=== PATIENT | male | born 1960 | race Caucasian/White ===

== ENCOUNTER 2023-04-26 19:31 | Emergency (ER) | payer BC, SELFPAY ==
[2023-04-26 19:34] VITALS: BP 135/73; PULSE 50; RESP 16; TEMP 36.8; O2SAT 96; BMI 30.8
--- NOTE | 2023-04-26 19:57 | ED.NECK1 ---
HPI - Neck Pain/Injury General Chief Complaint: Neck Pain/Injury Stated Complaint: NECK PAIN Time Seen by Provider: 04/26/23 19:53 Source: patient Mode of arrival: walk-in Limitations: no limitations History of Present Illness HPI Narrative: presents complaining of neck pain since this past Wednesday. States similar problem a couple of months ago. States improved after steroids. Was also prescribed muscle relaxers but did not feel they helped. No injury. States increased pain. No involvement of his extremities or head. Pain turning either way but can tolerate turning to the right but increased pain turning to the left. No fever. No dizziness or injury MD complaint: Reports neck pain Onset (ago): day(s) Related Data Home Medications Medication Instructions Recorded Confirmed rivaroxaban 20 mg tablet (Xarelto) mg 04/26/23 Allergies Allergy/AdvReac Type Severity Reaction Status Date / Time No Known Drug Allergies Allergy Verified 04/26/23 19:38 Review of Systems ROS Status of ROS 10 or more systems reviewed and unremarkable except as noted in history and below Ears, nose, mouth, and throat Reports: neck pain Exam Constitutional Vital Signs, click to edit/add: Last Vital Signs Temp 98.2 F 04/26/23 19:34 Pulse 50 L 04/26/23 19:34 Resp 16 04/26/23 19:34 BP 135/73 H 04/26/23 19:34 Pulse Ox 96 04/26/23 19:34 O2 Del Method Room Air 04/26/23 19:34 Common normals: average body habitus, oriented x3, no limitations, alert and well nourished HENID Common normals: normocephalic and head/scalp atraumatic Eye Common normals: PERRL, EOMs intact bilaterally and conjunctivae normal Neck & C-Spine Common normals: no JVD Other: tenderness left para cervical muscles. No swelling or deformity. Limited ability to turn head to the left due to pain Respiratory Common normals: normal respiratory effort, no retractions, no use of accessory muscles and clear to auscultation bilaterally Cardio Common normals: regular rate, regular rhythm, S1 normal heart sound and S2 normal heart sound GI Common normals: Normal to inspection, nondistended, normoactive bowel sounds present Extremity Common normals: normal to inspection, full ROM and no joint enlargement Neuro Common normals: oriented x3, CN's II-XII intact bilaterally, moves all extremities, no focal motor deficits and no sensory deficits noted Psych Appearance: grossly normal Course Vital Signs Vital signs: Vital Signs Temperature 98.2 F 04/26/23 19:34 Pulse Rate 50 L 04/26/23 19:34 Respiratory Rate 16 04/26/23 19:34 Blood Pressure 135/73 H 04/26/23 19:34 Pulse Oximetry 96 04/26/23 19:34 Oxygen Delivery Method Room Air 04/26/23 19:34 Temperature 98.2 F 04/26/23 19:34 Pulse Rate 50 L 04/26/23 19:34 Respiratory Rate 16 04/26/23 19:34 Blood Pressure 135/73 H 04/26/23 19:34 Pulse Oximetry 96 04/26/23 19:34 Oxygen Delivery Method Room Air 04/26/23 19:34 MDM - Neck Pain/Injury Differential Diagnosis Differential diagnosis: Likely torticollis and strain of neck muscle Medical Records Medical records narrative: patient clinically presents with torticollis. Similar neck pain 1-2 months ago and now has returned. No injury he is able to recall. Treated in the department with ativan, prednisone and magnesium and his pain has improved and he is now resting. Discharged home in soft collar and instructed to follow up with his doctor. Prescribed valium to use once qd prn . He states muscle relaxants last time did not help. Also prescribed prednisone Lab Data Labs: Lab Results 04/26/23 Range/Units 20:15 WBC 8.8 (4.0-11.0) 10^3/uL RBC 4.50 L (4.70-6.10) 10^6/uL Hgb 13.9 L (14.0-18.0) g/dL Hct 42.4 (42.0-54.0) % MCV 94.2 H (80.0-94.0) fL MCH 30.9 (25.9-34.0) pg MCHC 32.8 (29.9-35.2) g/dL RDW 13.5 (11.0-15.0) % Plt Count 169 (150-450) 10^3/uL MPV 10.1 (9.5-13.5) fL Neut % (Auto) 60.5 (43.0-75.0) % Lymph % (Auto) 28.4 (20.5-60.0) % [place] % (Auto) 8.5 (1.7-12.0) % Eos % (Auto) 1.5 (0.9-7.0) % Baso % (Auto) 0.8 (0.2-2.0) % Neut # (Auto) 5.3 (1.4-6.5) 10^3/uL Lymph # (Auto) 2.5 (1.2-3.8) 10^3/uL [place] # (Auto) 0.8 (0.3-0.8) 10^3/uL Eos # (Auto) 0.1 (0.0-0.7) 10^3/uL Baso # (Auto) 0.1 (0.0-0.1) 10^3/uL Abs Immat Gran (auto) 0.03 (0.00-0.03) 10^3/uL Imm/Tot Granulo (auto) 0.3 (0.0-0.5) % ESR 24 H (<=20) mm/hr Sodium 138 (136-145) mmol/L Potassium 4.2 (3.5-5.1) mmol/L Chloride 103 (98-107) mmol/L Carbon Dioxide 24.6 (21.0-32.0) mmol/L Anion Gap 14.6 BUN 17.0 (7.0-18.0) mg/dL Creatinine 1.32 H (0.70-1.30) mg/dL Est GFR ( Amer) >60 (>=60) Est GFR (Non-Af Amer) 55 L (>=60) BUN/Creatinine Ratio 12.9 Glucose 116 H (74-106) mg/dL Calcium 8.8 (8.5-10.1) mg/dL C-Reactive Protein <1.0 (<=1.0) mg/dL Discharge Plan Discharge Chief Complaint: Neck Pain/Injury Clinical Impression: Torticollis Patient Disposition: Home, Self-Care Prescriptions / Home Meds: No Action Xarelto 20 mg tablet Instructions: Spasmodic Torticollis (ED) Additional Instructions: follow up with your doctor this week for a recheck Stand Alone Forms: Portal Instructions Referrals: MORENA MARIE [Primary Care Provider] - 1 week
[2023-04-26 20:31] LABS: Basophils Absolute Auto 0.1 10^3/uL (0.0-0.1); Basophils Percent Auto 0.8 % (0.2-2.0); Eosinophils Absolute Auto 0.1 10^3/uL (0.0-0.7); Eosinophils Percent Auto 1.5 % (0.9-7.0); Hematocrit 42.4 % (42.0-54.0); Hemoglobin 13.9 g/dL (14.0-18.0); Immature Granulocytes Abs Auto 0.03 10^3/uL (0.00-0.03); Immature Granulocytes Pct Auto 0.3 % (0.0-0.5); Lymphocytes Absolute Auto 2.5 10^3/uL (1.2-3.8); Lymphocytes Percent Auto 28.4 % (20.5-60.0); Mean Corpuscular HGB Conc 32.8 g/dL (29.9-35.2); Mean Corpuscular Hemoglobin 30.9 pg (25.9-34.0); Mean Corpuscular Volume 94.2 fL (80.0-94.0); Mean Platelet Volume 10.1 fL (9.5-13.5); Monocytes Absolute Auto 0.8 10^3/uL (0.3-0.8); Monocytes Percent Auto 8.5 % (1.7-12.0); Neutrophils Absolute Auto 5.3 10^3/uL (1.4-6.5); Neutrophils Percent Auto 60.5 % (43.0-75.0); Platelet Count 169 10^3/uL (150-450); Red Cell Distribution Width 13.5 % (11.0-15.0); White Blood Count 8.8 10^3/uL (4.0-11.0)
[2023-04-26] MEDS: LORAZEPAM 2 MG/ML 1 ML VIAL 1 MG IV (20:34)
[2023-04-26] MEDS: METHYLPREDNISOLONE SOD SUCC PF 125 MG/2 ML VIAL IVP (20:34)
[2023-04-26] MEDS: MAGNESIUM SULFATE IN WATER 50 ML IV (20:35)
[2023-04-26 20:40] LABS: Erythrocyte Sedimentation Rate 24 mm/hr (<=20)
[2023-04-26 20:41] LABS: Anion Gap 14.6; BUN Creatinine Ratio 12.9; C Reactive Protein <1.0 mg/dL (<=1.0); Calcium 8.8 mg/dL (8.5-10.1); Carbon Dioxide 24.6 mmol/L (21.0-32.0); Chloride 103 mmol/L (98-107); Estimated GFR (African America >60 (>=60); Estimated GFR (Non-African Ame 55 (>=60); Glucose 116 mg/dL (74-106); Potassium 4.2 mmol/L (3.5-5.1); Sodium 138 mmol/L (136-145)
== END 2023-04-26 21:50 | disposition home or self-care (01) ==
PROVIDERS: Emergency Provider Internal Medicine; PCP Family Medicine
DX: M43.6 Torticollis (principal)
CPT/HCPCS: 36415; 80048; 85025; 85652; 86140; 96365; 96375; 99284; J2930

== ENCOUNTER 2023-05-27 19:18 | Emergency (ER) | payer BC, SELFPAY ==
[2023-05-27 19:20] VITALS: BP 110/81; PULSE 68; RESP 18; TEMP 36.9; O2SAT 98
--- NOTE | 2023-05-27 19:41 | ED_ITS ---
HPI - Neck Pain/Injury General Chief Complaint: Neck Pain/Injury Stated Complaint: NECK PAIN Time Seen by Provider: 05/27/23 19:20 Source: patient Mode of arrival: walk-in Limitations: no limitations History of Present Illness HPI Narrative: Patient is a 63-year-old male who returns to the emergency Department for pain in the right side of the neck. Patient was seen in this emergency department three months ago, he had unremarkable x-rays of the cervical spine and was discharged home. He returned one month ago for torticollis. He reports the same today, increasing neck pain over the last week. He denies any falls or injuries. He has not followed up with primary care provider after any of his previous emergency room visits. He has had no pain radiation to the upper extremities, no numbness or tingling. He reports pain to the right side of the neck radiating into the right trapezius. He is on Xarelto, no medications taken prior to arrival. Related Data Home Medications Medication Instructions Recorded Confirmed rivaroxaban 20 mg tablet (Xarelto) mg 04/26/23 Previous Rx's Medication Instructions Recorded methocarbamol 750 mg tablet 750 mg PO TID PRN pain #20 tabs 05/27/23 methylprednisolone 4 mg tablets in See Rx Instructions .Route 05/27/23 a dose pack (Medrol (Abimael)) .COMPLEX #21 ea tramadol 50 mg tablet 50 mg PO Q4H PRN pain #15 tabs 05/27/23 Allergies Allergy/AdvReac Type Severity Reaction Status Date / Time No Known Drug Allergies Allergy Verified 04/26/23 19:38 Review of Systems ROS Constitutional Denies: fever or chills Ears, nose, mouth, and throat Reports: neck pain; Denies: throat pain Cardiovascular Denies: chest pain Respiratory Denies: shortness of breath or cough Gastrointestinal Denies: nausea or vomiting Musculoskeletal Denies: back pain Integumentary/Breast Denies: rash Neurological Denies: headache Exam Narrative Exam Narrative: Gen.: Awake, alert, in no distress Head: Normocephalic, atraumatic ENT: Moist mucous membranes Neck: No bony point tenderness of the cervical spine, diffuse mild tenderness of the right paraspinal muscles of the cervical spine and right trapezius muscle. Respiratory: No respiratory distress Extremities: Moves extremities equally, no injuries noted; normal seafood manager strength in the bilateral hands, normal flexion and extension of the upper extremities. 2+ radial pulses bilaterally Psych: Normal mood and affect Neuro: No focal neuro deficit Skin: Warm, dry, intact Constitutional Vital Signs, click to edit/add: Last Vital Signs Temp 98.4 F 05/27/23 19:20 Pulse 68 05/27/23 19:20 Resp 18 05/27/23 19:20 BP 110/81 05/27/23 19:20 Pulse Ox 98 05/27/23 19:20 O2 Del Method Room Air 05/27/23 19:20 Course Vital Signs Vital signs: Vital Signs Temperature 98.4 F 05/27/23 19:20 Pulse Rate 68 05/27/23 19:20 Respiratory Rate 18 05/27/23 19:20 Blood Pressure 110/81 05/27/23 19:20 Pulse Oximetry 98 05/27/23 19:20 Oxygen Delivery Method Room Air 05/27/23 19:20 Temperature 98.4 F 05/27/23 19:20 Pulse Rate 68 05/27/23 19:20 Respiratory Rate 18 05/27/23 19:20 Blood Pressure 110/81 05/27/23 19:20 Pulse Oximetry 98 05/27/23 19:20 Oxygen Delivery Method Room Air 05/27/23 19:20 MDM - Neck Pain/Injury MDM Narrative Medical decision making narrative: Patient treated with a low dose of intramuscular Toradol in the emergency department. He is driving himself home. We will avoid any additional NSAIDs as he is on anticoagulation. He was placed on a Medrol Dosepak, Robaxin, Ultram. He was referred to a new primary care provider. He was strongly encouraged to follow-up as any further evaluation is limited from the emergency department. He has no radicular symptoms, no new falls or injuries. Return to the Emergency Room if symptoms change or worsen. Medical Records Attestation: I reviewed the patient's medical records. Discharge Plan Discharge Chief Complaint: Neck Pain/Injury Clinical Impression: Torticollis Patient Disposition: Home, Self-Care Time of Disposition Decision: 19:33 Condition: Good Prescriptions / Home Meds: New methocarbamol 750 mg tablet 750 mg PO TID PRN (Reason: pain) Qty: 20 0RF methylprednisolone [Medrol (Abimael)] 4 mg tablets,dose pack See Rx Instructions .ROUTE .COMPLEX Qty: 21 0RF Rx Instructions: Taper as directed tramadol 50 mg tablet 50 mg PO Q4H PRN (Reason: pain) Qty: 15 0RF Rx Instructions: DX: M43.6 No Action Xarelto 20 mg tablet Instructions: Neck Pain (ED) Stand Alone Forms: Portal Instructions Referrals: MORENA MARIE [Primary Care Provider] - 1 week
--- NOTE | 2023-05-27 19:41 | PC.NURSE ---
patient reports increasing neck pain for past few days. states it gets worse with movement. denies any injury. states same thing happened a few months ago and he received medication in the ER that helped at that time.
[2023-05-27] MEDS: KETOROLAC TROMETHAMINE 30 MG/ML VIAL IM (19:49)
== END 2023-05-27 19:54 | disposition home or self-care (01) ==
PROVIDERS: Emergency Provider Emergency Medicine; PCP Family Medicine
DX: M43.6 Torticollis (principal); Z79.01 Long term (current) use of anticoagulants
CPT/HCPCS: 96372; 99284

== ENCOUNTER 2024-09-16 12:45 | Emergency (ER) | payer BC, SELFPAY ==
[2024-09-16 12:48] VITALS: BP 117/85; PULSE 65; TEMP 37.3; O2SAT 99; BMI 30.6
--- NOTE | 2024-09-16 13:00 | ED.URI1 ---
HPI - URI/Sore Throat General Chief Complaint: Upper Respiratory Infection Stated Complaint: urti complaints Time Seen by Provider: 09/16/24 12:51 Source: patient Limitations: no limitations History of Present Illness HPI Narrative: 64-year-old male presents for head congestion and slight cough. He feels pressure in his face and in his ears and he is worried about a sinus infection. He feels that he needs an antibiotic. He has had the symptoms for 10 days; no fever or vomiting. Related Data Home Medications ?Medication ?Instructions ?Recorded ?Confirmed rivaroxaban 20 mg tablet (Xarelto) mg 04/26/23 Previous Rx's ?Medication ?Instructions ?Recorded methocarbamol 750 mg tablet 750 mg PO TID PRN pain #20 tabs 05/27/23 methylprednisolone 4 mg tablets in See Rx Instructions .Route 05/27/23 a dose pack (Medrol (Abimael)) .COMPLEX #21 ea tramadol 50 mg tablet 50 mg PO Q4H PRN pain #15 tabs 05/27/23 cetirizine 5 mg-pseudoephedrine ER 1 tab PO BID #14 tabs 09/16/24 120 mg tablet,extended release,12hr (Zyrtec-D) sulfamethoxazole 800 1 tab PO BID 10 days #20 tabs 09/16/24 mg-trimethoprim 160 mg tablet (Bactrim DS) Allergies Allergy/AdvReac Type Severity Reaction Status Date / Time No Known Drug Allergies Allergy Verified 09/16/24 12:53 Review of Systems ROS Narrative A ten point review of systems is negative except as noted above. PFSH PFSH Social History Little interest or pleasure in doing things: not at all Feeling down, depressed, or hopeless: not at all Exam Narrative Exam Narrative: Nurses note and vital signs reviewed and patient is not hypoxic. General: The patient appears well and in no apparent distress. Patient is resting comfortably on cart. Skin: Warm, dry, no pallor noted. There is no rash noted. Head: Normocephalic, atraumatic Eye: Normal conjunctiva, no drainage Ears, Nose, Mouth, and Throat: oral mucosa is moist. Nares patent. TMs and external canals are normal. No pharyngeal erythema or exudate or swelling. Uvula midline. Cardiovascular: Regular Rate and Rhythm Respiratory: Patient is in no distress, no accessory muscle use, lungs are clear to auscultation, no wheezing, rales or rhonchi Back: non-tender GI: Soft and nontender Musculoskeletal: The patient has no evidence of calf tenderness, no pitting edema, symmetrical pulses noted bilaterally Neurological: A&O, normal speech Psychiatric: Cooperative Constitutional Vital Signs, click to edit/add: Last Vital Signs Temp 99.1 F 09/16/24 12:48 Pulse 65 09/16/24 12:48 Resp 20 09/16/24 12:48 BP 117/85 09/16/24 12:48 Pulse Ox 99 09/16/24 12:48 O2 Del Method Room Air 09/16/24 12:48 Course Vital Signs Vital signs: Vital Signs Temperature 99.1 F 09/16/24 12:48 Pulse Rate 65 09/16/24 12:48 Respiratory Rate 20 09/16/24 12:48 Blood Pressure 117/85 09/16/24 12:48 Pulse Oximetry 99 09/16/24 12:48 Oxygen Delivery Method Room Air 09/16/24 12:48 Temperature 99.1 F 09/16/24 12:48 Pulse Rate 65 09/16/24 12:48 Respiratory Rate 20 09/16/24 12:48 Blood Pressure 117/85 09/16/24 12:48 Pulse Oximetry 99 09/16/24 12:48 Oxygen Delivery Method Room Air 09/16/24 12:48 MDM - URI/Sore Throat MDM Narrative Medical decision making narrative: The patient likely has sinusitis. He is prescribed Bactrim and Zyrtec-D. Treatment diagnosis and follow-up were discussed with the patient. Differential Diagnosis Differential diagnosis: Likely upper respiratory infection, otitis media, sinusitis, viral infection and bronchitis Discharge Plan Discharge Chief Complaint: Upper Respiratory Infection Clinical Impression: Upper respiratory infection Patient Disposition: Home, Self-Care Time of Disposition Decision: 12:58 Condition: Good Mode of Transportation: Private Vehicle Prescriptions / Home Meds: New sulfamethoxazole-trimethoprim [Bactrim DS] 800-160 mg tablet 1 tab PO BID 10 Days Qty: 20 0RF cetirizine-pseudoephedrine [Zyrtec-D] 5-120 mg tablet extended release 12 hr 1 tab PO BID Qty: 14 0RF No Action Xarelto 20 mg tablet methocarbamol 750 mg tablet 750 mg PO TID PRN (Reason: pain) Qty: 20 0RF methylprednisolone [Medrol (Abimael)] 4 mg tablets,dose pack See Rx Instructions .ROUTE .COMPLEX Qty: 21 0RF Rx Instructions: Taper as directed tramadol 50 mg tablet 50 mg PO Q4H PRN (Reason: pain) Qty: 15 0RF Rx Instructions: DX: M43.6 Print Language: Upper Sorbian Instructions: Upper Respiratory Infection (ED) Referrals: MORENA MARIE [Primary Care Provider] - 1 week
[2024-09-16 13:09] VITALS: O2SAT 98
== END 2024-09-16 13:14 | disposition home or self-care (01) ==
PROVIDERS: Emergency Provider Emergency Medicine; PCP Family Medicine
DX: J06.9 Acute upper respiratory infection, unspecified (principal)
CPT/HCPCS: 99283

== ENCOUNTER 2025-08-03 07:01 | Outpatient (OUT) | payer BC, SELFPAY ==
--- OUTSIDE RECORDS SUMMARY | 2025-07-27 07:06 | XMS_ITS | Clinical Summary ---
Author Organization [facility] Address [address] [place] [address] Care Team Providers Care Page Makeup System Operator Name Role Phone Yunier Simpson MD Primary Care Provider [phone] Allergies No known active allergies Medications Rivaroxaban (Xarelto) 1 MG/ML reconstituted suspension Xarelto Active Social History Tobacco Use Types Packs/Day Years Used Date Smoking Tobacco: Never Assessed Sex and Gender Information Value Date Recorded Sex Assigned at Not on file Legal Sex Male 7:01 PM EDT Gender Identity Not on file Sexual Orientation Not on file Last Filed Vital Signs Vital Sign Reading Time Taken Comments Blood Pressure 116/62 11/16/2024 10:00 AM EST Pulse 75 11/16/2024 10:00 AM EST Temperature 36.2 C (97.2 F) 11/16/2024 10:00 AM EST Respiratory Rate - - Oxygen Saturation 98% 11/16/2024 10:00 AM EST Inhaled Oxygen Concentration - - Weight 108 kg (239 lb) 12/26/2021 12:00 PM EDT Height 185.4 cm (6' 1 ) 12/26/2021 12:00 PM EDT Body Mass Index 31.53 12/26/2021 12:00 PM EDT Plan of Treatment Not on file Insurance * Guarantor: Forrest Serrano Account Type Relation to Patient Date of Phone Billing Address Personal/Family Self [address] [place] [id number] BS Care Teams Page Makeup System Operator Relationship Specialty Start Date End Date Yunier Simpson MD [address] [place] [address] PCP - General Family Medicine 11/16/24
--- OUTSIDE RECORDS SUMMARY | 2025-07-27 07:06 | XMS_ITS | Encounter Summary ---
Author Organization [facility] Address [address] [place] [id number] Care Team Providers Care Aids Social Worker Name Role Phone Yunier Simpson Primary Care Provider [phone] Source Comments In the event this information is protected by the Federal Confidentiality of Alcohol and Drug AbusePatient Records regulations: The Federal rules restrict any use of the information to criminally investigate or prosecute any alcohol or drug abuse patient.[facility] Encounter Details Date Type Department Care Team (Late st Contact Info) Description 02/27/2022 Patient Msg Orthopaedics [address] [id number] Provider, [facility] Back to work Social History Tobacco Use Types Packs/Day Years Used Date Smoking Tobacco: Never Smokeless Tobacco: Never Alcohol Use Standard Drinks/Week Comments Not Currently 0 (1 standard drink = 0.6 oz pur e alcohol) rare Area Deprivation Index Answer Date Michael rded National Score (1-100), lower number is lower ri sk 60 02/27/2022 State Score (1-10), lower number is lower risk N ot on file 02/27/2022 Data from: https://www.neighborhoodatlas.medicine.[facility].edu/. Last address used for calculation [address] [place] [address] 02/27/2022 Sex and Gender Information Value Date Recorded Sex Assigned at Not on file Legal Sex Male 10:09 AM EDT Gender Identity Not on file Sexual Orientation Not on file COVID-19 Exposure Response Date Recorded In the last 10 days, have yo u been in contact with someone who was confirmed or suspected to have Coronavirus/COVID-19? No / Unsure 02/27/2022 8:31 AM EDT documented as of this encounter Plan of Treatment Not on file documented as of this encounter Visit Diagnoses Not on filedocumented in this encounter Care Teams Aids Social Worker Relationship Specialty Start Date End Date Yunier Simpson DO [address] [place] [address] PCP - General Family Medicine 12/30/21 documented as of this encounter
--- OUTSIDE RECORDS SUMMARY | 2025-07-27 07:06 | XMS_ITS | Encounter Summary ---
Author Organization [facility] Address [address] [place] [address] Care Team Providers Care Real Estate Leasing Agent Name Role Phone KarisydniYunier DO Primary Care Provider [phone] Source Comments In the event this information is protected by the Federal Confidentiality of Alcohol and Drug AbusePatient Records regulations: The Federal rules restrict any use of the information to criminally investigate or prosecute any alcohol or drug abuse patient.[facility] Reason for Visit * Reason Comments Radiology XR Encounter Details Date Type Department Care Team (Late st Contact Info) Description 01/23/2022 Radiology Radiology [address] [place], [place] [id number] Rosa Conklin RT(R) Radiology XR Social History Tobacco Use Types Packs/Day Years Used Date Smoking Tobacco: Never Smokeless Tobacco: Never Sex and Gender Information Value Date Recorded Sex Assigned at Not on file Legal Sex Male 10:09 AM EDT Gender Identity Not on file Sexual Orientation Not on file documented as of this encounter Progress Notes * Rosa Conklin RT(R) - 01/23/2022 10:07 AM EDT Radiology Service Progress Note PATIENT NAME: Forrest Serrano DATE OF SERVICE: January 23, 2022 TIME: 10:07 AM PATIENT IDENTITY VERIFICATION COMPLETED USING TWO (2) IDENTIFIERS: Name and Date of confirmedby patient verbally. FALL SCREENING: Has the patient had 2 falls in the last year or 1 fall with injury or currently using an Ambulatory Assistive Device (Walker, Cane, Wheelchair, Crutches, etc.)? No PATIENT GENDER DATA: Male PATIENT RELEVANT IMPLANT DATA REVIEWED: Not Applicable RADIOLOGY DEPARTMENT: General X-ray: Exam(s) Completed: Upper Extremity X- Ray(s): Shoulder, AP / TRUE AP / AXILLARY / SUPRA OUTLET right PERIPHERAL IV DATA: Not applicable SIGNED BY: RT Danis(R) January 23, 2022 10:07 AM documented in this encounter Plan of Treatment Not on file documented as of this encounter Visit Diagnoses Not on filedocumented in this encounter Care Teams Real Estate Leasing Agent Relationship Specialty Start Date End Date Yunier Simpson DO [address] [place] [address] PCP - General Family Medicine 12/30/21 documented as of this encounter
--- OUTSIDE RECORDS SUMMARY | 2025-07-27 07:06 | XMS_ITS | Clinical Summary ---
Author Organization [facility] Address [address] [place] [address] Care Team Providers Care Glass Robot Operator Name Role Phone Yunier Simpson DO Primary Care Provider [phone] Allergies No known active allergies Medications metFORMIN (GLUCOPHAGE) 500 mg tablet Take 500 mg by mouth. 09/22/2021 Active metoprolol tartrate, short acting, (LOPRESSOR) 50 mg tablet Take 50 mg by mouth once daily. 12/20/2021 Active XARELTO 10 mg tablet 20 mg. 12/20/2021 Active Active Problems Problem Noted Date Diagnosed Date S/P right rotator cuff repair 06/04/2022 Rapid atrial fibrillation 02/11/2022 Assessment & Plan (02/11/2022 12:15 PM EDT): Assessment: -Stable EKG NSR today Continue- Xarelto and Metoprolol [place] [facility] [place] DM2 (diabetes mellitus, type 2) 02/11/2022 Assessment & Plan (02/11/2022 12:17 PM EDT): Assessment: Stable On metformin Traumatic complete tear of right rotator cuff Nondisplaced fracture of acr omial process, right shoulder, initial encounter for closed fracture 01/31/2022 Glenoid fracture of shoulder , right, closed, initial encounter 01/31/2022 Social History Tobacco Use Types Packs/Day Years Used Date Smoking Tobacco: Never Smokeless Tobacco: Never Alcohol Use Standard Drinks/Week Comments Not Currently 0 (1 standard drink = 0.6 oz pur e alcohol) [facility] Area Deprivation Index Answer Date Michael rded National Score (1-100), lower number is lower ri sk 60 10/23/2022 State Score (1-10), lower number is lower risk N ot on file 10/23/2022 Data from: https://www.neighborhoodatlas.medicine.[facility]/. Last address used for calculation [address] 10/23/2022 Sex and Gender Information Value Date Recorded Sex Assigned at Not on file Legal Sex Male 10:09 AM EDT Gender Identity Not on file Sexual Orientation Not on file Last Filed Vital Signs Vital Sign Reading Time Taken Comments Blood Pressure 111/61 02/13/2022 8:42 PM EDT Pulse 88 02/13/2022 8:42 PM EDT Temperature 36.4 C (97.5 F) 02/13/2022 8:16 PM EDT Respiratory Rate 16 02/13/2022 8:42 PM EDT Oxygen Saturation 93% 02/13/2022 8:42 PM EDT Inhaled Oxygen Concentration - - Weight 108 kg (238 lb) 02/13/2022 11:14 AM EDT Height 190.5 cm (6' 3 ) 02/13/2022 11:14 AM EDT Body Mass Index 29.75 02/13/2022 11:14 AM EDT Plan of Treatment Health Maintenance Due Date Last Done Comments HbA1C 1967 Diabetic Foot Exam 01/10/1972 Dilated Retinal Exam 01/10/1972 Urine Albumin:Creatinine Ratio 01/10/1972 Annual PCP Team Chronic Disease Visit 01/10/1980 Anxiety Screening 01/10/1980 Depression Screening 01/10/1980 HIV Screening 01/10/1980 Hepatitis C Screening 01/10/1980 LDL Cholesterol 01/10/1980 DTaP,Tdap,Td Vaccine (1 - Tdap) 1981 Pneumococcal Vaccine: 50+ (1 of 2 - PCV) 1981 CT Colonography 2007 Cologuard (FIT-DNA) 2007 Colonoscopy 2007 Colorectal Cancer Screening 2007 Fecal Occult Blood 2007 Prostate Cancer Screening Discussion 2007 Sigmoidoscopy 2007 Shingrix Vaccine (1 of 2) 01/10/2012 Covid-19 Vaccine ( - season) 2025 Influenza Vaccine (#1) 2025 RSV Vaccine (1 - 1-dose 75+ series) 2037 Medical Devices Implanted Type Area Break Out Worker Device Identifier Shelf Expiration Date Model / Serial / Lot System Speedbridge Fibertape Swivelock 5.5mm Biocomposite 24mm Endoscopic - [id number] Implanted:Qty: 1 on 02/13/2022 at [facility] Implant Right: Bone - Shoulder [employer] 08/10/2025 [id number] S-5 / / [id number] System Speedbridge Fibertape Swivelock 5.5mm Biocomposite 24mm Endoscopic - [id number] Implanted:Qty: 1 on 02/13/2022 at [facility] Implant Right: Bone - Shoulder [employer] 08/10/2025 [id number] S-5 / / [id number] Insurance [address] PPO Care Teams Glass Robot Operator Relationship Specialty Start Date End Date Yunier Simpson DO [address] [facility] [place] [address] PCP - General Family Medicine 12/30/21
--- OUTSIDE RECORDS SUMMARY | 2025-07-27 07:06 | XMS_ITS | Encounter Summary ---
Author Organization [facility] Address [address] [place] [id number] Care Team Providers Care Pool Attendant Name Role Phone Yunier Simpson Primary Care Provider [phone] Source Comments In the event this information is protected by the Federal Confidentiality of Alcohol and Drug AbusePatient Records regulations: The Federal rules restrict any use of the information to criminally investigate or prosecute any alcohol or drug abuse patient.[facility] Encounter Details Date Type Department Care Team (Late st Contact Info) Description 02/01/2022 Get Medical Advice Orthopaedics [address] [place] [address] [place] [address] [place] [id number] Anesthesia appointment Social History Tobacco Use Types Packs/Day Years [...] suspected to have Coronavirus/COVID-19? No / Unsure 02/04/2022 4:27 PM EDT documented as of this encounter Plan of Treatment Not on file documented as of this encounter Visit Diagnoses Not on filedocumented in this encounter Care Teams Pool Attendant Relationship Specialty Start Date End Date Yunier Simpson DO [address] [place] [address] PCP - General Family Medicine 12/30/21 documented as of this encounter
--- OUTSIDE RECORDS SUMMARY | 2025-07-27 07:06 | XMS_ITS | Clinical Summary ---
Author Organization [facility] Address [address] [place] [phone] Care Team Providers Care Store Operations Associate Name Role Phone Unavailable Primary Care Provider Unavailabl e Allergies No known active allergies Medications Xarelto 20 MG tablet Take 1 tablet by mouth every evening. 10/08/2023 Active Latanoprost 0.005 % Solution ophthalmic solution Place 1 drop in both eyes at bedtime. 11/26/2023 Active Methocarbamol 750 MG tablet Take 1 tablet by mouth 4 times daily as needed for Muscle spasms or Severe Pain. 30 tablet 3 12/09/2023 Active Active Problems Problem Noted Date Diagnosed Date Bilateral occipital neuralgia 12/20/2023 Cervicogenic headache 12/20/2023 DM2 (diabetes mellitus, type 2) 02/11/2022 Overview (12/09/2023): Last Assessment & Plan: Assessment: Stable On metformin Family History Medical History Relation Name Comments Heart Disease - Other Father Sanket Pryor Colorectal Cancer Mother Sridevi Pryor Dementia Mother Sridevi Pryor Heart Disease - Other Mother Sridevi Pryor A-Fib Relation Name Status Comments Father Sanket Pryor Mother Sridevi Pryor Social History Tobacco Use Types Packs/Day Years Used Date Smoking Tobacco: Never Tobacco Cessation:Counseling Given: Not Answered Alcohol Use Standard Drinks/Week Comments Yes 0 (1 standard drink = 0.6 oz pur e alcohol) Occasional beer Sex and Gender Information Value Date Recorded Sex Assigned at Not on file Legal Sex Male 9:56 AM EST Gender Identity Male 10/21/2023 5:20 PM EST Sexual Orientation Not on file Last Filed Vital Signs Vital Sign Reading Time Taken Comments Blood Pressure 129/76 12/09/2023 11:07 AM EST Pulse 87 12/09/2023 11:07 AM EST Temperature - - Respiratory Rate - - Oxygen Saturation - - Inhaled Oxygen Concentration - - Weight 116.7 kg (257 lb 3.2 oz) 024 11:07 AM EST Height 190.5 cm (6' 3 ) 12/09/2023 11:0 7 AM EST Body Mass Index 32.15 12/09/2023 11:07 AM EST Plan of Treatment Health Maintenance Due Date Last Done Comments HEPATITIS C VIRUS SCREENING 1962 TETANUS 1962 HIV SCREENING DISCUSSION 1977 TDAP (ADULT) 1981 LIPID SCREENING 2002 COLORECTAL CANCER SCREENING DISCUSSION 2007 PNEUMOCOCCAL VACCINE SERIES (1 of 1 - PCV) 01/10/2012 ZOSTER (SHINGLES) VACCINE (1 of 2) 01/10/2012 PROSTATE CANCER SCREENING DISCUSSION 2017 COVID-19 VACCINE ( - 2024-2 6 season) 2025 INFLUENZA VACCINE (#1) 2025 RSV VACCINE (1 - 1-dose 75+ series) 2037 HEP B VACCINE Aged Out No longer elig ible based on patient's age to complete this topic Insurance O PPO POS
--- OUTSIDE RECORDS SUMMARY | 2025-07-27 07:07 | XMS_ITS | CCD ---
Author Organization [facility] Care Team Providers Care Retail Shift Manager Name Role Phone CAMRYN MERAZ Unavailable Unavailable CAMRYN MERAZ Unavailable Unavailable ROLANDO LOWE Unavailable Unavailable HELLEN VERA Unavailable Unavailable HAY, JENNIFER Unavailable Unavailable HAY, JENNIFER Unavailable Unavailable REQUEST, NONE LISTED Unavailable Unavailable KVNG HENDERSON V Unavailable Unavailable MERY, JENNIFER Unavailable Unavailable Yunier Simpson DO Primary Care Provider [phone] Yunier SIMPSON Primary Care Physician Yunier Simpsno DO Primary Care Provider Yunier Simpson DO Primary Care Provider [phone] RONAL NAGY Referring Unavailable FRANK, YUNIER A Primary Care Unavailable AMBRIZ, FELIZ Attending Unavailable KAPMADALYN, YUNIER A Primary Care Unavailable RICCHETTI, KATIE T Attending Unavailable AMBRIZ, FELIZ Referring Unavailable FRANK, YUNIER A Primary Care Unavailable KAPMADALYN, YUNIER A Primary Care Unavailable KAPMADALYN, YUNIER A Primary Care Unavailable RICCHETTI, KATIE T Referring Unavailable KAPMADALYN, YUNIER A Primary Care Unavailable RICCHETTI, KATIE T Referring Unavailable RICCHETTI, KATIE T Attending Unavailable FRANK, YUNIER A Primary Care Unavailable RICCHETTI, KATIE T Attending Unavailable KAPLE, YUNIER A Primary Care Unavailable RICCHETTI, KATIE T Referring Unavailable KAPLE, YUNIER A Primary Care Unavailable KAPLE, YUNIER A Primary Care Unavailable RICCHETTI, KATIE T Attending Unavailable RICCHETTI, KATIE T Admitting Unavailable KAPLE, YUNIER A Primary Care Unavailable RICCHETTI, KATIE T Referring Unavailable RenaJessie degroot Referring Unavailable Jessie Chase Attending Unavailable Unlisted, Physician Primary Care Unavailable Mary Ellen Weiner Unavailable RAMÍREZ HACKETT Attending Unavailable YUNIER SIMPSON Referring Unavailable Unavailable Primary Care Provider Unavailabl e Yunier Simpson DO Primary Care Provider [phone] Yunier SIMPSON Admitting Unavailable KAPYunier BERGMAN Attending Unavailable KAPYunier BERGMAN Attending Unavailable KAPMADALYN, Yunier Macdonald Attending Unavailable KAPMADALYN, Yunier Macdonald Attending Unavailable NONE, XXXX Referring Unavailable Arya Lisa Attending Unavaila Yunier Meza Admitting Unavailable Yunier SIMPSON Attending Unavailable SYDNI KABA Attending Unavailable SYDNI KABA Referring Unavailable Yunier Simpson MD Primary Care Provider Yunier Simpson DO Primary Care Provider [phone] Tri Berger APRN Attending Provider Yunier SIMPSON Attending Unavailable OPAL, YUNIER H Admitting Unavailable OPALYUNIER H Attending Unavailable Yunier SIMPSON Admitting Unavailable Yunier SIMPSON Attending Unavailable KAPMADALYN, Yunier Macdonald Attending Unavailable KAPMADALYN, Yunier Macdonald Attending Unavailable OPAL, YUNIER H Attending Unavailable OPALYUNIER H Admitting Unavailable Allergies Allergy Classification Reported Allergen(s) Allergy Type Date of Onset Reaction(s) Facility (1 source) No Known Medication Allergies; Translations: [No Known Medication Allergies] Propensity to adverse reactions to drug (disorder) [facility] Medications Current Medications Medication Drug Class(es) Dates Sig (Normalized) Sig (Original) albuterol 5 mg/ml inhalation solution (2 sources) beta2-Adrenergic Agonist Start: 10-06-2024 take 2.5 mg by inhalation every four hours for wheezing albuterol 0.5% Inh Salena 2.5 mg, 0.5 mL, Inhalation, q4hr for wheezing, 20 mL, Refill(s) 0, [facility]/pharmacy #[id number], 190, cm, 09/29/24 8:35:00 EST, Height/Length Dosing, 116.2, kg, 09/29/24 8:35:00 EST, Weight Dosing Start Date: 10/06/24 Status: Ordered Quantity: 20.0 Unit: mL Repeat number: 1 amoxicillin 500 mg oral capsule (2 sources) Penicillin-class Antibacterial Start: 10-31-2022 take 1 capsule by mouth every eight hours Amoxicillin 500 MG 1 capsule Orally three times a day for 10 day(s) Oct, Active amoxicillin 875 mg / clavulanate 125 mg oral tablet (1 source) Penicillin-class Antibacterial Start: 09-29-2024 End: 10-09-2024 take 1 tablet by mouth every twelve hours Augmentin 875 mg oral tablet = 1 tab(s), Oral, q12hr, X 10 day(s), # 20 tab(s), Refills(s) 0, Pharmacy: [facility]/pharmacy #[id number], 190, cm, 09/29/24 8:35:00 EST, Height/Length Dosing, 116.2, kg, 09/29/24 8:35:00 EST, Weight Dosing Start Date: 09/29/24 Stop Date: 10/09/24 Status: Ordered azithromycin 250 mg oral tablet (2 sources) Macrolide Antimicrobial Start: 11-09-2022 Azithromycin 250 MG 2 tablet on the first day, then 1 tablet daily for 4 days Orally Once a day for 5 day(s) Oct, Active carBAMazepine 200 mg oral tablet (1 source) Mood Stabilizer Start: 08-20-2023 take 1 tablet by mouth once at bedtime TEGretol 200 mg Tab See Instructions, 1 tab(s) Oral q hs, # 30 EA, Refills(s) 11, Pharmacy: [facility]/pharmacy #[id number], 190, cm, 08/20/23 9:32:00 EST, Height/Length Dosing, 115.3, kg, 08/20/23 9:32:00 EST, Weight Dosing Start Date: 08/20/23 Status: Ordered citalopram 20 mg oral tablet (2 sources) Serotonin Reuptake Inhibitor Start: 08-21-2023 take 1 tablet by mouth once daily citalopram 20 mg Tab 20 mg = 1 tab(s), Oral, Daily, # 90 tab(s), Refills(s) 1, Pharmacy: [facility]/pharmacy #[id number], 190, cm, 08/20/23 9:32:00 EST, Height/Length Dosing, 115.3, kg, 08/20/23 9:32:00 EST, Weight Dosing Start Date: 08/21/23 Status: Ordered docusate sodium 100 mg oral capsule (2 sources) Start: 02-12-2022 End: 03-14-2022 take 1 capsule by mouth twice daily docusate sodium (COLACE) 100 mg capsule Take 1 capsule by mouth twice daily. 60 capsule 0 02/12/2022 03/14/2022 Active Comment on above: Take 1 capsule by [facility] twice daily. fluticasone propionate 0.05 mg/actuat metered dose nasal spray (5 sources) Corticosteroid Start: 09-29-2024 Flonase 0.05 mg/inh Hinton 2 spray(s), Nasal, Daily, 16 gram, Refill(s) 0, each nostril, [facility]/pharmacy #[id number], 190, cm, 09/29/24 8:35:00 EST, Height/Length Dosing, 116.2, kg, 09/29/24 8:35:00 EST, Weight Dosing Start Date: 09/29/24 Status: Ordered Quantity: 16.0 Unit: g Repeat number: 1 Start: 09-29-2024 Flonase 0.05 m g/inh Hinton 2 spray(s), Nasal, Daily, 16 gram, Refill(s) 0, each nostril, [facility]/pharmacy #[id number], 190, cm, 09/29/24 8:35:00 EST, Height/Length Dosing, 116.2, kg, 09/29/24 8:35:00 EST, Weight Dosing Start Date: 09/29/24 Status: Ordered Start: 11-09-2022 take 2 spray(s) nasa l route once daily Fluticasone Propionate 50 MCG/ACT 2 sprays Nasally Once a day for 14 day(s) Oct, Active hydrocortisone 10 mg/ml / neomycin 3.5 mg/ml / polymyxin b [id number] unt/ml otic suspension (2 sources) Aminoglycoside Antibacterial, Polymyxin-class Antibacterial, Corticosteroid Start: 10-31-2022 Zkerknih-Uascfbvmw-AH [id number] 3 drops left ear Three times a day for 7 days Oct, Active Ipratropium (2 sources) Anticholinergic Start: 10-24-2024 Atrovent 0.03% Hinton 2 spray(s), Nasal, TID, 30 mL, Refill(s) 0, [facility], 190, cm, 10/24/24 13:58:00 EST, Height/Length Dosing, 115.8, kg, 10/24/24 13:58:00 EST, Weight Dosing Start Date: 10/24/24 Status: Ordered Quantity: 30.0 Unit: mL Repeat number: 1 Indication: Unspecified Eustachian tube disorder, unspecified ear Start: 10-24-2024 Atrovent 0.03% Hinton 2 spray(s), Nasal, TID, 30 mL, Refill(s) 0, [facility], 190, cm, 10/24/24 13:58:00 EST, Height/Length Dosing, 115.8, kg, 10/24/24 13:58:00 EST, Weight Dosing Start Date: 10/24/24 Status: Ordered latanoprost 0.05 mg/ml ophthalmic solution (9 sources) Prostaglandin Analog Start: 09-12-[address] 0.005 % drops Active DROPS OPHTHALMIC September 12, 2024 1:00am Complies with drug therapy Start: 12-17-2023 latanoprost Op th 0.005% Salena 1 drop(s), OPTH, Once a day (at bedtime) Start Date: 12/17/23 Status: Ordered Repeat number: 1 Start: 11-26-2023 take 1 drop(s) into the eye(s) at bedtime Latanoprost 0.005 % Solution ophthalmic solution Place 1 drop in both eyes at bedtime. 11/26/2023 Active metFORMIN hydrochloride 500 mg oral tablet (11 sources) Biguanide Start: 09-22-2021 End: 03-21-2022 metFORMIN (GLUCOPHAGE) 500 mg tablet Take 500 mg by mouth. 09/22/2021 Active Comment on above: Take 500 mg by mouth . methocarbamol 750 mg oral tablet (1 source) Muscle Relaxant Start: 12-09-2023 take 1 tablet by mouth four times daily as needed for pain Methocarbamol 750 MG tablet Take 1 tablet by mouth 4 times daily as needed for Muscle spasms or Severe Pain. 30 tablet 3 12/09/2023 Active methylPREDNISolone 4 mg oral tablet (9 sources) Corticosteroid Start: 10-24-2024 Medrol Dosepack 4 mg Tab = 1 packet(s), Oral, As Directed, as directed on package labeling, # 21 tab(s), Refills(s) 2, Pharmacy: [facility], 190, cm, 10/24/24 13:58:00 EST, Height/Length Dosing, 115.8, kg, 10/24/24 13:58:00 EST, Weight Dosing Start Date: 10/24/24 Status: Ordered Quantity: 21.0 Unit: tab(s) Repeat number: 3 Indication: Unspecified Eustachian tube disorder, unspecified ear Start: 08-20-2023 Medrol Dosepac k 4 mg Tab = 1 tab(s), Oral, As Directed, Take as directed on pack, # 1 EA, Refills(s) 2, Pharmacy: [facility]/pharmacy #[id number], 190, cm, 08/20/23 9:32:00 EST, Height/Length Dosing, 115.3, kg, 08/20/23 9:32:00 EST, Weight Dosing Start Date: 08/20/23 Status: Ordered Start: 08-29-2015 Depo-Medrol 40 mg Aug, 40 mg Medrol 4 MG as d irected Orally as directed for 6 days Active metoprolol tartrate 50 mg oral tablet (16 sources) beta-Adrenergic Dinesh Start: 01-26-2022 take 1 tablet by mouth twice daily Metoprolol tartrate 50 mg Tab 50 mg = 1 tab(s), Oral, BID, # 180 tab(s), Refills(s) 3, Pharmacy: [facility]/pharmacy #[id number], 190, cm, 01/01/22 15:19:00 EDT, Height/Length Dosing, 105, kg, 01/01/22 15:19:00 EDT, Weight Dosing Start Date: 01/26/22 Status: Ordered Start: 12-20-2021 take 1 tablet by hraika th once daily metoprolol tartrate, short acting, (LOPRESSOR) 50 mg tablet Take 50 mg by mouth once daily. 12/20/2021 Active Start: 12-20-2021 take 1 tablet by harika th twice daily metoprolol tartrate, short acting, (LOPRESSOR) 50 mg tablet Take 50 mg by mouth twice daily. 0 12/20/2021 Active Comment on above: Take 50 mg by mouth twice daily. Take 50 mg by mouth once daily. OneTouch Ultra - (2 sources) OneTouch Ultra - In Vitro for 90 Active oxyCODONE hydrochloride 5 mg oral tablet (1 source) Opioid Agonist Start: 2 End: 2 take 1 tablet by mouth every six hours as needed for pain oxyCODONE IR (ROXICODONE) 5 mg immediate release tablet Indications: Traumatic complete tear of right rotator cuff, subsequent encounter Take 1 tablet by mouth every 6 hours as needed for pain for up to 10 days. 35 tablet 0 02/12/2022 02/22/2022 Active Comment on above: Take 1 tablet by harika th every 6 hours as needed for pain for up to 10 days. rivaroxaban 20 mg oral tablet (20 sources) Factor Xa Inhibitor Start: 3 End: 5 take 1 tablet by mouth once daily Rivaroxaban (Xarelto) 20 mg tablet Active 20 MG PO Daily September 12, 2024 1:00am Complies with drug therapy Start: 01-14-2022 End: 2023 take 1 tablet by mouth once daily in the evening Xarelto 20 mg oral tablet 20 mg, Oral, qPM, AFIB and CrCl over 50 mL/minute - Take with evening meal, X 90 day(s), # 90 tab(s), Refills(s) 3, Pharmacy: [facility]/pharmacy #[id number], 190, cm, 01/01/22 15:19:00 EDT, Height/Length Dosing, 105, kg, 01/01/22 15:19:00 EDT, Weight Dosing Start Date: 01/14/22 Stop Date: 01/09/23 Status: Ordered Start: 12-20-2021 XARELTO 10 mg tablet 20 mg. 12/20/2021 Active Start: 12-20-2021 XARELTO 10 mg tablet Xarelto Active Comment on above: 20 mg. Rivaroxaban (Xarelto) 1 MG/M L reconstituted suspension (3 sources) Rivaroxaban (Xar elto) 1 MG/ML reconstituted suspension Xarelto Active Completed/Discontinued Medications Medication Drug Class(es) Dates Sig (Normalized) Sig (Original) cefTRIAXone (2 sources) Cephalosporin Antibacterial Start: 01-13-2018 Rocephin 500 mg Jan, 500 mg doxycycline monohydrate 100 mg oral tablet (4 sources) Tetracycline-class Drug Start: 11-16-2024 End: 11-26-2024 take 1 tablet by mouth once doxycycline (Adoxa) 100 MG tablet Indications: Acute cough Take 1 tablet (100 mg) by mouth every 12 (twelve) hours for 10 days Take with a full glass of water and do not lie down for at least 30 minutes after, avoid sun exposure 20 tablet 11/16/2024 11/26/2024 Start: 02-13-2022 End: 02-23-2022 take 1 capsule by mouth twice daily doxycycline hyclate (VIBRAMYCIN) 100 mg capsule Take 1 capsule by mouth twice daily for 10 days. 20 capsule 0 02/13/2022 02/23/2022 Active Comment on above: Take 1 capsule by [facility] twice daily for 10 days. Glucometer (18 sources) Start: 07-10-2021 Glucometer Glucometer, See Instructions, 1 EA, 0, Glucometer, [facility]/pharmacy #[id number], Supply, 190, cm, 06/27/21 15:40:00 EDT, Height/Length Dosing, 112, kg, 06/27/21 15:40:00 EDT, Weight Dosing Start Date: 07/10/21 Status: Ordered Quantity: 1.0 Unit: EA Repeat number: 1 Indication: Type 2 diabetes mellitus without complications Start: 07-10-2021 Glucometer Glu cometer, See Instructions, 1 EA, 0, Glucometer, [facility]/pharmacy #[id number], Supply, 190, cm, 06/27/21 15:40:00 EDT, Height/Length Dosing, 112, kg, 06/27/21 15:40:00 EDT, Weight Dosing Start Date: 07/10/21 Status: Ordered nebulizer (2 sources) Start: 10-13-2024 nebulizer nebu lizer, See Instructions, 1 EA, 0, nebulizer machine for med=neb treatments, [facility] #72, Supply, 190, cm, 09/29/24 8:35:00 EST, Height/Length Dosing, 116.2, kg, 09/29/24 8:35:00 EST, Weight Dosing Start Date: 10/13/24 Status: Ordered Quantity: 1.0 Unit: EA Repeat number: 1 Start: 10-13-2024 nebulizer nebu lizer, See Instructions, 1 EA, 0, nebulizer machine for med=neb treatments, [facility] #[facility], Supply, 190, cm, 09/29/24 8:35:00 EST, Height/Length Dosing, 116.2, kg, 09/29/24 8:35:00 EST, Weight Dosing Start Date: 10/13/24 Status: Ordered Problems Active Problems Problem Classification Problem Date Documented Da te Episodic/Chronic Aortic; peripheral; and visceral artery aneurysms (20 sources) Ascending aorta dilatation; Translations: [Dilatation of aorta] Onset: 3 01-01-2022 Chronic Cardiac dysrhythmias (20 sources) Rapid atrial fibrillation; Translations: [Unspecified atrial fibrillation] Onset: 2 Chronic Cardiac dysrhythmias (20 sources) Palpitations; Translations: [Tachycardia] 01-01-2022 Episodic Diabetes mellitus with complications (4 sources) Complication due to diabetes mellitus; Translations: [Type 2 diabetes mellitus with other specified complication] Onset: 4 Chronic Diabetes mellitus without complication (20 sources) Type 2 diabetes mellitus without complication; Translations: [Type 2 diabetes mellitus without complications] Onset: 2 Chronic Diabetes mellitus without complication (8 sources) Blood glucose abnormal; Translations: [Other abnormal glucose] Onset: 3 Episodic Disorders of lipid metabolism (20 sources) Dyslipidemia; Translations: [Familial hypercholesterolemia] Onset: 3 04-05-2019 Chronic External cause codes: Fall (2 sources) Other fall from one level to another, initial encounter; Translations: [Unspecified fall, initial encounter] Onset: 8 Glaucoma (6 sources) Primary open angle glaucoma; Translations: [Primary open-angle glaucoma, unspecified eye, stage unspecified] Onset: 4 Chronic Headache; including migraine (20 sources) Headache; Translations: [Cervicogenic headache] Onset: 4 01-01-2022 Episodic Influenza (2 sources) Influenza due to Influenza A virus; Translations: [Influenza due to other identified influenza virus with other respiratory manifestations] 11-16-2024 Episodic Nonspecific chest pain (14 sources) Atypical chest pain 06-12-2021 Episodic Osteoarthritis (18 sources) Osteoarthritis 01-06-2019 Chronic Other circulatory disease (14 sources) History of paroxysmal supraventricular tachycardia 06-12-2021 Episodic Other circulatory disease (2 sources) History of cerebrovascular disease; Translations: [Personal history of other diseases of the circulatory system] Onset: 2 Episodic Other connective tissue disease (4 sources) Pain in right hand; Translations: [PAIN IN RIGHT HAND] Onset: 8 Episodic Other connective tissue disease (18 sources) Cramp in lower limb 06-12-2021 Episodic Other connective tissue disease (18 sources) Impingement syndrome of shoulder region 08-28-2014 Episodic Comment on above: RIGHT Other ear and sense organ disorders (1 source) Unspecified acute noninfective otitis externa, left ear Episodic Other gastrointestinal disorders (1 source) Constipation, unspecified; Translations: [CONSTIPATION UNSPECIFIED] Onset: 8 Episodic Other hematologic conditions (14 sources) Increased serum protein level 01-12-2022 Episodic Other hematologic conditions (11 sources) ESR raised; Translations: [Elevated erythrocyte sedimentation rate] Onset: 3 Episodic Other injuries and conditions due to external causes (3 sources) Unspecified injury of thorax, initial encounter; Translations: [UNSPECIFIED INJURY THORAX INITIAL] Onset: 8 Episodic Other liver diseases (14 sources) Elevated liver enzymes level 01-01-2022 Episodic Other lower respiratory disease (2 sources) Cough; Translations: [Acute cough] 11-16-2024 Episodic Other nervous system disorders (1 source) Postoperative pain ; Translations: [Other acute postprocedural pain] 02-15-2022 Episodic Other non-traumatic joint disorders (2 sources) Pain in right shoulder; Translations: [Pain in joint, shoulder region] Onset: 2 02-15-2022 Episodic Other nutritional; endocrine; and metabolic disorders (20 sources) Obesity; Translations: [Obesity, unspecified] Onset: 3 08-28-2014 Chronic Other nutritional; endocrine; and metabolic disorders (18 sources) Simple obesity 04-10-2019 Chronic Other nutritional; endocrine; and metabolic disorders (6 sources) Obese class I; Translations: [Body mass index (BMI) 31.0-31.9, adult] Onset: 3 Chronic Other screening for suspected conditions (not mental disorders or infectious disease) (20 sources) Electrocardiogram abnormal; Translations: [Screening for malignant neoplasm of colon done] Onset: 3 01-01-2022 Episodic Other upper respiratory disease (3 sources) Allergic rhinitis; Translations: [Allergic rhinitis, unspecified] 09-12-2024 Chronic Other upper respiratory infections (4 sources) Chronic maxillary sinusitis; Translations: [Chronic maxillary sinusitis] Onset: 4 Chronic Other upper respiratory infections (2 sources) Viral upper respiratory tract infection; Translations: [Acute upper respiratory infection, unspecified] 09-12-2024 Episodic Otitis media and related conditions (5 sources) Otitis media, unspecified, bilateral; Translations: [Unspecified nonsuppurative otitis media, left ear] Onset: 5 Episodic Spondylosis; intervertebral disc disorders; other back problems (20 sources) Degeneration of cervical intervertebral disc; Translations: [Other cervical disc degeneration, unspecified cervical region] Onset: 3 Chronic Spondylosis; intervertebral disc disorders; other back problems (20 sources) Torticollis; Translations: [Torticollis] Onset: 3 Episodic Superficial injury; contusion (2 sources) Contusion of right hand, initial encounter; Translations: [Contusion of right front wall of thorax, initial encounter] Onset: 8 Episodic Syncope (2 sources) Syncope; Translations: [Syncope and collapse] 11-16-2024 Episodic Unclassified (18 sources) Rupture of rotator cuff of shoulder 12-19-2021 Unclassified (20 sources) Patient encounter status 06-02-2023 Past or Other Problems Problem Classification Problem Date Documented Da te Episodic/Chronic Fracture of upper limb (20 sources) Closed fracture of acromial process of scapula; Translations: [Displaced fracture of acromial process, right shoulder, initial encounter for closed fracture] Onset: 01-31-2022 Episodic Sprains and strains (15 sources) Traumatic rupture of rotator cuff; Translations: [Strain of muscle(s) and tendon(s) of the rotator cuff of right shoulder, initial encounter] Onset: 01-31-2022 Episodic Unclassified (1 source) Obese class I; Translations: [Obesity, class 1] Onset: 07-21-2024 Results Test Name Value Interpretation Reference Range Facility CBC w/Indiceson 07-06-2025 Erythrocyte distribution width (RBC) [Ratio] 13.4 % Normal 10.9-14.2 [facility] Comment on above: Performed By: #### 2 [id number] #### [facility] [address] [place] [address] Hematocrit (Bld) [Volume fraction] 39.1 % Normal 37.7-49.0 [facility] Comment on above: Performed By: #### 2 [id number] #### [facility] [address] [place] [address] Hemoglobin (Bld) [Mass/Vol] 13.9 g/dL Normal 13.5-17.5 [facility] Comment on above: Performed By: #### 2 [id number] #### [facility] [address] [place] [address] MCH (RBC) [Entitic mass] 33.2 pg Normal 27.0-34.0 [facility] Comment on above: Performed By: #### 2 [id number] #### [facility] [address] [place] [address] MCHC (RBC) [Mass/Vol] 35.5 g/dL Normal 31.4-36.0 [facility] Comment on above: Performed By: #### 2 [id number] #### [facility] [address] [place] [address] MCV (RBC) [Entitic vol] 93.4 fL Normal 80.0-100.0 [facility] Comment on above: Performed By: #### 2 [id number] #### [facility] [address] [place] [address] Platelet 158.0 E9/L Normal 150.0-500.0 [facility] Comment on above: Performed By: #### 2 [id number] #### [facility] [address] [place] [address] Platelet mean volume (Bld) [Entitic vol] 7.8 fL Normal 6.4-10.8 [facility] Comment on above: Performed By: #### 2 [id number] #### [facility] [address] [place] [address] RBC 4.2 E12/L Low 4.3-5.9 [facility] Comment on above: Performed By: #### 2 [id number] #### [facility] [address] [place] [address] RBC morphology finding Nom (Bld) NORMAL Invalid Interpretation Code [facility] Comment on above: Performed By: #### 2 [id number] #### [facility] [address] [place] [address] WBC 4.5 E9/L Normal 4.0-11.0 [facility] Comment on above: Performed By: #### 2 [id number] #### [facility] [address] [place] [address] CMPon 07-06-2025 Albumin [Mass/Vol] 3.8 g/dL Normal 3.3-5.0 [facility] Comment on above: Performed By: #### 2 [id number] #### [facility] [address] [place] [address] Albumin/Globulin [Mass ratio] 1.2 {ratio} Normal 1.1-2.2 [facility] Comment on above: Performed By: #### 2 [id number] #### [facility] [address] [place] [address] Alk Phos 54 Int._Unit/L Normal 21-98 [facility] Comment on above: Performed By: #### 2 [id number] #### [facility] [address] [place] [address] ALT 52 Int._Unit/L High 6-46 [facility] Comment on above: Performed By: #### 2 [id number] #### [facility] [address] [place] [address] Anion gap [Moles/Vol] 10 mmol/L Normal 6-16 [facility] Comment on above: Performed By: #### 2 [id number] #### [facility] [address] [place] [address] AST 36 Int._Unit/L Normal 5-43 [facility] Comment on above: Performed By: #### 2 [id number] #### [facility] [address] [place] [address] Bili Total 0.5 mg/dL Normal 0.0-1.1 [facility] Comment on above: Performed By: #### 2 [id number] #### [facility] [address] [place] [address] BUN/Creat Ratio 14 No Units Normal 10-20 [facility] Comment on above: Performed By: #### 2 [id number] #### [facility] [address] [place] [address] Calcium [Mass/Vol] 8.6 mg/dL Low 8.9-11.1 [facility] Comment on above: Performed By: #### 2 [id number] #### [facility] [address] [place] [address] Chloride [Moles/Vol] 104 mmol/L Normal 101-111 [facility] Comment on above: Performed By: #### 2 [id number] #### [facility] [address] [place] [address] CO2 [Moles/Vol] 24 mmol/L Normal 21-31 [facility] Comment on above: Performed By: #### 2 [id number] #### [facility] [address] [place] [address] Creatinine [Mass/Vol] 1.1 mg/dL Normal 0.5-1.3 [facility] Comment on above: Performed By: #### 2 [id number] #### [facility] [address] [place] [address] Globulin (S) [Mass/Vol] 3.1 g/dL Normal 1.4-4.0 [facility] Comment on above: Performed By: #### 2 [id number] #### [facility] [address] [place] [address] Glucose [Mass/Vol] 149 mg/dL Normal 55-199 [facility] Comment on above: Performed By: #### 2 [id number] #### [facility] [address] [place] [address] Potassium [Moles/Vol] 4.1 mmol/L Normal 3.5-5.3 [facility] Comment on above: Performed By: #### 2 [id number] #### [facility] [address] [place] [address] Protein [Mass/Vol] 6.9 g/dL Normal 6.0-7.8 [facility] Comment on above: Performed By: #### 2 [id number] #### [facility] [address] [place] [address] Sodium [Moles/Vol] 134 mmol/L Low 135-145 [facility] Comment on above: Performed By: #### 2 [id number] #### [facility] [address] [place] [address] Urea nitrogen [Mass/Vol] 16 mg/dL Normal 5-21 [facility] Comment on above: Performed By: #### 2 [id number] #### [facility] [address] [place] [address] Lipid Panelon 07-06-2025 LDL Direct NR Invalid Interpretation Code <=129 [facility] Comment on above: Performed By: #### 2 [id number] #### [facility] [address] [place] [address] VLDL NC Invalid Interpretation Code 7-40 [facility] Comment on above: Result Comment: 'VLD L RESULT NON-REPORTABLE WHEN TRIG > 1293 mg/dl' Performed By: #### 2 [id number] #### [facility] [address] [place] [address] Cholesterol [Mass/Vol] 218 mg/dL High 120-200 [facility] Comment on above: Performed By: #### 2 [id number] #### [facility] [address] [place] [address] Cholesterol in HDL [Mass/Vol] 19 mg/dL Invalid Interpretation Code [facility] Comment on above: Result Comment: '>= 60 LOW RISK' '<= 40 HIGH RISK' Performed By: #### 2 [id number] #### [facility] [address] [place] [address] Triglyceride [Mass/Vol] 1419 mg/dL High <=149 [facility] Comment on above: Result Comment: Resu lt Verified by Dilution Performed By: #### 2 [id number] #### [facility] [address] [place] [address] Magnesiumon 07-06-2025 Magnesium [Mass/Vol] 2.0 mg/dL Normal 1.3-2.4 [facility] Comment on above: Performed By: #### 2 [id number] #### [facility] [address] [place] [address] TSHon 07-06-2025 TSH Qn 3.65 m[IU]/L Normal 0.34-5.60 [facility] Comment on above: Performed By: #### 2 [id number] #### [facility] [address] [place] [address] eGFRon 07-06-2025 eGFR 75 mL/min/1.73 m2 Normal >=59 [facility] Comment on above: Performed By: #### 1 [id number] #### [facility] [address] [place] [id number] No Panel Informationon 11-21 Atrial fibrillation Mildly uncontrolled ventricular response [facility] Panel InformationOrdered By: Tim Davis on 11-21-2024 [facility] Work Phone: Laboratory - Microbiology an d Antimicrobial susceptibilityon 11-19-2024 S. agalactiae Org specific cx Ql (Vag fld) 0 [facility] S. agalactiae Org specific cx Ql (Vag fld) Not detected [facility] SARS-CoV-2 (COVID-19) RNA HAILEY+probe Ql (Unsp spec) 0 [facility] SARS-CoV-2 (COVID-19) RNA HAILEY+probe Ql (Unsp spec) Not detected [facility] No Panel Informationon 11-19 ACINETOBACTER BAUMANNII (RESPIRATORY) 0 [facility] ACINETOBACTER BAUMANNII (RESPIRATORY) Not detected [facility] ADENOVIRUS HADV-B (RESPIRATORY) 0 [facility] ADENOVIRUS HADV-B (RESPIRATORY) Not detected [facility] BORDETELLA PERTUSSIS, PARAPERTUSSIS, BRONCHISEPTICA (RESPIRATORY) 0 [facility] BORDETELLA PERTUSSIS, PARAPERTUSSIS, BRONCHISEPTICA (RESPIRATORY) Not detected [facility] CHLAMYDIA PNEUMONIAE (RESPIRATORY) 0 [facility] CHLAMYDIA PNEUMONIAE (RESPIRATORY) Not detected [facility] ENTEROBACTER CLOACAE COMPLEX, KLEBSIELLA (ENTEROBACTER) AEROGENES (RESPIRAT 0 [facility] ENTEROBACTER CLOACAE COMPLEX, KLEBSIELLA (ENTEROBACTER) AEROGENES (RESPIRAT Not detected [facility] ENTEROVIRUS D68 (RESPIRATORY) 0 [facility] ENTEROVIRUS D68 (RESPIRATORY) Not detected [facility] ESCHERICHIA COLI (RESPIRATORY) 0 [facility] ESCHERICHIA COLI (RESPIRATORY) Not detected [facility] HAEMOPHILUS INFLUENZAE (RESPIRATORY) 0 [facility] HAEMOPHILUS INFLUENZAE (RESPIRATORY) Not detected [facility] HUMAN METAPNEUMOVIRUS (RESPIRATORY) 0 [facility] HUMAN METAPNEUMOVIRUS (RESPIRATORY) Not detected [facility] INFLUENZA VIRUS, A, B (RESPIRATORY) 0 [facility] INFLUENZA VIRUS, A, B (RESPIRATORY) Not detected [facility] KLEBSIELLA PNEUMONIAE, OXYTOCA (RESPIRATORY) 0 [facility] KLEBSIELLA PNEUMONIAE, OXYTOCA (RESPIRATORY) Not detected [facility] LEGIONELLA PNEUMOPHILA (RESPIRATORY) 0 [facility] LEGIONELLA PNEUMOPHILA (RESPIRATORY) Not detected [facility] MORAXELLA CATARRHALIS (RESPIRATORY) 0 [facility] MORAXELLA CATARRHALIS (RESPIRATORY) Not detected [facility] MYCOPLASMA PNEUMONIAE (RESPIRATORY) 0 [facility] MYCOPLASMA PNEUMONIAE (RESPIRATORY) Not detected [facility] OTHER CORONAVIRUSES (229E, NL63, HKU1, OC43) (RESPIRATORY) 0 [facility] OTHER CORONAVIRUSES (229E, NL63, HKU1, OC43) (RESPIRATORY) Not detected [facility] PARAINFLUENZA VIRUS (TYPES 1, 2, 3 ,4) (RESPIRATORY) 0 [facility] PARAINFLUENZA VIRUS (TYPES 1, 2, 3 ,4) (RESPIRATORY) Not detected [facility] PROTEUS MIRABILIS, VULGARIS (RESPIRATORY) 0 [facility] PROTEUS MIRABILIS, VULGARIS (RESPIRATORY) Not detected [facility] PSEUDOMONAS AERUGINOSA (RESPIRATORY) 0 [facility] PSEUDOMONAS AERUGINOSA (RESPIRATORY) Not detected [facility] RESPIRATORY SYNCYTIAL VIRUS (RESPIRATORY) 0 [facility] RESPIRATORY SYNCYTIAL VIRUS (RESPIRATORY) Not detected [facility] RHINOVIRUS/ENTEROVIR US (RESPIRATORY) 0 [facility] RHINOVIRUS/ENTEROVIR US (RESPIRATORY) Not detected [facility] SERRATIA MARCESCENS (RESPIRATORY) 0 [facility] SERRATIA MARCESCENS (RESPIRATORY) Not detected [facility] STAPHYLOCOCCUS AUREUS (RESPIRATORY) 0 [facility] STAPHYLOCOCCUS AUREUS (RESPIRATORY) Not detected [facility] STREPTOCOCCUS PNEUMONIAE (RESPIRATORY) 0 [facility] STREPTOCOCCUS PNEUMONIAE (RESPIRATORY) Not detected [facility] STREPTOCOCCUS PYOGENES (GROUP A STREP) (RESPIRATORY) 0 [facility] STREPTOCOCCUS PYOGENES (GROUP A STREP) (RESPIRATORY) Not detected [facility] No Panel InformationOrdered By: Mallika Ulloa on 11-16-2024 INFLUENZA A Positive Negative [facility] INFLUENZA B Negative Negative [facility] Interpretation and review of laboratory results Abnormal [facility] XR CHEST 2 VIEWSon XR CHEST 2 VIEWS EXAMINATION: XR CHES T 2 VIEWS HISTORY: cough TECHNIQUE: Frontal and lateral views of the chest. COMPARISON: None available FINDINGS: Cardiomediastinal silhouette is within normal limits. No pneumothorax, pleural effusion, or consolidation. Hyperinflation of the lungs and increased bronchovascular markings suggesting COPD. Degenerative changes of the spine. No acute osseous abnormality. IMPRESSION: No radiographic evidence of acute intrathoracic process. ELECTRONICALLY SIGNED BY: Tim Lazo DO Normal Not Available XR Chest 2 Viewson No radiographic evidence of acute intrathoracic process. ELECTRONICALLY SIGNED BY: Tim Lazo DO IMAGING EXAMINATION: XR CHES T 2 VIEWS HISTORY: cough TECHNIQUE: Frontal and lateral views of the chest. COMPARISON: None available FINDINGS: Cardiomediastinal silhouette is within normal limits. No pneumothorax, pleural effusion, or consolidation. Hyperinflation of the lungs and increased bronchovascular markings suggesting COPD. Degenerative changes of the spine. No acute osseous abnormality. IMAGING Tim Lazo DO - 11/16/2024 EXAMINATION: XR CHEST 2 VIEWS HISTORY: cough TECHNIQUE: Frontal and lateral views of the chest. COMPARISON: None available FINDINGS: Cardiomediastinal silhouette is within normal limits. No pneumothorax, pleural effusion, or consolidation. Hyperinflation of the lungs and increased bronchovascular markings suggesting COPD. Degenerative changes of the spine. No acute osseous abnormality. IMPRESSION: No radiographic evidence of acute intrathoracic process. ELECTRONICALLY SIGNED BY: Tim Lazo DO [facility] Radiology Study observation (narrative) [facility] XR Chest 2 ViewsOrdered By: Tmi Lazo on 11-16-2024 [facility] Work Phone: Ambulatory Visit Summaryon 0 10-24-2024 Ambulatory Visit Summary Ambulatory Visit Summary AUGUSTO PRYOR :1960 Visit Date:10/24/2024 Ambulatory Visit Instructions Your Diagnosis Chronic atrial fibrillation Mild ascending aorta dilation Glaucoma primary, open angle Familial hypercholesteremia Type 2 diabetes mellitus with hyperlipidemia Screening PSA (prostate specific antigen) Hypertriglyceridemia BMI 32.0-32.9,adult Eustachian tube disorder Hyperlipidemia, unspecified Your Care Team Attending Physician - Yunier SIMPSON DO, FAAFP Primary Care Physician - Yunier SIMPSON DO, FAAFP This Is Your Medications List Misc Prescription (Glucometer) Misc Prescription (Lancets) Misc Prescription (Test strips) Misc Prescription (nebulizer) albuterol (albuterol 0.5% Inh Salena) fluticasone nasal (Flonase 0.05 mg/inh Hinton) ipratropium nasal (Atrovent 0.03% H[place]) latanoprost ophthalmic (latanoprost Opth 0.005% Salena) methylPREDNISolone (Medrol Dosepack 4 mg Tab) rivaroxaban (Xarelto 20 mg oral tablet) Procedures Performed Arthroscopy of shoulder (01/17/2019), right shoulder arthroscopy, extensive debridement, subacromial decompression, partial distal claviculectomy (09/18/2014). Discharge Vitals Temperature (Oral) 36 ???C Heart Rate (Peripheral) 101 Blood Pressure 150/90 Height 190 cm Height 75 in Weight 115.8 kg Weight 255.295 lb BMI 32.08 What to do next Scheduled Follow-Up Appointments Wednesday 8:40 AM EDT With: Yunier SIMPSON DO, FAAFP Where: [facility] [address], [place] [address]- Someone Will Contact You Regarding These Appointments [facility] [place], ENT, 10/24/24 14:19:00 EST, Eustachian tube disorder Medications What How Much When Why Instructions New ipratropium nasal (Atrovent 0.03% Hinton) 2 Sprays Nasal Inhalation 3 times a day Eustachian tube disorder Pickup at [facility] New methylPREDNISolone (Medrol Dosepack 4 mg Tab) 1 Packets By Mouth As Directed Eustachian tube disorder Refills: 2 as directed on package labeling Pickup at [facility] Unchanged albuterol (albuterol 0.5% Inh Salena) 0.5 Milliliter Inhalation Every 4 hours as needed for for wheezing Unchanged fluticasone nasal (Flonase 0.05 mg/ inh Hinton) 2 Sprays Nasal Inhalation Every day each nostril Unchanged latanoprost ophthalmic (latanoprost Opth 0.005% Salena) 1 Drops Ophthalmic Once a day (at bedtime) Unchanged Misc Prescription (Glucometer) See instructions New onset type 2 diabetes mellitus Glucometer Unchanged Misc Prescription (Lancets) See instructions New onset type 2 diabetes mellitus Lancets Unchanged Misc Prescription (nebulizer) See instructions nebulizer machine for med=neb treatments Unchanged Mis Prescription (Test strips) See instructions New onset type 2 diabetes mellitus test strips check blood sugar once daily Dx. E11.9 Unchanged rivaroxaban (Xarelto 20 mg oral tablet) 1 Tablets By Mouth Once a day (in the evening) Duration: 90 Days Pharmacy Information [facility]: [address] [place], [place] [phone] Allergies No Known Allergies Problems Ongoing - Any problem that you are currently receiving treatment for. Cervical spondylosis Cervicogenic headache Chronic atrial fibrillation Colon cancer screening Degeneration of intervertebral disc of cervical spine without disc herniation Elevated sed rate Eustachian tube disorder Familial hypercholesteremia Glaucoma primary, open angle Hypertriglyceridemia Impingement syndrome of shoulder Leg cramps Maxillary sinusitis Mild ascending aorta dilation Occipital neuralgia Other obesity due to excess calories Right rotator cuff tear Screening PSA (prostate specific antigen) Spinal stenosis, cervical region Torticollis Type 2 diabetes mellitus with hyperlipidemia Historical - Any problem that you are no longer receiving treatment for. Abnormal EKG Cephalgia Obesity.. Palpitations PSVT (paroxysmal supraventricular tachycardia) Tachycardia Patient Survey You may receive a survey via text or e-mail asking about your office visit. Please share your experience with us by completing your survey. We appreciate your feedback and thank you for choosing us for your care. Normal [facility] Family Medicine Office/Clini c Noteon 10-24-2024 Family Medicine Office/Clinic Note Family Medicine Office/Clinic Note Chief Complaint 1m F/U- Bilat ears clogged, cant hear. Wet cough with clear secretions. Denies n/v/d/fever/sob. HPI Staff 1m F/U- Bilat ears clogged, cant hear. Wet cough with clear secretions. Denies n/v/d/fever/sob. History of Present Illness Here for follow up Have you had any ER visits or any hospitalizations since last visit? no Are you compliant with your medications and no difficulty affording your medications? yes Do you have side effects from the medication? no Are you compliant with your diet? yes Do you exercise? yes Do you have any of the following symptoms? Chest pain? no Palpitations? no SINGH/SOB? no Orthopnea? no PND? no Edema? no Have you had any recent cardiopulmonary testing? no Cough much better, especially Review of Systems PHQ Score Initial Depression Screen Score: 0 SCORE ROS - Provider Constitutional: no fever, no chills, no sweats, no weakness. Skin: no Jaundice, no rash, no lesions, no petechiae. ENMT: no ear pain, no sore throat, no congestion, no hoarseness. Respiratory: no shortness of breath, no cough, no orthopnea, no wheezing. Cardiovascular: no chest pain, no palpitations, no edema. Gastrointestinal: no nausea, no vomiting, no diarrhea, no GI bleeding.no constipationnoheartburn Genitourinary: no dysuria, no hematuria, no discharge, no pain.nofreq/urgency Musculoskeletal: no back pain, no trauma.nojoint pain Neurologic: no headache, no dizziness, no numbness, no weakness. Psychiatric: no sleeping problems, no irritability, no mood swings/depression. Heme/Lymph: no bleeding tendency, no bruising tendency, no petechiae, no swollen lymph nodes no Allergy/Imunology no seasonal allergies, no food allergies, no recurrent infections, no impaired immunity. Additional ROS info: Except as noted in the above Review of Systems and in the History of Present Illness all other systems have been reviewed and are negative or noncontributory. Physical Exam Vitals & Measurements T: 36 ???C(Oral) HR: 101(Peripheral) BP: 150/90 SpO2: 99% HT: 75 in HT: 190 cm WT: 115.8 kg WT: 255.295 lb BMI: 32.08 General: alert, no acute distress, playful, normal hydration, nonill appearing. ENMT: TM's clear, oral mucosa moist, no pharyngeal erythema or exudate: Immobile TM's. s Cardiovascular: regular rate and rhythm, normal peripheral perfusion Respiratory: Lungs CTA, respirations non labored Extremities: no deformity, no trauma Neurological: oriented x 4, LOC appropriate for ageappropriate for age Assessment/Plan 1. Chronic atrial fibrillation (I48.20: Chronic atrial fibrillation, unspecified) Xarelto 20 mg p.o. daily: Follow-up with cardiology per their recommendation; please see Dr. Shipley's consultative report, he wanted his heart rate below 100 patient historically has stopped his rate control medication. Patient defers rate control medication 2. Mild ascending aorta dilation (I77.810: Thoracic aortic ectasia) My recommendation would be ultrasound in 5 years from discovery, defer to cardiology for definitive treatment and therapy 3. Glaucoma primary, open angle (H40.1190: Primary open-angle glaucoma, unspecified eye, stage unspecified) Latanoprost per ophthalmology 4. Familial hypercholesteremia (E78.01: Familial hypercholesterolemia) Initiation of statin recommended 5. Type 2 diabetes mellitus with hyperlipidemia (E11.69: Type 2 diabetes mellitus with other specified complication) A1c is below 7: Diet and exercise were discussed metformin 6. Screening PSA (prostate specific antigen) (Z12.5: Encounter for screening for malignant neoplasm of prostate) PSA 7. Hypertriglyceridemia (E78.1: Pure hyperglyceridemia) Diet and exercise and tight sugar control 8. BMI 32.0-32.9,adult (Z68.32: Body mass index [BMI] 32.0-32.9, adult) The standard range for ages 18 and older is >=18.5 and < 25 kg/m2. Your BMI today was above this range, this falls in the overweight to obese category and there are medical benefits to weight loss. We can offer counselling, referral, and/or medical support in addressing this problem. Your BMI and weight management will be followed at subsequent visits. s 9. Eustachian tube disorder (H69.90: Unspecified Eustachian tube disorder, unspecified ear) May continue Flonase as directed and add Atrovent nasal spray as directed. If ineffective patient will attempt Medrol dose pack as directed and I will refer to ear nose and throat for definitive treatment and possible tube placement Ordered: ipratropium nasal, 2 spray(s), Nasal, TID, 30 mL, Refill(s) 0, [facility], 190, cm, 10/24/24 13:58:00 EST, Height/Length Dosing, 115.8, kg, 10/24/24 13:58:00 EST, Weight Dosing methylPREDNISolone, = 1 packet(s), Oral, As Directed, as directed on package labeling, # 21 tab(s), Refills(s) 2, Pharmacy: [facility], 190, cm, 10/24/24 13:58:00 EST, Height/Length Dosing, 115.8, kg, 10/24/24 (more content not included)... [facility] Comment on above: Result Comment: Elec tronically Signed By: Yunier SIMPSON DO, FAAFP\.br\Date and Time Signed: 10/24/24 14:28 EST Provider Letteron 10-18-2024 Provider Letter Provider Letter October 18, 2024 AUG[address]O PRYOR [address] [id number] : 1960 Dear Augusto, We have been trying to reach you with no success. It is important that you return our call regarding your follow up appointment upon receiving this letter. Also, at the time of your call, please provide us with your current information. Thank you for your prompt attention to this matter. Sincerely, [facility] [address] [place] [address] [place] [address] [facility] Ambulatory Visit Summaryon 1 11-30-2023 Ambulatory Visit Summary Ambulatory Visit Summary AUGUSTO PRYOR :1960 Visit Date:09/29/2024 Ambulatory Visit Instructions Your Diagnosis Chronic atrial fibrillation Type 2 diabetes mellitus with hyperlipidemia BMI 32.0-32.9,adult Other obesity due to excess calories Maxillary sinusitis Hyperlipidemia, unspecified Your Care Team Attending Physician - Yunier SIMPSON DO, FAAFP Primary Care Physician - Yunier SIMPSON DO, FAAFP This Is Your Medications List amoxicillin-clavulanate (Augmentin 875 mg oral tablet) fluticasone nasal (Flonase 0.05 mg/inh Hinton) Contact prescribing physician if questions or concerns Misc Prescription (Glucometer) Misc Prescription (Lancets) Misc Prescription (Test strips) latanoprost ophthalmic (latanoprost Opth 0.005% Salena) rivaroxaban (Xarelto 20 mg oral tablet) Procedures Performed Arthroscopy of shoulder (01/17/2019), right shoulder arthroscopy, extensive debridement, subacromial decompression, partial distal claviculectomy (09/18/2014). Discharge Vitals Temperature (Oral) 36.5 ???C Heart Rate (Peripheral) 71 Respiratory Rate 16 Blood Pressure 118/70 Height 190 cm Height 75 in Weight 116.2 kg Weight 256.177 lb BMI 32.19 What to do next Scheduled Follow-Up Appointments Wednesday 8:40 AM EDT With: Yunier SIMPSON DO, FAAFP Where: [facility] [address], [facility] [place] [address]- You Need to Schedule the Following Appointments Follow Up with Yunier SIMPSON DO, FAAFP, FAM, PED When: In 4 months Where: [address], [place] [address]- Follow Up with Yunier SIMPSON DO, FAAFP, ANTONIO, PED When: In 6 months Where: [address] [place] [address]- You Need to Complete the Following HgbA1c, Blood, Routine collect, 09/29/24, Order for future visit, Lab Collect, Type 2 diabetes mellitus with hyperlipidemia, Print Label By Order Location Medications What How Much When Why Instructions New amoxicillin-clavulanate (Augmentin 875 mg oral tablet) 1 Tablets By Mouth Every 12 hours Duration: 10 Days Pickup at [facility]/pharmacy #[id number] New fluticasone nasal (Flonase 0.05 mg/ inh Hinton) 2 Sprays Nasal Inhalation Every day each nostril Pickup at [facility]/pharmacy #[id number] Unchanged latanoprost ophthalmic (latanoprost Opth 0.005% Salena) 1 Drops Ophthalmic Once a day (at bedtime) Contact prescribing physician if questions or concerns Unchanged Misc Prescription (Glucometer) See instructions New onset type 2 diabetes mellitus Glucometer Contact prescribing physician if questions or concerns Unchanged Misc Prescription (Lancets) See instructions New onset type 2 diabetes mellitus Lancets Contact prescribing physician if questions or concerns Unchanged Misc Prescription (Test strips) See instructions New onset type 2 diabetes mellitus test strips check blood sugar once daily Dx. E11.9 Contact prescribing physician if questions or concerns Unchanged rivaroxaban (Xarelto 20 mg oral tablet) 1 Tablets By Mouth Once a day (in the evening) Duration: 90 Days Contact prescribing physician if questions or concerns Pharmacy Information [id number]: [address], [place] [phone] Allergies No Known Allergies Problems Ongoing - Any problem that you are currently receiving treatment for. Cervical spondylosis Cervicogenic headache Chronic atrial fibrillation Colon cancer screening Degeneration of intervertebral disc of cervical spine without disc herniation Elevated sed rate Familial hypercholesteremia Glaucoma primary, open angle Hypertriglyceridemia Impingement syndrome of shoulder Leg cramps Maxillary sinusitis Mild ascending aorta dilation Occipital neuralgia Other obesity due to excess calories Right rotator cuff tear Screening PSA (prostate specific antigen) Spinal stenosis, cervical region Torticollis Type 2 diabetes mellitus with hyperlipidemia Historical - Any problem that you are no longer receiving treatment for. Abnormal EKG Cephalgia Obesity.. Palpitations PSVT (paroxysmal supraventricular tachycardia) Tachycardia Patient Survey You may receive a survey via text or e-mail asking about your office visit. Please share your experience with us by completing your survey. We appreciate your feedback and thank you for choosing us for your care. Normal [facility] Family Medicine Office/Clini c Noteon 09-29-2024 Family Medicine Office/Clinic Note Family Medicine Office/Clinic Note Chief Complaint States he's had a cough x3 weeks. Went to [place] ER on 09/16 and was given Bactrim and Allergy relief. History of Present Illness States he's had a cough x3 weeks. Went to [place] ER on 09/16 and was given Bactrim and Allergy relief. Here for follow up Have you had any ER visits or any hospitalizations since last visit? no Are you compliant with your medications and no difficulty affording your medications? yes Do you have side effects from the medication? no Are you compliant with your diet? yes Do you exercise? yes Do you have any of the following symptoms? Chest pain? no Palpitations? no SINGH/SOB? no Orthopnea? no PND? no Edema? no Have you had any recent cardiopulmonary testing? no Review of Systems PHQ Score Initial Depression Screen Score: 0 SCORE ROS - Provider Constitutional: no fever, no chills, no sweats, no weakness. Skin: no Jaundice, no rash, no lesions, no petechiae. ENMT: no ear pain, no sore throat, no congestion, no hoarseness. Respiratory: no shortness of breath, yes cough, no orthopnea, no wheezing. Cardiovascular: no chest pain, no palpitations, no edema. Gastrointestinal: no nausea, no vomiting, no diarrhea, no GI bleeding.no constipationnoheartburn Genitourinary: no dysuria, no hematuria, no discharge, no pain.nofreq/urgency Musculoskeletal: no back pain, no trauma.nojoint pain Neurologic: no headache, no dizziness, no numbness, no weakness. Psychiatric: no sleeping problems, no irritability, no mood swings/depression. Heme/Lymph: no bleeding tendency, no bruising tendency, no petechiae, no swollen lymph nodes no Allergy/Imunology no seasonal allergies, no food allergies, no recurrent infections, no impaired immunity. Additional ROS info: Except as noted in the above Review of Systems and in the History of Present Illness all other systems have been reviewed and are negative or noncontributory. Physical Exam Vitals & Measurements T: 36.5 ???C(Oral) HR: 71(Peripheral) RR: 16 BP: 118/70 SpO2: 96% HT: 75 in HT: 190 cm WT: 116.2 kg WT: 256.177 lb BMI: 32.19 General: Well developed, well nourished, in no acute distress Mouth: Mucous membranes moist. Normal oropharynx, and posterior pharynx without lesions or exudates. Tongue normal Neck: Neck supple. No masses or palpable cervical nodes. Trachea midline. Thyroid without nodules, masses, tenderness, or enlargement Lungs: Normal respiratory effort and clear to auscultation Cardio: Regular rate and rhythm, normal S1 and S2, no murmur, no rub Abdomen: Soft, non-distended, non-tender. no G/R/S/Masses Musculoskeletal: No deformity or scoliosis noted. Normal range of motion. Joints normal. No erythema, edema, effusion, or ecchymosis Extremity: No clubbing, cyanosis, edema, or deformity, with normal ROM in both upper and lower bilateral extremities Neurologic: Grossly normal Skin: No rashes, ulcerations, or suspicious lesions Mental Status: Alert and oriented x3. Normal mood and affect Assessment/Plan 1. Chronic atrial fibrillation (I48.20: Chronic atrial fibrillation, unspecified) Xarelto/rivaroxaban 20 mg p.o. daily 2. Type 2 diabetes mellitus with hyperlipidemia (E11.69: Type 2 diabetes mellitus with other specified complication) A1c 6.72 months ago with diet and exercise Ordered: HgbA1c 3. BMI 32.0-32.9,adult (Z68.32: Body mass index [BMI] 32.0-32.9, adult) The standard range for ages 18 and older is >=18.5 and < 25 kg/m2. Your BMI today was above this range, this falls in the overweight to obese category and there are medical benefits to weight loss. We can offer counselling, referral, and/or medical support in addressing this problem. Your BMI and weight management will be followed at subsequent visits. 4. Other obesity due to excess calories (E66.09: Other obesity due to excess calories) Diet and exercise with BMI goal of 25 5. Maxillary sinusitis (J32.0: Chronic maxillary sinusitis) Augmentin 875 mg p.o. twice daily and Flonase 2 elations per nostril daily or twice daily Hyperlipidemia, unspecified (E78.5: Hyperlipidemia, unspecified) Orders: amoxicillin-clavulanate, = 1 tab(s), Oral, q12hr, X 10 day(s), # 20 tab(s), Refills(s) 0, Pharmacy: [facility]/pharmacy #[id number], 190, cm, 09/29/24 8:35:00 EST, Height/Length Dosing, 116.2, kg, 09/29/24 8:35:00 EST, Weight Dosing fluticasone nasal, 2 spray(s), Nasal, Daily, 16 gram, Refill(s) 0, each nostril, [id number], 190, cm, 09/29/24 8:35:00 EST, Height/Length Dosing, 116.2, kg, 09/29/24 8:35:00 EST, Weight Dosing Follow-up With When Contact Information KAPLE DO FAAFP, Yunier A, ANTONIO, PED In [address], [place] [address]- Additional Instructions: Yunier SIMPSON DO, FAAFP, ANTONIO, PED In [address], [place] [address]- Additional Instructions: Patient Education Diabetes Mellitus and Exercise Problem List/Past Medica (more content not included)... Normal [facility] Comment on above: Result Comment: Elec tronically Signed By: Yunier SIMPSON DO, FAAFP\.br\Date and Time Signed: 09/29/24 09:10 EST Ambulatory Visit Summaryon 1 Ambulatory Visit Summary Ambulatory Visit Summary AUGUSTO PRYOR :1960 Visit Date:07/21/2024 Ambulatory Visit Instructions Your Diagnosis Type 2 diabetes mellitus with hyperlipidemia Mild ascending aorta dilation Familial hypercholesteremia Chronic atrial fibrillation Obesity, class 1 BMI 31.0-31.9,adult Hypertriglyceridemia Cervicogenic headache Spinal stenosis, cervical region Glaucoma primary, open angle Your Care Team Attending Physician - Yunier SIMPSON DO, FAAFP Primary Care Physician - Yunier SIMPSON DO, FAAFP This Is Your Medications List Contact prescribing physician if questions or concerns Misc Prescription (Glucometer) Misc Prescription (Lancets) Misc Prescription (Test strips) latanoprost ophthalmic (latanoprost Opth 0.005% Salena) rivaroxaban (Xarelto 20 mg oral tablet) Procedures Performed Arthroscopy of shoulder (01/17/2019), right shoulder arthroscopy, extensive debridement, subacromial decompression, partial distal claviculectomy (09/18/2014). Discharge Vitals Temperature (Oral) 36.6 ?C Heart Rate (Peripheral) 65 Respiratory Rate 16 Blood Pressure 124/68 Height 190 cm Height 75 in Weight 113.0 kg Weight 248.6 lb BMI 31.3 Medications What How Much When Why Instructions Unchanged latanoprost ophthalmic (latanoprost Opth 0.005% Salena) 1 Drops Ophthalmic Once a day (at bedtime) Contact prescribing physician if questions or concerns Unchanged Misc Prescription (Glucometer) See instructions New onset type 2 diabetes mellitus Glucometer Contact prescribing physician if questions or concerns Unchanged Misc Prescription (Lancets) See instructions New onset type 2 diabetes mellitus Lancets Contact prescribing physician if questions or concerns Unchanged Misc Prescription (Test strips) See instructions New onset type 2 diabetes mellitus test strips check blood sugar once daily Dx. E11.9 Contact prescribing physician if questions or concerns Unchanged rivaroxaban (Xarelto 20 mg oral tablet) 1 Tablets By Mouth Once a day (in the evening) Duration: 90 Days Contact prescribing physician if questions or concerns Allergies No Known Allergies Problems Ongoing - Any problem that you are currently receiving treatment for. Cervical spondylosis Cervicogenic headache Chronic atrial fibrillation Colon cancer screening Degeneration of intervertebral disc of cervical spine without disc herniation Elevated sed rate Familial hypercholesteremia Glaucoma primary, open angle Hypertriglyceridemia Impingement syndrome of shoulder Leg cramps Mild ascending aorta dilation Obesity.. Occipital neuralgia Other obesity due to excess calories Right rotator cuff tear Screening PSA (prostate specific antigen) Spinal stenosis, cervical region Torticollis Type 2 diabetes mellitus with hyperlipidemia Historical - Any problem that you are no longer receiving treatment for. Abnormal EKG Cephalgia Palpitations PSVT (paroxysmal supraventricular tachycardia) Tachycardia Patient Survey You may receive a survey via text or e-mail asking about your office visit. Please share your experience with us by completing your survey. We appreciate your feedback and thank you for choosing us for your care. Katherine Macedo [facility] Family Medicine Office/Clini c Noteon 07-21-2024 Family Medicine Office/Clinic Note Family Medicine Office/Clinic Note Chief Complaint Patient here for 7 month f/u on chronic afib, dm, chol, cervical spondylosis. Had blood work done. History of Present Illness Patient is here for follow-up on Diabetes. How often are you checking your blood sugars? _q day What are your average readings? _100-200 Do you have low blood sugar readings/symptoms? _No Do you have high blood sugar readings/symptoms? No_ Are you compliant with your diet? For the most part _ Do you exercise? Yes Are you compliant with your medications or having difficulty affording your medications? yes and no issues Do you have any of the following symptoms? Vision problems? No Sexual dysfunction? No GI-Nausea/committing/bloa ting? No Lightheadedness? No Paresthesias, Ulcerations or sores? No Here for follow up Have you had any ER visits or any hospitalizations since last visit? no Are you compliant with your medications and no difficulty affording your medications? yes Do you have side effects from the medication? no Are you compliant with your diet? yes Do you exercise? yes Do you have any of the following symptoms? Chest pain? no Palpitations? no SINGH/SOB? no Orthopnea? no PND? no Edema? no Have you had any recent cardiopulmonary testing? no No neck pain. Eyes good x little glaucoma and taking drops Review of Systems PHQ Score Initial Depression Screen Score: 0 SCORE ROS - Provider Constitutional: no fever, no chills, no sweats, no weakness. Skin: no Jaundice, no rash, no lesions, no petechiae. ENMT: no ear pain, no sore throat, no congestion, no hoarseness. Respiratory: no shortness of breath, no cough, no orthopnea, no wheezing. Cardiovascular: no chest pain, no palpitations, no edema. Gastrointestinal: no nausea, no vomiting, no diarrhea, no GI bleeding.no constipationnoheartburn Genitourinary: no dysuria, no hematuria, no discharge, no pain.nofreq/urgency Musculoskeletal: no back pain, no trauma.nojoint pain Neurologic: no headache, no dizziness, no numbness, no weakness. Psychiatric: no sleeping problems, no irritability, no mood swings/depression. Heme/Lymph: no bleeding tendency, no bruising tendency, no petechiae, no swollen lymph nodes no Allergy/Imunology no seasonal allergies, no food allergies, no recurrent infections, no impaired immunity. Additional ROS info: Except as noted in the above Review of Systems and in the History of Present Illness all other systems have been reviewed and are negative or noncontributory. Physical Exam Vitals & Measurements T: 36.6 ?C(Oral) HR: 65(Peripheral) RR: 16 BP: 124/68 SpO2: 95% HT: 75 in HT: 190 cm WT: 113.0 kg WT: 248.6 lb BMI: 31.3 General: Well developed, well nourished, in no acute distress Mouth: Mucous membranes moist. Normal oropharynx, and posterior pharynx without lesions or exudates. Tongue normal Neck: Neck supple. No masses or palpable cervical nodes. Trachea midline. Thyroid without nodules, masses, tenderness, or enlargement Lungs: Normal respiratory effort and clear to auscultation Cardio: Regular rate and rhythm, normal S1 and S2, no murmur, no rub Abdomen: Soft, non-distended, non-tender. no G/R/S/Masses Musculoskeletal: No deformity or scoliosis noted. Normal range of motion. Joints normal. No erythema, edema, effusion, or ecchymosis Extremity: No clubbing, cyanosis, edema, or deformity, with normal ROM in both upper and lower bilateral extremities Neurologic: Grossly normal Skin: No rashes, ulcerations, or suspicious lesions Mental Status: Alert and oriented x3. Normal mood and affect Assessment/Plan 1. Type 2 diabetes mellitus with hyperlipidemia (E11.69: Type 2 diabetes mellitus with other specified complication) Hemoglobin A1c 6.7 1 week ago with diet and exercise 2. Mild ascending aorta dilation (I77.810: Thoracic aortic ectasia) Cardiology to follow 3. Familial hypercholesteremia (E78.01: Familial hypercholesterolemia) Discussed statin patient defers: I recommended a statin, he refuses 4. Chronic atrial fibrillation (I48.20: Chronic atrial fibrillation, unspecified) Xarelto 20 mg a day 5. Obesity, class 1 (E66.811: Obesity, class 1) Diet and exercise a BMI goal of 25 6. BMI 31.0-31.9,adult (Z68.31: Body mass index [BMI] 31.0-31.9, adult) The standard range for ages 18 and older is >=18.5 and < 25 kg/m2. Your BMI today was above this range, this falls in the overweight to obese category and there are medical benefits to weight loss. We can offer counselling, referral, and/or medical support in addressing this problem. Your BMI and weight management will be followed at subsequent visits. 7. Hypertriglyceridemia (E78.1: Pure hyperglyceridemia) Consider fish oil and/or statin along with diet and exercise 8. Cervicogenic headache (G44.86: Cervicogenic headache) Robaxin per Dr. Hackett [facility] neurology department 9. Spinal stenosis, cervical region (M48.02: Spinal stenosis, (more content not included)... Normal [facility] Comment on above: Result Comment: Elec tronically Signed By: FRANK MACK FAAFP, Yunier Macdonald\.denise\Date and Time Signed: 07/21/24 13:06 EDT BMPon 07-14-2024 Anion gap [Moles/Vol] 9 mmol/L Normal 6-16 [facility] Comment on above: Performed By: #### 2 [id number] #### [facility] [address] [place] [address] Calcium [Mass/Vol] 8.8 mg/dL Low 8.9-11.1 [facility] Comment on above: Performed By: #### 2 [id number] #### [facility] [address] [place] [address] Chloride [Moles/Vol] 105 mmol/L Normal 101-111 [facility] Comment on above: Performed By: #### 2 [id number] #### [facility] [address] [place] [address] CO2 [Moles/Vol] 26 mmol/L Normal 21-31 [facility] Comment on above: Performed By: #### 2 [id number] #### [facility] [address] [place] [address] Creatinine [Mass/Vol] 1.3 mg/dL Normal 0.5-1.3 [facility] Comment on above: Performed By: #### 2 [id number] #### [facility] [address] [place] [address] Glucose [Mass/Vol] 126 mg/dL Normal 55-199 [facility] Comment on above: Performed By: #### 2 [id number] #### [facility] [address] [place] [address] Potassium [Moles/Vol] 4.0 mmol/L Normal 3.5-5.3 [facility] Comment on above: Performed By: #### 2 [id number] #### [facility] [address] [place] [address] Sodium [Moles/Vol] 136 mmol/L Normal 135-145 [facility] Comment on above: Performed By: #### 2 [id number] #### [facility] [address] [place] [address] Urea nitrogen [Mass/Vol] 19 mg/dL Normal 5-21 [facility] Comment on above: Performed By: #### 2 [id number] #### [facility] [address] [place] [address] Urea nitrogen/Creatinine [Mass ratio] 15 No Units Normal 10-20 [facility] Comment on above: Performed By: #### 2 [id number] #### [facility] [address] [place] [address] CHEMISTRYOrdered By: SYSTEM SYSTEM on 07-14-2024 Anion gap [Moles/Vol] 9 mmol/L Normal 6 - 16 mEq/L [facility] Calcium [Mass/Vol] 8.8 mg/dL Low 8.9 - 11. 1 mg/dL [facility] Chloride [Moles/Vol] 105 mmol/L Normal 101 - 1 11 mmol/L [facility] CO2 [Moles/Vol] 26 mmol/L Normal 21 - 31 mmol/L [facility] Creatinine [Mass/Vol] 1.3 mg/dL Normal 0.5 - 1.3 mg/dL [facility] eGFR 62 mL/min/1.73 m2 Normal >=59mL/min /1. 73 m2 [facility] Glucose [Mass/Vol] 126 mg/dL Normal 55 - 199 mg/dL [facility] Potassium [Moles/Vol] 4.0 mmol/L Normal 3.5 - 5.3 mmol/L [facility] Sodium [Moles/Vol] 136 mmol/L Normal 135 - 145 mmol/L [facility] Urea nitrogen [Mass/Vol] 19 mg/dL Normal 5 - 21 mg/dL [facility] Urea nitrogen/Creatinine [Mass ratio] 15 mg/mg Normal - [facility] CHEMISTRYOrdered By: Albert Solorzano on 07-14-2024 Cholesterol [Mass/Vol] 224 mg/dL High 120 - 200 mg/dL [facility] Cholesterol in HDL [Mass/Vol] 24 mg/dL Invalid Interpretation Code [facility] Comment on above: Result Comment: '>= 60 LOW RISK' '<= 40 HIGH RISK' Cholesterol in LDL [Mass/Vol] NR Invalid Interpretation Code <=129 [facility] Cholesterol in VLDL [Mass/Vol] NC Invalid Interpretation Code 7 - 40 [facility] Comment on above: Result Comment: 'VLD L RESULT NON-REPORTABLE WHEN TRIG > 1293 mg/dl' Triglyceride [Mass/Vol] 1301 mg/dL High <=149mg/dL [facility] Comment on above: Result Comment: Resu lt Verified by Dilution CHEMISTRYOrdered By: Cassandra Pandey on 07-14-2024 HbA1c (Bld) [Mass fraction] 6.7 % High <=5.9% [facility] [place] [facility] [id number] 07-14-2024 HbA1c (Bld) [Mass fraction] 6.7 % High <=5.9 [facility] Comment on above: Performed By: #### [id number] #### [facility] [address] [place] [address] Lipid Panelon 07-14-2024 Cholesterol [Mass/Vol] 224 mg/dL High 120-200 [facility] Comment on above: Performed By: #### 2 [id number] #### [facility] [address] [place] [address] Cholesterol in HDL [Mass/Vol] 24 mg/dL Invalid Interpretation Code [facility] Comment on above: Result Comment: '>= 60 LOW RISK' '<= 40 HIGH RISK' Performed By: #### 2 [id number] #### [facility] [address] [place] [address] Cholesterol in LDL [Mass/Vol] NR Invalid Interpretation Code <=129 [facility] Comment on above: Performed By: #### 2 [id number] #### [facility] [address] [place] [address] Cholesterol in VLDL [Mass/Vol] NC Invalid Interpretation Code 7-40 [facility] Comment on above: Result Comment: 'VLD L RESULT NON-REPORTABLE WHEN TRIG > 1293 mg/dl' Performed By: #### 2 [id number] #### [facility] [address] [place] [address] Triglyceride [Mass/Vol] 1301 mg/dL High <=149 [facility] Comment on above: Result Comment: Resu lt Verified by Dilution Performed By: #### 2 [id number] #### [facility] [address] [place] [address] eGFRon 07-14-2024 eGFR 62 mL/min/1.73 m2 Normal >=59 Macedo [facility] Comment on above: Performed By: #### 1 [id number] #### [place] [facility] [address] [place] [address] Heart and Vascular Office/Cl inic Noteon 01-19-2024 Heart and Vascular Office/Clinic Note Chief Complaint 6 month afib History of Present Illness Augusto Pryor presents for evaluation of elevated heart rate. He is accompanied by an adult female. His heart rate has been slightly elevated. His heart rate today has been within normal limits. He denies any chest discomfort, irregular heartbeat, or shortness of breath. His pulse is currently at 87 beats per minute. He does not monitor his blood pressure at home. He has never had high blood pressure in the past. Today, his blood pressure is elevated. He is currently on Xarelto or Eliquis as per his insurance coverage. He had a heart rate of 112 beats per minute. Review of Systems Constitutional: no fever, no sweats, no weakness Skin: no rash, no lesions, no bruising/petechiae ENMT: no sore throat, no congestion, no hoarseness Respiratory: no shortness of breath, no cough, no orthopnea, no wheezing Cardiovascular: no chest pain, no palpitations, no edema. Elevated heart rate. Gastrointestinal: no nausea, no vomiting, no diarrhea, no GI bleeding Genitourinary: no anuria/oliguria no hematuria Musculoskeletal: no back pain, no trauma Neurologic: no headache, no dizziness, no numbness, no weakness Psychiatric: no sleeping problems, no irritability, no anxiety/depression. Heme/Lymph: no bleeding tendency, no bruising tendency Allergy/Immunologic: no recurrent infections, no impaired immunity Additional ROS info: Except as noted in the above Review of Systems and in the History of Present Illness all other systems have been reviewed and are negative or noncontributory Physical Exam Vitals & Measurements HR: 87(Peripheral) BP: 140/86 SpO2: 96% HT: 75 in HT: 190 cm WT: 115.3 kg WT: 253.66 lb BMI: 31.94 General: alert, no acute distress Skin: warm, dry intact Head: atraumatic, normocephalic Neck: trachea midline, no JVD, no bruit Eye: normal conjunctiva, sclera clear ENMT: oral mucosa moist Cardiovascular: regular rate and rhythm, no murmur, normal peripheral perfusion. Elevated blood pressure. Respiratory: lungs CTA, respirations non labored Chest wall: no deformity. Gastrointestinal: soft, non-distended, no tenderness, no guarding. Back: no tenderness, normal ROM, normal alignment. Extremities: no edema, no deformity, no trauma Neurological: oriented x 4, LOC appropriate for age, sensation equal & normal bilaterally, speech normal Psychiatric: cooperative, affect appropriate for age, normal judgement, normal psychiatric thoughts. Assessment/Plan Afib (I48.91: Unspecified atrial fibrillation) His blood pressure is slightly elevated today. I do not want to see a heart rate of 112 beats per minute. We might have previously tried medications like metoprolol or Cardizem, but the patient mentioned discontinuing them. I educated the patient that the decision to continue or change medications is ultimately his. Regarding his current medication, Eliquis is essential for preventing stroke, and it is crucial that he continue taking it as prescribed. Stroke is a severe and debilitating condition. If the patient has any concerns or questions, he can call the office. Follow up in 1 year. Portions of this record may have been created with voice recognition artificial intelligence software, specifically [employer] and or [employer]. Substitutions may have occurred due to the inherent limitations of voice recognition and artificial intelligence software. ATTESTATION: Documentation services were performed after patient or guardian consented to allow [facility] to record this visit. DULCE sterilization specialist and provider reviewed before signing. DULCE: Janet Whatley Follow-up No qualifying data available Problem List/Past Medical History Ongoing Atypical chest pain Cervical spondylosis Chronic atrial fibrillation Colon cancer screening Degeneration of intervertebral disc of cervical spine without disc herniation Dyslipidemia Elevated liver enzymes Elevated sed rate Elevated serum protein level Familial hypercholesteremia History of PSVT (paroxysmal supraventricular tachycardia) Impingement syndrome of shoulder Leg cramps Mild ascending aorta dilation Obesity.. Occipital neuralgia Other obesity due to excess calories Right rotator cuff tear Screening PSA (prostate specific antigen) Torticollis Type 2 diabetes mellitus with hyperlipidemia Historical Abnormal EKG Cephalgia Palpitations PSVT (paroxysmal supraventricular tachycardia) Tachycardia Procedure/Surgical History Arthroscopy of shoulder (01/17/2019), right shoulder arthroscopy, extensive debridement, subacromial decompression, partial distal claviculectomy (09/18/2014). Medications Glucometer, See Instructions Lancets, See Instructions, 12 refills latanoprost Opth 0.005% Salena, 1 drop(s), OPTH, Once a day (at bedtime) Test strips, See Instructions, 3 refills Xarelto 20 mg oral tablet, 20 mg= 1 tab(s), Oral, q (more content not included)... Normal [facility] Comment on above: Result Comment: Elec tronically Signed By: Arya Lisa MD\.br\Date and Time Signed: 01/19/24 09:17 EDT\.br\Electronically Co-Signed By: Janet Whatley\.br\Date and Time Co-Signed: 12/24/23 18:55 EDT Physician Orderon 12-27-2023 Physician Order [id number] [facility] Ambulatory Visit Summaryon 0 12-24-2023 Ambulatory Visit Summary AUGUSTO PRYOR :1960 Visit Date:12/24/2023 Ambulatory Visit Instructions Your Diagnosis Afib Your Care Team Attending Physician - Arya Lisa MD Primary Care Physician - Yunier SIMPSON DO, FAAFP Referring Physician - NONE, XXXX This Is Your Medications List Misc Prescription (Glucometer) Misc Prescription (Lancets) Misc Prescription (Test strips) latanoprost ophthalmic (latanoprost Opth 0.005% Salena) rivaroxaban (Xarelto 20 mg oral tablet) Procedures Performed Arthroscopy of shoulder (01/17/2019), right shoulder arthroscopy, extensive debridement, subacromial decompression, partial distal claviculectomy (09/18/2014). Discharge Vitals Heart Rate (Peripheral) 87 Blood Pressure 140/86 Height 190 cm Height 75 in Weight 115.3 kg Weight 253.66 lb BMI 31.94 What to do next Scheduled Follow-Up Appointments Wednesday 7:40 AM EDT With: Yunier SIMPSON DO, FAAFP Where: [facility] Primary Care Normal [facility] Electrocardiogram - 12 leado n 12-24-2023 Electrocardiogram - 12 lead [id number] Normal [facility] Consultation Noteon 12-21-19 Consultation Note [id number] Normal [facility] Ambulatory Visit Summaryon 0 12-17-2023 Ambulatory Visit Summary AUGUSTO PRYOR :1960 Visit Date:12/17/2023 Ambulatory Visit Instructions Your Diagnosis Chronic atrial fibrillation BMI 31.0-31.9,adult Other obesity Cervical spondylosis Familial hypercholesteremia Type 2 diabetes mellitus with hyperlipidemia Hyperlipidemia, unspecified Your Care Team Attending Physician - Yunier SIMPSON DO, FAAFP Primary Care Physician - Yunier SIMPSON DO, FAAFP This Is Your Medications List Contact prescribing physician if questions or concerns Misc Prescription (Glucometer) Misc Prescription (Lancets) Misc Prescription (Test strips) latanoprost ophthalmic (latanoprost Opth 0.005% Salena) rivaroxaban (Xarelto 20 mg oral tablet) Procedures Performed Arthroscopy of shoulder (01/17/2019), right shoulder arthroscopy, extensive debridement, subacromial decompression, partial distal claviculectomy (09/18/2014). Discharge Vitals Temperature (Oral) 36.6 ?C Heart Rate (Peripheral) 70 Respiratory Rate 16 Blood Pressure 118/72 Height 190 cm Height 75 in Weight 115.3 kg Weight 253.66 lb BMI 31.94 What to do next You Need to Schedule the Following Appointments Follow Up with Yunier SIMPSON DO, FAAFP, FAM, PED When: In 6 months Where: [address] [facility], [facility] [place] [address]- You Need to Complete the Following Basic Metabolic Panel, Blood, Routine collect, 12/17/23, Order for future visit, Lab Collect, Type 2 diabetes mellitus with hyperlipidemia Invalid Interpretation Code Hyperlipidemi a, unspecified, Print Label By Order Location\.br\ Lipid Panel, Blood, Routine collect, 12/17/23, Order for future visit, Lab Collect, Chronic atrial fibrillation [facility] Medicine Office/Clini c Noteon 12-17-2023 Family Medicine Office/Clinic Note Chief Complaint Patient here to go over blood work results History of Present Illness Here for follow up Have you had any ER visits or any hospitalizations since last visit? no Are you compliant with your medications and no difficulty affording your medications? yes Do you have side effects from the medication? no Are you compliant with your diet? yes Do you exercise? yes Do you have any of the following symptoms? Chest pain? no Palpitations? no SINGH/SOB? no I told Dr Shipley I would not take Eating more ice cream and cookies Review of Systems PHQ Score Initial Depression Screen Score: 0 SCORE ROS - Provider Constitutional: no fever, no chills, no sweats, no weakness. Skin: no Jaundice, no rash, no lesions, no petechiae. ENMT: no ear pain, no sore throat, no congestion, no hoarseness. Respiratory: no shortness of breath, no cough, no orthopnea, no wheezing. Cardiovascular: no chest pain, no palpitations, no edema. Gastrointestinal: no nausea, no vomiting, no diarrhea, no GI bleeding.no constipationnoheartburn Genitourinary: no dysuria, no hematuria, no discharge, no pain.nofreq/urgency Musculoskeletal: no back pain, no trauma.nojoint pain Neurologic: no headache, no dizziness, no numbness, no weakness. Psychiatric: no sleeping problems, no irritability, no mood swings/depression. Heme/Lymph: no bleeding tendency, no bruising tendency, no petechiae, no swollen lymph nodes no Allergy/Imunology no seasonal allergies, no food allergies, no recurrent infections, no impaired immunity. Additional ROS info: Except as noted in the above Review of Systems and in the History of Present Illness all other systems have been reviewed and are negative or noncontributory. Physical Exam Vitals & Measurements T: 36.6 ?C(Oral) HR: 70(Peripheral) RR: 16 BP: 118/72 SpO2: 96% HT: 75 in HT: 190 cm WT: 115.3 kg WT: 253.66 lb BMI: 31.94 General: Well developed, well nourished, in no acute distress Mouth: Mucous membranes moist. Normal oropharynx, and posterior pharynx without lesions or exudates. Tongue normal Neck: Neck supple. No masses or palpable cervical nodes. Trachea midline. Thyroid without nodules, masses, tenderness, or enlargement Lungs: Normal respiratory effort and clear to auscultation Cardio: Irregular irregular Regular rate and rhythm, normal S1 and S2, no murmur, no rub heart rate at approximately 100 Abdomen: Soft, non-distended, non-tender. no G/R/S/Masses Musculoskeletal: No deformity or scoliosis noted. Normal range of motion. Joints normal. No erythema, edema, effusion, or ecchymosis Extremity: No clubbing, cyanosis, edema, or deformity, with normal ROM in both upper and lower bilateral extremities Neurologic: Grossly normal Skin: No rashes, ulcerations, or suspicious lesions Mental Status: Alert and oriented x3. Normal mood and affect Assessment/Plan 1. Chronic atrial fibrillation (I48.20: Chronic atrial fibrillation, unspecified) Excellent control with Xarelto 20 mg p.o. daily, no more than 2 beers a day or 1 glass of wine a day for 1 minute strength: Follow-up with Dr. Lisa. Patient states that Dr. Lisa wanted to initiate another medication, however he refused. I told him that I would recommend metoprolol low-dose XR 25 mg a day, he refuses and states he is doing well. Patient to call Dr. Lisa's office for an appointment next month if his consultative report stated he wished to see him in 6 months, that was back in July, patient verbalizes understanding as does his and states they will call him. Ordered: Lipid Panel 2. BMI 31.0-31.9,adult (Z68.31: Body mass index [BMI] 31.0-31.9, adult) The standard range for ages 18 and older is >=18.5 and < 25 kg/m2. Your BMI today was above this range, this falls in the overweight to obese category and there are medical benefits to weight loss. We can offer counselling, referral, and/or medical support in addressing this problem. Your BMI and weight management will be followed at subsequent visits. 3. Other obesity (E66.8: Other obesity) Diet and exercise BMI goal of 25 4. Cervical spondylosis (M47.812: Spondylosis without myelopathy or radiculopathy, cervical region) Tylenol and or diclofenac cream as needed: See MRI Ordered: methylPREDNISolone, = 1 tab(s), Oral, As Directed, Take as directed on pack, # 1 EA, Refills(s) 2, Pharmacy: [facility]/pharmacy #[id number], 190, cm, 08/20/23 9:32:00 EST, Height/Length Dosing, 115.3, kg, 08/20/23 9:32:00 EST, Weight Dosing 5. Familial hypercholesteremia (E78.01: Familial hypercholesterolemia) Diet and exercise 6. Type 2 diabetes mellitus with hyperlipidemia (E11.69: Type 2 diabetes mellitus with other specified complication) Patient refuses medication and thus no reinitiation of metformin, will increase exercise and improve he has diet, he will eat less ice cream and cookies. His also stopped making so many cookies. Patient will repeat lipid profile along with (more content not included)... Normal [facility] Comment on above: Result Comment: Elec tronically Signed By: Yunier SIMPSON DO, FAAFP\.denise\Date and Time Signed: 12/17/23 14:07 EST Patient Educationon 12-17-19 Patient Education Cardiovascular Atrial Fibrillation Atrial fibrillation is a type of heartbeat that is irregular or fast. If you have this condition, your heart beats without any order. This makes it hard for your heart to pump blood in a normal way. Atrial fibrillation may come and go, or it may become a long-lasting problem. If this condition is not treated, it can put you at higher risk for stroke, heart failure, and other heart problems. What are the causes? This condition may be caused by diseases that damage the heart. They include: ? High blood pressure. ? Heart failure. ? Heart valve disease. ? Heart surgery. Other causes include: ? Diabetes. ? Thyroid disease. ? Being overweight. ? Kidney disease. Sometimes the cause is not known. What increases the risk? You are more likely to develop this condition if: ? You are older. ? You smoke. ? You exercise often and very hard. ? You have a family history of this condition. ? You are a man. ? You use drugs. ? You drink a lot of alcohol. ? You have lung conditions, such as emphysema, pneumonia, or COPD. ? You have sleep apnea. What are the signs or symptoms? Common symptoms of this condition include: ? A feeling that your heart is beating very fast. ? Chest pain or discomfort. ? Feeling short of breath. ? Suddenly feeling light-headed or weak. ? Getting tired easily during activity. ? Fainting. ? Sweating. In some cases, there are no symptoms. How is this treated? Treatment for this condition depends on underlying conditions and how you feel when you have atrial fibrillation. They include: ? Medicines to: ? Prevent blood clots. ? Treat heart rate or heart rhythm problems. ? Using devices, such as a pacemaker, to correct heart rhythm problems. ? Doing surgery to remove the part of the heart that sends bad signals. ? Closing an area where clots can form in the heart (left atrial appendage). In some cases, your doctor will treat other underlying conditions. Follow these instructions at home: Medicines ? Take ciio-mtp-mscatva and prescription medicines only as told by your doctor. ? Do not take any new medicines without first talking to your doctor. ? If you are taking blood thinners: ? Talk with your doctor before you take any medicines that have aspirin or NSAIDs, such as ibuprofen, in them. ? Take your medicine exactly as told by your doctor. Take it at the same time each day. ? Avoid activities that could hurt or bruise you. Follow instructions about how to prevent falls. ? Wear a bracelet that says you are taking blood thinners. Or, carry a card that lists what medicines you take. Lifestyle ? Do not use any products that have nicotine or tobacco in them. These include cigarettes, e-cigarettes, and chewing tobacco. If you need help quitting, ask your doctor. ? Eat heart-healthy foods. Talk with your doctor about the right eating plan for you. ? Exercise regularly as told by your doctor. ? Do not drink alcohol. ? Lose weight if you are overweight. ? Do not use drugs, including cannabis. General instructions ? If you have a condition that causes breathing to stop for a short period of time (apnea), treat it as told by your doctor. ? Keep a healthy weight. Do not use diet pills unless your doctor says they are safe for you. Diet pills may make heart problems worse. ? Keep all follow-up visits as told by your doctor. This is important. Contact a doctor if: ? You notice a change in the speed, rhythm, or strength of your heartbeat. ? You are taking a blood-thinning medicine and you get more bruising. ? You get tired more easily when you move or exercise. ? You have a sudden change in weight. Get help right away if: ? You have pain in your chest or your belly (abdomen). ? You have trouble breathing. ? You have side effects of blood thinners, such as blood in your vomit, poop (stool), or pee (urine), or bleeding that cannot stop. ? You have any signs of a stroke. BE FAST is an easy way to remember the main warning signs: ? B - Balance. Signs are dizziness, sudden trouble walking, or loss of balance. ? E - Eyes. Signs are trouble seeing or a change in how you see. ? F - Face. Signs are sudden weakness or loss of feeling in the face, or the face or eyelid drooping on one side. ? A - Arms. Signs are weakness or loss of feeling in an arm. This happens suddenly and usually on one side of the body. ? S - Speech. Signs are sudden trouble speaking, slurred speech, or trouble understanding what people say. ? T - Time. Time to call emergency services. Write down what time symptoms started. ? You have other signs of a stroke, such as: ? A sudden, very bad headache with no known cause. ? Feeling like you may vomit (nausea). ? Vomiting. ? A seizure. These symptoms may be an (more content not included)... Normal [facility] BMPon 12-11-2023 Anion gap [Moles/Vol] 11 mmol/L Normal -16 [facility] Comment on above: Performed By: #### 2 304343, [id number], 1031660, 41187347, 0908451, 0811381 ####[facility] [address] [place] [address] Calcium [Mass/Vol] 9.0 mg/dL Normal 8.9-11.1 [facility] Comment on above: Performed By: #### 2 309457, 38586685, 0389719, 33400932, 1214033, 0588632 ####[facility] [address] [place] [address] Chloride [Moles/Vol] 106 mmol/L Normal 101-111 [facility] Comment on above: Performed By: #### 2 282899, 06153993, 5519276, 33310818, 2863353, 5574233 ####[facility] [address] [place] [address] CO2 [Moles/Vol] 23 mmol/L Normal 21-31 [facility] Comment on above: Performed By: #### 2 096552, 17707696, 5795717, 20815638, 2570957, 8394565 ####[facility] [address] [place] [address] Creatinine [Mass/Vol] 1.3 mg/dL Normal 0.5-1.3 [facility] Comment on above: Performed By: #### 2 776018, 12623757, 3813477, 58817815, 1453029, 9318806 ####[facility] [address] [place] [address] Glucose [Mass/Vol] 126 mg/dL Normal 55-199 [facility] Comment on above: Performed By: #### 2 869063, 35252936, 3764744, 78730779, 9599006, 4482975 ####[facility] [address] [place] [address] Potassium [Moles/Vol] 4.2 mmol/L Normal 3.5-5.3 [facility] Comment on above: Performed By: #### 2 818182, 97427791, 6703781, 61807852, 9275409, 3576534 ####[facility] [address] [place] [address] Sodium [Moles/Vol] 136 mmol/L Normal 135-145 [facility] Comment on above: Performed By: #### 2 918202, 07226777, 9050400, 73308380, 8231936, 7493085 ####[facility] [address] [place] [address] Urea nitrogen [Mass/Vol] 16 mg/dL Normal 5-21 [facility] Comment on above: Performed By: #### 2 583415, 69138711, 3642586, 65760535, 9187648, 4908299 ####[facility] [address] [place] [address] Urea nitrogen/Creatinine [Mass ratio] 12 No Units Normal 10-20 [facility] Comment on above: Performed By: #### 2 515232, 02907975, 1208354, 03582375, 4176204, 3634608 ####[facility] [address] [place] [address] CHEMISTRYOrdered By: SYSTEM SYSTEM on 12-11-2023 Albumin [Mass/Vol] 4.0 g/dL Normal 3.3 - 5.0 gm/dL [facility] Albumin/Globulin [Mass ratio] 1.3 {ratio} Normal 1.1 - 2.2 [facility] ALP [Catalytic activity/Vol] 41 [iU]/d Normal 21 - 98 Int._Unit/L [facility] ALT No additional P-5'-P [Catalytic activity/Vol] 43 [iU]/d Normal 6 - 46 Int._Unit/L [facility] Anion gap [Moles/Vol] 11 mmol/L Normal 6 - 16 mEq/L [facility] AST [Catalytic activity/Vol] 27 [iU]/d Normal 5 - 43 Int._Unit/L [facility] Bilirubin [Mass/Vol] 0.7 mg/dL Normal 0.0 - 1 .1 mg/dL [facility] Bilirubin.direct [Mass/Vol] 0.1 mg/dL Normal 0.0 - 0.4 mg/dL [facility] Bilirubin.indirect [Mass or moles/Vol] 0.6 mg/dL Normal 0.1 - 0.9 mg/dL [facility] Calcium [Mass/Vol] 9.0 mg/dL Normal 8.9 - 11. 1 mg/dL [facility] Chloride [Moles/Vol] 106 mmol/L Normal 101 - 1 11 mmol/L [facility] Cholesterol [Mass/Vol] 214 mg/dL High 120 - 200 mg/dL [facility] Cholesterol in HDL [Mass/Vol] 21 mg/dL Invalid Interpretation Code [facility] Comment on above: Result Comment: '>= 60 LOW RISK' '<= 40 HIGH RISK' Cholesterol in LDL [Mass/Vol] 52 mg/dL Normal <=129mg/dL [facility] CO2 [Moles/Vol] 23 mmol/L Normal 21 - 31 mmol/L [facility] Creatinine [Mass/Vol] 1.3 mg/dL Normal 0.5 - 1.3 mg/dL [facility] eGFR 62 mL/min/1.73 m2 Normal >=59mL/min /1. 73 m2 [facility] Globulin (S) [Mass/Vol] 3.0 g/dL Normal 1.4 - 4.0 gm/dL [facility] Glucose [Mass/Vol] 126 mg/dL Normal 55 - 199 mg/dL [facility] Magnesium [Mass/Vol] 1.9 mg/dL Normal 1.3 - 2 .4 mg/dL [facility] Potassium [Moles/Vol] 4.2 mmol/L Normal 3.5 - 5.3 mmol/L [facility] Prostate specific Ag [Mass/Vol] 0.4 ng/mL Normal 0.1 - 3.5 ng/mL [facility] Comment on above: Interpretive Data: T he concentration of PSA determined by different manufacturers can vary due to differences in assay methods and reagent specificity. Values obtained from different assay methods cannot be used interchangeably. The methodology used for this result was chemiluminescence using [employer]'s Access [employer] PSA reagent. Protein [Mass/Vol] 7.0 g/dL Normal 6.0 - 7.8 gm/dL [facility] Sodium [Moles/Vol] 136 mmol/L Normal 135 - 145 mmol/L [facility] Triglyceride [Mass/Vol] 1396 mg/dL High <=149mg/dL [facility] Urea nitrogen [Mass/Vol] 16 mg/dL Normal 5 - 21 mg/dL [facility] Urea nitrogen/Creatinine [Mass ratio] 12 mg/mg Normal 10 - 20 [facility] CHEMISTRYOrdered By: Albert Schmidt on 12-11-2023 Cholesterol in VLDL [Mass/Vol] NC Invalid Interpretation Code 7 - 40 [facility] Comment on above: Result Comment: 'VLD L RESULT NON-REPORTABLE WHEN TRIG > 1293 mg/dl' CHEMISTRYOrdered By: Albert Solorzano on 12-11-2023 HbA1c (Bld) [Mass fraction] 6.9 % High <=5.9% [facility] ChemAutoSS Consent for Treatmenton Consent for Treatment [id number] Normal [facility] Hep Func Panelon 12-11-2023 Albumin [Mass/Vol] 4.0 g/dL Normal 3.3-5.0 [facility] Comment on above: Performed By: #### 2 386544, 81702807, 9760553, 58766661, 1246612, 7909058 ####[facility] [address] [place] [address] Albumin/Globulin (S) [Mass conc ratio] 1.3 Normal 1.1-2.2 [facility] Comment on above: Performed By: #### 2 061260, 34707087, 3349804, 46732629, 5996781, 0576622 ####[facility] [address] [place] [address] ALP [Catalytic activity/Vol] 41 Int._Unit/L Normal 21-98 [facility] Comment on above: Performed By: #### 2 015031, 89499669, 4020352, 11426656, 5412242, 5504861 ####[facility] [address] [place] [address] ALT No additional P-5'-P [Catalytic activity/Vol] 43 Int._Unit/L Normal 6-46 [facility] Comment on above: Performed By: #### 2 639560, 32053926, 8427575, 21236126, 6588406, 7300039 ####[facility] [address] [place] [address] AST [Catalytic activity/Vol] 27 Int._Unit/L Normal 5-43 [facility] Comment on above: Performed By: #### 2 178673, 61092055, 7618025, 97967606, 2314331, 6457849 ####[facility] [address] [place] [address] Bilirubin [Mass/Vol] 0.7 mg/dL Normal 0.0-1.1 [facility] Comment on above: Performed By: #### 2 667441, 80825005, 3194621, 08270029, 0373775, 4202311 ####[address] [place] [address] Bilirubin.direct [Mass/Vol] 0.1 mg/dL Normal 0.0-0.4 [facility] Comment on above: Performed By: #### 2 448695, 99818861, 3199298, 20168756, 3888831, 6066395 ####[address] [address] Bilirubin.indirect [Mass or moles/Vol] 0.6 mg/dL Normal 0.1-0.9 [facility] Comment on above: Performed By: #### 2 555300, 16859110, 5317261, 75160707, 8893635, 1147519 ####[address] [place] [address] Globulin (S) [Mass/Vol] 3.0 g/dL Normal 1.4-4.0 [facility] Comment on above: Performed By: #### 2 290677, 34861512, 8940730, 50861455, 6632951, 4928704 ####[facility] [address] [place] [address] Protein [Mass/Vol] 7.0 g/dL Normal 6.0-7.8 [facility] Comment on above: Performed By: #### 2 512595, 97772213, 3507937, 32120638, 5387107, 1420591 ####[address] [place] [address] [id number] 12-11-2023 HbA1c (Bld) [Mass fraction] 6.9 % High <=5.9 [facility] Comment on above: Performed By: #### 7 [id number] ####[facility] [address] [place] [facility] [place] [place] [address] Lipid Panelon 12-11-2023 Cholesterol [Mass/Vol] 214 mg/dL High 120-200 [facility] Comment on above: Performed By: #### 2 852658, 72675276, 8798923, 41338549, 4261750, 0532591 ####[facility] [address] [place] [address] Cholesterol in HDL [Mass/Vol] 21 mg/dL Invalid Interpretation Code [facility] Comment on above: Result Comment: '>= 60 LOW RISK' '<= 40 HIGH RISK' Performed By: #### 2 889678, 46429545, 5956619, 87701027, 3653165, 5163907 ####[facility] [address] [place] [address] Cholesterol in LDL [Mass/Vol] 52 mg/dL Normal <=129 [facility] Comment on above: Performed By: #### 2 783774, 27552861, 5210429, 78109441, 7818595, 5813287 ####[facility] [address] [place] [address] Cholesterol in VLDL [Mass/Vol] NC Invalid Interpretation Code 7-40 [facility] Comment on above: Result Comment: 'VLD L RESULT NON-REPORTABLE WHEN TRIG > 1293 mg/dl' Performed By: #### 2 609730, 32315420, 3718744, 69044580, 1413777, 1182864 ####[facility] [address] [place] [place] [address] Triglyceride [Mass/Vol] 1396 mg/dL High <=149 [facility] Comment on above: Performed By: #### 2 992629, 42738102, 6874281, 38072577, 5056813, 9452298 ####[facility] [address] [place] [facility] [place] [place] [address] Magnesiumon 12-11-2023 Magnesium [Mass/Vol] 1.9 mg/dL Normal 1.3-2.4 [facility] Comment on above: Performed By: #### 2 619352, 06562212, 8977853, 41834057, 2260517, 9346171 ####[facility] [address] [place] [address] PSA Screen, Totalon 12-11-19 24 Prostate specific Ag [Mass/Vol] 0.4 ng/mL Normal 0.1-3.5 [facility] Comment on above: Result Comment: The concentration of PSA determined by different manufacturers can vary due to differences in assay methods and reagent specificity. Values obtained from different assay methods cannot be used interchangeably. The methodology used for this result was chemiluminescence using [employer]'s Access Hybritech PSA reagent. Performed By: #### 2 699908, 18611736, 9247506, 36519942, 9506361, 0271623 ####[facility] [address] [place] [address] eGFRon 12-11-2023 eGFR 62 mL/min/1.73 m2 Normal >=59 [facility] Comment on above: Order Comment: Order added by Discern Expert. Performed By: #### 2 735119, 91716598, 3638689, 26866225, 7902543, 8185006 ####[facility] [address] [place] [address] CHEMISTRYOrdered By: Samantha Olsen on 06-12-2023 Albumin DL <= 20 mg/L (U) [Mass/Vol] 18.6 microgram/mL Normal 0.0 - 19.0 mcg/mL [facility] Albumin Elph (U) [Mass fraction] mg/dL Invalid Interpretation Code [facility] Creatinine (U) [Mass/Vol] 262.3 mg/dL Invalid Interpretation Code [facility] U Prot/Creat Ratio [facility] Invalid Interpretation Code 0.00 - 200.00 [facility] CHEMISTRYOrdered By: SYSTEM SYSTEM on 06-12-2023 Albumin [Mass/Vol] 3.8 g/dL Normal 3.3 - 5.0 gm/dL [facility] Remisol Albumin/Globulin [Mass ratio] 1.1 {ratio} Normal 1.1 - 2.2 [facility] Remisol ALP [Catalytic activity/Vol] 34 [iU]/d Normal 21 - 98 Int._Unit/L [facility] Remisol ALT No additional P-5'-P [Catalytic activity/Vol] 56 [iU]/d High 6 - 46 Int._Unit/L [facility] Remisol Anion gap [Moles/Vol] 9 mmol/L Normal 6 - 16 mEq/L [facility] Remisol AST [Catalytic activity/Vol] 35 [iU]/d Normal 5 - 43 Int._Unit/L [facility] Remisol Bilirubin [Mass/Vol] 0.6 mg/dL Normal 0.0 - 1 .1 mg/dL [facility] Remisol Bilirubin.direct [Mass/Vol] mg/dL Normal 0.1 - 0.4 mg/dL [facility] Remisol Bilirubin.indirect [Mass or moles/Vol] Unable to Calculate mg/dL Invalid Interpretation Code 0.1 - 0.9 mg/dL [facility] Remisol Calcium [Mass/Vol] 9.0 mg/dL Normal 8.9 - 11. 1 mg/dL [facility]isol Chloride [Moles/Vol] 108 mmol/L Normal 101 - 1 11 mmol/L [facility] Cholesterol [Mass/Vol] 233 mg/dL High 120 - 200 mg/dL [facility] Cholesterol in HDL [Mass/Vol] 33 mg/dL Invalid Interpretation Code [facility] Cholesterol in LDL [Mass/Vol] 116 mg/dL Normal <=129mg/dL [facility] Cholesterol in VLDL [Mass/Vol] Unable to Calculate mg/dL Invalid Interpretation Code 7 - 40 mg/dL [facility] Comment on above: Result Comment: 'Maya ble to report. Trig >400 mg/dl' CO2 [Moles/Vol] 27 mmol/L Normal 21 - 31 mmol/L [facility] Remisol Creatinine [Mass/Vol] 1.5 mg/dL High 0.5 - 1.3 mg/dL [facility] Rem[facility] GFR/1.73 sq M.predicted among non-blacks MDRD (S/P/Bld) [Vol rate/Area] 53 mL/min/1.73 m2 Low >=59mL/min/1. 73 m2 [facility] Chem S Globulin (S) [Mass/Vol] 3.4 g/dL Normal 1.4 - 4.0 gm/dL [facility] Glucose [Mass/Vol] 106 mg/dL Normal 55 - 199 mg/dL [facility] Potassium [Moles/Vol] 3.9 mmol/L Normal 3.5 - 5.3 mmol/L [facility] Protein [Mass/Vol] 7.2 g/dL Normal 6.0 - 7.8 gm/dL [facility] Sodium [Moles/Vol] 140 mmol/L Normal 135 - 145 mmol/L [facility] Triglyceride [Mass/Vol] 463 mg/dL High <=149mg/dL [facility] Urea nitrogen [Mass/Vol] 23 mg/dL High 5 - 21 mg/dL [facility] Remisol Urea nitrogen/Creatinine [Mass ratio] 15 mg/mg Normal 10 - 20 [facility] CHEMISTRYOrdered By: Hillary Chaudhry on 06-12-2023 HbA1c (Bld) [Mass fraction] 6.8 % High <=5.9% [facility] ChemAutoSS HEMATOLOGYOrdered By: SYSTEM SYSTEM on 06-12-2023 Basophils/100 WBC (Bld) 0.9 % Normal 0.0 - 2.0 % [facility] HemeAutoSS Basophils/Leukocytes Auto (Bld) [Pure # fraction] 0.1 E9/L Normal 0.0 - 0.2 E9/L [facility] HemeAutoSS Eosinophils/100 WBC (Bld) 2.5 % Normal 0.0 - 8.0 % [facility] HemeAutoSS Eosinophils/Leukocyt es Auto (Bld) [Pure # fraction] 0.2 E9/L Normal 0.0 - 0.5 E9/L [facility] HemeAutoSS Lymphocytes/100 WBC (Bld) 36.6 % Normal 14.0 - 50.0 % [facility] HemeAutoSS Lymphocytes/Leukocyt es Auto (Bld) [Pure # fraction] 2.7 E9/L Normal 1.0 - 4.0 E9/L [facility] HemeAutoSS Monocytes/100 WBC (Bld) 8.0 % Normal 4.0 - 14.0 % [facility] HemeAutoSS Monocytes/Leukocytes Auto (Bld) [Pure # fraction] 0.6 E9/L Normal 0.2 - 1.0 E9/L [facility] HemeAutoSS Neutrophils/100 WBC (Bld) 52.0 % Normal 36.0 - 75.0 % [facility] HemeAutoSS Neutrophils/Leukocyt es Auto (Bld) [Pure # fraction] 3.8 E9/L Normal 2.0 - 7.5 E9/L [facility] HemeAutoSS HEMATOLOGYOrdered By: Cecelia Castillo on 06-12-2023 Erythrocyte distribution width (RBC) [Ratio] 14.1 % Normal 10.9 - 14.2 % [facility] HemeAutoSS Hematocrit (Bld) [Volume fraction] 42.9 % Normal 37.7 - 49.0 % [facility] HemeAutoSS Hemoglobin (Bld) [Mass/Vol] 14.5 g/dL Normal 13.5 - 17.5 gm/dL [facility] HemeAutoSS MCH (RBC) [Entitic mass] 31.5 pg Normal 27.0 - 34.0 pg [facility] HemeAutoSS MCHC (RBC) [Mass/Vol] 33.8 g/dL Normal 31.4 - 36.0 gm/dL [facility] HemeAutoSS MCV (RBC) [Entitic vol] 93.1 fL Normal 80.0 - 100.0 fL [facility] HemeAutoSS Platelet mean volume (Bld) [Entitic vol] 8.1 fL Normal 6.4 - 10.8 fL [facility] HemeAutoSS Platelets (Bld) [#/Vol] 179.0 E9/L Normal 150.0 - 500.0 E9/L [facility] HemeAutoSS RBC (Bld) [#/Vol] 4.6 E12/L Normal 4.3 - 5.9 E12/L [facility] HemeAutoSS WBC corrected for nucl RBC Auto (Bld) [#/Vol] 7.3 E9/L Normal 4.0 - 11.0 E9/L [facility] HemeAutoSS CNOVon 10-01-2022 CNOV Office Visit ([facility] ) ----- AUGUSTO PRYOR ([id number]) 1960 Date Time Provider Department 10/01/22 12:30 PM KATIE LOZANO ORMN During your visit today, we recorded the following information about you: Katie Lozano MD 10/01/2022 1:02 PM Signed [facility] NOTE Department of Orthopaedics Katie Lozano M.D. NAME: Augusto Pryor [facility] NO.: [id number] DATE: October 01, 2022 DATE OF SURGERY: February 13, 2022, Right shoulder diagnostic arthroscopy with open rotator cuff repair, subacromial decompression, biceps tenodesis. Aguusto returns for routine followup, now 6 months out from surgery. He is doing well with His range of motion and function. PHYSICAL EXAMINATION: Physical examination today of the right shoulder shows a well-healed deltopectoral incision. Range of motion testing shows passive external rotation at the side to 50 degrees. Passive and active forward elevation is to 150 degrees. Active internal rotation is to the lower thoracic levels. There is 5/5 strength with resisted external rotation at the side and 5/5 strength with resisted Franklin maneuver. There is no pain with these resisted maneuvers. The right upper extremity is otherwise grossly neurovascularly intact to testing. ASSESSMENT: Status post right shoulder diagnostic arthroscopy with open rotator cuff repair, subacromial decompression, biceps tenodesis. PLAN: Augusto is now 6 months out from surgery and doing well. At this point in time, He can use the arm for activities as tolerated, with continued home exercises as needed. he will otherwise follow-up on an as needed basis. He is agreeable with this plan. If any other questions or concerns arise in the interim, He should not hesitate to call. KATIE LOZANO M.D. Allergies As of Date: 10/01/2022 (No Known Allergies) Date Reviewed: 10/01/2022 Reviewed by: Areli House Ma - Fully Assessed Reason for Visit: Follow Up [171] Primary Visit Diagnosis:S/P right rotator cuff repair [Z98.890] Prescriptions as of 10/01/2022 - metFORMIN (GLUCOPHAGE) 500 mg tablet Take 500 mg by mouth. - metoprolol tartrate, short acting, (LOPRESSOR) 50 mg tablet Take 50 mg by mouth once daily. - XARELTO 10 mg tablet 20 mg. Problem List As Of Date 10/01/2022 Noted Resolved Traumatic complete tear of right rotator cuff [*01/31/2022 Nondisplaced fracture of acromial process, righ*01/31/2022 Glenoid fracture of shoulder, right, closed, in*01/31/2022 Rapid atrial fibrillation (HCC) [I48.91] 02/11/2022 DM2 (diabetes mellitus, type 2) (HCC) [E11.9] 02/11/2022 S/P right rotator cuff repair [Z98.890] 06/04/2022 Disposition: Return if symptoms worsen or fail to improve. Follow-up and Disposition History for Encounter Date Provider Department Center 10/01/2022 [id number] LOZANO Bldg Encounter Status:Closed by KATIE LOZANO on 10/01/22 Normal [facility] CNOVon 06-04-2022 [facility]OV [facility] ----- AUGUSTO PRYOR ([id number]) 1960 M Date Time Provider Department 06/04/22 3:15 PM KATIE LOZANO During your visit today, we recorded the following information about you: Katie Lozano MD 06/04/2022 5:16 PM Signed [facility] NOTE Department of Orthopaedics Katie Lozano M.D. NAME: Augusto Pryor [facility] NO.: [id number] DATE: June 04, 2022 DATE OF SURGERY: February 13, 2022, Right shoulder diagnostic arthroscopy with open rotator cuff repair, subacromial decompression, biceps tenodesis. Augusto returns for routine followup, now 3 months out from surgery. He is making good progress with shoulder range of motion and function. PHYSICAL EXAMINATION: Physical examination today of the right shoulder shows well-healed arthroscopic portal incisions. Range of motion testing shows supine passive external rotation at the side to 40 degrees. Supine passive forward elevation is to 140 degrees. Active forward elevation is to 140 degrees supine and 100 degrees upright, with active internal rotation to the lower thoracic levels. There is 5/5 strength with resisted external rotation at the side and 5/5 strength with resisted Franklin maneuver. The right upper extremity is otherwise grossly neurovascularly intact to testing. ASSESSMENT: Status post right shoulder diagnostic arthroscopy with open rotator cuff repair, subacromial decompression, biceps tenodesis. PLAN: Augusto is now 3 months out from surgery and progressing well. We will advance into both range of motion and strengthening exercises. He is comfortable continuing this as a home routine and I will send him to therapy. His lifting restriction at this point in time should be 10 pounds or less on this side. he will otherwise follow-up in 3-months' time for a 6-month postoperative visit. He is agreeable with this plan. If any other questions or concerns arise in the interim, He should not hesitate to call. KATIE LOZANO M.D. Allergies As of Date: 06/04/2022 (No Known Allergies) Date Reviewed: 06/04/2022 Reviewed by: Mikki Nice RN - Fully Assessed Primary Visit Diagnosis:S/P right rotator cuff repair [Z98.890] Order(s):CONSULT TO PHYSICAL THERAPY [9032] Order #: [id number]: 1 FUTURE Prescriptions as of 06/04/2022 - metFORMIN (GLUCOPHAGE) 500 mg tablet Take 500 mg by mouth. - metoprolol tartrate, short acting, (LOPRESSOR) 50 mg tablet Take 50 mg by mouth once daily. - XARELTO 10 mg tablet 20 mg. Problem List As Of Date 06/04/2022 Noted Resolved Traumatic complete tear of right rotator cuff [*01/31/2022 Nondisplaced fracture of acromial process, righ*01/31/2022 Glenoid fracture of shoulder, right, closed, in*01/31/2022 Rapid atrial fibrillation (HCC) [I48.91] 02/11/2022 DM2 (diabetes mellitus, type 2) (HCC) [E11.9] 02/11/2022 S/P right rotator cuff repair [Z98.890] 06/04/2022 Disposition: Return in about 3 months (around 09/04/2022). Follow-up and Disposition History for Encounter Date Provider Department Center 06/04/2022 [id number], ERIC T [facility] Bld[facility] Encounter Status:Closed by KATIE LOZANO on 06/04/22 Normal [facility] CNCOon 03-30-2022 CNCO Letter Text Normal [facility] CNNURSEon 03-30-2022 CNNURSE Nurse Visit ([facility]) ----- AUGUSTO PRYOR ([id number]) 1960 Date Time Provider Department 03/30/22 10:00 AM ISHMAEL CIFUENTES During your visit today, we recorded the following information about you: Ishmael Cifuentes RN 03/30/2022 10:25 AM Signed ORTH CARE COORDINATION POST OPERATIVE NURSE VISIT ORTHO CARE POST OPERATIVE NURSE VISIT Patient has been identified by name and date of : Yes Patient was seen today By the RN under the direction of Dr. Lozano. DOS: 02/13/22 SURGERY: Right shoulder diagnostic arthroscopy with open??rotator cuff repair, subacromial decompression, biceps tenodesis. Patient was having 2/10 pain at this time he is not using pain medicatiom for pain relief. Arthroscope insertion sites/incisions are clean and dry with no drainage or redness. Patient was instructed to: Begin active use of the RIGHT arm with a lifting weight restriction of 1-2 pounds. No repetitive arm use. Patient was instructed on Phase One and Phase Two Stretching exercises. Return demonstration done. Patient was advised to DICONTINUE use of sling. Hand out provided. Patient agrees to call the office with an questions or concerns. Dr. Lozano was present at the appointment to evaluate progress, answer questions and direct the plan of care with the patient. Patient will follow up with Dr. Lozano at 12 weeks postoperatively. Ishmael Cifuentes RN Referring Provider: KATIE LOZANO [[id number]] Allergies As of Date: 03/30/2022 (No Known Allergies) Date Reviewed: 03/30/2022 Reviewed by: Ishmael Cifuentes RN - Fully Assessed Reason for Visit: Post Op [174] Primary Visit Diagnosis:S/P right rotator cuff repair [Z98.890] Other Visit Diagnosis:Traumatic complete tear of right rotator cuff, initial encounter [S46.011A] Order(s):XR SHOULDER GENERAL 3V OR MORE AP/TRUE AP/OTHER RIGHT [3884434] Order #: [id number] FUTURE Prescriptions as of 03/30/2022 - metFORMIN (GLUCOPHAGE) 500 mg tablet Take 500 mg by mouth. - metoprolol tartrate, short acting, (LOPRESSOR) 50 mg tablet Take 50 mg by mouth once daily. - XARELTO 10 mg tablet 20 mg. Problem List As Of Date 03/30/2022 Noted Resolved Traumatic complete tear of right rotator cuff [*01/31/2022 Nondisplaced fracture of acromial process, righ*01/31/2022 Glenoid fracture of shoulder, right, closed, in*01/31/2022 Rapid atrial fibrillation (HCC) [I48.91] 02/11/2022 DM2 (diabetes mellitus, type 2) (HCC) [E11.9] 02/11/2022 Disposition: Return in about 6 weeks (around 05/11/2022), or Follow up in [address] Lozano.. Follow-up and Disposition History for Encounter Date Provider Department Center 03/30/2022 [id number] CIFUENTES [facility] Encounter Status:Closed by ISHMAEL CIFUENTES on 03/30/22 [facility] ----- AUGUSTO PRYOR ([id number]) 1960 M Date Time Provider Department 02/27/22 9:00 AM ISHMAEL CIFUENTES During your visit today, we recorded the following information about you: Ishmael Cifuentes RN 02/27/2022 9:43 AM Signed ORTH CARE COORDINATION POST OPERATIVE NURSE VISIT Patient has been identified by name and date of : Yes Patient was seen today By the RN under the direction of Dr. Lozano. DOS: 02/13/22 SURGERY: Right shoulder diagnostic arthroscopy with open??rotator cuff repair, subacromial decompression, biceps tenodesis Patient was having 2/10 pain at this time and is using non-narcotic pain medication when needed for pain relief. See pain assessment attached. Arthroscope insertion sites/incisions are clean and dry with no drainage or redness. Sutures and steri-strips were removed. Incisions left open to air. Patient instructed to avoid rubbing, scrubbing or applying lotion or ointment to incisions. Patient was instructed to: Continue non weight bearing status of RIGHT ARM. Avoid active use and motion of RIGHT SHOULDER. Patient was instructed to have arm out of sling when at home at rest. Hand/arm will be to the patient's side or in lap when sling is off. Patient was instructed to wear sling when out of the house and during in house activity. Instructed to continue hand and elbow range of motion. Patient educated on the signs and symptoms of infection and will call the office with concerns. Patient agrees to call the office with an questions or concerns. Patient will follow up with Rn at [address] Lozano will also see the patient at 6 week visit. Social distancing protocols and prevention of the spread of Covid 19 maintained within the limits of examination/evaluation/pa tient instruction. Ishmael Cifuentes RN Referring Provider: KATIE LOZANO [[id number]] Allergies As of Date: 02/27/2022 (No Known Allergies) Date Reviewed: 02/27/2022 Reviewed by: Ishmael Cifuentes RN - Fully Assessed Reason for Visit: Post Op [174] Primary Visit Diagnosis:S/P right rotator cuff repair [Z98.890] Prescriptions as of 02/27/2022 - docusate sodium (COLACE) 100 mg capsule Take 1 capsule by mouth twice daily. - metFORMIN (GLUCOPHAGE) 500 mg tablet Take 500 mg by mouth. - metoprolol tartrate, short acting, (LOPRESSOR) 50 mg tablet Take 50 mg by mouth once daily. - XARELTO 10 mg tablet 20 mg. Problem List As Of Date 02/27/2022 Noted Resolved Traumatic complete tear of right rotator cuff [*01/31/2022 Nondisplaced fracture of acromial process, righ*01/31/2022 Glenoid fracture of shoulder, right, closed, in*01/31/2022 Rapid atrial fibrillation (HCC) [I48.91] 02/11/2022 DM2 (diabetes mellitus, type 2) (HCC) [E11.9] 02/11/2022 Encounter Status:Closed by ISHMAEL CIFUENTES on 02/27/22 [facility] AUGUSTO PRYOR ([id number]) 1960 M Date Time Provider Department 02/14/22 CANDICE JULES During your visit today, we recorded the following information about you: Candice Jules PA-C 02/14/2022 4:41 PM Addendum DOS: 02/13/2022 Type of Surgery: Right shoulder arthroscopy rotator cuff Surgeon : Marta Catheter site: Right Interscalene Solution: Ropivacaine 0.2% Rates: 03/16/60 Phone number: [phone] ([place]), Discharge date: 02/14/2022 Switched to Ambit pump, educated on its use, discussed LA/SE and s/s that should be reported, patient/famiyl verbalized understanding. Will follow up with phone call. Perla Rivers RN 02/16/2022 11:28 AM Signed DOS: 02/13/2022 Type of Surgery: Right shoulder arthroscopy rotator cuff Surgeon : Marta Catheter site: Right Interscalene Solution: Ropivacaine 0.2% Rates: 03/16/60 Phone number: [phone] ([place]), Discharge date: 02/14/202202/16 Called and talked to pt, states pain level is: 2 The pump reads: 539.6 Pt states catheter dressing is intact, denies: redness, fever, draining, edema, pain Does pt c/o SOB, hoarse voice, difficulty swallowing: Pt denies Denies c/o metallic taste in mouth, ringing in ears, dizziness etc. Pt is able to move: fingers Will call pt again tomorrow. Comments: Pt states pain remains tolerable with demand dose. Agreeable to stopping pnc pump tomorrow morning in anticipation of removing PNC after 6 hrs as long as pain remains tolerable. Denies any questions or concerns at this time. How many pain pills has the patient used in the last 24 hours? 0 Richar Julian RN 02/17/2022 10:24 AM Signed DOS:?02/13/2022 Type of Surgery:?Right shoulder arthroscopy rotator cuff? Surgeon :?Jaychettangely Catheter site:?Right Interscalene Solution:?Ropivacaine 0.2%?? Rates:?03/16/60 Phone number:?[phone] ([place]), Discharge date:?02/14/202202/17 Spoke with patient's family, catheter was removed yesterday without difficulty. Site is unremarkable. Allergies As of Date: 02/14/2022 (No Known Allergies) Date Reviewed: 02/13/2022 Reviewed by: Jami Hampton RN - Fully Assessed Reason for Visit: Recheck [92] Prescriptions as of 02/17/2022 - doxycycline hyclate (VIBRAMYCIN) 100 mg capsule Take 1 capsule by mouth twice daily for 10 days. - docusate sodium (COLACE) 100 mg capsule Take 1 capsule by mouth twice daily. - oxyCODONE IR (ROXICODONE) 5 mg immediate release tablet Take 1 tablet by mouth every 6 hours as needed for pain for up to 10 days. - metFORMIN (GLUCOPHAGE) 500 mg tablet Take 500 mg by mouth. - metoprolol tartrate, short acting, (LOPRESSOR) 50 mg tablet Take 50 mg by mouth once daily. - XARELTO 10 mg tablet 20 mg. Problem List As Of Date 02/14/2022 Noted Resolved Traumatic complete tear of right rotator cuff [*01/31/2022 Nondisplaced fracture of acromial process, righ*01/31/2022 Glenoid fracture of shoulder, right, closed, in*01/31/2022 Rapid atrial fibrillation (HCC) [I48.91] 02/11/2022 DM2 (diabetes mellitus, type 2) (HCC) [E11.9] 02/11/2022 Encounter Status:Closed by RICHAR JULIAN on 02/17/22 [facility] ANES POSTPROC EVALon 022 ANES POSTPROC EVAL HNO ID: [id number] Author: Martin Ahmadi MD Service: ? Author Type: Anesthesiologist Type: Anesthesia Postprocedure Evaluation Filed: 02/13/2022 7:49 PM Note Text: POST ANESTHESIA EVALUATION NOTE : 1960 Procedure Summary Date: 02/13/22 Room / Location: [address] [facility] Anesthesia Start: 1431 Anesthesia Stop: 1814 Procedures: ARTHROSCOPY SHOULDER ROTATOR CUFF (Right Shoulder) ARTHROSCOPY SHOULDER (Right Shoulder) Diagnosis: Traumatic complete tear of right rotator cuff, initial encounter Pre-op exam Surgeons: Katie Lozano MD Responsible Provider: Martin Ahmadi MD Anesthesia Type: general ASA Status: 3 Anesthesia Type: general Airway Type: ETT Last Vitals Vitals Value Taken Time BP 101/62 02/13/221944 Temp 36.2 ?C (97.2 ?F) 02/13/22 180 Pulse 84 02/13/221946 Resp 9 02/13/221946 SpO2 93 % 02/13/221946 Vitals shown include unvalidated device data. Post Anesthesia Patient Status Patient Evaluation: PACU. PACU/ICU Patient Condition: stable. Anticipated Disposition: phase 2 then home. Neurological Status: aware and responsive. Pulmonary Status: breathing comfortably on supplemental oxygen Airway Control: returned to baseline unsupported. Cardiovascular Status: stable. Pain Management: clinically adequate Postoperative Hydration: acceptable. Intraoperative Events: no significant anesthesia events Post Operative Nausea/Vomiting Status: no significant post operative nausea or vomiting Anesthetic Observations: Recommendation: continue current plan of care. Anesthesia Observations No Documentation SIGNATURE: Martin Ahmadi MD PATIENT NAME: Augusto Pryor DATE: February 13, 2022 TIME: 7:48 PM CSN: [id number] Normal [facility] ANES PRE-OPon 02-13-2022 ANES PRE-OP HNO ID: [id number] Author: Martin Ahmadi MD Service: ? Author Type: Anesthesiologist Type: Anesthesia Preprocedure Evaluation Filed: 02/13/2022 2:32 PM Note Text: ANESTHESIOLOGY DAY OF SURGERY NOTE : 1960 Procedure Information Date/Time: 02/13/22 1450 Procedures: ARTHROSCOPY SHOULDER ROTATOR CUFF (Right Shoulder) ARTHROSCOPY SHOULDER (Right Shoulder) Location: [place] [address] / [place] [place] Surgeons: Katie Lozano MD Estimated body mass index is 29.75 kg/m? as calculated from the following: Height as of this encounter: 190.5 cm (6' 3 ). Weight as of this encounter: 108 kg (238 lb). Most recent hematocrit and potassium results: Hematocrit 42.1 02/11/2022 Potassium 4.9 02/11/2022 Relevant Problems CARDIO (+) Rapid atrial fibrillation (HCC) ENDO (+) DM2 (diabetes mellitus, type 2) ([facility]) I - PHYSICAL EVALUATION AIRWAY Patient intubated: No. Tracheostomy tube not present Mallampati: II. TM distance: >3 FB. Neck ROM: full ROM without neurological symptoms. Mouth opening: adequate. Short neck: no. Thick neck: no DENTAL Dental findings: teeth intact. Additional exam findings: no II - ANESTHESIA PLAN ASA Score: 3 Anesthetic Plan: general Airway type: ETT The patient is not a current smoker. NPO Status: adequate Monitoring plan: standard ASA. Postoperative analgesic plan: multimodal analgesia. Informed Consent Anesthetic risks, benefits, alternatives, personnel and consent discussed: yes. Patient / Responsible [employer] agrees to proceed: yes Patient / Surrogate agrees to blood products: Yes Significant changes in the patient condition since the History and Physical, not otherwise documented in primary service progress note: no. Potential Anesthesia issues that may suggest increased risk of complications or contraindication to planned procedure: none. Vitals Value Taken Time BP 109/74 02/13/22 1400 Pulse 80 02/13/22 1403 Resp 16 02/13/22 1114 Temp 36.7 ?C (98.1 ?F) 02/13/22 1114 SpO2 97 % 02/13/22 1403 Facility-Administered Medications as of 02/13/2022 Medication Dose Route Frequency - [MAR Hold due to Transfer] lidocaine (PF) 10 mg/mL (1 %) 1-2 mg injection (XYLOCAINE) 0.1-0.2 mL INTRADERMAL PRN Or - [MAR Hold due to Transfer] lidocaine 1% 0.25 mL subcutaneous j-tip syringe (XYLOCAINE) 0.25 mL SUBCUTANEOUS PRN - [MAR Hold due to Transfer] lactated ringers iv infusion 5-30 mL/hr INTRAVENOUS CONTINUOUS - [MAR Hold due to Transfer] ceFAZolin iv piggyback 2 g in D5W (iso-osmotic) 100 mL (ANCEF) 2 g INTRAVENOUS Pre-Op Once Outpatient Medications as of 02/13/2022 Medication Sig - metFORMIN (GLUCOPHAGE) 500 mg tablet Take 500 mg by mouth. - docusate sodium (COLACE) 100 mg capsule Take 1 capsule by mouth twice daily. - oxyCODONE IR (ROXICODONE) 5 mg immediate release tablet Take 1 tablet by mouth every 6 hours as needed for pain for up to 10 days. - metoprolol tartrate, short acting, (LOPRESSOR) 50 mg tablet Take 50 mg by mouth once daily. - XARELTO 10 mg tablet 20 mg. I have interviewed and examined the patient. I have reviewed the medical record and/or the pre-anesthesia evaluation, pertinent labs, and test results. This contains updated information obtained within 48 hours of Surgery/Procedure. SIGNATURE: Martin Ahmadi MD PATIENT NAME: Augusto Pryor DATE: February 13, 2022 TIME: 2:31 PM CSN: [id number] Normal [facility] BRIEF OP NOTon 02-13-2022 BRIEF OP NOT HNO ID: [id number] Author: Balbir Freire MD Service: Orthopaedic Surgery Author Type: Resident Type: Brief Op Note Filed: 02/13/2022 5:58 PM Note Text: BRIEF OP NOTE LOG ID: [id number] Surgery/Procedure Date: 02/13/2022 Incision/Procedure Start Time: 3:15 PM Incision Close/Procedure End Time: 5:42 PM Surgeon(s)/Proceduralist( s) and Turbine Measurements Engineer(s): Surgeon(s) and Role: * Katie Lozano MD - Primary * Balbir Freire MD - Resident - Assisting * Eder Tran MD - Fellow Procedure(s): Procedure(s) (LRB): ARTHROSCOPY SHOULDER ROTATOR CUFF (Right) ARTHROSCOPY SHOULDER (Right) Anesthesia: General Estimated Blood Loss: 100 mls Specimens: * No specimens in log * Complications: None Pre-Op/Pre-Procedure Diagnosis: R rotator cuff tear Post-Op/Post-Procedure Diagnosis: Same Post-op Plan: Per op report DC home when pain controlled Pre-operatively, a complete plan of care visit was completed: Plan of care discussed with: Provider, RN, Patient. SIGNATURE: Balbir Freire MD PATIENT NAME: Augusto Pryor DATE: February 13, 2022 TIME: 5:57 PM PAGER/CONTACT #: [phone] [facility] CONSULTon 02-13-2022 CONSULT HNO ID: [id number] Author: Gaurav Thorne MD Service: Anesthesiology Author Type: Fellow Type: Consults Filed: 02/13/2022 1:36 PM Note Text: Anesthesia Pain Service Consult Note PATIENT NAME: Augusto Pryor : 1960 Consults Service Requesting Consult: Orthopedics Opinion/Advice Regarding: Consultation regarding post operative pain following shoulder/ upper extremity surgery. The surgeon requesting our opinion regarding the feasibility for nerve blocks. Subjective Chief Complaint: Post-operative (Expected moderate to sever postoperative pain) INTERVAL HPI Augusto Pryor is a 62 year old male who is POD #0,S/P ARTHROSCOPY SHOULDER ROTATOR CUFF, ARTHROSCOPY SHOULDER who reports pain that began Anticipating Postoperative pain following shoulder/ Upper extremity surgery and is described as: Location of Pain: RUE Block Candidate for Pre-Op Block?: Yes Anticipated Block Type: Catheter placement and interscalene brachial plexus Block Laterality: Right PDMP Verification: PDMP website checked and validated Plan Patient Analgesic Options Via: PNC Plan Discussed With: Patient A consult placed by the surgical team regarding post operative pain following Shoulder/ Upper Extremity Surgery. Expected pain is variable following this incision but usually it is a moderate to sever pain , sharp and stabbing. May restrict PT post surgery. Brachial Plexus block above the clavicle, is considered a relatively safe procedure with minimal complication however, it reduce the amount of pain as well as the need for narcotics significantly and change the pattern of pain to a tolerable , pressure type of pain. Discussed the Risks , benefits and alternatives of nerve block in addition to multimodal analgesia. The patient agree to proceed. The complications listed are very rare and include; Bleeding, infection, temporary hoarseness of voice, temporary phrenic palsy, occasional paresthesia of th upper extremity lasing longer than the duration of the block. Objective APS Progress Note ROS BP 110/77 Pulse 86 Temp 36.7 ?C (98.1 ?F) (Temporal) Resp 16 Ht 190.5 cm (6' 3 ) Wt 108 kg (238 lb) SpO2 98% BMI 29.75 kg/m? Physical Exam Sensory/Motor Exam No intake or output data in the 24 hours ending 02/13/22 1335 Lab Results: Hemoglobin 13.7 02/11/2022 Hematocrit 42.1 02/11/2022 Platelet Count 208 02/11/2022 Radiology: N/A Lines/Drains/Airways: Lines, Drains, and Airways Line Peripheral 02/13/22 1110 Assessment Left Wrist 18 Gauge <1 day Problem List * No active hospital problems. * Past Medical History PAST MEDICAL HISTORY Diagnosis Date - A-fib (HCC) - Diabetes mellitus (HCC) Past Surgical History PAST SURGICAL HISTORY Procedure Laterality Date - PAST SURGICAL HISTORY OF Right shoulder arthroscopy, debridement, [place] - PAST SURGICAL HISTORY OF Left shoulder arthroscopy Family History No family history on file. Social History Social History Tobacco Use - Smoking status: Never Smoker - Smokeless tobacco: Never Used Substance Use Topics - Alcohol use: Not Currently Comment: rare - Drug use: Never Prior to Admission Medications metFORMIN (GLUCOPHAGE) 500 mg tablet, Take 500 mg by mouth., Disp: , Rfl: , 02/12/2022 at Unknown time metoprolol tartrate, short acting, (LOPRESSOR) 50 mg tablet, Take 50 mg by mouth once daily. , Disp: , Rfl: , 02/09/2022 XARELTO 10 mg tablet, 20 mg. , Disp: , Rfl: , 02/09/2022 Allergies: ALLERGIES No Known Allergies Current Hospital Medications Current Facility-Administered Medications Medication Dose Route Frequency - [MAR Hold due to Transfer] lidocaine (PF) 10 mg/mL (1 %) 1-2 mg injection (XYLOCAINE) 0.1-0.2 mL INTRADERMAL PRN Or - [MAR Hold due to Transfer] lidocaine 1% 0.25 mL subcutaneous j-tip syringe (XYLOCAINE) 0.25 mL SUBCUTANEOUS PRN - [MAR Hold due to Transfer] lactated ringers iv infusion 5-30 mL/hr INTRAVENOUS CONTINUOUS - [MAR Hold due to Transfer] ceFAZolin iv piggyback 2 g in D5W (iso-osmotic) 100 mL (ANCEF) 2 g INTRAVENOUS Pre-Op Once PDMP Verification: PDMP website checked and validated Plan Patient Analgesic Options Via: PNC Plan Discussed With: Patient A consult placed by the surgical team regarding post operative pain following Shoulder/ Upper Extremity Surgery. Expected pain is variable following this incision but usually it is a moderate to sever pain , sharp and stabbing. May restrict PT post surgery. Brachial Plexus block above the clavicle, is considered a relatively safe procedure with minimal complication however, it reduce the amount of pain as well as the need for narcotics significantly and change the pattern of pain to a tolerable , pressure type of pain. Discussed the Risks , benefits and alternatives of nerve block in addition to multimodal analgesia. The patient agree to proceed. The complications listed are very rare (more content not included)... Normal [facility] OPERATIVE NOon 02-13-2022 OPERATIVE NO HNO ID: [id number] Author: Katie Lozano MD Service: Orthopaedic Surgery Author Type: Physician Type: Operative Report Filed: 02/15/2022 1:43 PM Note Text: [place] [address] [place] OPERATIVE REPORT NAME: Augusto Pryor [facility] #: [id number] DATE: 02/13/2022 (3:15pm-5:42pm) AGE: 62 SURGEON 1: Katie Lozano M.D. RN MIDWIFE: 1. Eder Tran M.D. 2. Balbir Freire M.D. OPERATION: Right shoulder diagnostic arthroscopy with open? rotator cuff repair, subacromial decompression, biceps tenodesis. ? ANESTHESIA: General anesthesia with regional interscalene nerve block for postoperative pain control. ? PREOPERATIVE DIAGNOSIS:?Right shoulder acute,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 Patient encounter procedure Arya Lisa [facility] Start: 07-27-2023 End: 07-27-2023 Patient encounter procedure Arya Lisa [facility] Start: 06-17-2023 End: 06-17-2023 Patient encounter procedure Yunier SIMPSON [facility] Start: 06-12-2023 End: 06-12-2023 Patient encounter procedure Yunier SIMPSON [facility] Start: 12-11-2022 ambulatory Jessie Chase Fac ility:[facility] Start: 11-09-2022 End: 11-09-2022 ambulatory Mary Ellen Weiner Other [employer] Other Start: 11-09-2022 Office outpatient vi sit 15 minutes Mary Ellen Weiner [facility] Start: 11-06-2022 End: 11-06-2022 Patient encounter procedure Arya Lisa [facility] Start: 10-31-2022 End: 10-31-2022 ambulatory Mary Ellen Weiner Other [employer] Other Start: 10-31-2022 Office outpatient vi sit 15 minutes Mary Ellen Weiner [facility] Start: 10-01-2022 End: 10-01-2022 ambulatory KATIE LOZANO Facility:[facility] Start: 10-01-2022 End: 10-01-2022 Patient encounter procedure Katie Lozano MD Work Phone: Orthopaedics Comment on above: S/P right rotator cu ff repair (Primary Dx) Start: 07-03-2022 End: 07-03-2022 Patient encounter procedure Bia VERDUZCO [facility] Start: 06-04-2022 End: 06-04-2022 ambulatory KATIE LOZANO Facility:[facility] Start: 06-04-2022 End: 06-04-2022 Patient encounter procedure Katie Lozano MD Work Phone: Orthopaedics Comment on above: S/P right rotator cu ff repair (Primary Dx) Start: 04-02-2022 End: 04-02-2022 Patient encounter procedure Arya Lisa [facility] Start: 03-30-2022 End: 03-30-2022 Patient encounter procedure Arya Lisa [facility] Start: 03-30-2022 End: 03-30-2022 ambulatory YUNIER SIMPSON Facility:[facility] Start: 03-30-2022 End: 03-30-2022 Nursing evaluation of patient and report [facility] Comment on above: S/P right rotator cu ff repair (Primary Dx); Traumatic complete tear of right rotator cuff, initial encounter Start: 02-27-2022 End: 02-27-2022 ambulatory YUNIER SIMPSON Facility:[facility] Start: 02-27-2022 End: 02-27-2022 Nursing evaluation of patient and report Ishmael [facility]es [facility] Comment on above: S/P right rotator cu ff repair (Primary Dx) Start: 02-14-2022 Telephone encounter Canidce peoples PA-C Work Phone: Pain Management Comment on above: Recheck Start: 02-13-2022 End: 02-14-2022 [facility] Start: 02-11-2022 Encounter for other preprocedural examination RONAL SUAREZPP [facility] Start: 02-11-2022 End: 02-12-2022 ambulatory [facility] Facility:[facility] Start: 02-11-2022 End: 02-11-2022 Admission to establishment Pacc [place] 1 Work Phone: [facility] Start: 02-11-2022 End: 02-11-2022 ambulatory Pacc [place] 1 Work Phone: Pre Anesthesia Comment on above: Pre-op evaluation (P rimary Dx); Traumatic complete tear of right rotator cuff, subsequent encounter; Rapid atrial fibrillation (HCC); Type 2 diabetes mellitus without complication, without long-term current use of insulin (HCC) Start: 02-11-2022 End: 02-11-2022 Preprocedural examination done Pacc [place] 1 Work Phone: Pre Anesthesia Start: 02-04-2022 [facility] Start: 01-30-2022 ambulatory Katie julien MD Work Phone: Orthopaedics Start: 01-30-2022 Preprocedural examination done Katie Lozano MD Work Phone: Orthopaedics Start: 01-29-2022 End: 01-29-2022 ambulatory KATIE LOZANO Facility:[facility] Start: 01-29-2022 End: 01-29-2022 Patient encounter procedure Katie Lozano MD Work Phone: Orthopaedics Comment on above: Traumatic complete t ear of right rotator cuff, initial encounter (Primary Dx); Nondisplaced fracture of acromial process, right shoulder, initial encounter for closed fracture; Glenoid fracture of shoulder, right, closed, initial encounter Start: 01-23-2022 End: 01-23-2022 ambulatory FELIZ AMBRIZ Facility:[facility] Start: 01-23-2022 End: 01-23-2022 Patient encounter procedure Feliz Ambriz MD Work Phone: Orthopaedics Comment on above: Traumatic complete t ear of right rotator cuff, initial encounter (Primary Dx); Closed displaced fracture of acromial process of right scapula, initial encounter; Closed fracture of glenoid cavity and neck of right scapula, initial encounter Start: 01-23-2022 End: 01-23-2022 Subsequent hospital visit by physician Maren Ozuna 1 Work Phone: Radiology Comment on above: Right shoulder pain, unspecified chronicity [M25.511] Start: 09-11-2018 End: 09-11-2018 Patient encounter procedure JENNIFER ORDONEZ Facility:[facility] Start: 09-02-2018 End: 09-02-2018 Patient encounter procedure CAMRYN MERAZ Facility:[facility] Procedures Date Procedure Procedure Detail Performing Clinician Start: 11-16-2024 PNEUMONIA (HTRX) Laure Kaba [employer] Work Phone: Start: 11-16-2024 Infectious agent dna /rna influenza 1st 2 types Sydni Kaba [employer] Work Phone: Start: 11-16-2024 Radiologic exam ches t 2 views Sydni Kaba [employer] Work Phone: Start: 11-16-2024 Ecg routine ecg w/le ast 12 lds w/i&r Sydni Kaba [employer] Work Phone: Start: 06-04-2022 History of repair of musculotendinous cuff of shoulder S/P right rotator cuff repair Katie Lozano MD Work Phone: Start: 01-23-2022 Radex shoulder compl ete minimum 2 views Ronal Nagy PA-C Work Phone: Start: 01-17-2019 Arthroscopy of shoulder Arya Lisa Comment on above: Left shoulder arthro scopy, subacromial decompression, extensive debridement, partial distal clavulectomy, mini-open rotator cuff repair Start: 09-18-2014 right shoulder arthroscopy, extensive debridement, subacromial decompression, partial distal claviculectomy Arya Lisa History of repair of musculotendinous cuff of shoulder S/P right rotator cuff repair Ishmael Cifuentes RN History of repair of musculotendinous cuff of shoulder S/P right rotator cuff repair Ishmael Cifuentes RN History of repair of musculotendinous cuff of shoulder S/P right rotator cuff repair Katie Lozano MD Work Phone: Plan of Treatment Date Care Activity Detail Author Start: 2037 RSV Vaccine (1 - 1-d ose 75+ series) RSV Vaccine (1 - 1-dose 75+ series) [facility] Start: 06-11-2024 Covid-19 Vaccine ( season) Covid-19 Vaccine ( season) [facility] Start: 06-11-2024 Influenza vaccination Influenza Vacc ine (#1) [facility] Start: 06-11-2023 COVID-19 VACCINE ( season) COVID-19 VACCINE ( season) [facility] Start: 06-11-2023 Influenza vaccination INFLUENZA VACC INE (#1) [facility] Start: 06-11-2022 Influenza vaccination [facility] Start: 02-13-2022 End: 04-15-2022 Basic metabolic 2000 panel - Serum or Plasma BASIC METABOLIC PNL Lab Routine Traumatic complete tear of right rotator cuff, initial encounter Pre-op exam Expected: 02/13/2022, Expires: 04/15/2022 [facility] Work Phone: Comment on above: Expected: 02/13/2022 , Expires: 04/15/2022 Start: 02-13-2022 End: 04-15-2022 CBC panel - Blood by Automated count CBC Lab Routine Traumatic complete tear of right rotator cuff, initial encounter Pre-op exam Expected: 02/13/2022, Expires: 04/15/2022 [facility] Work Phone: Comment on above: Expected: 02/13/2022 , Expires: 04/15/2022 Start: 02-11-2022 End: 02-11-2023 ECG COMPLETE ECG COMPLETE ECG Routine Pre-op evaluation Expected: 02/11/2022, Expires: 02/11/2023 [facility] Work Phone: Comment on above: Expected: 02/11/2022 , Expires: 02/11/2023 Start: 10-11-2021 DEPRESSION ASSESSMENT DEPRESSION ASS ESSMENT [facility] Start: 2017 PROSTATE CANCER SCREENING DISCUSSION PROSTATE CANCER SCREENING DISCUSSION [facility] Start: 2017 Prostate specific antigen measurement Prostate Cancer Screening Discussion [facility] Start: 01-10-2012 Prostate specific antigen measurement PROSTATE CANCER SCREENING DISCUSSION [facility] Start: 01-10-2012 SHINGRIX VACCINE (1 of 2) SHINGRIX VACCINE (1 of 2) [facility] Start: 01-10-2012 Zoster vaccine hzv l ernst for subcutaneous use ZOSTER (SHINGLES) VACCINE (1 of 2) [facility] Start: 2007 COLOGUARD (FIT-DNA) COLOGUARD (FIT-D NA) [facility] Start: 2007 Colonoscopy COLONOSCOPY [facility] Start: 2007 COLORECTAL CANCER SCREENING COLORECTAL CANCER SCREENING [facility] Start: [address] COLONOGRAPHY [facility] Start: 2007 DIABETES SCREEN DIABETES SCREEN [facility] Start: 2007 FECAL OCCULT BLOOD FECAL OCCULT BLOO D [facility] Start: 2007 Screening for malign ant neoplasm of colon [facility] Start: [address] 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 MAGAN DISEASE VISIT ANNUAL PCP TEAM CHRONIC DISEASE VISIT [facility] Start: 01-10-1980 Anxiety Screening Anxiety Screening [facility] Start: 01-10-1980 Depression Screening Depression Scre ening [facility] Start: 01-10-1980 Hepatitis B surface antibody level LDL CHOLESTEROL [facility] Start: 01-10-1980 HEPATITIS C SCREENING [facility]ITIS [facility] Start: 01-10-1980 Hepatitis C screening Hepatitis C Sc [facility] Start: 01-10-1980 HIV SCRE[address] HIV [address] [facility] Start: 01-10-1980 HIV screening HIV Screening [facility] Start: 1978 ONE PNEUMOVAX PRIOR TO AGE 65 ONE PNEUMOVAX PRIOR TO AGE 65 [facility] Start: 1977 HIV screening HIV SCREENING DISCUSSION [facility] Start: 1974 Adult depression screening assessment DEPRESSION SCREENING [facility] Start: 01-10-1972 3 comp foot exam completed DIABETIC FOOT EXAM [facility] Start: 01-10-1972 Diabetic foot examination Diabetic Foot Exam [facility] Start: 01-10-1972 Glaucoma screening Dilated Retinal E xam [facility] Start: 01-10-1972 Hepatitis B screening URINE ALBUMIN:CREATININE RATIO [facility] Start: 01-10-1972 Hepatitis C antibody , confirmatory test DILATED RETINAL EXAM [facility] Start: 01-10-1968 PNEUMOCOCCAL (1 - PCV) PNEUMOCOCCAL (1 - PCV) [facility] Start: 01-10-1968 Pneumococcal vaccination Pneum ococcal Vaccine (1 of 2 - PCV) [facility] Start: 1967 COVID-19 VACCINE (#1) COVID-19 VACCI NE (#1) [facility] Start: 1967 COVID-19 VACCINE (1) COVID-19 VACCIN E (1) [facility] Start: 1967 Hemoglobin A1c measurement HbA1C [facility] Start: 1967 Hemoglobin A1c/Hemoglobin.total in Blood HBA1C [facility] Start: 1962 COVID-19 VACCINE (#1) COVID-19 VACCI NE (#1) [facility] Start: 1962 Hepatitis C screening HEPATITI S C VIRUS SCREENING [facility] Start: 1962 Tetanus vaccination TETANUS [facility] A1A CLEARANCE A1A CLEARANCE La b Routine Traumatic complete tear of right rotator cuff, initial encounter Pre-op exam Ordered: 01/31/2022 [facility] Work Phone: Comment on above: Ordered: 01/31/2022 End: 01-30-2023 ECG COMPLETE ECG COMPLETE ECG Routine Traumatic complete tear of right rotator cuff, initial encounter Pre-op exam 1 Occurrences starting 01/31/2022 until 01/30/2023 [facility] Work Phone: Comment on above: 1 Occurrences starti ng 01/31/2022 until 01/30/2023 REFER FOR ADMIT INTERVIEW REFER FOR ADMIT INTERVIEW Procedures Routine Traumatic complete tear of right rotator cuff, initial encounter Pre-op exam Ordered: 01/31/2022 [facility] Work Phone: Comment on above: Ordered: 01/31/2022 End: 04-29-2023 XR SHOULDER GENERAL 3V OR MORE AP/TRUE AP/OTHER RIGHT XR SHOULDER GENERAL 3V OR MORE AP/TRUE AP/OTHER RIGHT Radiology Routine S/P right rotator cuff repair Traumatic complete tear of right rotator cuff, initial encounter 1 Occurrences starting 03/30/2022 until 04/29/2023 [facility] Work Phone: Comment on above: 1 Occurrences starti ng 03/30/2022 until 04/29/2023 [facility] Immunizations Immunization Date Immunization Notes Care Provider Fa jennifer NEGATED: Highlighted row has not occurred!08-20-2023 influenza virus vaccine, unspecified formulation Yunier SIMPSON [facility] NEGATED: Highlighted row has not occurred!01-01-2022 influenza virus vaccine, unspecified formulation Arya Lisa [facility] NEGATED: Highlighted row has not occurred!01-01-2022 SARS-CoV-2 (COVID-19) Ad26 vaccine, recombinant Arya Lisa [facility] NEGATED: Highlighted row has not occurred!12-19-2021 influenza virus vaccine, unspecified formulation Arya Lisa [facility] NEGATED: Highlighted row has not occurred!10-20-2019 influenza virus vaccine, live, attenuated, for intranasal use Arya Sloan [facility] Payers Date Payer Category Payer Blue [employer] Blue [employer] BCBS [id number] 2022 Blue [employer] Blue Shield [id number] 2022 Unknown [id number] 2021 Unknown MMO MMO [employer] [id number] 2021-Present [phone] [address] [place] [address] PPO [id number] 2021 Unknown [id number] 2018 Unknown [id number] 1962 Unknown [id number] 2.16.840.1.740685.3.579.2 .196 1962 Unknown [id number] 2.16.840.1.206276.3.579.2 .594 1962 Unknown [id number] 2.16.840.1.397204.3.579.2 .593 1962 Unknown [id number] 2.16.840.1.896538.3.579.2 .593 1962 Unknown [id number] 2.16.840.1.147271.3.579.2 .727 1962 Unknown [id number] 2.16.840.1.800075.3.579.2 .727 1962 Unknown [id number] 2.16.840.1.202214.3.579.2 .727 1962 Unknown [id number] 2.16.840.1.857872.3.579.2 .727 1962 Unknown [id number] 2.16.840.1.461366.3.579.2 .727 1962 Unknown [id number] 2.16.840.1.509528.3.579.2 .727 1962 Unknown [id number] 2.16.840.1.023258.3.579.2 .1259 1962 Unknown [id number] 2.16.840.1.067542.3.579.2 .1259 1962 Unknown [id number] 2.16.840.1.083048.3.579.2 .1259 1962 Unknown [id number] 2.16.840.1.645159.3.579.2 .727 1962 Unknown [id number] 2.16.840.1.891015.3.579.2 .727 1962 Unknown [id number] 2.16.840.1.871644.3.579.2 .727 1962 Unknown [id number] 2.16.840.1.140718.3.579.2 .727 1962 Unknown [id number] 2.16.840.1.696887.3.579.2 .727 1959 Unknown [id number] Social History Date Type Detail Facility Start: 01-23-2022 End: 11-09-2022 Tobacco smoking status NHIS Never smoked tobacco [facility] Work Phone: Start: 01-23-2022 Tobacco use and exposure Smokeless tobacco non-user [facility] Work Phone: Start: 1960 Sex Assigned At Not on file [facility] Start: 01-19-2022 End: 06-04-2022 Exposure to SARS-CoV-2 (event) Not sure [facility] Start: 02-11-2022 Alcohol intake Ex-drinker (finding) [facility] Start: 02-11-2022 History SDOH Alcohol Comment rare [facility] Start: 02-01-2022 End: 02-11-2022 Exposure to SARS-CoV-2 (event) Unable to assess [facility] Tobacco smoking status Never [facility] Start: 01-23-2022 End: 12-09-2023 Sex Assigned At Male [facility] Start: 12-09-2023 Alcoholic beverage intake Current drinker of alcohol (finding) [facility] Start: 01-23-2022 End: 12-09-2023 History of Social function [facility] Start: 12-09-2023 Alcohol Comment Occasional beer [facility] Start: 10-21-2023 Gender identity Identifies as male gender (finding) [facility] Tobacco smoking stat us NHIS Tobacco smoking consumption unknown [facility] Sexual Orientation [facility] Start: 01-22-2010 Sex Male (finding) [facility] Start: 1960 Sex Assigned At Male [facility] Medical Equipment Procedure Code Equipment Code Equipment Origin al Text Equipment Identifier Dates System Speedbrid ge Fibertape Swivelock 5.5mm Biocomposite 24mm Endoscopic - [id number] Start: 02-13-2022 System Speedbrid ge Fibertape Swivelock 5.5mm Biocomposite 24mm Endoscopic - [id number] Start: 02-13-2022 Lancets, See Instructions, 1 EA, 12, Lancets, [id number], Supply, 190, cm, 06/27/21 15:40:00 EDT, Height/Length Dosing, 112, kg, 06/27/21 15:40:00 EDT, Weight Dosing Start: 07-10-2021 Test strips, See Instructions, 1 EA, 12, test strips check blood sugar once daily, [id number], Supply, 190, cm, 06/27/21 15:40:00 EDT, Height/Length Dosing, 112, kg, 06/27/21 15:40:00 EDT, Weight Dosing Start: 07-10-2021 Lancets, See Instructions, 1 EA, 12, Lancets, [id number], Supply, 190, cm, 06/27/21 15:40:00 EDT, Height/Length Dosing, 112, kg, 06/27/21 15:40:00 EDT, Weight Dosing Start: 07-10-2021 Test strips, See Instructions, 1 EA, 12, test strips check blood sugar once daily, [facility], Supply, 190, cm, 06/27/21 15:40:00 EDT, Height/Length Dosing, 112, kg, 06/27/21 15:40:00 EDT, Weight Dosing Start: 07-10-2021 Lancets, See Instructions, 1 EA, 12, Lancets, [facility], Supply, 190, cm, 06/27/21 15:40:00 EDT, Height/Length Dosing, 112, kg, 06/27/21 15:40:00 EDT, Weight Dosing Start: 07-10-2021 Test strips, See Instructions, 100 EA, 3, test strips check blood sugar once daily Dx. E11.9, [facility], Supply, 190, cm, 03/30/22 16:04:00 EDT, Height/Length Dosing, 108, kg, 03/30/22 16:04:00 EDT, Weight Dosing Start: 04-06-2022 Lancets, See Instructions, 1 EA, 12, Lancets, [facility], Supply, 190, cm, 06/27/21 15:40:00 EDT, Height/Length Dosing, 112, kg, 06/27/21 15:40:00 EDT, Weight Dosing Start: 07-10-2021 Test strips, See Instructions, 100 EA, 3, test strips check blood sugar once daily Dx. E11.9, [facility], Supply, 190, cm, 03/30/22 16:04:00 EDT, Height/Length Dosing, 108, kg, 03/30/22 16:04:00 EDT, Weight Dosing Start: 04-06-2022 OneTouch Delica Plus [id number] - Lancets, See Instructions, 1 EA, 12, Lancets, [facility], Supply, 190, cm, 06/27/21 15:40:00 EDT, Height/Length Dosing, 112, kg, 06/27/21 15:40:00 EDT, Weight Dosing Start: 07-10-2021 Test strips, See Instructions, 100 EA, 3, test strips check blood sugar once daily Dx. E11.9, [facility], Supply, 190, cm, 03/30/22 16:04:00 EDT, Height/Length Dosing, 108, kg, 03/30/22 16:04:00 EDT, Weight Dosing Start: 04-06-2022 Lancets, See Instructions, 1 EA, 12, Lancets, [facility], Supply, 190, cm, 06/27/21 15:40:00 EDT, Height/Length Dosing, 112, kg, 06/27/21 15:40:00 EDT, Weight Dosing Start: 07-10-2021 Test strips, See Instructions, 100 EA, 3, test strips check blood sugar once daily Dx. E11.9, [facility], Supply, 190, cm, 03/30/22 16:04:00 EDT, Height/Length Dosing, 108, kg, 03/30/22 16:04:00 EDT, Weight Dosing Start: 04-06-2022 Lancets, See Instructions, 1 EA, 12, Lancets, [facility], Supply, 190, cm, 06/27/21 15:40:00 EDT, Height/Length Dosing, 112, kg, 06/27/21 15:40:00 EDT, Weight Dosing Start: 07-10-2021 Test strips, See Instructions, 100 EA, 3, test strips check blood sugar once daily Dx. E11.9, [facility], Supply, 190, cm, 03/30/22 16:04:00 EDT, Height/Length Dosing, 108, kg, 03/30/22 16:04:00 EDT, Weight Dosing Start: 04-06-2022 Lancets, See Instructions, 1 EA, 12, Lancets, [facility], Supply, 190, cm, 06/27/21 15:40:00 EDT, Height/Length Dosing, 112, kg, 06/27/21 15:40:00 EDT, Weight Dosing Start: 07-10-2021 Test strips, See Instructions, 100 EA, 3, test strips check blood sugar once daily Dx. E11.9, [facility], Supply, 190, cm, 03/30/22 16:04:00 EDT, Height/Length Dosing, 108, kg, 03/30/22 16:04:00 EDT, Weight Dosing Start: 04-06-2022 Lancets, See Instructions, 1 EA, 12, Lancets, [facility], Supply, 190, cm, 06/27/21 15:40:00 EDT, Height/Length Dosing, 112, kg, 06/27/21 15:40:00 EDT, Weight Dosing Start: 07-10-2021 Test strips, See Instructions, 100 EA, 3, test strips check blood sugar once daily Dx. E11.9, [facility], Supply, 190, cm, 03/30/22 16:04:00 EDT, Height/Length Dosing, 108, kg, 03/30/22 16:04:00 EDT, Weight Dosing Start: 04-06-2022 Lancets, See Instructions, 1 EA, 12, Lancets, [facility], Supply, 190, cm, 06/27/21 15:40:00 EDT, Height/Length Dosing, 112, kg, 06/27/21 15:40:00 EDT, Weight Dosing Start: 07-10-2021 Test strips, See Instructions, 100 EA, 3, test strips check blood sugar once daily Dx. E11.9, [facility], Supply, 190, cm, 03/30/22 16:04:00 EDT, Height/Length Dosing, 108, kg, 03/30/22 16:04:00 EDT, Weight Dosing Start: 04-06-2022 Lancets, See Instructions, 1 EA, 12, Lancets, [facility], Supply, 190, cm, 06/27/21 15:40:00 EDT, Height/Length Dosing, 112, kg, 06/27/21 15:40:00 EDT, Weight Dosing Start: 07-10-2021 Test strips, See Instructions, 100 EA, 3, test strips check blood sugar once daily Dx. E11.9, [facility], Supply, 190, cm, 03/30/22 16:04:00 EDT, Height/Length Dosing, 108, kg, 03/30/22 16:04:00 EDT, Weight Dosing Start: 04-06-2022 Lancets, See Instructions, 1 EA, 12, Lancets, [facility], Supply, 190, cm, 06/27/21 15:40:00 EDT, Height/Length Dosing, 112, kg, 06/27/21 15:40:00 EDT, Weight Dosing Start: 07-10-2021 Test strips, See Instructions, 100 EA, 3, test strips check blood sugar once daily Dx. E11.9, [facility], Supply, 190, cm, 03/30/22 16:04:00 EDT, Height/Length Dosing, 108, kg, 03/30/22 16:04:00 EDT, Weight Dosing Start: 04-06-2022 Lancets, See Instructions, 1 EA, 12, Lancets, [facility], Supply, 190, cm, 06/27/21 15:40:00 EDT, Height/Length Dosing, 112, kg, 06/27/21 15:40:00 EDT, Weight Dosing Start: 07-10-2021 Test strips, See Instructions, 100 EA, 3, test strips check blood sugar once daily Dx. E11.9, [facility], Supply, 190, cm, 03/30/22 16:04:00 EDT, Height/Length Dosing, 108, kg, 03/30/22 16:04:00 EDT, Weight Dosing Start: 04-06-2022 Lancets, See Instructions, 1 EA, 12, Lancets, [facility], Supply, 190, cm, 06/27/21 15:40:00 EDT, Height/Length Dosing, 112, kg, 06/27/21 15:40:00 EDT, Weight Dosing Start: 07-10-2021 Test strips, See Instructions, 100 EA, 3, test strips check blood sugar once daily Dx. E11.9, [facility], Supply, 190, cm, 03/30/22 16:04:00 EDT, Height/Length Dosing, 108, kg, 03/30/22 16:04:00 EDT, Weight Dosing Start: 04-06-2022 Lancets, See Instructions, 1 EA, 12, Lancets, [facility], Supply, 190, cm, 06/27/21 15:40:00 EDT, Height/Length Dosing, 112, kg, 06/27/21 15:40:00 EDT, Weight Dosing Start: 07-10-2021 Test strips, See Instructions, 100 EA, 3, test strips check blood sugar once daily Dx. E11.9, [facility], Supply, 190, cm, 03/30/22 16:04:00 EDT, Height/Length Dosing, 108, kg, 03/30/22 16:04:00 EDT, Weight Dosing Start: 04-06-2022 Lancets, See Instructions, 1 EA, 12, Lancets, [facility], Supply, 190, cm, 06/27/21 15:40:00 EDT, Height/Length Dosing, 112, kg, 06/27/21 15:40:00 EDT, Weight Dosing Start: 07-10-2021 Test strips, See Instructions, 100 EA, 3, test strips check blood sugar once daily Dx. E11.9, [facility], Supply, 190, cm, 03/30/22 16:04:00 EDT, Height/Length Dosing, 108, kg, 03/30/22 16:04:00 EDT, Weight Dosing Start: 04-06-2022 Lancets, See Instructions, 1 EA, 12, Lancets, [facility], Supply, 190, cm, 06/27/21 15:40:00 EDT, Height/Length Dosing, 112, kg, 06/27/21 15:40:00 EDT, Weight Dosing Start: 07-10-2021 Test strips, See Instructions, 100 EA, 3, test strips check blood sugar once daily Dx. E11.9, [facility], Supply, 190, cm, 03/30/22 16:04:00 EDT, Height/Length Dosing, 108, kg, 03/30/22 16:04:00 EDT, Weight Dosing Start: 04-06-2022 Lancets, See Instructions, 1 EA, 12, Lancets, [facility], Supply, 190, cm, 06/27/21 15:40:00 EDT, Height/Length Dosing, 112, kg, 06/27/21 15:40:00 EDT, Weight Dosing Start: 07-10-2021 Test strips, See Instructions, 100 EA, 3, test strips check blood sugar once daily Dx. E11.9, [facility], Supply, 190, cm, 03/30/22 16:04:00 EDT, Height/Length Dosing, 108, kg, 03/30/22 16:04:00 EDT, Weight Dosing Start: 04-06-2022 Functional Status Date Assessment Result Facility 10-24-2024 Functional Status N/A [facility] 09-29-2024 Functional Status N/A [facility] 07-21-2024 Functional Status N/A [facility] 12-24-2023 Functional Status N/A [facility] 12-17-2023 Functional Status N/A [facility] 08-20-2023 Functional Status N/A [facility] 07-30-2023 Functional Status No [facility] 06-17-2023 Functional Status N/A [facility] 11-06-2022 Functional Status No [facility] 07-03-2022 Functional Status N/A [facility] 03-30-2022 Functional Status N/A [facility] Clinical Notes 12-12-2021 to 11-20-2024 Telephone Encounter - Margaret Hernandez MA - 11/20/2024 5:55 PM ESTTelephone Encounter - Margaret Hernandez MA - 11/20/2024 5:55 PM ESTTelephone Encounter - Sydni Kaba NP - 11/20/2024 11:04 AM EST Note Date & Type Note Facility 11-20-2024 Telephone encounter Note Spoke to pt over the phone, pt verbally understood results and had no questions during time of call. Pt stated that he still has the cough, but is feeling like he is improving sx lomeli. Pt also mentioned that he will follow up with his PCP. [facility] 11-20-2024 Miscellaneous Notes Spoke to pt over the phone, pt verbally understood results and had no questions during time of call. Pt stated that he still has the cough, but is feeling like he is improving sx lomeli. Pt also mentioned that he will follow up with his PCP. Please let pt know his resp panel was neg for any bacterial growth. His chest xray was neg for acute findings as discussed at time of office visit. They did mention some chronic changes, on the xray (COPD). Please check on pt. If he started doxy, if sx are improving, finish atb. He Must follow up with PCP. documented in this encounter [facility] 11-20-2024 Telephone encounter Note Please let pt know his resp panel was neg for any bacterial growth. His chest xray was neg for acute findings as discussed at time of office visit. They did mention some chronic changes, on the xray (COPD). Please check on pt. If he started doxy, if sx are improving, finish atb. He Must follow up with PCP. [facility] 11-16-2024 History of Presen t illness Narrative Images from the original note were not included. [address] , [address] [facility], [address] P: [phone] F: [phone] HPI Historian of HPI: patient Augusto Pryor is a 64 y.o. male who presents today to the Urgent Care with the following complaints and denials which have been present for 2 month(s) C/O Denies Symptom Comments [x] [] Runny Nose [] [x] Difficulty Swallowing [] [x] Sore Throat [x] [] Cough [x] [] Ear Pain [x] [] Fever [x] [] Chills [x] [] Nasal Congestion [x] [] Myalgia [x] [] Sinus Pain [x] [] Sinus Pressure Additional Comments: pt has taken cough drops, dayquil OTC medication without relief Pt has been seen since August for the above symptoms. Has been on a z-sreekanth bactrim, augmentin, prednisone and atrovent. Pt stats he hasn't used the atrovent because he got vials with no neb machine. Pt has not had an x-ray and is interested in one. Will wait to see provider before any testing is done. Pt states Sat/Sun he started with new cold sx of chills, fever, body aches, diarrhea, nasal congestion and cough. Denies SOB. States over the weekend he stood up from the chair to use the bathroom and he passed out. States he had an episode of black stools but that has resolved. Denies any further passing out. States he thinks he passed out from being sick. ROS A complete system ROS was performed and negative aside from the pertinent positives noted in the HPI and PE. Examination General Examination: General Examination: in no acute distress, well developed, well nourished Head: normocephalic, atraumatic Eyes: no discharge Ears: BOTH EARS canals normal. TM with mild effusion bilat. Nose: nares patent, sinuses nontender bilaterally. Crusty bloody nasal discharge bilat. Oral Cavity: mucosa moist Throat: pharynx with erythema and PND. No trismus, muffled voice, drooling or protrusion of soft palate. Uvula midline Neck/Thyroid: neck supple, trachea midline Lymph Nodes: no cervical adenopathy Skin: warm and dry Heart: S1, S2 normal, regular rate and rhythm, no S3, S4, no murmurs, rubs, gallops Lungs: clear anteriorly and posteriorly, clear to auscultation bilaterally, good air movement, no wheezes, rales, rhonchi Chest: normal shape and expansion, normal anteroposterior (AP) diameter Psych: alert, oriented. Ext: no edema or calf tenderness bilat. TREATMENT PLAN 1. Influenza A (Primary) Rapid flu pos today, discussed viral and supportive care as pt is past timeframe to start antiviral at this time. Discussed with pt concern with report of black stools with anticoagulant use and syncopal episode and that he needs STAT labs and possible IV fluids. Recommend ER visit today. Pt refuses at this time. STAT chest xray obtained due to report of ongoing cough, final read neg for acute findings. STAT EKG obtained due to syncopal episode and hx of A fib. Prelim interp shows QT prolongation. Pt denies any medication use other than xarelto and last zpak use was in September. Discussed concern for electrolyte imbalance and again recommend ER visit today for further workup. Resp panel swab obtained. Doxy sent to pharmacy due to ongoing cough since Aug. Pt to hold on starting over next 24 hours to see if panel results returned over next 24 hours. If panel not returned over next 24 hours, then pt to start doxy until results can be received. Again discussed ER visit today and MUST contact PCP today to inform of OV today and obtain follow up. Pt verb understanding to all above. 2. Acute cough See 1 - XR chest 2 views - ECG 12 lead - INFLUENZA DNA PROBE - doxycycline (Adoxa) 100 MG tablet; Take 1 tablet (100 mg) by mouth every 12 (twelve) hours for 10 days Take with a full glass of water and do not lie down for at least 30 minutes after, avoid sun exposure Dispense: 20 tablet; Refill: 0 3. Atrial fibrillation, unspecified type (CMS/HCC) See 1 - ECG 12 lead 4. Syncope, unspecified syncope type See 1. documented in this encounter [facility] 10-24-2024 Hospital Discharg e instructions Patient Education 10/24/2024 14:27:46 Eustachian Tube Dysfunction Eustachian Tube Dysfunction Eustachian tube dysfunction refers to a condition in which a blockage develops in the narrow passage that connects the middle ear to the back of the nose (eustachian tube). The eustachian tube regulates air pressure in the middle ear by letting air move between the ear and nose. It also helps to drain fluid from the middle ear space. Eustachian tube dysfunction can affect one or both ears. When the eustachian tube does not function properly, air pressure, fluid, or both can build up in the middle ear. What are the causes? This condition occurs when the eustachian tube becomes blocked or cannot open normally. Common causes of this condition include: Ear infections. Colds and other infections that affect the nose, mouth, and throat (upper respiratory tract). Allergies. Irritation from cigarette smoke. Irritation from stomach acid coming up into the esophagus (gastroesophageal reflux). The esophagus is the part of the body that moves food from the mouth to the stomach. Sudden changes in air pressure, such as from descending in an airplane or scuba diving. Abnormal growths in the nose or throat, such as: ?Growths that line the nose (nasal polyps). ?Abnormal growth of cells (tumors). ?Enlarged tissue at the back of the throat (adenoids). What increases the risk? You are more likely to develop this condition if: You smoke. You are overweight. You are a child who has: ?Certain defects of the mouth, such as cleft palate. ?Large tonsils or adenoids. What are the signs or symptoms? Common symptoms of this condition include: A feeling of fullness in the ear. Ear pain. Clicking or popping noises in the ear. Ringing in the ear (tinnitus). Hearing loss. Loss of balance. Dizziness. Symptoms may get worse when the air pressure around you changes, such as when you travel to an area of high elevation, fly on an airplane, or go scuba diving. How is this diagnosed? This condition may be diagnosed based on: Your symptoms. A physical exam of your ears, nose, and throat. Tests, such as those that measure: ?The movement of your eardrum. ?Your hearing (audiometry). How is this treated? Treatment depends on the cause and severity of your condition. In mild cases, you may relieve your symptoms by moving air into your ears. This is called popping the ears. In more severe cases, or if you have symptoms of fluid in your ears, treatment may include: ?Medicines to relieve congestion (decongestants). ?Medicines that treat allergies (antihistamines). ?Nasal sprays or ear drops that contain medicines that reduce swelling (steroids). ?A procedure to drain the fluid in your eardrum. In this procedure, a small tube may be placed in the eardrum to: ?Drain the fluid. ?Restore the air in the middle ear space. ?A procedure to insert a balloon device through the nose to inflate the opening of the eustachian tube (balloon dilation). Follow these instructions at home: Lifestyle Do not do any of the following until your health care provider approves: ?Travel to high altitudes. ?Fly in airplanes. ?Work in a pressurized cabin or room. ?Scuba dive. Do not use any products that contain nicotine or tobacco. These products include cigarettes, chewing tobacco, and vaping devices, such as e-cigarettes. If you need help quitting, ask your health care provider. Keep your ears dry. Wear fitted earplugs during showering and bathing. Dry your ears completely after. General instructions Take [id number] and prescription medicines only as told by your health care provider. Use techniques to help pop your ears as recommended by your health care provider. These may include: ?Chewing gum. ?Yawning. ?Frequent, forceful swallowing. ?Closing your mouth, holding your nose closed, and gently blowing as if you are trying to blow air out of your nose. Keep all follow-up visits. This is important. Contact a health care provider if: Your symptoms do not go away after treatment. Your symptoms come back after treatment. You are unable to pop your ears. You have: ?A fever. ?Pain in your ear. ?Pain in your head or neck. ?Fluid draining from your ear. Your hearing suddenly changes. You become very dizzy. You lose your balance. Get help right away if: You have a sudden, severe increase in any of your symptoms. Summary Eustachian tube dysfunction refers to a condition in which a blockage develops in the eustachian tube. It can be caused by ear infections, allergies, inhaled irritants, or abnormal growths in the nose or throat. Symptoms may include ear pain or fullness, hearing loss, or ringing in the ears. Mild cases are treated with techniques to unblock the ears, such as yawning or chewing gum. More severe cases are treated with medicines or procedures. This information is not intended to replace advice given to you by your health care provider. Make sure you discuss any questions you have with your health care provider. Document Revised: 12/08/2021 Document Reviewed: 12/08/2021 [employer] Patient Education 2023 [employer]. Follow Up Care 10/19/2024 13:16:38 With:FRANK MACK FAAFP, ANTONIO Yang, PED Address: [address], [facility] [place] [address]- When:Within 3 Month(s) [facility] 10-24-2024 Note Patient Education ENT Eustachian Tube Dysfunction Eustachian tube dysfunction refers to a condition in which a blockage develops in the narrow passage that connects the middle ear to the back of the nose (eustachian tube). The eustachian tube regulates air pressure in the middle ear by letting air move between the ear and nose. It also helps to drain fluid from the middle ear space. Eustachian tube dysfunction can affect one or both ears. When the eustachian tube does not function properly, air pressure, fluid, or both can build up in the middle ear. What are the causes? This condition occurs when the eustachian tube becomes blocked or cannot open normally. Common causes of this condition include: ??? Ear infections. ??? Colds and other infections that affect the nose, mouth, and throat (upper respiratory tract). ??? Allergies. ??? Irritation from cigarette smoke. ??? Irritation from stomach acid coming up into the esophagus (gastroesophageal reflux). The esophagus is the part of the body that moves food from the mouth to the stomach. ??? Sudden changes in air pressure, such as from descending in an airplane or scuba diving. ??? Abnormal growths in the nose or throat, such as: ? Growths that line the nose (nasal polyps). ? Abnormal growth of cells (tumors). ? Enlarged tissue at the back of the throat (adenoids). What increases the risk? You are more likely to develop this condition if: ??? You smoke. ??? You are overweight. ??? You are a child who has: ? Certain defects of the mouth, such as cleft palate. ? Large tonsils or adenoids. What are the signs or symptoms? Common symptoms of this condition include: ??? A feeling of fullness in the ear. ??? Ear pain. ??? Clicking or popping noises in the ear. ??? Ringing in the ear (tinnitus). ??? Hearing loss. ??? Loss of balance. ??? Dizziness. Symptoms may get worse when the air pressure around you changes, such as when you travel to an area of high elevation, fly on an airplane, or go scuba diving. How is this diagnosed? This condition may be diagnosed based on: ??? Your symptoms. ??? A physical exam of your ears, nose, and throat. ??? Tests, such as those that measure: ? The movement of your eardrum. ? Your hearing (audiometry). How is this treated? Treatment depends on the cause and severity of your condition. ??? In mild cases, you may relieve your symptoms by moving air into your ears. This is called popping the ears. ??? In more severe cases, or if you have symptoms of fluid in your ears, treatment may include: ? Medicines to relieve congestion (decongestants). ? Medicines that treat allergies (antihistamines). ? Nasal sprays or ear drops that contain medicines that reduce swelling (steroids). ? A procedure to drain the fluid in your eardrum. In this procedure, a small tube may be placed in the eardrum to: ? Drain the fluid. ? Restore the air in the middle ear space. ? A procedure to insert a balloon device through the nose to inflate the opening of the eustachian tube (balloon dilation). Follow these instructions at home: Lifestyle ??? Do not do any of the following until your health care provider approves: ? Travel to high altitudes. ? Fly in airplanes. ? Work in a pressurized cabin or room. ? Scuba dive. ??? Do not use any products that contain nicotine or tobacco. These products include cigarettes, chewing tobacco, and vaping devices, such as e-cigarettes. If you need help quitting, ask your health care provider. ??? Keep your ears dry. Wear fitted earplugs during showering and bathing. Dry your ears completely after. General instructions ??? Take [id number] and prescription medicines only as told by your health care provider. ??? Use techniques to help pop your ears as recommended by your health care provider. These may include: ? Chewing gum. ? Yawning. ? Frequent, forceful swallowing. ? Closing your mouth, holding your nose closed, and gently blowing as if you are trying to blow air out of your nose. ??? Keep all follow-up visits. This is important. Contact a health care provider if: ??? Your symptoms do not go away after treatment. ??? Your symptoms come back after treatment. ??? You are unable to pop your ears. ??? You have: ? A fever. ? Pain in your ear. ? Pain in your head or neck. ? Fluid draining from your ear. ??? Your hearing suddenly changes. ??? You become very dizzy. ??? You lose your balance. Get help right away if: ??? You have a sudden, severe increase in any of your symptoms. Summary ??? Eustachian tube dysfunction refers to a condition in which a blockage develops in the eustachian tube. ??? It can be caused by ear infections, allergies, inhaled irritants, or abnormal growths in the nose or throat. ??? Symptoms may include ear pain or fullness, hearing loss, or ringing in the ears. ??? Mild cases are treated with (more content not included)... [facility] 09-29-2024 Evaluation + Plan note Future Scheduled [id number] 09/29/24 [facility] 09-29-2024 Hospital Discharg e instructions Patient Education 09/29/2024 09:09:39 Diabetes Mellitus and Exercise Diabetes Mellitus and Exercise Regular exercise is important for your health, especially if you have diabetes mellitus. Exercise is not just about losing weight. It can also help you increase muscle strength and bone density and reduce body fat and stress. This can help your level of endurance and make you more fit and flexible. Why should I exercise if I have diabetes? Exercise has many benefits for people with diabetes. It can: Help lower and control your blood sugar (glucose). Help your body respond better and become more sensitive to the hormone insulin. Reduce how much insulin your body needs. Lower your risk for heart disease by: ?Lowering how much bad cholesterol and triglycerides you have in your body. ?Increasing how much good cholesterol you have in your body. ?Lowering your blood pressure. ?Lowering your blood glucose levels. What is my activity plan? Your health care provider or an expert trained in diabetes care (certified nursing attendant) can help you make an activity plan. This plan can help you find the type of exercise that works for you. It may also tell you how often to exercise and for how long. Be sure to: Get at least 150 minutes of medium-intensity or high-intensity exercise each week. This may involve brisk walking, biking, or water aerobics. Do stretching and strengthening exercises at least 2 times a week. This may involve yoga or weight lifting. Spread out your activity over at least 3 days of the week. Get some form of physical activity each day. ?Do not go more than 2 days in a row without some kind of activity. ?Avoid being inactive for more than 30 minutes at a time. Take frequent breaks to walk or stretch. Choose activities that you enjoy. Set goals that you know you can accomplish. Start slowly and increase the intensity of your exercise over time. How do I manage my diabetes during exercise? Monitor your blood glucose Check your blood glucose before and after you exercise. ?If your blood glucose is 240 mg/dL (13.3 mmol/L) or higher before you exercise, check your urine for ketones. These are chemicals created by the liver. If you have ketones in your urine, do not exercise until your blood glucose returns to normal. ?If your blood glucose is 100 mg/dL (5.6 mmol/L) or lower, eat a snack that has 15 20 grams of carbohydrate in it. Check your blood glucose 15 minutes after the snack to make sure that your level is above 100 mg/dL (5.6 mmol/L) before you start to exercise. Your risk for low blood glucose (hypoglycemia) goes up during and after exercise. Know the symptoms of this condition and how to treat it. Follow these instructions at home: Keep a carbohydrate snack on hand for use before, during, and after exercise. This can help prevent or treat hypoglycemia. Avoid injecting insulin into parts of your body that are going to be used during exercise. This may include: ?Your arms, when you are going to play tennis. ?Your legs, when you are about to go jogging. Keep track of your exercise habits. This can help you and your health care provider watch and adjust your activity plan. Write down: ?What you eat before and after you exercise. ?Blood glucose levels before and after you exercise. ?The type and amount of exercise you do. Talk to your health care provider before you start a new activity. They may need to: ?Make sure that the activity is safe for you. ?Adjust your insulin, other medicines, and food that you eat. Drink water while you exercise. This can stop you from losing too much water (dehydration). It can also prevent problems caused by having a lot of heat in your body (heat stroke). Where to find more information [place] [employer]: diabetes.org Association of Diabetes Care & Education Specialists: diabeteseducator.org This information is not intended to replace advice given to you by your health care provider. Make sure you discuss any questions you have with your health care provider. Document Revised: 03/17/2023 Document Reviewed: 03/17/2023 [employer] Patient Education 2023 [employer]. Follow Up Care 09/28/2024 09:15:32 With:Yunier SIMPSON DO, FAAFP, FAM, PED Address: [address] [place] [address]- When:Within 4 Month(s) With:Yunier SIMPSON DO, FAAFP, FAM, PED Address: [address] [facility] [place] [address]- When:Within 6 Month(s) [facility] 09-29-2024 Note Patient Education Endocrinology Diabetes Mellitus and Exercise Regular exercise is important for your health, especially if you have diabetes mellitus. Exercise is not just about losing weight. It can also help you increase muscle strength and bone density and reduce body fat and stress. This can help your level of endurance and make you more fit and flexible. Why should I exercise if I have diabetes? Exercise has many benefits for people with diabetes. It can: ??? Help lower and control your blood sugar (glucose). ??? Help your body respond better and become more sensitive to the hormone insulin. ??? Reduce how much insulin your body needs. ??? Lower your risk for heart disease by: ? Lowering how much bad cholesterol and triglycerides you have in your body. ? Increasing how much good cholesterol you have in your body. ? Lowering your blood pressure. ? Lowering your blood glucose levels. What is my activity plan? Your health care provider or an expert trained in diabetes care (certified nursing attendant) can help you make an activity plan. This plan can help you find the type of exercise that works for you. It may also tell you how often to exercise and for how long. Be sure to: ??? Get at least 150 minutes of medium-intensity or high-intensity exercise each week. This may involve brisk walking, biking, or water aerobics. ??? Do stretching and strengthening exercises at least 2 times a week. This may involve yoga or weight lifting. ??? Spread out your activity over at least 3 days of the week. ??? Get some form of physical activity each day. ? Do not go more than 2 days in a row without some kind of activity. ? Avoid being inactive for more than 30 minutes at a time. Take frequent breaks to walk or stretch. ??? Choose activities that you enjoy. Set goals that you know you can accomplish. ??? Start slowly and increase the intensity of your exercise over time. How do I manage my diabetes during exercise? Monitor your blood glucose ??? Check your blood glucose before and after you exercise. ? If your blood glucose is 240 mg/dL (13.3 mmol/L) or higher before you exercise, check your urine for ketones. These are chemicals created by the liver. If you have ketones in your urine, do not exercise until your blood glucose returns to normal. ? If your blood glucose is 100 mg/dL (5.6 mmol/L) or lower, eat a snack that has 15?20 grams of carbohydrate in it. Check your blood glucose 15 minutes after the snack to make sure that your level is above 100 mg/dL (5.6 mmol/L) before you start to exercise. ??? Your risk for low blood glucose (hypoglycemia) goes up during and after exercise. Know the symptoms of this condition and how to treat it. Follow these instructions at home: ??? Keep a carbohydrate snack on hand for use before, during, and after exercise. This can help prevent or treat hypoglycemia. ??? Avoid injecting insulin into parts of your body that are going to be used during exercise. This may include: ? Your arms, when you are going to play tennis. ? Your legs, when you are about to go jogging. ??? Keep track of your exercise habits. This can help you and your health care provider watch and adjust your activity plan. Write down: ? What you eat before and after you exercise. ? Blood glucose levels before and after you exercise. ? The type and amount of exercise you do. ??? Talk to your health care provider before you start a new activity. They may need to: ? Make sure that the activity is safe for you. ? Adjust your insulin, other medicines, and food that you eat. ??? Drink water while you exercise. This can stop you from losing too much water (dehydration). It can also prevent problems caused by having a lot of heat in your body (heat stroke). Where to find more information ??? [place] [employer]: diabetes.org ??? Association of Diabetes Care & Education Specialists: diabeteseducator.org This information is not intended to replace advice given to you by your health care provider. Make sure you discuss any questions you have with your health care provider. Document Revised: 03/17/2023 Document Reviewed: 03/17/2023 [employer] Patient Education ? 2023 [employer]. [facility] 07-21-2024 Hospital Discharg e instructions Patient Education 07/21/2024 13:06:28 Diabetes Mellitus and Exercise Diabetes Mellitus and Exercise Regular exercise is important for your health, especially if you have diabetes mellitus. Exercise is not just about losing weight. It can also help you increase muscle strength and bone density and reduce body fat and stress. This can help your level of endurance and make you more fit and flexible. Why should I exercise if I have diabetes? Exercise has many benefits for people with diabetes. It can: Help lower and control your blood sugar (glucose). Help your body respond better and become more sensitive to the hormone insulin. Reduce how much insulin your body needs. Lower your risk for heart disease by: ?Lowering how much bad cholesterol and triglycerides you have in your body. ?Increasing how much good cholesterol you have in your body. ?Lowering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 mouth every evening. No current facility-administered medications for this visit. ALLERGIES: No Known Allergies FMH: Family History Problem Relation Age of Onset Dementia Mother Colorectal Cancer Mother Heart Disease - Other Mother A-Fib Heart Disease - Other Father SOCIAL: Social History Socioeconomic History Marital status: Spouse name: Not on file Number of children: Not on file Years of education: Not on file Highest education level: Not on file Occupational History Not on file Tobacco Use Smoking status: Never Smokeless tobacco: Not on file Substance and Sexual Activity Alcohol use: Yes Comment: Occasional beer Drug use: Never Sexual activity: Yes Partners: Female Other Topics Concern Not on file Social History Narrative Not on file Social Determinants of Health Financial Resource Strain: Not on file Food Insecurity: Not on file Transportation Needs: Not on file Physical Activity: Not on file Stress: Not on file Social Connections: Not on file Intimate Partner Violence: Not on file Housing Stability: Not on file REVIEW OF SYSTEMS HEADACHE REVIEW OF SYSTEMS (positives in bold): Sleep: Snores. No waking up gasping for air, no difficulty getting to sleep, no difficulty staying asleep. Sleep length per night 6-7 hours, can nap anywhere Mood: not feeling depressed Energy: does not have low energy Stress: no increased stress Psychiatric Disorders: Not seeing psychologist or psychiatrist Unless directly addressed in ROS or in assessment and plan, patient was instructed to followup positive ROS findings with PCP. STANDARDIZED SCALES Migraine Disability Assessment Test (MIDAS) score: N/A PHYSICAL EXAM PHYSICAL EXAM: BP 129/76 (BP Location: Left arm, BP Position: Sitting) Pulse 87 Ht 1.905 m (6' 3 ) Wt 116.7 kg (257 lb 3.2 oz) BMI 32.15 kg/m Smoking Status Never Body mass index is 32.15 kg/m . GEN: Alert. NAD. Normal affect. Cooperative. HEENT: No rhinorrhea, lacrimation or conjunctival injection. No sinus tenderness. Normal mucosa. Fundoscopic exam unremarkable. No papilledema. NECK/BACK: No lymphadenopathy. Decreased ROM to right>left rotation. Suboccipital tenderness not present. No paracervical and upper shoulder musculature/traps tenderness. Hypertonicity present throughout. RESP: Breathing comfortably. NEUROLOGICAL: MENTAL STATUS: Alert and oriented to time, place, and person. Recent and remote memory normal. Attention span and concentration is normal. Thought process and content unremarkable. Follows commands appropriately. Speech including fluency and comprehension is normal. No dysarthria noted. Fund of knowledge normal. CN: II: Visual haley intact. PERRL. No Papilledema III, IV, : EOMI. No ptosis present. V: Symmetric facial sensation to light touch. VII: Face symmetric. VIII: Hearing symmetric. No nystagmus. IX, X: Symmetric palatal rise. XI: Symmetric shoulder shrug. XII: Tongue midline. MOTOR: Normal tone. Normal bulk. Motor symmetric 5/5 strength in shoulder abduction, elbow flexion, elbow extension, wrist flexion, wrist extension, and finger abduction. Symmetric 5/5 strength in hip flexion, knee flexion, knee extension, dorsiflexion, and plantar flexion. No pronator drift. REFLEXES: RIGHT: LEFT: Pectoralis + Pectoralis + Biceps 2/4 Biceps 2/4 Brachioradialis 2/4 Brachioradialis 2/4 Triceps 2/4 Triceps 2/4 Patellar 2/4 Patellar 2/4 Achilles 2/4 Achilles 2/4 Babinski neg Babinski neg Lira neg Lira neg SENSATION: Light touch and temperature symmetric in all four extremities. Decreased sensation to vibration at toes (6 seconds bilaterally) CEREBELLAR: Normal [id number] testing without ataxia. Has a high frequency, low amplitude action tremor. No nystagmus. GAIT: Stable primary gait. documented in this encounter [facility] 12-09-2023 Instructions Yas Mckeon DO - 12/09/2023 11:00 AM EST Good to see you! 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 Let's do the following today: - Let's give you methocarbamol (robaxin) to use as needed for when your neck flares up. Take it four times daily as needed for severe muscle spasm or neck pain. - You could certainly use a topical cream as needed for pain, too. - Should you flare up again, let us know. We can consider physical therapy referral or nerve injections. HEADACHE HYGIENE: Make sure that you are: -Drinking enough water/milk/juice/fluids daily -Keeping caffeine intake steady if you drink caffeine. -Exercising regularly (at least one hour of cardioaerobic exercise three times per week) -Eating breakfast, lunch, and dinner with some protein at each meal. -Sleeping 7-8 hours per night. No electronic devices in bed. Find a cool, dark space to sleep in. If you can't sleep after being in bed for 15-30 minutes, get up and read (No TV!) until you get tired again and then go back to bed. MOST IMPORTANTLY, do not use as needed medications (over the counter medications like ibuprofen/tylenol/aleve, fioricet, triptans, or narcotics for any reason more than 2 days/week, or about 10 days per month on average. This is to avoid rebound headaches. documented in this encounter [facility] 08-20-2023 Hospital Discharg e instructions Patient Education 08/20/2023 10:25:22 Cervicogenic Headache Cervicogenic Headache In a cervicogenic headache, the pain moves from your neck to your head. Most cervicogenic headaches start in the upper part of the neck with the first three cervical bones (cervical vertebrae). What are the causes? The most common cause of this condition is a traumatic injury to the bones and tissues in your neck (cervical spine). Whiplash is an example of a cervical spine injury. Other causes include: Arthritis. Broken bone (fracture). Infection. Tumor. What are the signs or symptoms? The most common symptoms are neck and head pain. The pain is often located on one side. In some cases, there may be head pain without neck pain. Pain may be felt in the neck, back or side of the head, face, or behind the eyes. Other symptoms include: Limited movement in the neck. Arm or shoulder pain. How is this diagnosed? This condition may be diagnosed based on: Your symptoms. A physical exam. An injection that blocks nerve signals (diagnostic nerve block). Imaging tests, such as: ?X-rays. ?CT scan. ?MRI. A cervicogenic headache is diagnosed when a cause can be found in the cervical spine and other causes of headaches can be ruled out. How is this treated? Treatment for this condition may depend on the underlying condition. Treatment may include: Medicines, such as: ?NSAIDs, such as ibuprofen. ?Muscle relaxants. Physical therapy. Massage therapy. Complementary therapies, such as: ?Biofeedback. ?Meditation. ?Acupuncture. Nerve block injections to reduce the pain. Botulinum toxin injections. Your treatment plan may involve working with a pain management team that includes your primary health care provider, a painter maintenance, a neurologist, and a physical therapist. Follow these instructions at home: Take mexg-iog-jbkxdzj and prescription medicines only as told by your health care provider. Do exercises at home as told by your physical therapist. Return to your normal activities as told by your health care provider. Ask your health care provider what activities are safe for you. Avoid activities that trigger your headaches. Maintain good neck support and posture at home and at work. Keep all follow-up visits. This is important. Contact a health care provider if: You have headaches that are getting worse and happening more often. You have headaches with any of the following: ?Fever. ?Numbness. ?Weakness. ?Dizziness. ?Nausea or vomiting. Get help right away if: You have a sudden and severe headache. This symptom may be an emergency. Get help right away. Call 911. Do not wait to see if this symptom will go away. Do not drive yourself to the hospital. Summary A cervicogenic headache is a headache caused by a condition that affects the bones and tissues in your cervical spine. Your health care provider may diagnose this condition with a physical exam, a diagnostic nerve block, and imaging tests. Treatment may include medicine to reduce pain and inflammation, physical therapy, and nerve block injections. Complementary therapies, such as acupuncture and meditation, may be added to other treatments. Your treatment plan may involve working with a pain management team that includes your primary health care provider, a painter maintenance, a neurologist, and a physical therapist. This information is not intended to replace advice given to you by your health care provider. Make sure you discuss any questions you have with your health care provider. Document Revised: 04/02/2022 Document Reviewed: 04/02/2022 [employer] Patient Education 2022 [employer]. 08/20/2023 10:25:17 Spondylolysis Rehab-SportsMed Spondylolysis Rehab Ask your health care provider which exercises are safe for you. Do exercises exactly as told by your health care provider and adjust them as directed. It is normal to feel mild stretching, pulling, tightness, or discomfort as you do these exercises. Stop right away if you feel sudden pain or your pain gets worse. Do not begin these exercises until told by your health care provider. Stretching and lxfoc-sq-wkumhj exercises These exercises warm up your muscles and joints and improve the movement and flexibility of your hips and your back. These exercises may also help to relieve pain, numbness, and tingling. Single knee to chest 1.Lie on your back on a firm surface with both legs straight. 2.Bend one of your knees. Use your hands to move your knee up toward your chest until you feel a gentle stretch in your lower back and buttock. Hold your leg in this position by holding on to the front of your knee. Keep your other leg as straight as possible. 3.Hold for seconds. 4.Slowly return to the starting position. 5.Repeat this exercise with your other leg. Repeat times. Complete this exercise times a day. Hamstring stretch, supine 1.Lie on your back (supine position). 2.Loop a belt or towel over the ball of your left / right foot. The ball of your foot is on the walking surface, right under your toes. 3.Straighten your left / right knee and slowly pull on the belt or towel to raise your leg. Raise your leg until you feel a gentle stretch behind your knee or thigh (hamstring). Do not let your left / right knee bend while you do this. Keep your other leg flat on the floor. 4.Hold this position for seconds. 5.Slowly return your leg to the starting position. 6.Repeat this exercise with your other leg. Repeat times. Complete this exercise times a day. Strengthening exercises These exercises build strength and endurance in your back. Endurance is the ability to use your muscles for a long time, even after they get tired. Pelvic tilt This exercise strengthens the muscles that lie deep in the abdomen. 1.Lie on your back on a firm bed or the floor. Bend your knees and keep your feet flat. 2.Tense your abdominal muscles. Tip your pelvis up toward the ceiling and flatten your lower back into the floor. To help with this exercise, you may place a small towel under your lower back and try to push your back into the towel. 3.Hold for seconds. 4.Let your muscles relax completely before you repeat this exercise. Repeat times. Complete this exercise times a day. Abdominal crunch 1.Lie on your back on a firm surface. Bend your knees and keep your feet flat. Cross your arms over your chest. 2.Tuck your chin down toward your chest, without bending your neck. 3.Use your abdominal muscles to lift your upper body off the ground, straight up into the air. Try to lift yourself until your shoulder blades are off the ground. You may need to work up to this. Keep your lower back on the ground while you crunch upward. Do not hold your breath. 4.Slowly lower yourself down. Keep your abdominal muscles tense until you are back to the starting position. Repeat times. Complete this exercise times a day. Alternating arm and leg raises 1.Get on your hands and knees on a firm surface. If you are on a hard floor, you may want to use padding, such as an exercise mat, to cushion your knees. 2.Line up your arms and legs. Your hands should be directly below your shoulders, and your knees should be directly below your hips. 3.Lift your left leg behind you. At the same time, raise your right arm and straighten it in front of you. Do not lift your leg higher than your hip. Do not lift your arm higher than your shoulder. Keep your abdominal and back muscles tight. Keep your hips facing the ground. Do not arch your back. Keep your balance carefully, and do not hold your breath. 4.Hold for seconds. 5.Slowly return to the starting position. 6.Repeat with your right leg and your left arm. Repeat times. Complete this exercise times a day. Posture and body mechanics Good posture and healthy body mechanics can help to relieve stress in your body's tissues and joints. Body mechanics refers to the movements and positions of your body while you do your daily activities. Posture is part of body mechanics. Good posture means: Your spine is in its natural S-curve position (neutral). Your shoulders are pulled back slightly. Your head is not tipped forward. Follow these guidelines to improve your posture and body mechanics in your everyday activities. Standing When standing, keep your spine neutral and your feet about hip width apart. Keep a slight bend in your knees. Your ears, shoulders, and hips should line up. When you do a task in which you associate professor of criminal justice one place for a long time, place one foot up on a stable object that is 2 4 inches (5 10 cm) high, such as a footstool. This helps keep your spine neutral. Sitting When sitting, keep your spine neutral and keep your feet flat on the floor. Use a footrest, if necessary, and keep your thighs parallel to the floor. Avoid rounding your shoulders, and avoid tilting your head forward. When working at a desk or a computer, keep your desk at a height where your hands are slightly lower than your elbows. Slide your chair under your desk so you are close enough to maintain good posture. When working at a computer, place your monitor at a height where you are looking straight ahead and you do not have to tilt your head forward or downward to look at the screen. Resting When lying down and resting, avoid positions that are most painful for you. If you have pain with activities such as sitting, bending, stooping, or squatting (flexion-based activities), lie in a position in which your body does not bend very much. For example, avoid curling up on your side with your arms and knees near your chest ( position). If you have pain with activities such as standing for a long time or reaching with your arms (extension-based activities), lie with your spine in a neutral position and bend your knees slightly. Try the following positions: ?Lying on your side with a pillow between your knees. ?Lying on your back with a pillow under your knees. Lifting When lifting objects, keep your feet at least shoulder width apart and tighten your abdominal muscles. Bend your knees and hips and keep your spine neutral. It is important to lift using the strength of your legs, not your back. Do not lock your knees straight out. Always ask for help to lift heavy or awkward objects. This information is not intended to replace advice given to you by your health care provider. Make sure you discuss any questions you have with your health care provider. Document Revised: 08/25/2022 Document Reviewed: 01/22/2020 [employer] Patient Education 2022 [employer]. 08/20/2023 10:25:08 Epidural Steroid Injection Epidural Steroid Injection An epidural steroid injection is a shot of steroid medicine and numbing medicine that is given into the space between the spinal cord and the bones of the back (epidural space). The shot helps relieve pain caused by an irritated or swollen nerve root. The amount of pain relief you get from the injection depends on what is causing the nerve to be swollen and irritated, and how long your pain lasts. You are more likely to benefit from this injection if your pain is strong and comes on suddenly rather than if you have had long-term (chronic) pain. Tell a health care provider about: Any allergies you have. All medicines you are taking, including vitamins, herbs, eye drops, creams, and jdiy-erv-xbsyurx medicines. Any problems you or family members have had with anesthetic medicines. Any blood disorders you have. Any surgeries you have had. Any medical conditions you have. Whether you are or may be . What are the risks? Generally, this is a safe procedure. However, problems may occur, including: Headache. Bleeding. Infection. Allergic reaction to medicines. Nerve damage. What happens before the procedure? Staying hydrated Follow instructions from your health care provider about hydration, which may include: Up to 2 hours before the procedure you may continue to drink clear liquids, such as water, clear fruit juice, black coffee, and plain tea. Eating and drinking restrictions Follow instructions from your health care provider about eating and drinking, which may include: 8 hours before the procedure stop eating heavy meals or foods, such as meat, fried foods, or fatty foods. 6 hours before the procedure stop eating light meals or foods, such as toast or cereal. 6 hours before the procedure stop drinking milk or drinks that contain milk. 2 hours before the procedure stop drinking clear liquids. Medicines You may be given medicines to lower anxiety. Ask your health care provider about: ?Changing or stopping your regular medicines. This is especially important if you are taking diabetes medicines or blood thinners. ?Taking medicines such as aspirin and ibuprofen. These medicines can thin your blood. Do not take these medicines unless your health care provider tells you to take them. ?Taking wrbf-rxc-shgqofz medicines, vitamins, herbs, and supplements. General instructions Ask your health care provider what steps will be taken to prevent infection. Plan to have a responsible adult take you home from the hospital or clinic. If you will be going home right after the procedure, plan to have a responsible adult care for you for the time you are told. This is important. What happens during the procedure? An IV will be inserted into one of your veins. You will be given one or more of the following: ?A medicine to help you relax (sedative). ?A medicine to numb the area (local anesthetic). You will be asked to lie on your abdomen or sit. The injection site will be cleaned. A needle will be inserted through your skin into the epidural space. This may cause you some discomfort. An X-ray machine will be used to guide the needle as close as possible to the affected nerve. A steroid medicine and a local anesthetic will be injected into the epidural space. The needle and IV will be removed. A bandage (dressing) will be put over the injection site. The procedure may vary among health care providers and hospitals. What can I expect after the procedure? Your blood pressure, heart rate, breathing rate, and blood oxygen level will be monitored until you leave the hospital or clinic. Your arm or leg may feel weak or numb for a few hours. The injection site may feel sore. Follow these instructions at home: Injection site care You may remove the bandage (dressing) after 24 hours. Check your injection site every day for signs of infection. Check for: ?Redness, swelling, or pain. ?Fluid or blood. ?Warmth. ?Pus or a bad smell. Managing pain, stiffness, and swelling For 24 hours after the procedure: ?Avoid using heat on the injection site. ?Do not take baths, swim, or use a hot tub until your health care provider approves. Ask your health care provider if you may take showers. You may only be allowed to take sponge baths. If directed, put ice on the injection site. To do this: ?Put ice in a plastic bag. ?Place a towel between your skin and the bag. ?Leave the ice on for 20 minutes, 2 3 times a day. Activity If you were given a sedative during the procedure, it can affect you for several hours. Do not drive or operate machinery until your health care provider says that it is safe. Return to your normal activities as told by your health care provider. Ask your health care provider what activities are safe for you. General instructions Take nole-lzy-zucwzjh and prescription medicines only as told by your health care provider. Drink enough fluid to keep your urine pale yellow. Keep all follow-up visits as told by your health care provider. This is important. Contact a health care provider if: You have any of these signs of infection: ?Redness, swelling, or pain around your injection site. ?Fluid or blood coming from your injection site. ?Warmth coming from your injection site. ?Pus or a bad smell coming from your injection site. ?A fever. You continue to have pain and soreness around the injection site, even after taking jyzp-dqt-cfkjadx pain medicine. You have severe, sudden, or lasting nausea or vomiting. Get help right away if: You have severe pain at the injection site that is not relieved by medicines. You develop a severe headache or a stiff neck. You become sensitive to light. You have any new numbness or weakness in your legs or arms. You lose control of your bladder or bowel movements. You have trouble breathing. Summary An epidural steroid injection is a shot of steroid medicine and numbing medicine that is given into the epidural space. The shot helps relieve pain caused by an irritated or swollen nerve root. You are more likely to benefit from this injection if your pain is strong and comes on suddenly rather than if you have had chronic pain. This information is not intended to replace advice given to you by your health care provider. Make sure you discuss any questions you have with your health care provider. Document Revised: 08/27/2022 Document Reviewed: 04/08/2020 [employer] Patient Education 2022 [employer]. 08/20/2023 10:25:06 Degenerative Disk Disease Degenerative Disk Disease Degenerative disk disease is a condition caused by changes that occur in the spinal disks as a person ages. Spinal disks are soft and compressible disks located between the bones of your spine (vertebrae). These disks act like shock absorbers. Degenerative disk disease can affect the whole spine. However, the neck and lower back are most often affected. Many changes can occur in the spinal disks with aging, such as: The spinal disks may dry and shrink. Small tears may occur in the tough, outer covering of the disk (annulus). The disk space may become smaller due to loss of water. Abnormal growths in the bone (spurs) may occur. This can put pressure on the nerve roots exiting the spinal canal, causing pain. The spinal canal may become narrowed. What are the causes? This condition may be caused by: Normal degeneration with age. Injuries. Certain activities and sports that cause damage. What increases the risk? The following factors may make you more likely to develop this condition: Being overweight. Having a family history of degenerative disk disease. Smoking and use of products that contain nicotine and tobacco. Sudden injury. Doing work that requires heavy lifting. What are the signs or symptoms? Symptoms of this condition include: Pain that varies in intensity. Some people have no pain, while others have severe pain. The location of the pain depends on the part of your backbone that is affected. You may have: ?Pain in your neck or arm if a disk in your neck area is affected. ?Pain in your back, buttocks, or legs if a disk in your lower back is affected. Pain that becomes worse while bending or reaching up, or with twisting movements. Pain that may start gradually and worsen as time passes. It may also start after a major or minor injury. Numbness or tingling in the arms or legs. How is this diagnosed? This condition may be diagnosed based on: Your symptoms and medical history. A physical exam. Imaging tests, including: ?X-ray of the spine. ?CT scan. ?MRI. How is this treated? This condition may be treated with: Medicines. Injection of steroids into the back. Rehabilitation exercises. These activities aim to strengthen muscles in your back and abdomen to better support your spine. If treatments do not help to relieve your symptoms or you have severe pain, you may need surgery. Follow these instructions at home: Medicines Take kknc-dlf-kweoloa and prescription medicines only as told by your health care provider. Ask your health care provider if the medicine prescribed to you: ?Requires you to avoid driving or using machinery. ?Can cause constipation. You may need to take these actions to prevent or treat constipation: ?Drink enough fluid to keep your urine pale yellow. ?Take iqsu-vos-yhoqkwz or prescription medicines. ?Eat foods that are high in fiber, such as beans, whole grains, and fresh fruits and vegetables. ?Limit foods that are high in fat and processed sugars, such as fried or sweet foods. Activity Rest as told by your health care provider. Avoid sitting for a long time without moving. Get up to take short walks every 1 2 hours. This is important to improve blood flow and breathing. Ask for help if you feel weak or unsteady. Return to your normal activities as told by your health care provider. Ask your health care provider what activities are safe for you. Perform relaxation exercises as told by your health care provider. Maintain good posture. Do not lift anything that is heavier than 10 lb (4.5 kg), or the limit that you are told, until your health care provider says that it is safe. Follow proper lifting and walking techniques as told by your health care provider. Managing pain, stiffness, and swelling If directed, put ice on the painful area. Icing can help to relieve pain. To do this: ?Put ice in a plastic bag. ?Place a towel between your skin and the bag. ?Leave the ice on for 20 minutes, 2 3 times a day. ?Remove the ice if your skin turns bright red. This is very important. If you cannot feel pain, heat, or cold, you have a greater risk of damage to the area. If directed, apply heat to the painful area as often as told by your health care provider. Heat can reduce the stiffness of your muscles. Use the heat source that your health care provider recommends, such as a moist heat pack or a heating pad. ?Place a towel between your skin and the heat source. ?Leave the heat on for 20 30 minutes. ?Remove the heat if your skin turns bright red. This is especially important if you are unable to feel pain, heat, or cold. You may have a greater risk of getting burned. General instructions Change your sitting, standing, and sleeping habits as told by your health care provider. Avoid sitting in the same position for long periods of time. Change positions frequently. Lose weight or maintain a healthy weight as told by your health care provider. Do not use any products that contain nicotine or tobacco, such as cigarettes, e-cigarettes, and chewing tobacco. If you need help quitting, ask your health care provider. Wear supportive footwear. Keep all follow-up visits. This is important. This may include visits for physical therapy. Contact a health care provider if you: Have pain that does not go away within 1 4 weeks. Lose your appetite. Lose weight without trying. Get help right away if you: Have severe pain. Notice weakness in your arms, hands, or legs. Begin to lose control of your bladder or bowel movements. Have fevers or night sweats. Summary Degenerative disk disease is a condition caused by changes that occur in the spinal disks as a person ages. This condition can affect the whole spine. However, the neck and lower back are most often affected. Take tfmt-qli-aowayfg and prescription medicines only as told by your health care provider. This information is not intended to replace advice given to you by your health care provider. Make sure you discuss any questions you have with your health care provider. Document Revised: 2021 Document Reviewed: 2021 [employer] Patient Education 2022 [employer]. 08/20/2023 10:25:04 Cervical Disk Replacement Cervical Disk Replacement Cervical disk replacement is a surgery to replace one or more damaged cervical disks with an artificial disk or disks. Cervical disks are located between each of the neck bones (cervical vertebrae). They absorb shocks from movement, connect the bones of the spine (vertebrae), and help the spine move. You may need this procedure to help relieve symptoms that are caused by a damaged cervical disk, such as pressure, pain, numbness, or weakness. The artificial disk that replaces the damaged cervical disk may be made with metal or with a combination of metal and plastic. Tell a health care provider about: Any allergies you have. All medicines you are taking, including vitamins, herbs, eye drops, creams, and vdxi-zhj-ldtriuz medicines. Any blood disorders you have. Any problems you or family members have had with anesthetic medicines. Any surgeries you have had. Any medical conditions you have. Whether you are or may be . What are the risks? Generally, this is a safe procedure. However, problems may occur, including: Risks of surgery in general Infection. Bleeding or a blood clot. Allergic reactions to medicines. Scarring. Inability to move part of the body (paralysis). Stroke. Inability to control when you urinate or have bowel movements (incontinence). A need for more surgery. Risks of cervical disk replacement surgery Damage to nearby structures or organs, such as surrounding nerves or the part of the body that moves food from the mouth to the stomach (esophagus). The artificial disk breaking or becoming loose. Difficulty swallowing or breathing. Voice changes. Symptoms that continue after surgery. What happens before the procedure? Staying hydrated Follow instructions from your health care provider about hydration, which may include: Up to 2 hours before the procedure you may continue to drink clear liquids, such as water, clear fruit juice, black coffee, and plain tea. Eating and drinking restrictions Follow instructions from your health care provider about eating and drinking, which may include: 8 hours before the procedure stop eating heavy meals or foods, such as meat, fried foods, or fatty foods. 6 hours before the procedure stop eating light meals or foods, such as toast or cereal. 6 hours before the procedure stop drinking milk or drinks that contain milk. 2 hours before the procedure stop drinking clear liquids. Medicines Ask your health care provider about: Changing or stopping your regular medicines. This is especially important if you are taking diabetes medicines or blood thinners. Taking medicines such as aspirin and ibuprofen. These medicines can thin your blood. Do not take these medicines unless your health care provider tells you to take them. Taking juiz-niv-cqzlwtd medicines, vitamins, herbs, and supplements. Tests You may have tests, such as: Blood tests. Urine tests. X-rays. CT scan. MRI. General instructions You may be asked to shower with a germ-killing soap. Do not use any products that contain nicotine or tobacco for at least 4 weeks before the procedure. These products include cigarettes, e-cigarettes, and chewing tobacco. If you need help quitting, ask your health care provider. Plan to have someone take you home from the hospital or clinic. Arrange for someone to help you with activities during recovery. Ask your health care provider what steps will be taken to help prevent infection. These may include: ?Washing skin with a germ-killing soap. ?Receiving antibiotic medicine. What happens during the procedure? An IV will be inserted into one of your veins. You may be given medicine to help you relax (sedative). You will be given a medicine to make you fall asleep (general anesthetic). You will be connected to computer screens (monitors) that show your blood pressure, heart rate, and oxygen level. You will be connected to a machine that helps you breathe (ventilator). An incision will be made in the front or side of your neck. Your damaged disk or disks will be removed, and the artificial disk or disks will be inserted. Artificial disks will be held in place with screws or metal plates in the vertebrae. Tissue under your skin will be closed with stitches (sutures) that will dissolve on their own over time. The incision in your skin will be closed with sutures. A bandage (dressing) will be placed over your incision. A neck collar (cervical collar) will be placed around your neck. This supports your neck and keeps it from moving while it heals. The procedure may vary among health care providers and hospitals. What to expect after the procedure Your blood pressure, heart rate, breathing rate, and blood oxygen level will be monitored until you leave the hospital or clinic. You will be given medicine to manage pain and swelling. You will continue to receive fluids and medicines through an IV until you can eat and drink on your own. You will continue to wear a cervical collar. You may work with a physical therapist to help you walk. Do not drive for 24 hours if you were given a sedative during your procedure, or until your health care provider approves. Summary Cervical disk replacement is a surgery to replace one or more damaged cervical disks with an artificial disk or disks. This is done to help relieve symptoms that are caused by a damaged cervical disk, such as pressure, pain, numbness, or weakness. Before the procedure, follow instructions about taking medicines and about eating and drinking restrictions. You will be given a medicine to make you fall asleep (general anesthetic) for the procedure. A neck collar will be placed around your neck to support it and keep it from moving while it heals. This information is not intended to replace advice given to you by your health care provider. Make sure you discuss any questions you have with your health care provider. Document Revised: 02/22/2020 Document Reviewed: 02/22/2020 [employer] Patient Education 2022 [employer]. Follow Up Care 08/17/2023 16:46:49 With:FRANK MACK FAAFP, ANTONIO Yang, PED [facility] [place] [address]- When:Within 3 Month(s) [facility] 06-17-2023 Hospital Discharg e instructions Patient Education 06/17/2023 10:08:23 Neck Exercises Neck Exercises Ask your health care provider which exercises are safe for you. Do exercises exactly as told by your health care provider and adjust them as directed. It is normal to feel mild stretching, pulling, tightness, or discomfort as you do these exercises. Stop right away if you feel sudden pain or your pain gets worse. Do not begin these exercises until told by your health care provider. Neck exercises can be important for many reasons. They can improve strength and maintain flexibility in your neck, which will help your upper back and prevent neck pain. Stretching exercises Rotation neck stretching 1.Sit in a chair or stand up. 2.Place your feet flat on the floor, shoulder-width apart. 3.Slowly turn your head (rotate) to the right until a slight stretch is felt. Turn it all the way to the right so you can look over your right shoulder. Do not tilt or tip your head. 4.Hold this position for 10 30 seconds. 5.Slowly turn your head (rotate) to the left until a slight stretch is felt. Turn it all the way to the left so you can look over your left shoulder. Do not tilt or tip your head. 6.Hold this position for 10 30 seconds. Repeat times. Complete this exercise times a day. Neck retraction 1.Sit in a sturdy chair or stand up. 2.Look straight ahead. Do not bend your neck. 3.Use your fingers to push your chin backward (retraction). Do not bend your neck for this movement. Continue to face straight ahead. If you are doing the exercise properly, you will feel a slight sensation in your throat and a stretch at the back of your neck. 4.Hold the stretch for 1 2 seconds. Repeat times. Complete this exercise times a day. Strengthening exercises Neck press 1.Lie on your back on a firm bed or on the floor with a pillow under your head. 2.Use your neck muscles to push your head down on the pillow and straighten your spine. 3.Hold the position as well as you can. Keep your head facing up (in a neutral position) and your chin tucked. 4.Slowly count to 5 while holding this position. Repeat times. Complete this exercise times a day. Isometrics These are exercises in which you strengthen the muscles in your neck while keeping your neck still (isometrics). 1.Sit in a supportive chair and place your hand on your forehead. 2.Keep your head and face facing straight ahead. Do not flex or extend your neck while doing isometrics. 3.Push forward with your head and neck while pushing back with your hand. Hold for 10 seconds. 4.Do the sequence again, this time putting your hand against the back of your head. Use your head and neck to push backward against the hand pressure. 5.Finally, do the same exercise on either side of your head, pushing sideways against the pressure of your hand. Repeat times. Complete this exercise times a day. Prone head lifts 1.Lie face-down (prone position), resting on your elbows so that your chest and upper back are raised. 2.Start with your head facing downward, near your chest. Position your chin either on or near your chest. 3.Slowly lift your head upward. Lift until you are looking straight ahead. Then continue lifting your head as far back as you can comfortably stretch. 4.Hold your head up for 5 seconds. Then slowly lower it to your starting position. Repeat times. Complete this exercise times a day. Supine head lifts 1.Lie on your back (supine position), bending your knees to point to the ceiling and keeping your feet flat on the floor. 2.Lift your head slowly off the floor, raising your chin toward your chest. 3.Hold for 5 seconds. Repeat times. Complete this exercise times a day. Scapular retraction 1.Stand with your arms at your sides. Look straight ahead. 2.Slowly pull both shoulders (scapulae) backward and downward (retraction) until you feel a stretch between your shoulder blades in your upper back. 3.Hold for 10 30 seconds. 4.Relax and repeat. Repeat times. Complete this exercise times a day. Contact a health care provider if: Your neck pain or discomfort gets worse when you do an exercise. Your neck pain or discomfort does not improve within 2 hours after you exercise. If you have any of these problems, stop exercising right away. Do not do the exercises again unless your health care provider says that you can. Get help right away if: You develop sudden, severe neck pain. If this happens, stop exercising right away. Do not do the exercises again unless your health care provider says that you can. This information is not intended to replace advice given to you by your health care provider. Make sure you discuss any questions you have with your health care provider. Document Revised: 03/24/2022 Document Reviewed: 03/24/2022 [employer] Patient Education 2022 [employer]. 06/17/2023 10:08:21 Acute Torticollis, Adult Acute Torticollis, Adult Torticollis is a condition in which the muscles of the neck tighten (contract) abnormally, causing the neck to twist and the head to move into an unnatural position. Torticollis that develops suddenly is called acute torticollis. People with acute torticollis may have trouble turning their head. The condition can be painful and may range from mild to severe. What are the causes? This condition may be caused by: Sleeping in an awkward position. This is common. Extending or twisting the neck muscles beyond their normal position. An injury to the neck muscles. An infection. A tumor. Certain medicines. Long-lasting spasms of the neck muscles. In some cases, the cause may not be known. What increases the risk? You are more likely to develop this condition if: You have a condition associated with loose ligaments, such as Down syndrome. You have a brain condition that affects vision, such as strabismus. What are the signs or symptoms? The main symptom of this condition is tilting of the head to one side. Other symptoms include: Pain in the neck. Trouble turning the head from side to side or up and down. How is this diagnosed? This condition may be diagnosed based on: A physical exam. Your medical history. Imaging tests, such as: ?An X-ray. ?An ultrasound. ?A CT scan. ?An MRI. How is this treated? Treatment for this condition depends on what is causing the condition. Mild cases may go away without treatment. Treatment for more serious cases may include: Medicines or shots to relax the muscles. Other medicines, such as antibiotics, to treat the underlying cause. Wearing a soft neck collar. Physical therapy and stretching exercises to improve movement and strength in your neck. Neck massage. In severe cases, surgery may be needed to repair dislocated or broken bones or to treat nerves in the neck. Follow these instructions at home: Take [id number] and prescription medicines only as told by your health care provider. Do stretching exercises and massage your neck as told by your health care provider. If directed, apply heat to the affected area as often as told by your health care provider. Use the heat source that your health care provider recommends, such as a moist heat pack or a heating pad. ?Place a towel between your skin and the heat source. ?Leave the heat on for 20 30 minutes. ?Remove the heat if your skin turns bright red. This is especially important if you are unable to feel pain, heat, or cold. You have a greater risk of getting burned. If you wake up with torticollis after sleeping, check your bed or sleeping area. Look for lumpy pillows or unusual objects. Make sure your bed and sleeping area are comfortable. Keep all follow-up visits. This is important. Contact a health care provider if: You have a fever. Your symptoms do not improve or they get worse. Get help right away if: You have trouble breathing. You make loud, high-pitched sounds when you breathe, most often when you breathe in (stridor). You start to drool. You have trouble swallowing or pain when swallowing. You develop numbness or weakness in your hands or feet. You have changes in your speech, understanding, or vision. You are in severe pain. You cannot move your head or neck. These symptoms may represent a serious problem that is an emergency. Do not wait to see if the symptoms will go away. Get medical help right away. Call your local emergency services (911 in the [place] Do not drive yourself to the hospital. Summary Torticollis is a condition in which the muscles of the neck tighten (contract) abnormally, causing the neck to twist and the head to move into an unnatural position. Torticollis that develops suddenly is called acute torticollis. Treatment for this condition depends on what is causing the condition. Mild cases may go away without treatment. Do stretching exercises and massage your neck as told by your health care provider. You may also be instructed to apply heat to the area. Contact your health care provider if your symptoms do not improve or they get worse. This information is not intended to replace advice given to you by your health care provider. Make sure you discuss any questions you have with your health care provider. Document Revised: 01/24/2021 Document Reviewed: 01/24/2021 [employer] Patient Education 2022 [employer]. Follow Up Care 05/28/2023 09:34:18 With:FRANK MACK FAAFP, Yunier Macdonald, ANTONIO, PED Address: [place] [address]- When:Within 6 Month(s) [facility] 11-09-2022 Evaluation note Encounter Date Diagnosis Assessment Notes Oct, Left otitis media with effusion (ICD-10 - H65.92) Drink plenty fluids, get plenty of rest. Stop the amoxicillin. Take the azithromycin and Medrol Dosepak as prescribed until gone. Use the Flonase inhaler as prescribed, 2 sprays to each side of your nose once a day until your symptoms improve. Take Tylenol or Motrin for aches pains or fevers. Follow-up with your family physician if no improvement in 2 to 3 days. Oct, Other Middle ear infection material was printed [employer] Other 01-21-2023 Evaluation note* Encounter Date Diagnosis Assessment Notes Treatment Notes Treatment Clinical Notes Oct, Bilateral otitis media, unspecified otitis media type (ICD-10 - H66.93) Middle ear infection: adult home care material was printed Drink plenty fluids, get plenty of rest. Take the amoxicillin as prescribed until gone. Use the eardrops as prescribed. Take Tylenol as needed for aches pains or fevers. Follow-up with your family physician if no improvement in 2 to 3 days. Continue home medications as prescribed Oct, Acute otitis externa of left ear, unspecified type (ICD-10 - H60.502) [employer] Other 12-22-2022 NoteHNO ID: [id number] Author: Katie Lozano MD Service: ? Author Type: Physician Type: Progress Notes Filed: 10/01/2022 1:02 PM Note Text: [facility] NOTE Department of Orthopaedics Katie Lozano M.D. NAME: Augusto Pryor [facility] NO.: [id number] DATE: October 01, 2022 DATE OF SURGERY: February 13, 2022, Right shoulder diagnostic arthroscopy with open rotator cuff repair, subacromial decompression, biceps tenodesis. Augusto returns for routine followup, now 6 months out from surgery. He is doing well with His range of motion and function. PHYSICAL EXAMINATION: Physical examination today of the right shoulder shows a well-healed deltopectoral incision. Range of motion testing shows passive external rotation at the side to 50 degrees. Passive and active forward elevation is to 150 degrees. Active internal rotation is to the lower thoracic levels. There is 5/5 strength with resisted external rotation at the side and 5/5 strength with resisted Franklin maneuver. There is no pain with these resisted maneuvers. The right upper extremity is otherwise grossly neurovascularly intact to testing. ASSESSMENT: Status post right shoulder diagnostic arthroscopy with open rotator cuff repair, subacromial decompression, biceps tenodesis. PLAN: Augusto is now 6 months out from surgery and doing well. At this point in time, He can use the arm for activities as tolerated, with continued home exercises as needed. he will otherwise follow-up on an as needed basis. He is agreeable with this plan. If any other questions or concerns arise in the interim, He should not hesitate to call. KATIE LOZANO M.D.[facility]12-22-2022 History of Present illness Narrative* Katie Lozano MD - 10/01/2022 12:58 PM EST [facility] NOTE Department of Orthopaedics Katie Lozano M.D. NAME: Augusto Pryor [facility] NO.: [id number] DATE: October 01, 2022 DATE OF SURGERY: February 13, 2022, Right shoulder diagnostic arthroscopy with open rotator cuff repair, subacromial decompression, biceps tenodesis. Augusto returns for routine followup, now 6 months out from surgery. He is doing well with His range of motion and function. PHYSICAL EXAMINATION: Physical examination today of the right shoulder shows a well-healed deltopectoral incision. Range of motion testing shows passive external rotation at the side to 50 degrees. Passive and active forward elevation is to 150 degrees. Active internal rotation is to the lower thoracic levels. There is 5/5 strength with resisted external rotation at the side and 5/5 strength withresisted Franklin maneuver. There is no pain with these resisted maneuvers. The right upper extremity is otherwise grossly neurovascularly intact to testing. ASSESSMENT: Status post right shoulder diagnostic arthroscopy with open rotator cuff repair, subacromial decompression, biceps tenodesis. PLAN: Augusto is now 6 months out from surgery and doing well. At this point in time, He can use the arm for activities as tolerated, with continued home exercises as needed. he will otherwise follow-up on an as needed basis. He is agreeable with this plan. If any other questions or concerns arise in the interim, He should not hesitate to call. KATIE LOZANO M.D. documented in [facility]Bl[facility] NoteHNO ID: [id number] Author: Katie Lozano MD Service: ? Author Type: Physician Type: Progress Notes Filed: 06/04/2022 5:16 PM Note Text: [facility] NOTE Department of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 Function Panel 12/19/21 * Hepatic Function [facility]12/[facility] Future App[facility]ments Appointment Date:04/02/2022 03:00:00 PM Scheduled Provider: [facility] Appoint[facility] Type:CV Holter/Event (FT) Appointment Date:05/11/2022 07:40:00 AM Scheduled Provider:Yunier SIMPSON DO, FAAFP Location:[facility] Appointment Type:FM Open Appointment Date:07/03/2022 03:30:00 PM Scheduled Provider:Arya Lisa MD [facility] App[facility] Type:Cardiology ED Follow Up (FT) Future Scheduled Tests Laboratory* HgbA1c 06/14/21 * HgbA1c 09/13/21 * HgbA1c 12/12/21 * HgbA1c 03/14/22 * HgbA1c 04/03/22 * HgbA1c 07/04/22 * HgbA1c 10/03/22 * HgbA1c 12/19/21 * HgbA1c 03/21/22 * HgbA1c 06/21/22 * HgbA1c 09/20/22 * Microalbumin Level Urine 06/14/21 * C-Peptide 06/14/21 * Hepatic Function Panel 12/19/21 * Hepatic Function [facility]/12/22 [facility] Future Appointments Appointment Date:05/11/2022 07:40:00 AM Scheduled Provider:Yunier SIMPSON DO, FAAFP Location:[facility] Appointment Type: Open Appointment Date:07/03/2022 03:30:00 PM Scheduled Provider:Arya Lisa MD [facility] App[facility] Type:Cardiology ED Follow Up (FT) Future Scheduled Tests Laboratory* HgbA1c 06/14/21 * HgbA1c 09/13/21 * HgbA1c 12/12/21 * HgbA1c 03/14/22 * HgbA1c 04/03/22 * HgbA1c 07/04/22 * HgbA1c 10/03/22 * HgbA1c 12/19/21 * HgbA1c 03/21/22 * HgbA1c 06/21/22 * HgbA1c 09/20/22 * Microalbumin Level Urine 06/14/21 * C-Peptide 06/14/21 * Hepatic Function Panel 12/19/21 * Hepatic Function Panel 01/12/22 [facility] Future Appointments Appointment Date:11/06/2022 03:45:00 PM Scheduled Provider:Arya Lisa MD [facility] Appoint[facility] Type:Cardiology Follow Up (FT) Future Scheduled Tests Laboratory* HgbA1c 06/14/21 * HgbA1c 09/13/21 * HgbA1c 12/12/21 * HgbA1c 03/14/22 * HgbA1c 04/03/22 * HgbA1c 07/04/22 * HgbA1c 10/03/22 * HgbA1c 12/19/21 * HgbA1c 03/21/22 * HgbA1c 06/21/22 * HgbA1c 09/20/22 * Hepatic Function Panel 12/19/21 * Hepatic Function Panel 01/12/22 [facility] Future Appointments Appointment Date:06/17/2023 08:45:00 AM Scheduled Provider:Bia VERDUZCO CNP [facility] Appointment Type:Cardiology Follow Up (FT) Appointment Date:06/17/2023 10:20:00 AM Scheduled Provider:Yunier SIMPSON DO, FAAFP Location:[facility] Appointment Type:FM Open Diagnostic Tests Pending * PSA Screen, Total 06/12/23 * Ferritin 06/12/23 Future Scheduled Tests Laboratory* HgbA1c 07/04/22 * HgbA1c 10/03/22 * HgbA1c 09/02/23 * HgbA1c 12/03/23 * HgbA1c 03/02/24 * HgbA1c 06/21/22 * HgbA1c 09/20/22 * PSA Screen, Total 06/02/23 [facility] Future App[facility]ments Appointment Date:07/30/2023 04:30:00 PM Scheduled Provider:Arya Lisa MD [facility] App[facility] Type:Cardiology Follow Up (FT) Appointment Date:12/17/2023 01:20:00 PM Scheduled Provider:Yunier SIMPSON DO, FAAFP Location:[facility] Appointment Type:FM Open Future Scheduled Tests Laboratory* HgbA1c 06/17/23 * HgbA1c 07/04/22 * HgbA1c 10/03/22 * HgbA1c 09/02/23 * HgbA1c 12/03/23 * HgbA1c 03/02/24 * HgbA1c 06/21/22 * HgbA1c 09/20/22 * PSA Screen, Total 06/02/23 * Basic Metabolic Panel 06/17/23 * Hepatic Function Panel 06/17/23 * Lipid Panel 06/17/23 * Magnesium Level 06/17/23 [facility] Evaluation + Plan note Future Appointments Appointment Date:07/30/2023 04:30:00 PM Scheduled Provider:Arya Lisa MD [facility] App[facility] Type:Cardiology Follow Up (FT) Appointment Date:12/17/2023 01:20:00 PM Scheduled Provider:Yunier SIMPSON DO, FAAFP Location:[facility] Appointment Type:FM Open Future Scheduled Tests Laboratory* HgbA1c 06/17/23 * HgbA1c 10/03/22 * HgbA1c 09/02/23 * HgbA1c 12/03/23 * HgbA1c 03/02/24 * HgbA1c 09/20/22 * PSA Screen, Total 06/02/23 * Basic Metabolic Panel 06/17/23 * Hepatic Function Panel 06/17/23 * Lipid Panel 06/17/23 * Magnesium Level 06/17/23 [facility] App[facility]ments Appointment Date:12/17/2023 01:20:00 PM Scheduled Provider:Yunier SIMPSON DO, FAAFP Location:[facility] Appointment Type:FM Open Future Scheduled Tests Laboratory* HgbA1c 06/17/23 * HgbA1c 10/03/22 * HgbA1c 09/02/23 * HgbA1c 12/03/23 * HgbA1c 03/02/24 * HgbA1c 09/20/22 * PSA Screen, Total 06/02/23 * Basic Metabolic Panel 06/17/23 * Hepatic Function Panel 06/17/23 * Lipid Panel 06/17/23 * Magnesium Level 06/17/23 [facility] Future App[facility]ments Appointment Date:12/17/2023 01:20:00 PM Scheduled Provider:Yunier SIMPSON DO, FAAFP Location:[facility] Appointment Type:FM Open Future Scheduled Tests Laboratory* HgbA1c 08/20/23 * HgbA1c 06/17/23 * HgbA1c 10/03/22 * HgbA1c 09/02/23 * HgbA1c 12/03/23 * HgbA1c 03/02/24 * HgbA1c 09/20/22 * PSA Screen, Total 06/02/23 * Basic Metabolic Panel 08/20/23 * Basic Metabolic Panel 06/17/23 * Hepatic Function Panel 08/20/23 * Hepatic Function Panel 06/17/23 * Lipid Panel 06/17/23 * Magnesium Level 06/17/23 [facility] Evaluation + Plan note Future Appointments Appointment Date:12/17/2023 01:20:00 PM Scheduled Provider:Yunier SIMPSON DO, FAAFP Location:[facility] Appointment Type:FM Open Future Scheduled Tests Laboratory* HgbA1c 08/20/23 * HgbA1c 06/17/23 * HgbA1c 09/02/23 * HgbA1c 03/02/24 * Basic Metabolic Panel 06/17/23 * Hepatic Function Panel 06/17/23 [facility] App[facility]ments Appointment Date:06/16/2024 07:40:00 AM Scheduled Provider:Yunier SIMPSON DO, FAAFP Location:[facility] Appointment Type:FM Open Future Scheduled Tests Laboratory* HgbA1c 08/20/23 * HgbA1c 06/17/23 * HgbA1c 09/02/23 * HgbA1c 03/02/24 * HgbA1c 12/17/23 * Basic Metabolic Panel 06/17/23 * Basic Metabolic Panel 12/17/23 * Hepatic Function Panel 06/17/23 * Lipid Panel 12/17/23 [facility] Evaluation + Plan note Future Appointments Appointment Date:07/21/2024 11:40:00 AM Scheduled Provider:Yunier SIMPSON DO, FAAFP Location:[facility] Appointment Type:FM Open Future Scheduled Tests Laboratory* HgbA1c 08/20/23 * HgbA1c 09/02/23 * HgbA1c 12/17/23 [facility] + Plan note Future Appointments Appointment Date:01/19/2025 08:40:00 AM Scheduled Provider:Yunier SIMPSON DO, FAAFP Location:[facility] Appointment Type:FM Open Future Scheduled Tests Laboratory* HgbA1c 08/20/23 * HgbA1c 09/02/23 * HgbA1c 12/17/23 [facility] Evaluation + Plan note Future Appointments Appointment Date:01/19/2025 08:40:00 AM Scheduled Provider:Yunier SIMPSON DO, FAAFP Location:[facility] Appointment Type:FM Open Future Scheduled Tests Laboratory* HgbA1c 09/29/24 * HgbA1c 09/02/23 * HgbA1c 12/17/23 [facility] Evaluation note* Diagnosis Traumatic complete tear of right rotator cuff, initial encounter- Primary Closed displaced fracture of acromial process of right scapula, initial encounter Closed fracture of glenoid cavity and neck of right scapula, initial encounter [facility] Traumatic complete tear of right rotator cuff, initial encounter- Primary Pre-op exam Preoperative examination, unspecified documented in this encounter [facility] Diagnosis Traumatic complete tear of right rotator cuff, initial encounter- Primary Nondisplaced fracture of acromial process, right shoulder, initial encounter for closed fracture Glenoid fracture of shoulder, right, closed, initial encounter [facility] Diagnosis Pre-op evaluation- Primary Preoperative examination, unspecified Traumatic complete tear of right rotator cuff, subsequent encounter Rapid atrial fibrillation (HCC) Atrial fibrillation Type 2 diabetes mellitus without complication, without long-term current use of insulin (HCC) Traumatic complete tear of right rotator cuff, initial encounter Pre-op exam Preoperative examination, unspecified documented in this encounter [facility] Diagnosis S/P right rotator cuff repair- Primary documented in this encounter [facility] Diagnosis S/P right rotator cuff repair- Primary Traumatic complete tear of right rotator cuff, initial encounter [facility] Diagnosis S/P right rotator cuff repair- Primary documented in this encounter [facility] Diagnosis S/P right rotator cuff repair- Primary documented in this encounter [facility] Diagnosis Bilateral occipital neuralgia- Primary Other syndromes affecting cervical region Cervicogenic headache Headache [facility] Right shoulder pain, unspecified chronicity Postoperative pain Other acute postoperative pain [facility] Diagnosis Influenza A- Primary Influenza with other respiratory manifestations Acute cough Atrial fibrillation, unspecified type (HCC) Syncope, unspecified syncope type documented [facility] this [facility] assessment information availableMer[facility] Work Phone: History general Narrative - Reported* Type Description Date Medical History Diabetes Medical History a-fib Surgical History shoulder surgery [employer] Other Hospital course Narrative No data available for this section [facility] Discharge instructions No data available for this section [facility] No data available for this section [facility] (narrative[facility] Outpatient Procedure (Routine) - Pending Review Specialty Diagnoses / Procedures Referred By Leo gupta Referred To Contact [facility] [place] Diagnoses Traumatic complete tear of right rotator cuff, initial encounter Pre-op exam Procedures ECG COMPLETE ECG ROUTINE ECG W/LEAST 12 LDS W/I&R Katie Lozano MD [address] [place] [address] [facility] [place] [place] [address] Referral ID Status Reason Start Date Expiration Date Visits Requested Visits Authorized [id number] Pending Review Auto-Generat ed Referral 01/31/2022 01/30/2023 1 1 [facility] for referral (narrative)* Outpatient Procedure (Routine) - Authorized Specialty Diagnoses / Procedures Referred By Leo gupta Referred To Contact [facility] [place] Diagnoses Pre-op evaluation Procedures ECG COMPLETE ECG ROUTINE ECG W/LEAST 12 LDS W/I&R Clara Justice, [employer] [address] [place] [address] [address] Referral ID Status Reason Start Date Expiration Date Visits Requested Visits Authorized [id number] Authorized Auto-Generat ed Referral 02/11/2022 02/11/2023 1 1 [facility] for referral (narrative)* Diagnostic Procedure Only (Routine) - Pending Review Specialty Diagnoses / Procedures Referred By Leo gupta Referred To Contact XR IMAGING Diagnoses S/P right rotator cuff repair Traumatic complete tear of right rotator cuff, initial encounter Procedures XR SHOULDER GENERAL 3V OR MORE AP/TRUE AP/OTHER RIGHT RADEX SHOULDER COMPLETE MINIMUM 2 VIEWS Katie Lozano MD [address] [place] [address] Xr Imaging Referral ID Status Reason Start Date Expiration Date Visits Requested Visits Authorized [id number] Pending Review Auto-Generat ed Referral 03/30/2022 04/29/2023 1 1 [facility] for referral (narrative)* - Pending Review Specialty Diagnoses / Procedures Referred By Leo gupta Referred To Contact Physical Therapy Diagnoses S/P right rotator cuff repair Procedures CONSULT TO PHYSICAL THERAPY Katie Lozano MD [address] [place] [address] Referral ID Status Reason Start Date Expiration Date V isits Requested Visits Authorized [id number] Pending Review 06/04/2022 09/02/2022 1 1 [facility] for referral (narrative)* Diagnostic Procedure Only (Routine) - Closed Specialty Diagnoses / Procedures Referred By Leo gupta Referred To Contact XR IMAGING Diagnoses Right shoulder pain, unspecified chronicity Procedures XR SHOULDER ORTHO 4V AP/TRUE AP/LAT/OUTLET RIGHT RADEX SHOULDER COMPLETE MINIMUM 2 VIEWS Ronal Nagy PA-C [address] [place] [address] [facility] [place] [address] Referral ID Status Reason Start Date Expiration Date V isits Requested Visits Authorized [id number] Closed Auto-Generate d Referral 01/22/2022 02/20/2023 1 1 [facility] for referral (narrative) , JIMENEZ Referred by: FRANK MACK FAAFP, Yunier Macdonald [facility] Reason for referral (narrative)No reason for referral information availableMer[facility] Health [facility] Work Phone: Reason for visit Narrative* Diagnostic Procedure Only (Routine) - Closed Specialty Diagnoses / Procedures Referred By Contac t Referred To Contact XR IMAGING Diagnoses Right shoulder pain, unspecified chronicity Procedures XR SHOULDER ORTHO 4V AP/TRUE AP/LAT/OUTLET RIGHT RADEX SHOULDER COMPLETE MINIMUM 2 VIEWS Ronal Nagy PA-C [address] [facility] [place] [address] [place] [address] Referral ID Status Reason Start Date Expiration Date V isits Requested Visits Authorized [id number] Closed Auto-Generate d Referral 01/22/2022 02/20/2023 1 1 [facility] Summary Purpose Family History No Family History Records Found Relationship Condition Age at Onset Recorded Date/T la brother Unknown father Myocardial infarction Unknown Heart disease Unknown Unknown family member Unknown mother Heart disease Unknown Advance Directives No Advanced Directives Records FoundDocuments on File Type Date Recorded Patient Molding Associate Expl anation Advance Directive(s) 02/04/2022 4:27 PM Documents on File Type Date Recorded Patient Molding Associate Expl anation Advance Directive(s) 02/04/2022 4:27 PM Advance Directive Response Recorded Date/ Time Advance Directives No September 12, 2024 4:11pm Chief Complaint and Reason for Visit Chief Complaint Admit Date cough July 08, 2025 10:08am Additional Source Comments (unrecognized sect ion and content) No Status Records FoundNo Status Records FoundNo Status Records FoundNo Status Records FoundNo Status Records FoundNo Status Records FoundNo Status Records FoundNo Status Records FoundNo Status Records FoundNo Status Records FoundNo Status Records FoundNo Status Records FoundNo Status Records FoundNo Status Records FoundNo Status Records FoundNo Status Records FoundNo Status Records Found INFORMATION SOURCE (unrecogn ized section and content) DATE CREATED AUTHOR 09/19/2018 [facility] DATE CREATED AUTHOR AUTHOR'S ORGANIZ ATION 12/19/2021 [facility] Special[facility] DATE CREATED AUTHOR AUTHOR'S ORGANIZ ATION 10/04/2022 [facility] DATE CREATED AUTHOR AUTHOR'S ORGANIZ ATION 11/16/2022 [facility] DATE CREATED AUTHOR AUTHOR'S ORGANIZ ATION 12/11/2023 [facility] DATE CREATED AUTHOR AUTHOR'S ORGANIZ ATION 07/16/2024 [facility] DATE CREATED AUTHOR AUTHOR'S ORGANIZ ATION 10/23/2024 [facility] DATE CREATED AUTHOR AUTHOR'S ORGANIZ ATION 11/21/2024 [facility] DATE CREATED AUTHOR AUTHOR'S ORGANIZ ATION 07/13/2025 [facility] DATE CREATED AUTHOR AUTHOR'S ORGANIZ ATION 07/14/2025 [facility] Source Comments (unrecognize d section and content) In the event this informatio n is protected by the Federal Confidentiality of Alcohol and Drug Abuse Patient Records regulations: The Federal rules restrict any use of the information to criminally investigate or prosecute any alcohol or drug abuse patient.[facility] HospitalIn the event this information is protected by the Federal Confidentiality of Alcohol and Drug Abuse Patient Records regulations: The Federal rules restrict any use of the information to criminally investigate or prosecute any alcohol or drug abuse patient.[facility] HospitalIn the event this information is protected by the Federal Confidentiality of Alcohol and Drug Abuse Patient Records regulations: The Federal rules restrict any use of the information to criminally investigate or prosecute any alcohol or drug abuse patient.[facility] HospitalIn the event this information is protected by the Federal Confidentiality of Alcohol and Drug Abuse Patient Records regulations: The Federal rules restrict any use of the information to criminally investigate or prosecute any alcohol or drug abuse patient.[facility] HospitalIn the event this information is protected by the Federal Confidentiality of Alcohol and Drug Abuse Patient Records regulations: The Federal rules restrict any use of the information to criminally investigate or prosecute any alcohol or drug abuse patient.[facility] HospitalIn the event this information is protected by the Federal Confidentiality of Alcohol and Drug Abuse Patient Records regulations: The Federal rules restrict any use of the information to criminally investigate or prosecute any alcohol or drug abuse patient.[facility] HospitalIn the event this information is protected by the Federal Confidentiality of Alcohol and Drug Abuse Patient Records regulations: The Federal rules restrict any use of the information to criminally investigate or prosecute any alcohol or drug abuse patient.[facility] HospitalIn the event this information is protected by the Federal Confidentiality of Alcohol and Drug Abuse Patient Records regulations: The Federal rules restrict any use of the information to criminally investigate or prosecute any alcohol or drug abuse patient.[facility] HospitalIn the event this information is protected by the Federal Confidentiality of Alcohol and Drug Abuse Patient Records regulations: The Federal rules restrict any use of the information to criminally investigate or prosecute any alcohol or drug abuse patient.[facility] HospitalIn the event this information is protected by the Federal Confidentiality of Alcohol and Drug Abuse Patient Records regulations: The Federal rules restrict any use of the information to criminally investigate or prosecute any alcohol or drug abuse patient.[facility] HospitalIn the event this information is protected by the Federal Confidentiality of Alcohol and Drug Abuse Patient Records regulations: The Federal rules restrict any use of the information to criminally investigate or prosecute any alcohol or drug abuse patient.[facility] Reason for Visit (unrecogniz ed section and content) Reason Comments New Pain Reason Comments New Fracture Pain Reason Comments Anesthesia Consult Reason Comments Recheck Reason Comments Post Op Reason Comments Post Op Reason Comments Follow Up Reason Comments Headache Specialty Diagnoses / Procedures Referred By Leo t Referred To Contact Neurology Diagnoses Occipital neuralgia, unspecified laterality Yunier Simpson DO [address] [place] [address] [facility] [address] [place] [address] Referral ID Status Reason Start Date Expiration Date V isits Requested Visits Authorized [id number] New Request 09/08/2023 10/02/2024 1 1 Care Teams (unrecognized sec tion and content) Retail Shift Manager Relationship Specialty Start Date End Date Yunier Simpson DO [address] [place] [address] PCP - General Family Practice 12/30/21 Retail Shift Manager Relationship Specialty Start Date End Date Yunier Simpson DO [address] [place] [address] PCP - General Family Practice 12/30/21 Retail Shift Manager Relationship Specialty Start Date End Date Yunier Simpson DO [address] [place] [address] PCP - General Family Practice 12/30/21 Retail Shift Manager Relationship Specialty Start Date End Date Yunier Simpson DO [address] [place] [address] PCP - General Family Practice 12/30/21 Retail Shift Manager Relationship Specialty Start Date End Date Yunier Simpson, DO [address] [place] [address] PCP - General Family Practice 12/30/21 Retail Shift Manager Relationship Specialty Start Date End Date Yunier Simpson, DO [address] [facility] [place] [address] PCP - General Family Practice 12/30/21 Retail Shift Manager Relationship Specialty Start Date End Date Yunier Simpson, DO [address] [place] [address] PCP - General Family Practice 12/30/21 Retail Shift Manager Relationship Specialty Start Date End Date Yunier Simpson, DO [address] [place] [address] PCP - General Family Medicine 12/30/21 Retail Shift Manager Relationship Specialty Start Date End Date Yunier Simpson, DO [address] [place] [address] PCP - General Family Medicine 12/30/21 Retail Shift Manager Relationship Specialty Start Date End Date Yunier Simpson DO [address] [place] [address] PCP - General Family Medicine 12/30/21 Retail Shift Manager Relationship Specialty Start Date End Date Yunier Simpson MD [address] [place] [address] PCP - General Family Medicine 11/16/24 Retail Shift Manager Relationship Specialty Start Date End Date Yunier Simpson MD [address] [place] [address] PCP - General Family Medicine 11/16/24 Team Status: Active Member Role Status Dates Yunier Simpson DO Primary Care Provider Active Team Status: Inactive Member Role Status Dates Yunier Simpson DO Primary Care Provider Active Start: July 08, 2025 End: July 08, 2025 Tri Berger APRN PUBLIC HEALTH REGISTRAR-C Attending Provider Active Start: June End: July 08, 2025 Goals (unrecognized section and content) Goals may be documented in a n alternate section FOR RECORDS PERTAINING TO PATIENTS WHO ARE OR HAVE BEEN ENROLLED IN A CHEMICAL DEPENDENCY/SUBSTANCEABUSE PROGRAM, SOME INFORMATION MAY BE OMITTED. This clinical summary was aggregated from multiple sources. Caution should be exercised in using it in the provision of clinical care. This summary normalizes information from multiple sources, and as a consequence, information in this document may materially change the coding, format and clinical context of patient data. In addition, data may be omitted in some cases. CLINICAL DECISIONS SHOULD BE BASED ON THE PRIMARY CLINICAL RECORDS. [facility]. provides no warranty or guarantee of the accuracy or completeness of information in this document.
--- OUTSIDE RECORDS SUMMARY | 2025-08-03 07:04 | XMS_ITS | CCD ---
Author Organization [facility] CliniSyct Care Team Providers Care Room Service Waiter/Waitress Name Role Phone CAMRYN MERAZ Unavailable Unavailable CAMRYN MERAZ Unavailable Unavailable ROLANDO LOWE Unavailable Unavailable HELLEN VERA Unavailable Unavailable HAY, JENNIFER Unavailable Unavailable HAY, JENNIFER Unavailable Unavailable REQUEST, NONE LISTED Unavailable Unavailable KVNG HENDERSON V Unavailable Unavailable MERY, JENNIFER Unavailable Unavailable Yunier Simpson DO Primary Care Provider Yunier SIMPSON Primary Care Physician Yunier Simpson DO Primary Care Provider Yunier Simpson DO Primary Care Provider RONAL NAGY Referring Unavailable FRANK, YUNIER A [...] e Yunier Simpson DO Primary Care Provider Yunier SIMPSON Admitting Unavailable KAPYunier BERGMAN Attending Unavailable KAPYunier BERGMAN Attending Unavailable KAPMADALYN, Yunier Macdonald Attending Unavailable KAPMADALYN, Yunier Macdonald Attending Unavailable NONE, XXXX Referring Unavailable Arya Lisa Attending Unavaila Yunier Meza Admitting Unavailable Yunier SIMPSON Attending Unavailable SYDNI KABA Attending Unavailable SYDNI KABA Referring Unavailable Yunier Simpson MD Primary Care Provider Yunier Simpson DO Primary Care Provider Tri Berger APRN Attending Provider Yunier SIMPSON Attending Unavailable OPAL, YUNIER H Admitting Unavailable OPALYUNIER H Attending Unavailable Yunier SIMPSON Admitting Unavailable Yunier SIMPSON Attending Unavailable KAPMADALYN, Yunier Macdonald Attending Unavailable KAPMADALYN, Yunier Macdonald Attending Unavailable OPAL, YUNIER H Attending Unavailable OPALYUNIER H Admitting Unavailable Allergies Allergy ClassificationReported Allergen(s)Allergy TypeDate of OnsetReaction(s) Facility (1 source)No Known Medication Allergies; Translations: [No Known Medication Allergies]Propensity to adverse reactions to drug (disorder)[facility] Repository Medications Current Medications MedicationDrug Class(es)DatesSig (Normalized)Sig (Original)albuterol 5 mg/ml inhalation solution (2 sources)beta2-Adrenergic AgonistStart: 94-49-7727equp 2.5 mg by inhalation every four hours for wheezingalbuterol 0.5% Inh Salena 2.5 mg, 0.5 mL, Inhalation, q4hr for wheezing, 20 mL, Refill(s) 0, [facility]/pharmacy #[id number], 190, cm, 09/29/24 8:35:00 EST, Height/Length Dosing, 116.2, kg, 09/29/24 8:35:00 EST, Weight Dosing Start Date: 10/06/24 Status: Ordered Quantity: 20.0 Unit: mL Repeat number: 1amoxicillin 500 mg oral capsule (2 sources)Penicillin-class AntibacterialStart: 32-88-4662stpy 1 capsule by mouth every eight hoursAmoxicillin 500 MG 1 capsule Orally three times a day for 10 day(s) Oct, Activeamoxicillin 875 mg / clavulanate 125 mg oral tablet (1 source)Penicillin-class AntibacterialStart: 09-29-2024 End: 51-20-8276mxjm 1 tablet by mouth every twelve hoursAugmentin 875 mg oral tablet = 1 tab(s), Oral, q12hr, X 10 day(s), # 20 tab(s), Refills(s) 0, Pharma cy: [facility]/pharmacy #[id number], 190, cm, 09/29/24 8:35:00 EST, Height/Length Dosing, 116.2, kg, 09/29/24 8:35:00 EST, Weight Dosing Start Date: 09/29/24 Stop Date: 10/09/24 Status: Orderedazithromycin 250 mg oral tablet (2 sources)Macrolide AntimicrobialStart: 22-21-5750Jlbgsxmgkpzp 250 MG 2 tablet on the first day, then 1 tablet daily for 4 days Orally Once a day for5 day(s) Oct, ActivecarBAMazepine 200 mg oral tablet (1 source)Mood StabilizerStart: 35-52-7815maly 1 tablet by mouth once at bedtime TEGretol 200 mg Tab See Instructions, 1 tab(s) Oral q hs, # 30 EA, Refills(s) 11, [id number], cm, 08/20/23 9:32:00 EST, Height/Length Dosing, 115.3, kg, 08/20/23 9:32:00 EST, Weight Dosing Start Date: 08/20/23 Status: Orderedcitalopram 20 mg oral tablet (2 sources)Serotonin Reuptake InhibitorStart: 43-64-6545ustr 1 tablet by mouth once dailycitalopram 20 mg Tab 20 mg = 1 tab(s), Oral, Daily, # 90 tab(s), Refills(s) 1, Pharmacy: [facility]/pharmacy #[id number], 190, cm, 08/20/23 9:32:00 EST, Height/Length Dosing, 115.3, kg, 08/20/23 9:32:00 EST, Weight Dosing Start Date: 08/21/23 Status: Ordereddocusate sodium 100 mg oral capsule (2 sources)Start: 02-12-2022 End: 43-86-1419golx 1 capsule by mouth twice dailydocusate sodium (COLACE) 100 mg capsule Take 1 capsule by mouth twice daily. 60 capsule 0 02/12/2022 03/14/2022 ActiveComment on above:Take 1 capsule by mouth twice daily. fluticasone propionate 0.05 mg/actuat metered dose nasal spray (5 sources)CorticosteroidStart: 35-84-8202Irkngpz 0.05 mg/inh Sed[place] 2 spray(s), Nasal, Daily, 16 gram, Refill(s) 0, each nostril, [facility]/pharmacy #[id number], 190, cm, 09/29/24 8:35:00 EST, Height/Length Dosing, 116.2, kg, 09/29/24 8:35:00 EST, Weight Dosing Start Date: 09/29/24 Status: Ordered Quantity: 16.0 Unit: g Repeat number: 1Start: 61-33-9151Enlwhlw 0.05 mg/inh Sed[place] 2 spray(s), Nasal, Daily, 16 gram, Refill(s) 0, each nostril, [facility]/pharmacy #[id number], 190, cm, 09/29/24 8:35:00 EST, Height/Length Dosing, 116.2, kg, 09/29/24 8:35:00 EST, Weight Dosing Start Date: 09/29/24 Status: OrderedStart: 20-61-3260kllw 2 spray(s) nasal route once dailyFluticasone Propionate 50 MCG/ACT 2 sprays Nasally Once a day for 14 day(s) Oct, Activehydrocortisone 10 mg/ml / neomycin 3.5 mg/ml / polymyxin b 25831 unt/ml otic suspension (2 sources)Aminoglycoside Antibacterial, Polymyxin-class Antibacterial, CorticosteroidStart: 13-24-2565Jcpogwth-Polymyxin-HC 3.5-02709-9 3 drops left ear Three times a day for 7 days Oct, ActiveIpratropium (2 sources)AnticholinergicStart: 76-63-6466Rhcmfupe 0.03% Sedalia 2 spray(s), Nasal, TID, 30 mL, Refill(s) 0, [facility], 190, cm, 10/24/24 13:58:00 EST, Height/Length Dosing, 115.8, kg, 10/24/24 13:58:00 EST, Weight Dosing Start Date: 10/24/24 Status: Ordered Quantity: 30.0 Unit: mL Repeat number: 1 Indication: Unspecified Eustachian tube disorder, unspecified ear Start: 55-31-9118Tmyesmtl 0.03% Sed[place] 2 spray(s), Nasal, TID, 30 mL, Refill(s) 0, [facility], 190, cm, 10/24/24 13:58:00 EST, Height/Length Dosing, 115.8, kg, 10/24/24 13:58:00 EST, Weight Dosing Start Date: 10/24/24 Status: Orderedlatanoprost 0.05 mg/ml ophthalmic solution (9 sources)Prostaglandin AnalogStart: 98-22-3395Dtgradkrvev 0.005 % drops Active DROPS OPHTHALMIC September 12, 2024 1:00am Complies with drug therapyStart: 29-09-1569veeslrkepqb Opth 0.005% Salena 1 drop(s), OPTH, Once a day (at bedtime) Start Date: 12/17/23 Status: Ordered Repeat number: 1Start: 20-19-6000owgc 1 drop(s) into the eye(s) at bedtimeLatanoprost 0.005 % Solution ophthalmic solution Place 1 drop in both eyes at bedtime. 11/26/2023 ActivemetFORMIN hydrochloride 500 mg oral tablet (11 sources)BiguanideStart: 09-22-2021 End: 29-22-5902zizTYRMJY (GLUCOPHAGE) 500 mg tablet Take 500 mg by mouth. 09/22/2021 ActiveComment on above:Take 500 mg by mouth.methocarbamol 750 mg oral tablet (1 source)Muscle RelaxantStart: 12-38-2254zoas 1 tablet by mouth four times daily as needed for painMethocarbamol 750 MG tablet Take 1 tablet by mouth 4 times daily as needed for Muscle spasms or Severe Pain. 30 tablet 3 12/09/2023 ActivemethylPREDNISolone 4 mg oral tablet (9 sources)CorticosteroidStart: 46-03-2605Rlmmpi Dosepack 4 mg Tab = 1 packet(s), Oral, As Directed, as directed on package labeling, # 21 tab(s), Refills(s) 2, Pharmacy: [facility], 190, cm, 10/24/24 13:58:00 EST, Height/Length Dosing, 115.8, kg, 10/24/24 13:58:00 EST, Weight Dosing Start Date: 10/24/24 Status: Ordered Quantity: 21.0 Unit: tab(s) Repeat number: 3 Indication: Unspecified Eustachian tube disorder, unspecified earStart: 73-41-0140Ympmlf Dosepack 4 mg Tab = 1 tab(s), Oral, As Directed, Take as directed on pack, # 1 EA, Refills(s) 2, [id number], cm, 08/20/23 9:32:00 EST, Height/Length Dosing, 115.3, kg, 08/20/23 9:32:00 EST, Weight Dosing Start Date: 08/20/23 Status: OrderedStart: 37-22-4455Gzjq-Medrol 40 mg Aug, 40 mgMedrol 4 MG as directed Orally as directed for 6 days Activemetoprolol tartrate 50 mg oral tablet (16 sources)beta-Adrenergic BlockerStart: 05-94-3893lsqb 1 tablet by mouth twice dailyMetoprolol tartrate 50 mg Tab 50 mg = 1 tab(s), Oral, BID, # 180 tab(s), Refills(s) 3, [id number], [facility], cm, 01/01/22 15:19:00 EDT, Height/Length Dosing, 105, kg, 01/01/22 15:19:00 EDT, Weight Dosing Start Date: 01/26/22 Status: OrderedStart: 86-05-1229iqsj 1 tablet by mouth once daily metoprolol tartrate, short acting, (LOPRESSOR) 50 mg tablet Take 50 mg by mouth once daily. 12/20/2021 ActiveStart: 47-08-3004piey 1 tablet by mouth twice daily metoprolol tartrate, short acting, (LOPRESSOR) 50 mg tablet Take 50 mg by mouth twice daily. 0 12/20/2021 ActiveComment on above:Take 50 mg by mouth twice daily.Take 50 mg by mouth once daily. PioneticsToGrandCentral Ultra - (2 sources)PioneticsTouch Ultra - In Vitro for 90 ActiveoxyCODONE hydrochloride 5 mg oral tablet (1 source)Opioid AgonistStart: 02-12-2022 End: 77-27-6742rwbu 1 tablet by mouth every six hours as needed for pain oxyCODONE IR (ROXICODONE) 5 mg immediate release tablet Indications: Traumatic complete tear of right rotator cuff, subsequent encounter Take 1 tablet by mouth every 6 hours as needed for pain for upto 10 days. 35 tablet 0 02/12/2022 02/22/2022 ActiveComment on above:Take 1 tablet by mouth every 6 hours as needed for pain for up to 10 days.rivaroxaban 20 mg oral tablet (20 sources)Factor Xa InhibitorStart: 01-20-2023 End: 13-92-7434knss 1 tablet by mouth once dailyRivaroxaban (Xarelto) 20 mg tablet Active 20 MG PO Daily September 12, 2024 1:00am Complies with drug therapyStart: 01-14-2022 End: 68-06-5942fvda 1 tablet by mouth once daily in the eveningXarelto 20 mg oral tablet 20 mg, Oral, qPM, AFIB and CrCl over 50 mL/minute - Take with evening meal, X 90 day(s), # 90 tab(s), Refills(s) 3, Pharmacy: [facility]/pharmacy #[id number], 190, cm, 01/01/22 15:19:00 EDT, Height/Length Dosing, 105, kg, 01/01/22 15:19:00 EDT, Weight Dosing Start Date: 01/14/22 Stop Date: 01/09/23 Status: Ordered Start: 41-28-9238CLRZUPT 10 mg tablet 20 mg. 12/20/2021 ActiveStart: 12-20-2021 XARELTO 10 mg tabletXarelto ActiveComment on above:20 mg. Rivaroxaban (Xarelto) 1 MG/ML reconstituted suspension (3 sources)Rivaroxaban (Xarelto) 1 MG/ML reconstituted suspension Xarelto Active Completed/Discontinued Medications MedicationDrug Class(es)DatesSig (Normalized)Sig (Original)cefTRIAXone (2 sources)Cephalosporin AntibacterialStart: 00-34-5114Ibqhlajh 500 mg Jan, 500 mgdoxycycline monohydrate 100 mg oral tablet (4 sources)Tetracycline-class DrugStart: 11-16-2024 End: 74-50-5967cgqo 1 tablet by mouth oncedoxycycline (Adoxa) 100 MG tablet Indications: Acute cough Take 1 tablet (100 mg) by mouth every 12(twelve) hours for 10 days Take with a full glass of water and do not lie down for at least 30 minutes after, avoid sun exposure 20 tablet 11/16/2024 11/26/2024 ExpiredStart: 02-13-2022 End: 93-44-2857ekku 1 capsule by mouth twice dailydoxycycline hyclate (VIBRAMYCIN) 100 mg capsule Take 1 capsule by mouth twice daily for 10 days. 20 capsule 0 02/13/2022 02/23/2022 ActiveComment on above:Take 1 capsule by mouth twice daily for 10 days.Glucometer (18 sources)Start: 60-16-3268Jdpbssewvz Glucometer, See Instructions, 1 EA, 0, Glucometer, [id number], Supply, 190, cm, 06/27/21 15:40:00 EDT, Height/Length Dosing, 112, kg, 06/27/21 15:40:00 EDT, Weight Dosing Start Date: 07/10/21 Status: Ordered Quantity: 1.0 Unit: EA Repeat number: 1 Indication: Type 2 diabetes mellitus without complicationsStart: 92-95-5424Xknaaxbgpf Glucometer, See Instructions, 1 EA, 0, Glucometer, [id number], Supply, 190, cm, 0 06/27/21 15:40:00 EDT, Height/Length Dosing, 112, kg, 06/27/21 15:40:00 EDT, Weight Dosing Start Date: 07/10/21 Status: Orderednebulizer (2 sources)Start: 75-62-9911omgwcyumt nebulizer, See Instructions, 1 EA, 0, nebulizer machine for med=neb treatments, [facility], Supply, 190, cm, 09/29/24 8:35:00 EST, Height/Length Dosing, 116.2, kg, 09/29/24 8:35:00 EST, Weight Dosing Start Date: 10/13/24 Status: Ordered Quantity: 1.0 Unit: EA Repeat number: 1Start: 32-39-7567llhlvshdm nebulizer, See Instructions, 1 EA, 0, nebulizer machine for med=neb treatments, [employer] [facility] #72, Supply, 190, cm, 09/29/24 8:35:00 EST, Height/Length Dosing, 116.2, kg, 09/29/24 8:35:00 EST, Weight Dosing Start Date: 10/13/24 Status: Ordered Problems Active Problems Problem ClassificationProblemDateDocumented DateEpisodic/ChronicAortic; peripheral; and visceral artery aneurysms (20 sources)Ascending aorta dilatation; Translations: [Dilatation of aorta] Onset: 927719-79-2133VojrzqdVdpvnxw dysrhythmias (20 sources)Rapid atrial fibrillation; Translations: [Unspecified atrial fibrillation]Onset: 33-25-4360YdkkrsvZveabvk dysrhythmias (20 sources)Palpitations; Translations: [Tachycardia]52-83-4975NtctrskmGjfkbkia mellitus with complications (4 sources)Complication due to diabetes mellitus; Translations: [Type 2 diabetes mellitus with other specifiedcomplication]Onset: 31-02-9425BwhcgudPnvldujf mellitus without complication (20 sources)Type 2 diabetes mellitus without complication; Translations: [Type 2 diabetes mellitus without complications]Onset: 74-18-3079PzxsautSwqxcuqy mellitus without complication (8 sources)Blood glucose abnormal; Translations: [Other abnormal glucose]Onset: 96-51-7687SshxxauzDmqrsclfv of lipid metabolism (20 sources)Dyslipidemia; Translations: [Familial hypercholesterolemia]Onset: 790405-17-9976JaljjxhUzfvbibk cause codes: Fall (2 sources)Other fall from one level to another, initial encounter; Translations: [Unspecified fall, initial encounter]Onset: 27-77-2876Bysoswvr (6 sources)Primary open angle glaucoma; Translations: [Primary open-angle glaucoma, unspecified eye, stage unspecified]Onset: 96-99-1236KocdwqeLoioaudd; including migraine (20 sources)Headache; Translations: [Cervicogenic headache]Onset: 12-09-2023 74-24-7116PgyigiedXmdkecvxj (2 sources)Influenza due to Influenza A virus; Translations: [Influenza due to other identified influenza virus with other respiratory manifestations] 30-37-4987MqflemxrSpznxyxtihl chest pain (14 sources)Atypical chest njzv89-78-5164TwcmhopuPoenbverjoyyea (18 sources)Nvfhcgaeteccda87-86-0867GatqrbzSudnh circulatory disease (14 sources)History of paroxysmal supraventricular qlgehrmxlgx07-54-9100Kbzurdgu Other circulatory disease (2 sources)History of cerebrovascular disease; Translations: [Personal history of other diseases of the circulatory system]Onset: 47-08-4414IftlsmxjUcpon connective tissue disease (4 sources)Pain in right hand; Translations: [PAIN IN RIGHT HAND]Onset: 87-03-1429SblddpkaBdsio connective tissue disease (18 sources)Cramp in lower eokd68-26-6644YdzztxrlCdaqr connective tissue disease (18 sources)Impingement syndrome of shoulder andxyn99-78-4796RwflpwqgJchapmh on above:RIGHTOther ear and sense organ disorders (1 source)Unspecified acute noninfective otitis externa, left earEpisodicOther gastrointestinal disorders (1 source)Constipation, unspecified; Translations: [CONSTIPATION UNSPECIFIED] Onset: 44-42-0265InxbluwdLgguh hematologic conditions (14 sources)Increased serum protein idzza67-29-0537ZuefjyilEraoa hematologic conditions (11 sources)ESR raised; Translations: [Elevated erythrocyte sedimentation rate] Onset: 79-48-3891IxxopvuiIhvls injuries and conditions due to external causes (3 sources)Unspecified injury of thorax, initial encounter; Translations: [UNSPECIFIED INJURY THORAX INITIAL]Onset: 94-06-9581UmcfbfufQapbt liver diseases (14 sources)Elevated liver enzymes hryxr44-34-9366PhqecyeiAxvuh lower respiratory disease (2 sources)Cough; Translations: [Acute cough]56-07-3511WbpewkmuNddkg nervous system disorders (1 source)Postoperative pain ; Translations: [Other acute postprocedural pain] 25-59-3745RfkggwdgLxhna non-traumatic joint disorders (2 sources)Pain in right shoulder; Translations: [Pain in joint, shoulder region]Onset: 531345-93-6130PurcdijuRrfxz nutritional; endocrine; and metabolic disorders (20 sources)Obesity; Translations: [Obesity, unspecified]Onset: 06-17-2023 01-82-3338QmxmubnYsysn nutritional; endocrine; and metabolic disorders (18 sources)Simple vuqimom22-48-5626CeoxixpInugf nutritional; endocrine; and metabolic disorders (6 sources)Obese class I; Translations: [Body mass index (BMI) 31.0-31.9, adult] Onset: 73-74-9990UdwjcihVxdib screening for suspected conditions (not mental disorders or infectious disease) (20 sources)Electrocardiogram abnormal; Translations: [Screening for malignant neoplasm of colon done]Onset: 478674-02-2137TvcqhjspUonph upper respiratory disease (3 sources)Allergic rhinitis; Translations: [Allergic rhinitis, unspecified] 84-50-3352NirzcfxZhxaa upper respiratory infections (4 sources)Chronic maxillary sinusitis; Translations: [Chronic maxillary sinusitis]Onset: 08-60-5562AaqyqunTlwqj upper respiratory infections (2 sources)Viral upper respiratory tract infection; Translations: [Acute upper respiratory infection, unspecified]07-54-2898PdwsktnjZadoua media and related conditions (5 sources)Otitis media, unspecified, bilateral; Translations: [Unspecified nonsuppurative otitis media, left ear]Onset: 00-12-7046XimiqmvfYocahhueywz; intervertebral disc disorders; other back problems (20 sources)Degeneration of cervical intervertebral disc; Translations: [Other cervical disc degeneration, unspecified cervical region]Onset: 62-75-4241Viwussu Spondylosis; intervertebral disc disorders; other back problems (20 sources)Torticollis; Translations: [Torticollis]Onset: 43-47-6067Zdqhqsyw Superficial injury; contusion (2 sources)Contusion of right hand, initial encounter; Translations: [Contusion of right front wall of thorax,initial encounter]Onset: 89-03-4136DjwbndfxOxpspde (2 sources)Syncope; Translations: [Syncope and collapse]23-50-9186[place] Unclassified (18 sources)Rupture of rotator cuff of gvlghwno69-97-8975Jmjvahvdixcu (20 sources)Patient encounter tkwuxi54-79-5892 Past or Other Problems Problem ClassificationProblemDateDocumented DateEpisodic/ChronicFracture of upper limb (20 sources)Closed fracture of acromial process of scapula; Translations: [Displaced fracture of acromial process, right shoulder, initial encounter for closed fracture]Onset: 99-96-5816RuykrbskKxflbth and strains (15 sources)Traumatic rupture of rotator cuff; Translations: [Strain of muscle(s) and tendon(s) of the rotator cuff of right shoulder, initial encounter]Onset: 43-24-5697YtmujeeaRvkgcekdifix (1 source)Obese class I; Translations: [Obesity, class 1]Onset: 07-21-2024 Results Test NameValueInterpretationReference RangeFacilityCBC w/Indiceson 07-06-2025 Erythrocyte distribution width (RBC) [Ratio]13.4 %Btnpee71.9-14.2FChildren's Hospital for RehabilitationComment on above:Performed By: #### [id number] #### [facility] [address], [place] [address]Ccnvydkcmp (Bld) [Volume fraction]39.1 %Lszwyl95.7-49.0[facility] HospitalComment on above:Performed By: #### [id number] #### [facility] [address], [place] [address]Gmdvrbjshs (Bld) [Mass/Vol]13.9 g/aHWqushp99.5-17.5FChildren's Hospital for RehabilitationComment on above:Performed By: #### [id number] #### [facility] [address], [place] [address]EGQ (RBC) [Entitic mass]33.2 vsGwpuvr58.0-34.0[facility] HospitalComment on above:Performed By: #### [id number] #### [facility] [address], [place] [address]ARCP (RBC) [Mass/Vol]35.5 g/aJTketae07.4-36.0[facility] HospitalComment on above:Performed By: #### [id number] #### [facility] [address], [place] [address]LFU (RBC) [Entitic vol]93.4 xGLrunac24.0-100.0[facility] HospitalComment on above:Performed By: #### [id number] #### [facility] [address], [place] [address]Sjgccczs171.0 E9/QAgkqjf767.0-500.0[facility] Comment on above:Performed By: #### [id number] #### [facility] [address], [place] [address]Ciozfehw mean volume (Bld) [Entitic vol]7.8 fLNormal6.4-10.8 [facility] HospitalComment on above:Performed By: #### [id number] #### [facility] [address], [place] [address]ECC1.2 E12/LLow4.3-5.9[facility] HospitalComment on above:Performed By: #### [id number] #### [facility] [address], [place] [address]QWA morphology finding Nom (Bld)NORMALInvalid Interpretation CodeMccullough-Hyde Memorial HospitalComment on above:Performed By: #### [id number] #### [facility] [address], [place] [address]YBR6.5 E9/LNormal4.0-11.0[facility] HospitalComment on above:Performed By: #### [id number] #### [facility] [address], [place] [address]VEQsh 27-91-0887Opylyjy [Mass/Vol]3.8 g/dLNormal3.3-5.0[facility] HospitalComment on above:Performed By: #### [id number] #### [facility] [address], [place] [address]Znvtxpi/Globulin [Mass ratio]1.2 {ratio}Normal1.1-2.2FChildren's Hospital for RehabilitationComment on above:Performed By: #### [id number] #### [facility] [address], [place] [address]Wpu Phos54 Int._Unit/KVfrhoq81-90IvsizfMccullough-Hyde Memorial Hospital Comment on above:Performed By: #### [id number] #### [facility] [address], [place] [address]IOI96 Int._Unit/LHigh6-46[facility] HospitalComment on above:Performed By: #### [id number] #### [facility] [address], [place] [address]Rceka gap [Moles/Vol]10 mmol/LNormal6-16[facility] HospitalComment on above:Performed By: #### [id number] #### [facility] [address], [place] [address]TXH81 Int._Unit/LNormal5-43[facility] HospitalComment on above:Performed By: #### [id number] #### [facility] [address], [place] [address]Ryhi Total0.5 mg/dLNormal0.0-1.1FChildren's Hospital for Rehabilitation Comment on above:Performed By: #### [id number] #### [facility] [address], [place] [address]PEE/Creat Ratio14 No GhiybSxfpgm31-17HacevlMccullough-Hyde Memorial HospitalComment on above:Performed By: #### [id number] #### [facility] [address], [place] [address]Imloeim [Mass/Vol]8.6 mg/dLLow8.9-11.1FChildren's Hospital for RehabilitationComment on above:Performed By: #### [id number] #### [facility] [address], [place] [address]Noqlqpis [Moles/Vol]104 mmol/VTrqrwz255-246XvgoegMccullough-Hyde Memorial HospitalComment on above:Performed By: #### [id number] #### [facility] [address], [place] [address]WG3 [Moles/Vol]24 mmol/MZxtmgd74-58HvtpehMccullough-Hyde Memorial Hospital Comment on above:Performed By: #### [id number] #### [facility] [address], [place] [address]Jhnpuchwef [Mass/Vol]1.1 mg/dLNormal0.5-1.3FChildren's Hospital for RehabilitationComment on above:Performed By: #### [id number] #### [facility] [address], [place] [address]Rwvtieuj (S) [Mass/Vol]3.1 g/dLNormal1.4-4.0[facility] Memorial HospitalComment on above:Performed By: #### [id number] #### [facility] [address], [place] [address]Gnanobu [Mass/Vol]149 mg/zSHqcxax36-683UungqnMccullough-Hyde Memorial HospitalComment on above:Performed By: #### [id number] #### [facility] [address], [place] [address]Nncqlxchu [Moles/Vol]4.1 mmol/LNormal3.5-5.3FChildren's Hospital for RehabilitationComment on above:Performed By: #### [id number] #### [facility] [address], [place] [address]Lgzkrhw [Mass/Vol]6.9 g/dLNormal6.0-7.8[facility] Memorial HospitalComment on above:Performed By: #### [id number] #### [facility] [address] [place], [place] [address]Befvjx [Moles/Vol]134 mmol/HUnh489-621NxbdqsMccullough-Hyde Memorial HospitalComment on above:Performed By: #### [id number] #### [facility] [address], [place] [address]Bknp nitrogen [Mass/Vol]16 mg/dLNormal5-21M[facility]-Hyde Memorial HospitalComment on above:Performed By: #### [id number] #### [facility] [address], [place] [address]Bfdwb Panelon 76-54-7929CJB DirectNRInvalid Interpretation Code <=129M[facility]ough-Hyde Memorial HospitalComment on above:Performed By: #### [id number] #### [facility] [address], [place] [address]VGAHYUBhvkvgx Interpretation Code7-40M[facility]ullough-Hyde Memorial HospitalComment on above:Result Comment: 'VLDL RESULT NON-REPORTABLE WHEN TRIG > 1293 mg/dl'Performed By: #### [id number] #### [facility] [address], [place] [address]Zonueqzagpe [Mass/Vol]218 mg/uPTnnf028-318OefhsrMccullough-Hyde Memorial HospitalComment on above:Performed By: #### [id number] #### [facility] [address], [place] [address]Fpebfqecxdq in HDL [Mass/Vol]19 mg/dLInvalid Interpretation CodeMccullough-Hyde Memorial HospitalComment on above:Result Comment: '>= 60 LOW RISK' '<= 40 HIGH RISK'Performed By: #### [id number] #### [facility] [address], [place] [address]Rpgkaeqzoyob [Mass/Vol]1419 mg/dLHigh<=149Mccullough-Hyde Memorial HospitalComment on above:Result Comment: Result Verified by DilutionPerformed By: #### [id number] #### [facility] [address], [place] [address]Vapsahgzzpn 88-52-8017Atsjsgdbm [Mass/Vol]2.0 mg/dLNormal 1.3-2.4FChildren's Hospital for RehabilitationComment on above:Performed By: #### [id number] #### [facility] [address], [place] [address]ENSbr 35-50-4212QYW Qn3.65 m[IU]/LNormal0.34-5.60M[facility]-Hyde Memorial HospitalComment on above:Performed By: #### [id number] #### [facility] [address] [place] [address]uDBMtw 17-68-1516jIJA87 mL/min/1.73 q5Dnpjtj>=59Mccullough-Hyde Memorial HospitalComment on above:Performed By: #### [id number] #### [facility] [address] [place], [place] [address]Yv Panel Informationon 00-14-0621Frpdox fibrillation Mildly uncontrolled ventricular responseFIRELANDSNo Panel InformationOrdered By: Tim Davis on 88-10-1892[facility] Work Phone: Laboratory - Microbiology and Antimicrobial susceptibilityon 11-19-2024S. agalactiae Org specific cx Ql (Vag fld)0NOMS HealthcareS. agalactiae Org specific cx Ql (Vag fld)Not detectedNOMS Healthcare SARS-CoV-2 (COVID-19) RNA HAILEY+probe Ql (Unsp spec)0[facility]S OlzmgmsswfJICT-FyP-5 (COVID-19) RNA HAILEY+probe Ql (Unsp spec)Not detectedNOMS HealthcareNo Panel Informationon 42-09-9143ADRCEPEPBSMDU BAUMANNII (RESPIRATORY)0[facility] ACINETOBACTER BAUMANNII (RESPIRATORY)Not detectedNOMS HealthcareADENOVIRUS HADV- B (RESPIRATORY)0[facility]S HealthcareADENOVIRUS HADV-B (RESPIRATORY)Not detectedNOMS HealthcareBORDETELLA PERTUSSIS, PARAPERTUSSIS, BRONCHISEPTICA (RESPIRATORY)0NOMS HealthcareBORDETELLA PERTUSSIS, PARAPERTUSSIS, BRONCHISEPTICA (RESPIRATORY)Not detectedNOMS HealthcareCHLAMYDIA PNEUMONIAE (RESPIRATORY)0[facility] CHLAMYDIA PNEUMONIAE (RESPIRATORY)Not detectedNOMS HealthcareENTEROBACTER CLOACAE COMPLEX, KLEBSIELLA (ENTEROBACTER) AEROGENES ([id number] Healthcare ENTEROBACTER CLOACAE COMPLEX, KLEBSIELLA (ENTEROBACTER) AEROGENES (RESPIRATNot detectedNOMS HealthcareENTEROVIRUS D68 (RESPIRATORY)0[facility]S HealthcareENTEROVIRUS D68 (RESPIRATORY)Not detectedNOMS HealthcareESCHERICHIA COLI (RESPIRATORY)0NOMS HealthcareESCHERICHIA COLI (RESPIRATORY)Not detectedNOMS HealthcareHAEMOPHILUS INFLUENZAE (RESPIRATORY)0NOMS HealthcareHAEMOPHILUS INFLUENZAE (RESPIRATORY)Not detectedNOMS HealthcareHUMAN METAPNEUMOVIRUS (RESPIRATORY)0[facility]S HealthcareHUMAN METAPNEUMOVIRUS (RESPIRATORY)Not detectedNOMS HealthcareINFLUENZA VIRUS, A, B (RESPIRATORY)0NOMS HealthcareINFLUENZA VIRUS, A, B (RESPIRATORY)Not detectedNOMS HealthcareKLEBSIELLA PNEUMONIAE, OXYTOCA (RESPIRATORY)0[facility] KLEBSIELLA PNEUMONIAE, OXYTOCA (RESPIRATORY)Not detectedNOMS Healthcare LEGIONELLA PNEUMOPHILA (RESPIRATORY)0NOMS HealthcareLEGIONELLA PNEUMOPHILA (RESPIRATORY)Not detectedNOMS HealthcareMORAXELLA CATARRHALIS (RESPIRATORY)0NOMS HealthcareMORAXELLA CATARRHALIS (RESPIRATORY)Not detectedN[facility]S Healthcare MYCOPLASMA PNEUMONIAE (RESPIRATORY)0NOMS HealthcareMYCOPLASMA PNEUMONIAE (RESPIRATORY)Not detectedNOMS HealthcareOTHER CORONAVIRUSES (229E, NL63, HKU1, OC43) (RESPIRATORY)0[facility] HealthcareOTHER CORONAVIRUSES (229E, NL63, HKU1, OC43) (RESPIRATORY)Not detectedNOMS HealthcarePARAINFLUENZA VIRUS (TYPES 1, 2, 3 ,4) (RESPIRATORY)0NOMS HealthcarePARAINFLUENZA VIRUS (TYPES 1, 2, 3 ,4) (RESPIRATORY)Not detectedNOMS HealthcarePROTEUS MIRABILIS, VULGARIS (RESPIRATORY)0[facility]S HealthcarePROTEUS MIRABILIS, VULGARIS (RESPIRATORY)Not detectedNOMS HealthcarePSEUDOMONAS AERUGINOSA (RESPIRATORY)0[facility] PSEUDOMONAS AERUGINOSA (RESPIRATORY)Not detectedNOMS HealthcareRESPIRATORY SYNCYTIAL VIRUS (RESPIRATORY)0NOMS HealthcareRESPIRATORY SYNCYTIAL VIRUS (RESPIRATORY)Not detectedNOMS HealthcareRHINOVIRUS/ENTEROVIRUS (RESPIRATORY)0 NOMS HealthcareRHINOVIRUS/ENTEROVIRUS (RESPIRATORY)Not detectedNOMS Healthcare SERRATIA MARCESCENS (RESPIRATORY)0NOMS HealthcareSERRATIA MARCESCENS (RESPIRATORY)Not detectedNOMS HealthcareSTAPHYLOCOCCUS AUREUS (RESPIRATORY)0NOMS HealthcareSTAPHYLOCOCCUS AUREUS (RESPIRATORY)Not detectedNOMS Healthcare STREPTOCOCCUS PNEUMONIAE (RESPIRATORY)0NOMS HealthcareSTREPTOCOCCUS PNEUMONIAE (RESPIRATORY)Not detectedNOMS HealthcareSTREPTOCOCCUS PYOGENES (GROUP A STREP) (RESPIRATORY)0NOMS HealthcareSTREPTOCOCCUS PYOGENES (GROUP A STREP) (RESPIRATORY)Not detectedNOMS HealthcareNOMS HealthcareNo Panel Information Ordered By: Mallika Ulloa on 07-08-8919ERSTZXOXD APositiveNegativeNOMS HealthcareINFLUENZA BNegativeNegativeNOMS HealthcareInterpretation and review of laboratory resultsAbnormalNOMS HealthcareNOMS HealthcareXR CHEST 2 VIEWSon 56-25-5635IX CHEST 2 VIEWSEXAMINATION: XR CHEST 2 VIEWS HISTORY: cough TECHNIQUE: Frontal and lateral views of the chest. COMPARISON: None available FINDINGS: Cardiomediastinal silhouette is within normal limits. No pneumothorax, pleural effusion, or consolidation. Hyperinflation of the lungs and increased bronchovascular markings suggesting COPD. Degenerative changes of the spine. No acute osseous abnormality. IMPRESSION: No radiographic evidence of acute intrathoracic process. ELECTRONICALLY SIGNED BY: Sofiya TejadamalNot AvailableXR Chest 2 Views on 11-16-2024 No radiographic evidence of acute intrathoracic process. ELECTRONICALLY SIGNED BY: VIKTORIYA TejadaGINGEXAMINATION: XR CHEST 2 VIEWS HISTORY: cough TECHNIQUE: Frontal and lateral views of the chest. COMPARISON: None available FINDINGS: Cardiomediastinal silhouette is within normal limits. No pneumothorax, pleural effusion, or consolidation. Hyperinflation of the lungs and increased bronchovascular markings suggesting COPD. Degenerative changes of the spine. No acute osseous abnormality. IMAGINGStefTim madden DO - 11/16/2024 EXAMINATION: XR CHEST 2 [...] process. ELECTRONICALLY SIGNED BY: Tim Lazo DO [facility] HealthcareRadiology Study observation (narrative)[facility] HealthcareXR Chest 2 ViewsOrdered By: Tim Lazo on 02-08-6147WBAF JUNIQE Work Phone: ambulatory Visit Summaryon 81-71-8621Sknbsubaym Visit SummaryAmbulatory Visit Summary AUGUSTO PRYOR :1960 Visit Date:10/24/2024 [...] DO, FAAFP This Is Your Medications List [facility] Prescription (Glucometer) Misc Prescription (Lancets) Mis Prescription (Test strips) Mis Prescription (nebulizer) albuterol (albuterol 0.5% Inh [place]) fluticasone nasal (Flonase 0.05 mg/inh [place]) ipratropium nasal (Atrovent 0.03% [place]) latanoprost ophthalmic (latanoprost Opth 0.005% [place]) methylPREDNISolone [...] EDT With: Yunier SIMPSON DO, FAAFP Where: [facility] [address], [place] [address]- Someone Will Contact You Regarding These Appointments [facility] [place], ENT, 10/24/24 14:19:00 EST, Eustachian tube disorder Medications What How Much When Why Instructions New ipratropium nasal (Atrovent 0.03% [place]) 2 Sprays Nasal Inhalation 3 times a day Eustachian tube disorder Pickup at [facility] New methylPREDNISolone (Medrol Dosepack 4 mg Tab) 1 Packets By Mouth As Directed Eustachian tube disorder Refills: 2 as directed on package labeling Pickup at [facility] Unchanged albuterol (albuterol 0.5% Inh Salena) 0.5 Milliliter Inhalation Every 4 hours as needed for for wheezing Unchanged fluticasone nasal (Flonase 0.05 mg/ inh [place]) 2 Sprays Nasal Inhalation Every day each nostril Unchanged latanoprost ophthalmic (latanoprost Opth 0.005% [place]) 1 Drops Ophthalmic Once a day (at bedtime) Unchanged [facility] Prescription (Glucometer) See instructions New onset type 2 diabetes mellitus Glucometer Unchanged Misc Prescription (Lancets) See instructions New onset type 2 diabetes mellitus Lancets Unchanged Misc Prescription (nebulizer) See instructions nebulizer machine for med=neb treatments Unchanged Misc Prescription (Test strips) See instructions New onset type 2 diabetes mellitus test strips check blood sugar once daily Dx. E11.9 Unchanged rivaroxaban (Xarelto 20 mg oral tablet) 1 Tablets By Mouth Once a day (in the evening) Duration: 90 Days Pharmacy Information [facility]: [address] [place], [place] [phone] Allergies No Known Allergies Problems Ongoing - [...] you for choosing us for your care. [facility] Medicine Office/Clinic Noteon 99-25-0633Xqlcaz Medicine Office/Clinic NoteWorcester [facility] Hospital Medicine Office/Clinic Note Chief Complaint 1m F/U- [...] years from discovery, defer to cardiology for definitivetreatment and therapy 3. Glaucoma primary, open angle [...] antigen) (Z12.5: Encounter for screening for malignant neoplasmof prostate) PSA 7. Hypertriglyceridemia (E78.1: Pure hyperglyceridemia) [...] medical support in addressing this problem. Your BMIand weight management will be followed at subsequent [...] spray(s), Nasal, TID, 30 mL, Refill(s) 0, [facility], 190, cm,10/24/24 13:58:00 EST, Height/Length Dosing, 115.8, kg, 10/24/24 13:58:00 EST, Weight Dosing methylPREDNISolone, = 1 packet(s), Oral, As Directed, as directed on package labeling, # 21 tab(s),Refills(s) 2, Pharmacy: [facility], 190, cm, 10/24/24 13:58:00 EST, Height/Length Dosing, 115.8, kg, 10/24/24 (more content not included)...[facility]ull Memorial HospitalComment on above:Result Comment: Electronically Signed By: Yunier SIMPSON DO, FAAFP\.br\Date and Time Signed: 10/24/24 14:28 ESTProvider Letteron [id number] LetterProvider Letter October 18, 2024 [address]OR [address] [address] : 1960 Dear Augusto, We have been trying to reach you with no success. It is important that you return our call regarding your follow up appointment upon receiving this letter. Also, at the time of your call, please provide us with your current information. Thank you for your prompt attention to this matter. Sincerely, [facility] [address] [place] [address], [place] [address] HsqgnlFnurgaTrumbull Memorial HospitalAmbulatory Visit Summaryon 67-75-1649Itrrhqfbmd Visit SummaryAmbulatory Visit Summary AUGUSTO PRYOR :1960 Visit Date:09/29/2024 [...] oral tablet) fluticasone nasal (Flonase 0.05 mg/inh [place]) Contact prescribing physician if questions or concerns [...] EDT With: Yunier SIMPSON DO, FAAFP Where: [facility] [address] [place] [address]- You Need to Schedule the Following Appointments Follow Up with Yunier SIMPSON DO, FAAFP, ANTONIO, PED When: In 4 months Where: [address] [place] [address]- Follow Up with Yunier SIMPSON DO, FAAFP, ANTONIO, PED When: In 6 months Where: [address] [place] [address]- You Need to Complete the Following HgbA1c, Blood, Routine collect, 09/29/24, Order for future visit, Lab Collect, Type 2 diabetes mellitus with hyperlipidemia, Print Label By Order Location Medications What How Much When Why Instructions New amoxicillin-clavulanate (Augmentin 875 mg oral tablet) 1 Tablets By Mouth Every 12 hours Duration: 10 Days Pickup at [facility]/pharmacy #[id number] New fluticasone nasal (Flonase 0.05 mg/ inh [place]) 2 Sprays Nasal Inhalation Every day each nostrilPickup at [facility]/pharmacy #[id number] Unchanged latanoprost ophthalmic (latanoprost Opth 0.005% [place]ena) [...] physician if questions or concerns Pharmacy Information [facility]/pharmacy #[id number]: [address] [place], [place] [phone] Allergies No Known Allergies Problems Ongoing - [...] you for choosing us for your care. [facility] Medicine Office/Clinic Noteon 42-69-0769Zxgdct Medicine Office/Clinic NoteWorcester County Hospital Medicine Office/Clinic Note Chief Complaint States he's had a cough x3 weeks. Went to [facility] on 09/16 and was given Bactrim and Allergy relief. History of Present Illness States he's had a cough x3 weeks. Went to [facility] on 09/16 and was given Bactrim [...] medical support in addressing this problem. Your BMIand weight management will be followed at subsequent [...] 10 day(s), # 20 tab(s), Refills(s) 0, Pharmacy:[facility]/pharmacy #[id number], 190, cm, 09/29/24 8:35:00 EST, Height/Length Dosing, 116.2, kg, 09/29/24 8:35:00 EST, Weight Dosing fluticasone nasal, 2 spray(s), Nasal, Daily, 16 gram, Refill(s) 0, each nostril, [id number], 190, cm, 09/29/24 8:35:00 EST, Height/Length Dosing, 116.2, kg, 09/29/24 8:35:00 EST, Weight Dosing Follow-up With When Contact Information Yunier SIMPSON DO, FAAFP, ANTONIO, PED In 4 months [address], [facility] [place] [address]- Additional Instructions: Yunier SIMPSON DO, FAAFP, FAM, PED In 6 months [address], [facility] [place] [address]- Additional Instructions: Patient Education Diabetes Mellitus and Exercise Problem List/Past Medica (more content not included)...[facility]ull Memorial HospitalComment on above:Result Comment: Electronically Signed By: Yunier SIMPSON DO, FAAFP\.br\Date and Time Signed: 09/29/24 09:10 ESTAmbulatory Visit Summaryon 61-34-7881Batjstmxrm Visit SummaryAmbulatory Visit Summary AUGUSTO PRYOR :1960 Visit Date:07/21/2024 [...] you for choosing us for your care. [facility] Medicine Office/Clinic Noteon 92-45-7986Utbjns Medicine Office/Clinic NoteWorcester County Hospital Medicine Office/Clinic Note Chief Complaint Patient here [...] having difficulty affording your medications? yes and noissues Do you have any of the following symptoms? Vision problems? No Sexual dysfunction? No GI-Nausea/committing/bloating? No Lightheadedness? No Paresthesias, Ulcerations or sores? [...] medical support in addressing this problem. Your BMIand weight management will be followed at subsequent visits. 7. Hypertriglyceridemia (E78.1: Pure hyperglyceridemia) Consider fish oil and/or statin along with diet and exercise 8. Cervicogenic headache (G44.86: Cervicogenic headache) Robaxin per Dr. Hackett the [facility] neurology department 9. Spinal stenosis, cervical region (M48.02: Spinal stenosis, (more content not included)...NormalMccullough-Hyde Memorial HospitalComment on above:Result Comment: Electronically Signed By: Yunier SIMPSON DO, FAAFP\.denise\Date and Time Signed: 07/21/24 13:06 EDTBMPon 63-52-5338Gosio gap [Moles/Vol]9 mmol/LNormal6-16M[facility]-Hyde Memorial HospitalComment on above:Performed By: #### [id number] #### [facility] [address], [place] [address]Sirkqqn [Mass/Vol]8.8 mg/dLLow8.9-11.1FChildren's Hospital for RehabilitationComment on above:Performed By: #### [id number] #### [facility] [address], [place] [address]Owzqtwqc [Moles/Vol]105 mmol/MRmgbrc761-347VnabwlMccullough-Hyde Memorial HospitalComment on above:Performed By: #### [id number] #### [facility] [address], [place] [address]GA3 [Moles/Vol]26 mmol/DRcypua35-96EetlniMccullough-Hyde Memorial Hospital Comment on above:Performed By: #### [id number] #### [facility] [address], [place] [address]Xncycraoxv [Mass/Vol]1.3 mg/dLNormal0.5-1.3FChildren's Hospital for RehabilitationComment on above:Performed By: #### [id number] #### [facility] [address], [place] [address]Qxaxkhx [Mass/Vol]126 mg/oBQfpgae34-018UuiuwfMccullough-Hyde Memorial HospitalComment on above:Performed By: #### [id number] #### [facility] [address], [place] [address]Vqlcwtstu [Moles/Vol]4.0 mmol/LNormal3.5-5.3FChildren's Hospital for RehabilitationComment on above:Performed By: #### [id number] #### [facility] [address], [place] [address]Zzaixp [Moles/Vol]136 mmol/ABoblyb797-288WyqgcfMccullough-Hyde Memorial HospitalComment on above:Performed By: #### [id number] #### [facility] [address], [place] [address]Rjib nitrogen [Mass/Vol]19 mg/dLNormal5-21M[facility]-Hyde Memorial HospitalComment on above:Performed By: #### [id number] #### [facility] [address], [place] [address]Asnz nitrogen/Creatinine [Mass ratio]15 No WsvcgBchgze93-06 [facility]-Hyde Memorial HospitalComment on above:Performed By: #### [id number] #### [facility] [address], [place] [address]OMKHTHNSTPsskbvc By: SYSTEM SYSTEM on 71-46-0834Pwvzt gap [Moles/Vol]9 mmol/LNormal6 - 16 mEq/LRemisol ChemCalcium [Mass/Vol]8.8 mg/dLLow 8.9 - 11.1 mg/dLRemisol ChemChloride [Moles/Vol]105 mmol/WBqoeon489 - 111 mmol/L Remisol ChemCO2 [Moles/Vol]26 mmol/ZZqxaak71 - 31 mmol/LRemisol ChemCreatinine [Mass/Vol]1.3 mg/dLNormal0.5 - 1.3 mg/dLRemisol WoycwYGJ13 mL/min/1.73 o4Xknoll >=59mL/min/1.73 b1Pgncgfb ChemGlucose [Mass/Vol]126 mg/tHVblhun73 - 199 mg/dL Remisol ChemPotassium [Moles/Vol]4.0 mmol/LNormal3.5 - 5.3 mmol/LRemisol Chem Sodium [Moles/Vol]136 mmol/UUjnqtp939 - 145 mmol/LRemisol ChemUrea nitrogen [Mass/Vol]19 mg/dLNormal5 - 21 mg/dLRemisol ChemUrea nitrogen/Creatinine [Mass ratio]15 mg/uaNdkrxa94 - 20Remisol ChemCHEMISTRYOrdered By: Vidya Solorzano on 36-94-5372Cgdpxkujkdf [Mass/Vol]224 mg/eNGqoa720 - 200 mg/dLRemisol Chem Cholesterol in HDL [Mass/Vol]24 mg/dLInvalid Interpretation CodeRemisol Chem Comment on above:Result Comment: '>= 60 LOW RISK' '<= 40 HIGH RISK'Cholesterol in LDL [Mass/Vol]NRInvalid Interpretation Code<=129 Remisol ChemCholesterol in VLDL [Mass/Vol]NCInvalid Interpretation Code7 - 40 Remisol ChemComment on above:Result Comment: 'VLDL RESULT NON-REPORTABLE WHEN TRIG > 1293 mg/dl'Triglyceride [Mass/Vol]1301 mg/dLHigh<=149mg/dLRemisol Chem Comment on above:Result Comment: Result Verified by DilutionCHEMISTRYOrdered By: Cassandra Pandey on 08-33-4061NhL4o (Bld) [Mass fraction]6.7 %High<=5.9%[facility] TzvfUstmTBLuaE7oug 63-35-5534WnL0f (Bld) [Mass fraction]6.7 %High<=5.9Mccullough-Hyde Memorial HospitalComment on above:Performed By: #### [id number] #### [facility] [address], [place] [address]Bsuxx Panelon 70-59-5923Obkzgtlvxsp [Mass/Vol]224 mg/dLHigh 120-200Mccullough-Hyde Memorial HospitalComment on above:Performed By: #### [id number] #### [facility] [address], [place] [address]Xxhryywuvgi in HDL [Mass/Vol]24 mg/dLInvalid Interpretation CodeMccullough-Hyde Memorial HospitalComment on above:Result Comment: '>= 60 LOW RISK' '<= 40 HIGH RISK'Performed By: #### [id number] #### [facility] [address], [place] [address]Dteetmnntux in LDL [Mass/Vol]NRInvalid Interpretation Code<=129 M[facility]-Hyde Memorial HospitalComment on above:Performed By: #### [id number] #### [facility] [address], [place] [address]Wzdtyzjxydw in VLDL [Mass/Vol]NCInvalid Interpretation Code7-40 M[facility]-Hyde Memorial HospitalComment on above:Result Comment: 'VLDL RESULT NON- REPORTABLE WHEN TRIG > 1293 mg/dl'Performed By: #### [id number] #### [facility] [address], [place] [address]Avbnwgueqgno [Mass/Vol]1301 mg/dLHigh<=149Mccullough-Hyde Memorial HospitalComment on above:Result Comment: Result Verified by DilutionPerformed By: #### [id number] #### [facility] [address], [place] [address]sMLCtm 07-10-7755xSFU97 mL/min/1.73 z9Oeyjyu>=59Mccullough-Hyde Memorial HospitalComment on above:Performed By: #### [id number] #### [facility] [address] [place], [place] [address]Ybzlb and Vascular Office/Clinic Noteon 08-43-4191Xtdek and Vascular Office/Clinic NoteChief Complaint 6 month afib History of Present [...] medication, Eliquis is essential for preventing stroke, andit is crucial that he continue taking it as prescribed. Stroke is a severe and debilitating condition. If the patient has any concerns or questions, he can call the office. Follow up in 1 year. Portions of this record may have been created with voice recognition artificial intelligence software, specifically [employer] and or [employer]. Substitutions may have occurred due to the inherent limitations of voice recognition and artificial intelligence software. ATTESTATION: Documentation services were performed after patient or guardian consented to allow [employer] to record this visit. DULCE inventory specialist manager and provider reviewed before signing. DULCE: Janet [...] 1 tab(s), Oral, q (more content not included)...[facility]ull Memorial HospitalComment on above:Result Comment: Electronically Signed By: Arya Lisa MD\.br\Date and Time Signed: 01/19/24 09:17 EDT\.br\Electronically Co-Signed By: Janet Whatley\.br\Date and Time Co-Signed: 12/24/23 18:55 EDTPhysician Orderon 77-70-4820Xwowmissf Order [id number]#1.00TIFMetroHealth Main Campus Medical CenterAmbulatory Visit Summaryon 80-80-9712Fleyovisru Visit Summary BLAINE PRYORBRITTANY Kendrick :1960 Visit Date:12/24/2023 Ambulatory Visit Instructions Your [...] EDT With: Yunier SIMPSON DO, FAAFP [facility] - 12 leadon 29-31-7908Ybsgipzzidxcanllr - 12 lead [id number]#1.00TIFMetroHealth Main Campus Medical CenterConsultation Noteon 70-79-3206Msqczuqmcxcn Note [id number]#1.00[facility] CenterAmbulatory Visit Summaryon 04-68-2468Nyydbvbbwa Visit Summary AUGUSTO PRYOR :1960 Visit Date:12/17/2023 [...] PED When: In 6 months Where: [address], [place] [address]- You Need to Complete the Following Basic Metabolic Panel, Blood, Routine collect, 12/17/23, Order for future visit, Lab Collect, Type 2 diabetes mellitus with hyperlipidemiaInvalid Interpretation CodeHyperlipidemia, unspecified, Print Label By Order Location\.br\ Lipid Panel, Blood, Routine collect, 12/17/23, Order for future visit, Lab Collect, Chronic atrial fibrillationSt[facility] Office/Clinic Note on 66-49-6357Exkmbe Medicine Office/Clinic NoteChief Complaint Patient here to go over blood [...] and S2, no murmur, no rub heart rateat approximately 100 Abdomen: Soft, non-distended, non-tender. no [...] medical support in addressing this problem. Your BMIand weight management will be followed at subsequent visits. 3. Other obesity (E66.8: Other obesity) Diet and exercise BMI goal of 25 4. Cervical spondylosis (M47.812: Spondylosis without myelopathy or radiculopathy, cervical region) Tylenol and or diclofenac cream as needed: See MRI Ordered: methylPREDNISolone, = 1 tab(s), Oral, As Directed, Take as directed on pack, # 1 EA, Refills(s) 2, [facility] [facility]/pharmacy #[id number], 190, cm, 08/20/23 9:32:00 EST, Height/Length [...] cookies. His also stopped making so many cookies.Patient will repeat lipid profile along with (more content not included)...[facility] HospitalComment on above:Result Comment: Electronically Signed By: Yunier SIMPSON DO, FAAFP\.br\Date and Time Signed: 12/17/23 14:07 ESTPatient Educationon 57-99-3503Jmcxroi EducationCardiovascular Atrial Fibrillation Atrial fibrillation is a type [...] and how you feel when you have atrialfibrillation. They include: ? Medicines to: ? Prevent [...] these instructions at home: Medicines ? Take lkwa-mfz-qtwlxaq and prescription medicines only as told by [...] symptoms may be an (more content not included)...NormalMccullough-Hyde Memorial HospitalBMPon 33-42-6910Cejzd gap [Moles/Vol]11 mmol/LNormal6-16[facility] HospitalComment on above:Performed By: #### 5841538, 99971213, 8777132, 51066120, 5237303, 5229416 ####[facility] [address] [place], [place] [address]Xsondzr [Mass/Vol]9.0 mg/dLNormal 8.9-11.1[facility] Grace Medical CenterComment on above:Performed By: #### 8579662, 48821132, 1863279, 01966753, 6577595, 7721531 ####[facility] [address] [place], [place] [address]Lypxkbec [Moles/Vol]106 mmol/LNormal 101-111[facility] HospitalComment on above:Performed By: #### 2276743, 90516652, 2602288, 46063102, 2371360, 2136183 ####[facility] [address] [place], [place] [address]WM9 [Moles/Vol]23 mmol/GOibegq17-64 [facility] Memorial HospitalComment on above:Performed By: #### 3509603, 03687307, 8478497, 35731236, 0515352, 4761843 ####[facility] [address] [place] [address]Nwnwimabua [Mass/Vol]1.3 mg/dLNormal 0.5-1.3FChildren's Hospital for RehabilitationComment on above:Performed By: #### 6326319, 29789821, 7977244, 68194186, 4002162, 2080991 ####[facility] [address] [place] [address]Biewtds [Mass/Vol]126 mg/dLNormal 55-199M[facility]-Hyde Memorial HospitalComment on above:Performed By: #### 5510339, 33020086, 9854888, 55529116, 0126071, 9280299 ####[address] [address]Chugfkyix [Moles/Vol]4.2 mmol/LNormal 3.5-5.3FChildren's Hospital for RehabilitationComment on above:Performed By: #### 6043142, 13847503, 4893975, 54069248, 3138697, 2491673 ####[facility] [address] [place], [place] [address]Dqbdsj [Moles/Vol]136 mmol/LNormal 135-145M[facility]-Hyde Memorial HospitalComment on above:Performed By: #### 3869131, 00147552, 4259080, 73296418, 3910705, 1022905 ####[facility] [address] [place], [place] [address]Lvrj nitrogen [Mass/Vol]16 mg/dL Normal5-21M[facility]-Hyde Memorial HospitalComment on above:Performed By: #### 6155138, 33400940, 5001900, 40003031, 2468934, 7189447 ####[facility] [address] [place], [place] [address]Dozv nitrogen/Creatinine [Mass ratio]12 No DrcacCazgdv95-19QmgxehMccullough-Hyde Memorial HospitalComment on above: Performed By: #### 6481136, 90111732, 0163144, 47255576, 5303951, 2269108 ####[facility] [address] [place] [address] CHEMISTRYOrdered By: SYSTEM SYSTEM on 59-58-1075Jdwsrvw [Mass/Vol]4.0 g/dLNormal 3.3 - 5.0 gm/dLRemisol ChemAlbumin/Globulin [Mass ratio]1.3 {ratio}Normal1.1 - 2.2Remisol ChemALP [Catalytic activity/Vol]41 [iU]/tHckkix54 - 98 Int._Unit/L Remisol ChemALT No additional P-5'-P [Catalytic activity/Vol]43 [iU]/dNormal6 - 46 Int._Unit/LRemisol ChemAnion gap [Moles/Vol]11 mmol/LNormal6 - 16 mEq/L Remisol ChemAST [Catalytic activity/Vol]27 [iU]/dNormal5 - 43 Int._Unit/LRemisol ChemBilirubin [Mass/Vol]0.7 mg/dLNormal0.0 - 1.1 mg/dLRemisol Chem Bilirubin.direct [Mass/Vol]0.1 mg/dLNormal0.0 - 0.4 mg/dLRemisol Chem Bilirubin.indirect [Mass or moles/Vol]0.6 mg/dLNormal0.1 - 0.9 mg/dLRemisol Chem Calcium [Mass/Vol]9.0 mg/dLNormal8.9 - 11.1 mg/dLRemisol ChemChloride [Moles/Vol]106 mmol/VPidtwn254 - 111 mmol/LRemisol ChemCholesterol [Mass/Vol]214 mg/hJLvij819 - 200 mg/dLRemisol ChemCholesterol in HDL [Mass/Vol]21 mg/dL Invalid Interpretation CodeRemisol ChemComment on above:Result Comment: '>= 60 LOW RISK' '<= 40 HIGH RISK'Cholesterol in LDL [Mass/Vol]52 mg/dLNormal<=129mg/dLRemisol ChemCO2 [Moles/Vol]23 mmol/XZczozg13 - 31 mmol/LRemisol ChemCreatinine [Mass/Vol]1.3 mg/dLNormal0.5 - 1.3 mg/dLRemisol HrrdmXTH97 mL/min/1.73 j4Puftro >=59mL/min/1.73 t1Wnwskuv ChemGlobulin (S) [Mass/Vol]3.0 g/dLNormal1.4 - 4.0 gm/dLRemisol ChemGlucose [Mass/Vol]126 mg/eTFivzit98 - 199 mg/dLRemisol Chem Magnesium [Mass/Vol]1.9 mg/dLNormal1.3 - 2.4 mg/dLRemisol ChemPotassium [Moles/Vol]4.2 mmol/LNormal3.5 - 5.3 mmol/LRemisol ChemProstate specific Ag [Mass/Vol]0.4 ng/mLNormal0.1 - 3.5 ng/mLRemisol ChemComment on above: Interpretive Data: The concentration of PSA determined by different manufacturers can vary due to differences in assay methods and reagent specificity. Values obtained from different assay methods cannot be used interchangeably. The methodology used for this result was chemiluminescence using [employer]'s Access Hybritech PSA reagent.Protein [Mass/Vol]7.0 g/dL Normal6.0 - 7.8 gm/dLRemisol ChemSodium [Moles/Vol]136 mmol/SQdecuh025 - 145 mmol/LRemisol ChemTriglyceride [Mass/Vol]1396 mg/dLHigh<=149mg/dLRemisol Chem Urea nitrogen [Mass/Vol]16 mg/dLNormal5 - 21 mg/dLRemisol ChemUrea nitrogen/Creatinine [Mass ratio]12 mg/mwQxswts10 - 20Remisol ChemCHEMISTRY Ordered By: Vidya Schmidt on 81-81-7300Wdqtwmvasie in VLDL [Mass/Vol]NC Invalid Interpretation Code7 - 40Remisol ChemComment on above:Result Comment: 'VLDL RESULT NON-REPORTABLE WHEN TRIG > 1293 mg/dl'CHEMISTRYOrdered By: Vidya Solorzano on 50-05-2236IvA0x (Bld) [Mass fraction]6.9 %High<=5.9%[facility] ChemAutoSSConsent for Treatmenton 07-38-6852Ijgzbow for Treatment [id number]#1.00TIFFNormalMccullough-Hyde Memorial HospitalHep Func Panelon 50-10-3198Etiycqs [Mass/Vol]4.0 g/dLNormal3.3-5.0M[facility]Hyde Memorial HospitalComment on above:Performed By: #### 2332966, 83203728, 5663478, 28558917, 7620961, 7883981 ####[facility] [address] [place], [place] [address]Vdcwyay/Globulin (S) [Mass conc ratio]1.0Wdhqlm6.1-2.2[facility] Grace Medical CenterComment on above:Performed By: #### 4661176, 21357048, 7873421, 65703486, 0424064, 9519616 ####[facility] [address] [place], [place] [address]KFS [Catalytic activity/Vol]41 Int._Unit/LLehlvt41-53LonrbrMccullough-Hyde Memorial HospitalComment on above:Performed By: #### 5427473, 11816989, 9435474, 87703399, 5567926, 4214450 ####[facility] [address] [place], [place] [address]RHE No additional P-5'-P [Catalytic activity/Vol]43 Int._Unit/LNormal6-46[facility] Memorial HospitalComment on above:Performed By: #### 4024584, 45268554, 1639811, 83772536, 8848860, 8545077 ####[address] [place], [place] [address]QDB [Catalytic activity/Vol]27 Int._Unit/LNormal5-43[facility] Memorial HospitalComment on above:Performed By: #### 8398210, 42473752, 3849251, 07042177, 1334283, 3101000 ####[address] [address]Nqygzxgns [Mass/Vol] 0.7 mg/dLNormal0.0-1.1FChildren's Hospital for RehabilitationComment on above:Performed By: #### 2827926, 31836889, 0363055, 66752696, 6324202, 6670665 ####[address] [address]Lpucvcske.direct [Mass/Vol]0.1 mg/dLNormal0.0-0.4FChildren's Hospital for RehabilitationComment on above: Performed By: #### 0083901, 75914745, 6791323, 05525608, 9787107, 3547936 ####[address] [address] Bilirubin.indirect [Mass or moles/Vol]0.6 mg/dLNormal0.1-0.9M[facility]Hyde Memorial HospitalComment on above:Performed By: #### 6656989, 83643912, 6339295, 27380138, 6675444, 8842402 ####[address] [address]Svelvfyw (S) [Mass/Vol]3.0 g/dLNormal1.4-4.0M[facility]-Hyde Memorial HospitalComment on above:Performed By: #### 6683059, 17991274, 4683701, 48055557, 4367406, 6055953 ####[address] [address]Hpjyaxf [Mass/Vol]7.0 g/dLNormal6.0-7.8[facility] Memorial HospitalComment on above:Performed By: #### 4074306, 71943881, 2955276, 94728803, 9654361, 9044554 ####[facility] [address] [place], [place] [address]QzxV6dgg 32-88-2678KxU5c (Bld) [Mass fraction]6.9 % High<=5.9M[facility]-Hy[facility] Memorial HospitalComment on above:Performed By: #### 999519248 ####[facility] [address] [place], [place] [address]Qhmid Panelon 78-03-5213Ciorqmxkysq [Mass/Vol]214 mg/vSCyym892-937XlygalMccullough-Hyde Memorial HospitalComment on above:Performed By: #### 7393326, 57072149, 8428932, 21076546, 7897315, 9798672 ####[facility] [address] [place], [place] [address]Uzeqangpgzn in HDL [Mass/Vol]21 mg/dL Invalid Interpretation CodeMccullough-Hyde Memorial HospitalComment on above:Result Comment: '>= 60 LOW RISK' '<= 40 HIGH RISK'Performed By: #### 8020445, 07768065, 6846363, 77234880, 1807867, 7623096 ####[facility] [address] [place], [place] [address]Mvuejkhmgms in LDL [Mass/Vol]52 mg/dLNormal<=129M[facility] Memorial HospitalComment on above:Performed By: #### 1622792, 35042607, 1301359, 08270615, 0138333, 4332933 ####[facility] [address] [place], [place] [address]Vbofbtsmycl in VLDL [Mass/Vol]NCInvalid Interpretation Code7-40[facility] Memorial HospitalComment on above:Result Comment: 'VLDL RESULT NON-REPORTABLE WHEN TRIG > 1293 mg/dl'Performed By: #### 0897985, 24661900, 2753328, 40857018, 7895040, 8691383 ####[facility] [address] [place], [place] [address]Tvgynjvreqye [Mass/Vol]1396 mg/dLHigh<=149M[facility]Hy[facility] Memorial HospitalComment on above:Performed By: #### 3521760, 25753899, 9301994, 47692292, 5748435, 3242561 ####[facility] [address] [place], [place] [address]Lelyjcpkgph 12-11-2023 Magnesium [Mass/Vol]1.9 mg/dLNormal1.3-2.4FChildren's Hospital for RehabilitationComment on above:Performed By: #### 9094825, 60071391, 8216182, 28535707, 9386571, 7441235 ####[facility] [address] [place], [place] [address]PAM Screen, Totalon 87-18-9414Acqihajq specific Ag [Mass/Vol]0.4 ng/mLNormal0.1-3.5 [facility] HospitalComment on above:Result Comment: The concentration of PSA determined by different manufacturers can vary due to differences in assay methods and reagent specificity. Values obtained from different assay methods cannot be used interchangeably. The methodology used for this result was chemiluminescence using [employer]'s Access Hybritech PSA reagent.Performed By: #### 4399498, 40667929, 9625245, 89608130, 2834006, 5766379 ####[facility] [address] [place], [place] [address]fLNGmo 52-61-2978tDYE40 mL/min/1.73 m3Jurkwl>=59M[facility]-Hy[facility] Memorial HospitalComment on above:Order Comment: Order added by Discern Expert.Performed By: #### 0568822, 59143028, 4807395, 72567884, 9127508, 1546820 ####[facility] [address] [place] Jonbristol hospitaljean carlosBELDING, [place] [address]RBXJUONRDDjrzswy By: Samantha Olsen on 91-22-6993Ieknxkc DL <= 20 mg/L (U) [Mass/Vol]18.6 microgram/mLNormal0.0 - 19.0 mcg/mLFTMC RemisolAlbumin Elph (U) [Mass fraction]mg/dLInvalid Interpretation CodeFTMC RemisolCreatinine (U) [Mass/Vol]262.3 mg/dLInvalid Interpretation Code [facility] RemisolU Prot/Creat RatioUTCInvalid Interpretation Code0.00 - 200.00FT[facility] RemisolCHEMISTRYOrdered By: SYSTEM SYSTEM on 89-19-7992Catcfai [Mass/Vol]3.8 g/dLNormal3.3 - 5.0 gm/dLFTMC RemisolAlbumin/Globulin [Mass ratio]1.1 {ratio} Normal1.1 - 2.2[facility] RemisolALP [Catalytic activity/Vol]34 [iU]/nWwaklj60 - 98 Int._Unit/LFTMC RemisolALT No additional P-5'-P [Catalytic activity/Vol]56 [iU]/dHigh6 - 46 Int._Unit/LFTMC RemisolAnion gap [Moles/Vol]9 mmol/LNormal6 - 16 mEq/LFTMC RemisolAST [Catalytic activity/Vol]35 [iU]/dNormal5 - 43 Int._Unit/LFTMC RemisolBilirubin [Mass/Vol]0.6 mg/dLNormal0.0 - 1.1 mg/dLFTMC RemisolBilirubin.direct [Mass/Vol]mg/dLNormal0.1 - 0.4 mg/dLFTMC Remisol Bilirubin.indirect [Mass or moles/Vol]Unable to Calculate mg/dLInvalid Interpretation Code0.1 - 0.9 mg/dLFTMC RemisolCalcium [Mass/Vol]9.0 mg/dLNormal 8.9 - 11.1 mg/dLFTMC RemisolChloride [Moles/Vol]108 mmol/KWhlbqw694 - 111 mmol/L [facility] RemisolCholesterol [Mass/Vol]233 mg/kDFpga712 - 200 mg/dLFTMC Remisol Cholesterol in HDL [Mass/Vol]33 mg/dLInvalid Interpretation CodeFTMC Remisol Cholesterol in LDL [Mass/Vol]116 mg/dLNormal<=129mg/dLFTMC RemisolCholesterol in VLDL [Mass/Vol]Unable to Calculate mg/dLInvalid Interpretation Code7 - 40 mg/dL [facility] RemisolComment on above:Result Comment: 'Unable to report. Trig >400 mg/dl' CO2 [Moles/Vol]27 mmol/DOybsmk07 - 31 mmol/LFTMC RemisolCreatinine [Mass/Vol]1.5 mg/dLHigh0.5 - 1.3 mg/dLFTMC RemisolGFR/1.73 sq M.predicted among non-blacks MDRD (S/P/Bld) [Vol rate/Area]53 mL/min/1.73 m2Low>=59mL/min/1.73 m2FT Chem S Globulin (S) [Mass/Vol]3.4 g/dLNormal1.4 - 4.0 gm/dLFTMC RemisolGlucose [Mass/Vol]106 mg/tHBukoqf21 - 199 mg/dLFTMC RemisolPotassium [Moles/Vol]3.9 mmol/LNormal3.5 - 5.3 mmol/LFTMC RemisolProtein [Mass/Vol]7.2 g/dLNormal6.0 - 7.8 gm/dLFTMC RemisolSodium [Moles/Vol]140 mmol/ZXaqltp624 - 145 mmol/LFTMC RemisolTriglyceride [Mass/Vol]463 mg/dLHigh<=149mg/dLFTMC RemisolUrea nitrogen [Mass/Vol]23 mg/dLHigh5 - 21 mg/dLFTMC RemisolUrea nitrogen/Creatinine [Mass ratio]15 mg/pkOsufue71 - 20FTMC RemisolCHEMISTRYOrdered By: Hillary Chaudhry on 73-51-3521HoN9b (Bld) [Mass fraction]6.8 %High<=5.9%[facility] ChemAutoSSHEMATOLOGY Ordered By: [email or web address] SYSTEM on 26-46-1966Oqbajuuuy/100 WBC (Bld)0.9 %Normal0.0 - 2.0 %[facility] HemeAutoSSBasophils/Leukocytes Auto (Bld) [Pure # fraction]0.1 E9/L Normal0.0 - 0.2 E9/LFTMC HemeAutoSSEosinophils/100 WBC (Bld)2.5 %Normal0.0 - 8.0 %[facility] HemeAutoSSEosinophils/Leukocytes Auto (Bld) [Pure # fraction]0.2 E9/L Normal0.0 - 0.5 E9/LFTMC HemeAutoSSLymphocytes/100 WBC (Bld)36.6 %Eqsscc52.0 - 50.0 %[facility] HemeAutoSSLymphocytes/Leukocytes Auto (Bld) [Pure # fraction]2.7 E9/L Normal1.0 - 4.0 E9/LFTMC HemeAutoSSMonocytes/100 WBC (Bld)8.0 %Normal4.0 - 14.0 %[facility] HemeAutoSSMonocytes/Leukocytes Auto (Bld) [Pure # fraction]0.6 E9/LNormal 0.2 - 1.0 E9/LFTMC HemeAutoSSNeutrophils/100 WBC (Bld)52.0 %Hujhzb40.0 - 75.0 % [facility] HemeAutoSSNeutrophils/Leukocytes Auto (Bld) [Pure # fraction]3.8 E9/LNormal 2.0 - 7.5 E9/LFTMC HemeAutoSSHEMATOLOGYOrdered By: Cecelia Castillo on 06-12-2023 Erythrocyte distribution width (RBC) [Ratio]14.1 %Rhfzkm30.9 - 14.2 %[facility] HemeAutoSSHematocrit (Bld) [Volume fraction]42.9 %Mignbo62.7 - 49.0 %[facility] HemeAutoSSHemoglobin (Bld) [Mass/Vol]14.5 g/hCKfknle40.5 - 17.5 gm/dLFTMC HemeAutoSSMCH (RBC) [Entitic mass]31.5 kgBjdsvm29.0 - 34.0 pgFTMC HemeAutoSSMCHC (RBC) [Mass/Vol]33.8 g/uTVewxos38.4 - 36.0 gm/dLFTMC HemeAutoSSMCV (RBC) [Entitic vol]93.1 bQEqrdmi80.0 - 100.0 fLFTMC HemeAutoSSPlatelet mean volume (Bld) [Entitic vol]8.1 fLNormal6.4 - 10.8 fLFTMC HemeAutoSSPlatelets (Bld) [#/Vol]179.0 E9/XMyvjtj025.0 - 500.0 E9/[facility] HemeAutoSSRBC (Bld) [#/Vol]4.6 E12/LNormal4.3 - 5.9 E12/[facility] HemeAutoSSWBC corrected for nucl RBC Auto (Bld) [#/Vol]7.3 E9/LNormal4.0 - 11.0 E9/[facility] HemeAutoSSCNOVon 22-25-7178XZRPVkfjjs Visit (ORHSMN) ROYAAUGUSTO Martin ([id number]) 1960 Date Time Provider Department 10/01/22 12:30 PM KATIE LOZANO [facility] During your visit today, we recorded the following information about you: Katie Lozano MD 10/01/2022 1:02 PM Signed [facility] NOTE Department of Orthopaedics Katie Lozano M.D. NAME: Augusto Pryor [facility] NO.: [id number] DATE: October 01, 2022 DATE OF SURGERY: [...] for Encounter Date Provider Department Center 10/01/2022 [id number], ERIC T [facility] Mn A [facility] Encounter Status:Closed by KATIE LOZANO on 10/01/22[facility] [id number] Visit ([facility]) AUGUSTO PRYOR ([id number]) 1960 M Date Time Provider Department 06/04/22 3:15 PM KATIE LOZANO During your visit today, we recorded the following information about you: Katie Lozano MD 06/04/2022 5:16 PM Signed [facility] NOTE Department of Orthopaedics Katie Lozano M.D. NAME: Augusto Pryor [facility] NO.: [id number] DATE: June 04, 2022 DATE OF SURGERY: [...] cuff repair [Z98.890] Order(s):CONSULT TO PHYSICAL THERAPY [7849] Order #: [id number]: 1 FUTURE Prescriptions as of 06/04/2022 - [...] for Encounter Date Provider Department Center 06/04/2022 [id number], [facility] Encounter Status:Closed by KATIE LOZANO on 06/04/22[facility] 08-58-1511PGCOVrixpk TextMer[facility] on 37-22-4168IHGUCJFWpsvj Visit (JOYCELYN) AUGUSTO PRYOR ([id number]) 1960 M Date Time Provider Department 03/30/22 10:00 AM [...] Ishmael Cifuentes RN Referring Provider: KATIE LOZANO [[id number]] Allergies As of Date: 03/30/2022 (No Known Allergies) Date Reviewed: 03/30/2022 Reviewed by: Ishmael Cifuentes RN - Fully Assessed Reason for Visit: Post Op [174] Primary Visit Diagnosis:S/P right rotator cuff repair [Z98.890] Other Visit Diagnosis:Traumatic complete tear of right rotator cuff, initial encounter [S46.011A] Order(s):XR SHOULDER GENERAL 3V OR MORE AP/TRUE AP/OTHER RIGHT [7659418] Order #: [id number] FUTURE Prescriptions as of 03/30/2022 - metFORMIN [...] for Encounter Date Provider Department Center 03/30/2022 [id number] CIFUENTES [facility] Encounter Status:Closed by ISHMAEL CIFUENTES on 03/30/22[facility] 09-42-3264WMIOLVAYwdco Visit (ORMN) AUGUSTO PRYOR ([id number]) 1960 M Date Time Provider Department 02/27/22 9:00 AM ISHMAEL CIFUENTES [facility] During your visit today, we recorded the [...] limits of examination/evaluation/patient instruction. Ishmael Cifuentes RN Referring Provider: KATIE LOZANO [[id number]] Allergies As of Date: 02/27/2022 (No Known [...] 02/11/2022 Encounter Status:Closed by ISHMAEL CIFUENTES on 02/27/22[facility]CNPNon [id number] (PAINMN) AUGUSTO PRYOR ([id number]) 1960 M Date Time Provider Department 02/14/22 CANDICE JULES During your visit today, we recorded the following information about you: Candice Jules PA-C 02/14/2022 4:41 PM Addendum DOS: 02/13/2022 Type of Surgery: Right shoulder arthroscopy rotator cuff Surgeon : Marta Catheter site: Right Interscalene Solution: Ropivacaine 0.2% Rates: 03/16/60 Phone number: [phone] ([place]), Discharge date: 02/14/2022 Switched to Ambit pump, educated on its use, discussed LA/SE and s/s that should be reported, patient/famiyl verbalized understanding. Will follow up with phone call. Perla Rivers RN 02/16/2022 11:28 AM Signed DOS: 02/13/2022 Type of Surgery: Right shoulder arthroscopy rotator cuff Surgeon : Marta Catheter site: Right Interscalene Solution: Ropivacaine 0.2% Rates: 03/16/60 Phone number: [phone] ([place]), Discharge date: 02/14/202202/16 Called and [...] of Surgery:?Right shoulder arthroscopy rotator cuff? Surgeon :?Marta Catheter site:?Right Interscalene Solution:?Ropivacaine 0.2%?? Rates:?03/16/60 Phone number:?[phone] ([place]), Discharge date:?02/14/202202/17 Spoke with patient's [...] 02/11/2022 Encounter Status:Closed by RICHAR JULIAN on 02/17/22[facility] POSTPROC EVALon 81-91-1278HTEH POSTPROC EVALHNO ID: [id number] Author: Martin Ahmadi MD Service: ? Author Type: Anesthesiologist Type: Anesthesia Postprocedure Evaluation Filed: 02/13/2022 7:49 PM Note Text: POST ANESTHESIA EVALUATION NOTE : 1960 Procedure Summary Date: 02/13/22 Room / Location: [address] [facility] Anesthesia Start: 1431 Anesthesia [...] February 13, 2022 TIME: 7:48 PM CSN: [id number] [facility] PRE-OPon 03-33-3308RNHX PRE-OPHNO ID: [id number] Author: Martin Ahmadi MD Service: ? Author Type: Anesthesiologist Type: Anesthesia Preprocedure Evaluation Filed: 02/13/2022 2:32 PM Note Text: ANESTHESIOLOGY DAY OF SURGERY NOTE : 1960 Procedure Information Date/Time: 02/13/22 1450 Procedures: ARTHROSCOPY SHOULDER ROTATOR CUFF (Right Shoulder) ARTHROSCOPY SHOULDER (Right Shoulder) Location: [address] [facility] Surgeons: Katie Lozano MD Estimated body mass index is 29.75 kg/m? as calculated from the following: Height as of this encounter: 190.5 cm (6' 3 ). Weight as of this encounter: 108 kg (238 lb). Most recent hematocrit and potassium results: Hematocrit 42.1 02/11/2022 Potassium 4.9 02/11/2022 Relevant Problems CARDIO (+) Rapid atrial fibrillation (HCC) ENDO (+) DM2 (diabetes mellitus, type 2) ([facility]) I - PHYSICAL EVALUATION AIRWAY Patient intubated: [...] and consent discussed: yes. Patient / Responsible Democrat agrees to proceed: yes Patient / Surrogate [...] February 13, 2022 TIME: 2:31 PM CSN: [id number] Regional Medical Center OP NOTon [id number] OP NOTHNO ID: [id number] Author: Balbir Freire MD Service: Orthopaedic Surgery Author Type: Resident Type: Brief Op Note Filed: 02/13/2022 5:58 PM Note Text: BRIEF OP NOTE LOG ID: [id number] Surgery/Procedure Date: 02/13/2022 Incision/Procedure Start Time: 3:15 PM Incision Close/Procedure End Time: 5:42 PM Surgeon(s)/Proceduralist(s) and Cheerleading Coach(s): Surgeon(s) and Role: * Katie Lozano MD [...] 13, 2022 TIME: 5:57 PM PAGER/CONTACT #: [phone]. [facility] on 51-17-2756PKZTCFBSUC ID: [id number] Author: Gaurav Thorne MD Service: Anesthesiology Author [...] listed are very rare (more content not included)...Normal [facility] HospitalOPERATIVE NOon [id number] NOHNO ID: [id number] Author: Katie Lozano MD Service: Orthopaedic Surgery Author Type: Physician Type: Operative Report Filed: 02/15/2022 1:43 PM Note Text: [place] [id number] [place] OPERATIVE REPORT NAME: Augusto Pryor [facility] #: [id number] DATE: 02/13/2022 (3:15pm-5:42pm) AGE: 62 SURGEON 1: Katie Lozano M.D. BARREL RIFLER BROACH: 1. Eder Tran M.D. 2. Balbir Freire [...] with surgery. ? OPERATIVE FINDING: The?supraspinatus and subscapularis?tendons?were?torn and repaired. ? ? OPERATIVE ?PROCEDURE: ?On [...] The interval was freed (more content not included)...NormalThe [facility] HospitalBahardin memorial hospital metabolic 2000 panelon [id number] gap [Moles/Vol]9 mmol/LNormal9-18[facility] Comment on above:Order Comment: Specimen Type: BLOOD SPECIMENOrdering Facility: [facility] Address:[address] [place] [address] Performed By: #### [id number] ####[facility] [id number] [place] [address] [place] Calcium [Mass/Vol]9.7 mg/dLNormal8.5-10.2CMartin Memorial Hospital on above:Order Comment: Specimen Type: BLOOD SPECIMENOrdering Facility: [facility] Address:[address] [place], [place] [address]Performed By: #### [id number] ####[facility] LABIA [id number] [place] [address] [place] AMERICAChloride [Moles/Vol] 107 mmol/OHnmf27-858UxxncubksWhite Hospital on above:Order Comment: Specimen Type: BLOOD SPECIMENOrdering Facility: [facility] Address:[address] [place], [place] [address]Performed By: #### [id number] ####[facility] [id number] [place] [address] [place] AMERICACO2 [Moles/Vol]26 mmol/LNormal 22-30[facility] on above:Order Comment: Specimen Type: BLOOD SPECIMENOrdering Facility: [facility] Address:[address] [place], [place] [address]Performed By: #### [id number] ####[facility] [id number] [place] [address] [place] AMERICACreatinine [Mass/Vol]0.94 mg/dLNormal0.73-1.22[facility] on above:Order Comment: Specimen Type: BLOOD SPECIMENOrdering Facility: [facility] Address:[address] [place], [place] [address]Performed By: #### [id number] ####[facility] LABUNIV[facility] [id number] [place] [address] [place] OF AMERICAESTIMATED GLOMERULAR FILTRATION RATE93 mL/min/1.73m???Normal >=60[facility] on above:Order Comment: Specimen Type: BLOOD SPECIMENOrdering Facility: [facility] Address:[address] [place], [place] [address]Result Comment: Estimated Glomerular Filtration Rate (eGFR) is calculated using the 2020 CKD-EPI creatinine equation. This equation utilizes serum creatinine, sex, and age as parameters. The creatinine assay has traceable calibration to isotope dilution-mass spectrometry. Refer to KDIGO guidelines for clinical interpretation. In patients with unstable renal function, e.g. those with acute kidney injury, the eGFR may not accurately reflect actual GFR.Performed By: #### 73274-9 ####[facility] LABIA [id number] [place] [address] [place] STATES OF AMERICAGlucose [Mass/Vol]89 mg/zRLuakuw48-07DwcadegavWhite Hospital on above:Order Comment: Specimen Type: BLOOD SPECIMENOrdering Facility: [facility] Address:[address] [place] [address] Result Comment: The [place] Diabetes Association (ADA) provides guidance for cutoff [...] Standards of Medical Care in Diabetes 2016, [place] [employer] Association. Diabetes Care. 2016.39(Suppl 1).Performed By: #### 41387-4 ####[facility] LABCLIA [id number] [place] [address] [place] OF AMERICAPotassium [Moles/Vol]4.9 mmol/L Normal3.7-5.1CMartin Memorial Hospital on above:Order Comment: Specimen Type: BLOOD SPECIMENOrdering Facility: [facility] Address:[address] [place], [place] [address]Performed By: #### 77213-4 ####[facility] LABIA [id number] [address] STATES OF [facility] HOSPITALSodium [Moles/Vol]142 mmol/GOymixj571-730AhjzapajrWhite Hospital on above:Order Comment: Specimen Type: BLOOD SPECIMENOrdering Facility: [facility] Address:[address] [place], [place] [address]Performed By: #### 84171-5 ####[facility] LABIA [id number] [address] STATES OF [facility] JO[facility] WARREN HOSPITALUrea nitrogen [Mass/Vol]14 mg/dLNormal9-24[facility] on above:Order Comment: Specimen Type: BLOOD SPECIMENOrdering Facility: [facility] Address:[address] [place], [place] [address]Performed By: #### 66346-7 ####[facility] LABIA [id number] [place] [address] [place] CBC panel Auto (Bld)on 95-20-7806Bgqamxyqesm distribution width (RBC) [Ratio] 12.6 %Nfdqbt94.5-15.0[facility] on above:Order Comment: Specimen Type: BLOOD SPECIMENOrdering Facility: [facility] Address:[address] [place], [place] [address]Performed By: #### 69908-1 ####[facility] LABCLIA [id number] [address] STRONG STREETHematocrit (Bld) [Volume fraction]42.1 %Xmqyfe59.0-51.0[facility] on above:Order Comment: Specimen Type: BLOOD SPECIMENOrdering Facility: [facility] Address:[address] [place], [place] [address]Performed By: #### 80698-9 ####[facility] LABCLIA [id number] [address] STREETHemoglobin (Bld) [Mass/Vol]13.7 g/uSBgokbm52.0-17.0[facility] on above: Order Comment: Specimen Type: BLOOD SPECIMENOrdering Facility: [facility] Address:[address] [place], [place] [address]Performed By: #### 34022-4 ####[facility] LABIA [id number] [address] (RBC) [Entitic mass]30.8 rdLttsnq85.0-34.0[facility] on above:Order Comment: Specimen Type: BLOOD SPECIMENOrdering Facility: [facility] Address:[address] [place], [place] [address]Performed By: #### 14839-3 ####[facility] LABCLIA [id number] [address] (RBC) [Mass/Vol] 32.5 g/oNUjzdsc06.5-36.0[facility] on above:Order Comment: Specimen Type: BLOOD SPECIMENOrdering Facility: [facility] Address:[address] [place] [address]Performed By: #### 05414-3 ####[facility] LABCLIA [id number] [place] [id number] [place] OF AMERICAMCV (RBC) [Entitic vol]94.6 lAIfftvf46.0-100.0[facility] on above:Order Comment: Specimen Type: BLOOD SPECIMENOrdering Facility: [facility] Address:[address] [place] [address]Performed By: #### 81298-6 ####[facility] LABCLIA [id number] [place] [address] [place] AMERICANucleated RBC (Bld) [#/Vol]10*3/uLNormal<0.01[facility] on above:Order Comment: Specimen Type: BLOOD SPECIMENOrdering Facility: [facility] Address:[address] [place] [phone] By: #### 76485-7 ####[facility] LABIA [id number] [place] [address] [place] AMERICAPlatelet mean volume (Bld) [Entitic vol]10.5 fLNormal9.0-12.7CMartin Memorial Hospital on above:Order Comment: Specimen Type: BLOOD SPECIMENOrdering Facility: [facility] Address:[address] [place] [phone] By: #### 68100-2 ####[facility] LABIA [id number] [place] [address] [place] AMERICAPlatelets (Bld) [#/Vol]208 10*3/gKVazcbh298-208ScnurglyiWhite Hospital on above:Order Comment: Specimen Type: BLOOD SPECIMENOrdering Facility: [facility] Address:[address] [place], [place] [address]Performed By: #### 48916-3 ####[facility] LABCLIA [id number] [place] [id number] [facility] VINCENT'S CHILTONRBC (Bld) [#/Vol]4.45 10*6/uLNormal4.20-6.00[facility] on above:Order Comment: Specimen Type: BLOOD SPECIMENOrdering Facility: [facility] Address:[address] [place], [place] [address]Performed By: #### 66804-9 ####[facility] LABCLIA [id number] [address] (Bld) [#/Vol]6.68 10*3/uL Normal3.70-11.00[facility] on above:Order Comment: Specimen Type: BLOOD SPECIMENOrdering Facility: [facility] Address:[address] [place], [place] [address]Performed By: #### 21763-3 ####[facility] LABCLIA [id number] [address]ETHISWOMEN AND [facility] PHYSICALon 02-11-2022 HISTORY PHYSICALHNO ID: [id number] Author: Clara Justice APRN.CNP Service: ? Author Type: Nurse Practitioner Type: HANDP Filed: 02/12/2022 10:27 AM Note Text: HISTORY AND PHYSICAL EXAMINATION SERVICE DATE: 02/11/2022 SERVICE TIME: 9:37 AM PRIMARY CARE PHYSICIAN: Yunier Simpson, DO, DO REASON FOR VISIT: Augusto Pryor [...] Fibrillation (Hcc) Dm2 (Diabetes Mellitus, Type 2) ([facility]) Subjective CHIEF COMPLAINT: Rotator cuff [...] Prior to Admission medications as of 02/11/22 8488 Medication Sig Last Dose Taking metFORMIN (GLUCOPHAGE) [...] fevers. Neuro: No history of TIA's, stroke, OPERATIONS EXPERT tumor, impaired sensorium, hemiplegia, paraplegia or quadraplegia. No neurological symptoms or problems. Respiratory: No history of current cough or dyspnea, or pneumonia in the past 6 weeks. No history of respiratory/pulmonary symptoms or problems. Cardiovascular: Positive for: Afib/Aflutter, Anticoagulation therapy, HLD, Negative for Recent SD, Angina, Arrhythmia, CAD, Chest Pain, CHF, HTN, [...] 396 QTC Calculation (Bazett) 405 Calculated P [place] 29 Calculated R [place] 44 Calculated T [place] 50 Impression NORMAL SINUS RHYTHM NORMAL ECG Assessment/Plan Rapid atrial fibrillation (HCC) Assessment: -Stable EKG NSR today Continue- Xarelto and Metoprolol [place] [facility] [place] DM2 (diabetes mellitus, type 2) (HCC) Assessment: Stable On metformin METS: Do moderate work around the house such as vacuuming, sweeping floors, or carrying in groceries (3.50 METs) Climb a flight of stairs or w (more content not included)...NormalThe Jewish HospitalCNCOon 00-70-5583NLDKKxjqgz TextNormalClevelCrawley Memorial Hospital CNOVon 60-63-3672AAKTWmmjbn Visit (ORHSMN) AUGUSTO PRYOR ([id number]) 1960 M Date Time Provider Department 01/29/22 11:00 AM KATIE LOZANO During your visit today, we recorded the following information about you: Katie Lozano MD 01/31/2022 4:01 PM Signed SHOULDER INITIAL CONSULT SERVICE DATE: 01/29/2022 PCP: Yunier Simpson DO, DO REFERRING PROVIDER: Feliz Ambriz [address] [place] [address] Consult requested for an opinion regarding the [...] As you know he is a 62-year-old vnkxh-qxoc-xaqqclzc male who has had complaints in his [...] of the right chika (more content not included)...[facility] 00-38-9142SKVNUwubqr Visit (LOORRM) AUGUSTO PRYOR ([id number]) 1960 M Date Time Provider Department 01/23/22 [...] 62 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, 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, 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 [...] - A-fib (HCC) - Diabetes mellitus (HCC) SOCIAL HISTORY: Tobacco Use: [...] Reviewed: Never Reviewed Reason for Visit: New [610697] Pain [78] Primary Visit Diagnosis:Traumatic complete tear of right rotator cuff, initial encounter [S46.011A] Other Visit Diagnoses:Closed displaced fracture of acromial process of right scapula, initial encounter [S42.121A] Closed fracture of glenoid cavity and neck (more content not included)...Normal The Jewish HospitalXR SHLDR 4V AP/REINALDO/LAT/OUTLET RTon 13-59-3970CS SHLDR 4V AP/REINALDO/LAT/OUTLET RT* * *Final Report* * * DATE OF [...] likely subacute. Mild degenerative change glenohumeral joint. Supervisor Weaving: ROSALINO Transcribe Date/Time: Jan 23 2022 10:20A Dictated by : SAM GARCIA MD This examination was interpreted and the report reviewed and electronically signed by: SAM GARCIA MD on Jan 23 2022 10:22AM EST [id number] Jewish HospitalXR Shoulder - right 4 Viewson 52-61-6137WBGJUEEVGU: Nondisplaced fracture of the acromium, likely subacute. Mild degenerative change glenohumeral joint. Supervisor Weaving: ROSALINO Transcribe Date/Time: Jan 23 2022 10:20A Dictated by : SAM GARCIA MD This examination was interpreted and the report reviewed and electronically signed by: SAM GARCIA MD on Jan 23 2022 10:22AM EST ZZZ_DO_NOT_USE_DIVISION OF RADIOLOGY* * *Final Report* * * DATE OF [...] of remote injury. Acromiohumeral interval is maintained. ZZZ_DO_NOT_USE_DIVISION OF RADIOLOGYProThe [facility] - 01/23/2022 * * *Final Report* * [...] likely subacute. Mild degenerative change glenohumeral joint. Supervisor Weaving: ROSALINO Transcribe Date/Time: Jan 23 2022 10:20A Dictated by : SAM GARCIA MD This examination was interpreted and the report reviewed and electronically signed by: SAM GARCIA MD on Jan 23 2022 10:22AM EST [facility] HospitalRad[facility] Study observation (narrative)[facility] HospitalXR Shoulder - right 4 ViewsOrdered By: Ccf Provider on 03-34-5503Xjbdfuibv Clinic MRI Shoulder w/o Righton 72-46-0610HKS Shoulder w/o RightHISTORY: Pain and decreased range of motion. Recent [...] and signed by Tim Lazo on 12/17/2021 1234NoCleveland Clinic [facility] HospitalXR Ribs w/ PA Chest Left*on 72-64-0727BU Ribs w/ PA Chest Left*HISTORY: Rib pain after trauma TECHNIQUE: Frontal view [...] and signed by TIM LAZO on 12/02/2021 1556NoCleveland Clinic [facility] HospitalXR Shoulder Complete Right*on 59-25-1199WK Shoulder Complete Right*HISTORY: Pain after trauma COMPARISON: None available TECHNIQUE: [...] and signed by TIM LAZO on 12/02/2021 1547NoCleveland Clinic [facility] HospitalXR Sternumon 88-59-0616LD SternumHISTORY: Pain after trauma COMPARISON: None available TECHNIQUE: [...] and signed by TIM LAZO on 12/02/2021 1554NoCleveland Clinic [facility] HospitalXR Wrist Complete Left*on 50-65-7652AR Wrist Complete Left*HISTORY: Pain after trauma COMPARISON: None available TECHNIQUE: AP, lateral, oblique and scaphoid views of the wrist obtained. FINDINGS: Mildly displaced fracture of the ulnar/dorsal aspect of the distal radius with associated soft tissue edema. Carpal and radiocarpal alignment is satisfactory. Remaining visualized bones appear intact. IMPRESSION: Mildly displaced fracture of the distal radius. Report reported and signed by TIM LAZO on 12/02/2021 1548NormalNorthern Lawrence+Memorial HospitalXR RIBS RT PA Wiliam 74-54-2137BI RIBS RT PA LQ5856 [place] [address] Patient: AUGUSTO PRYORJacinta Exam Date: 09/11/2018DOB: 1960 Gender:M : DR JENNIFER ORDONEZ . Admission #: [id number] : Order #: [id number] HERE TO VIEW EXAM RADIOLOGY REPORT PROCEDURE: RADIOGRAPH RIBS RIGHTPA CHEST COMPARISON: CHEST 2V, 10/03/2012. INDICATIONS: Acute [...] by: Kvng Henderson M.D. on 09/11/2018 at 10:03[facility] HospitalXR HAND RT MIN 3Von 74-63-0047IF HAND RT MIN 3Y0470 [place] [address] Patient: AUGUSTO PRYOR Brigitte Exam Date: 09/02/2018DOB: 1960 Gender:M : SEAN ESTRADA Admission #: [id number] : DR CAMRYN MERAZ D.O. Order #: [id number] HERE TO VIEW EXAM RADIOLOGY REPORT PROCEDURE: [...] by: Rolando Lowe M.D. on 09/02/2018 at 11:31[facility] Vital Signs Date TimeVital SignValuePerforming QxqbaqakyYbrchrho60-03-8395 10:12-0400Body zubzqs870.04 cmScott Kaple DO Work Phone: [phone])[address] [place], [place] 85[address]-28-2025 10:12-0400 Body mass index (BMI) [Ratio]30.3 kg/o7Hfudp Kaple DO Work Phone: 1(992)[address] [place], [place] 8520[address]-28-2025 10:12-0400 Body yjnpghbksmw55.7 [degF]Yunier Kaple DO Work Phone: 1(359)[address] [place], [place] 8520[address]-28-2025 10:12-0400 Body jvahro272.11 kgScott Kaple DO Work Phone: 1(668)[address] [place], [place] 8520[address]-28-2025 10:12-0400 Diastolic blood mm[Hg]Yunier Kaple DO Work Phone: 1(667)[address] [place], [place] 8520[address]-28-2025 10:12-0400 Heart rate71 /minScott Kaple DO Work Phone: 1(216)[address] [place], [place] 8520809-28-2025 10:12-0400 Respiratory rate18 /minScott Kaple DO Work Phone: 1(010)[address] [place], [place] 8520809-28-2025 10:12-0400 SaO2% (BldA) [Mass fraction]96 %Yunier Kaple DO Work Phone: 1(793)[address] [place], [place] 8520809-28-2025 10:12-0400 Systolic blood hsxagjwb322 mm[Hg]Yunier Kaple DO Work Phone: 1(657)[address] [place], [place] 8520[address]-06-2025 10:00-0500 Body jjrysbcwvmr88.2 [degF]Sydni Ramírezburtmaria teresa [employer]SEH[employer]OOK Work Phone: [facility] HospitalLepiudyimc87-36-0864 10:00-0500Diastolic blood sdgubjnw29 mm[Hg]Sydni Kaba [employer]SEH[employer] Work Phone: [facility] HospitalDfrvlolwae09-87-5916 10:00-0500Heart rate75 /min Sydni Hicksmaria teresa [employer]SEHOLD COOK Work Phone: [facility] HospitalEiyleizgjs99-45-4811 10:00-3973EiY8% (BldA) [Mass fraction]98 %Sydni Kaba HOUSEHOLD COOK Work Phone: [facility] HospitalTkntpchhfu08-97-1530 10:00-0500Systolic blood mm[Hg]Sydni Kaba HOUSEHOLD COOK Work Phone: [facility] HospitalNmfldbjwht65-51-7241 13:53-0500Blood Pressure LocationScott KAPLE [address] [place], [place] 5850[address]-14-2025 13:53-0500Body rebthimmvop21.8 [degF]Yunier KAPLE [address] [place], [place] 58[address]-14-2025 13:53-0500Diastolic blood ohzxtdzz38 mm[Hg]Yunier KAPLE 302-9360Qwzaty-Wkfnt[address] [place], [place] 155[address]01-14-2025 13:53-0500Heart lnzx713 /minScott KAPLE 947-8973Ctdgah-Seany[address] [place], [place] 1553601-14-2025 13:53-6597JsB9% (BldA) [Mass fraction]99 %Yunier KAPLE 371-2977Xmfawg-Rtzdc[address] [place], [place] 1553601-14-2025 13:53-0500Systolic blood ptozmlqs995 mm[Hg]Yunier KAPLE 212-8782Pwypsp-Manwx[address] [place], [place] 1553612-20-2024 08:28-0500Blood Pressure LocationScott KAPLE 983-7011Vnjisq-Dpjjg[address] [place], [place] 5207012-20-2024 08:28-0500Body ztmmtihkpnw23.7 [degF]Yunier KAPLE [address] [place], [place] 5850312-20-2024 08:28-0500Diastolic blood mhafvhoj89 mm[Hg]Yunier KAPLE [address] [place], [place] 5850[address]-20-2024 08:28-0500Heart rate71 /minScott KAPLE [address] [place], [place] 5850312-20-2024 08:28-0500Respiratory rate16 /minScott KAPLE [address] [place], [place] 5850312-20-2024 08:28-1883TkB1% (BldA) [Mass fraction]96 %Yunier KAPLE [address] [place], [place] 5850[address]-20-2024 08:28-0500Systolic blood ifmpxvdy316 mm[Hg]Yunier KAPLE [address] [place], [place] 5850310-11-2024 11:51-0400Blood Pressure LocationScott KAPLE [address] [place], [place] 5850310-11-2024 11:51-0400Body bsxlyrpkkou92.88 [degF]Yunier KAPLE [address] [place], [place] 5850310-11-2024 11:51-0400Diastolic blood txbyvabb38 mm[Hg]Yunier KAPLE [address] [place], [place] 5850310-11-2024 11:51-0400Heart rate65 /minScott KAPLE [address] [place], [place] 5850310-11-2024 11:51-0400Respiratory rate16 /minScott KAPLE [address] [place], [place] 5850310-11-2024 11:51-1764LgU8% (BldA) [Mass fraction]95 %Yunier FRANK 977-3409Uwortb-PhvcsLutheran Hospital10-11-2024 11:51-0400Systolic blood imegafhu509 mm[Hg]Yunier FRANK 350-4086Tdqivc-Bkwtz[address] [place], [place] 1553603-15-2024 13:33-0400Diastolic blood exetvnrw36 mm[Hg]Arya Sloan [facility]03-15-2024 13:33-0400Heart rate87 /minRyan Sloan [facility]03-15-2024 13:33-1125TlK4% (BldA) [Mass fraction]96 %Arya Sloan [facility]03-15-2024 13:33-0400 Systolic blood gooaqilu761 mm[Hg]Arya Sloan [facility]03-08-2024 13:20-0500Blood Pressure LocationScott FRANK 754-9308Gbtxbd-Vjqbj[address] [place], [place] 1553603-08-2024 13:20-0500Body afffkwfbtar41.88 [degF]Yunier HUBERTMADALNY 913-6510Vxkfzq-Bqrvx[address] [place], [place] 1553603-08-2024 13:20-0500Diastolic blood peybmoeb22 mm[Hg]Yunier SIMPSON 761-3842Rpfnvs-Hgjax[address] [place], [place] 1553603-08-2024 13:20-0500Heart rate70 /minScott KAPLE 883-1842Mspufz-Ksvlp[address] [place], [place] 1553603-08-2024 13:20-0500Respiratory rate16 /minScott KAPLE 188-6924Sqdghi-NofyjLutheran Hospital03-08-2024 13:20-7965OlD0% (BldA) [Mass fraction]96 %Yunier SIMPSON 189-1448Phwyzz-Goupc[address] [place], [place] 1553603-08-2024 13:20-0500Systolic blood mm[Hg]Yunier SIMPSON 134-2824Rwgzfs-Ohknj[address] [place], [place] 1553602-29-2024 11:07-0500Body .5 cmRamírez Hackett MD Work Phone: 1(278)[address] [place], [place] 6187602-29-2024 11:07-0500Body mass index (BMI) [Ratio]32.15 kg/g7ElvhyRamírez Hackett MD Work Phone: 1(803)[address] [place], [place] 6187602-29-2024 11:07-0500Body ifphkg681.67 kgRamírez Hackett MD Work Phone: 1(485)[address] [place], [place] 6187602-29-2024 11:07-0500 Diastolic blood tjfjhahj28 mm[Hg]Ramírez Hackett MD Work Phone: 1(296)[address] [place], [place] 6187602-29-2024 11:07-0500Heart rate87 /minRamírez Hackett MD Work Phone: 1(605)[address] [place], [place] 6187602-29-2024 11:07-0500Systolic blood otkucqvw154 mm[Hg]Ramírez Hackett MD Work Phone: 1(595)[address] [place], [place] 6187611-10-2023 09:25-0500Blood Pressure LocationScott FRANK 656-9985Nalukg-Sxqyf[address] [place], [place] 1553611-10-2023 09:25-0500Body latrwphsufh28.88 [degF]Yunier SIMPSON 246-4596Kjybjd-Bzjwo[address] [place], [place] 1553611-10-2023 09:25-0500Diastolic blood vtqvoszu82 mm[Hg]Yunier SIMPSON 474-2323Miarjl-Suwsv[address] [place], [place] 1553611-10-2023 09:25-0500Heart rate73 /minScott FRANK 548-1548Zepoac-Fuoty[address] [place], [place] 1553611-10-2023 09:25-0500Respiratory rate18 /minScott FRANK 506-4461Htjuvn-YwoheLutheran Hospital11-10-2023 09:25-8604GnG5% (BldA) [Mass fraction]95 %Yunier FRANK 736-2276Gapnsz-Qykhd[address] [place], [place] 1553611-10-2023 09:25-0500Systolic blood bccojuyq979 mm[Hg]Yunier HUBERTMADALYN 398-5531Opcdwi-Hcjpx[address] [place], [place] 1553610-20-2023 16:15-0400Blood Pressure LocationArya Lisa [facility]10-20-2023 16:15-0400 Diastolic blood gciqnfvm14 mm[Hg]Arya Lisa [address] [place], [place] 3559310-20-2023 16:15-0400Heart rate90 /minRyan Sloan [facility]10-20-2023 16:15-2666EaF3% (BldA) [Mass fraction]98 %Arya Lisa [facility]10-20-2023 16:15-0400 Systolic blood mm[Hg]Arya Lisa [facility]09-07-2023 09:35-0400Blood Pressure LocationScott FRANK 566-2808Mgdxiv-VxjshLutheran Hospital09-07-2023 09:35-0400Body gttuvcxudgw22.88 [degF]Yunier SIMPSON 501-0549Wsudzd-Quasb[address] [place], [place] 1553609-07-2023 09:35-0400Diastolic blood tudslccb39 mm[Hg]Yunier HUBERTMADALYN 195-4574Xnvczj-Fgmdk[address] [place], [place] 1553609-07-2023 09:35-0400Heart rate89 /minScott HUBERTMADALYN 620-7636Ufjzuv-Hpdeu[address] [place], [place] 1553609-07-2023 09:35-0400Respiratory rate18 /minScott KAPLE 825-5737Hruxsa-XukixLutheran Hospital09-07-2023 09:35-1023GpI7% (BldA) [Mass fraction]98 %Yunier KAPLE 108-7704Pzbkuu-SixfeLutheran Hospital09-07-2023 09:35-0400Systolic blood mm[Hg]Yunier KAPLE 929-2638Uchrnt-PvdbrLutheran Hospital01-30-2023 12:25-0500Body .5 cmPamela Regine Other [employer] Other 01-30-2023 12:25-0500Body mass index (BMI) [Ratio] 30.62 kg/o3Scxgxh Regine Other [employer] Other 01-30-2023 12:25-0500Body mempxmjzkmc08 [degF]Mary Ellen Regine Other [employer] Other 01-30-2023 12:25-0500Body qibmxp981.13 kgPajanina Weiner Other [employer] Other 01-30-2023 12:25-0500Diastolic blood kcnnibrt79 mm[Hg] Mary Ellen Regine Other [employer] Other 01-30-2023 12:25-0500Respiratory rate18 /minPamelorion Regine Other [employer] Other 01-30-2023 12:25-2262IsX9% (BldA) [Mass fraction]99 % Mary Ellen Regine Other [employer] Other 01-30-2023 12:25-0500Systolic blood tebpwkpl408 mm[Hg] Mary Ellen Regine Other [employer] Other 01-27-2023 15:50-0500Blood Pressure LocationArya Lisa [facility]01-27-2023 15:50-0500 Diastolic blood qxkbywsy85 mm[Hg]Arya Lisa [facility]01-27-2023 15:50-0500Heart rate75 /minArya Lisa [facility]01-27-2023 15:50-7797LmF9% (BldA) [Mass fraction]98 %Arya Lisa [facility]01-27-2023 15:50-0500 Systolic blood cwphrxky995 mm[Hg]Arya Dunnsaint j[facility] hospitalalpesh [facility]01-21-2023 11:45-0500Body xeiddm113.5 Anneorion RodriguezRegine Other [employer] Other 01-21-2023 11:45-0500Body mass index (BMI) [Ratio] 30.62 kg/j4KggxzwMary Ellen Weiner Other [facility] [employer] Other 01-21-2023 11:45-0500Body fiqtmyfbdzv82.1 [degF]Mary Ellen Regine Other [facility] [employer] Other 01-21-2023 11:45-0500Body dcipui058.13 kgSeanjanina Regine Other [employer] Other 01-21-2023 11:45-0500Diastolic blood bojtpmex50 mm[Hg] Mary Ellen Weiner Other [facility] [employer] Other 01-21-2023 11:45-0500Respiratory rate18 /minPatanjaorion Weiner Other [facility] [employer] Other 01-21-2023 11:45-4574HiM1% (BldA) [Mass fraction]98 % Mary Ellen Weiner Other [facility] [employer] Other 01-21-2023 11:45-0500Systolic blood llxeijrl666 mm[Hg] Mary Ellen Weiner Other [facility] [employer] Other 09-23-2022 15:01-0400Blood Pressure LocationBia VERDUZCO [facility]09-23-2022 15:01-0400 Diastolic blood fwiecvdg72 mm[Hg]Bia VERDUZCO [facility]09-23-2022 15:01-0400Heart rate63 /minAmanda STANG [facility]09-23-2022 15:01-0400 Respiratory rate18 /minAmanda STANG [facility]09-23-2022 15:01-1719WkN2% (BldA) [Mass fraction]98 %Biadeonte VERDUZCO [facility]09-23-2022 15:01-0400 Systolic blood [id number] mm[Hg]Biadeonte HEARTG [facility]06-20-2022 16:02-0400Blood Pressure Saad Lisa [facility]06-20-2022 16:02-0400 Diastolic blood jnhxmgei73 mm[Hg]Arya Lisa [facility]06-20-2022 16:02-0400Heart rate73 /minArya Lisa [facility]06-20-2022 16:02-0400 Respiratory rate18 /minArya Lisa [facility]06-20-2022 16:02-9044OxI8% (BldA) [Mass fraction]97 %Arya Lisa [facility]06-20-2022 16:02-0400 Systolic blood [id number] mm[Hg]Arya Lisa [facility]05-04-2022 09:39-0400Body ivxpkf423.5 cmPacc 1 Work Phone: [facility]05-04-2022 09:39-0400Body temperature 97.3 [degF]Pacc 1 Work Phone: [facility]05-04-2022 09:39-0400Body xafuem565.96 kgPacc 1 Work Phone: [facility]05-04-2022 09:39-0400Diastolic blood akwxbxnt24 mm[Hg]Pacc 1 Work Phone: [facility]05-04-2022 09:39-0400Heart rate64 /min Pacc 1 Work Phone: [facility]05-04-2022 09:39-0400Respiratory rate 16 /minPacc 1 Work Phone: [facility]05-04-2022 09:39-6857WeU4% (BldA) [Mass fraction]99 %Pacc 1 Work Phone: [facility]05-04-2022 09:39-0400Systolic blood mdidfbtl238 mm[Hg]Pacc 1 Work Phone: [facility]04-15-2022 10:28-0400Body .5 cmAlfred Ambriz MD Work Phone: [facility]04-15-2022 10:28-0400Body xfoyox288.96 kgAlfrabraham Ambriz MD Work Phone: [facility] Encounters Encounter DateEncounter TypeCare ProviderFacilityStart: 07-08-2025 End: 00-69-3525mhbnwbewptUnrrc A Kaple DO Work Phone: [facility] Work Phone: Start: 07-08-2025 End: 94-75-2983Xfsikmh encounter procedurePatriclilia Berger MARKETING STRATEGY MANAGER-[facility] Work Phone: Start: 07-06-2025 End: 02-53-2457ycmsgoamooICZYT H MCCBRITTANYISTERFacility:FTMCStart: 02-22-2025 End: 32-09-1740zjfoseunmqAoclp A KAPLEFacility:Stephen PCStart: 02-22-2025 End: 81-65-8615Rrrdjen encounter procedureScott A KAPLE [phone]-WxiueRiverview Health Institute [facility] Start: 11-20-2024 End: 05-98-3936Rjeulaxjn encounterLincurtis Kaba NP Work Phone: [facility] UCStart: 11-16-2024 End: 54-73-9221smcgwyfqxpFIHBRTE R LACONISNot AvailableStart: 11-16-2024 End: 48-41-7218Qbylrm outpatient visit 25 minutesLincurtis Kaba [employer] Work Phone: noms [facility] UCComment on above:Influenza A (Primary Dx); Acute cough; Atrial fibrillation, unspecified type (HCC); Syncope, unspecified syncope typeStart: 10-24-2024 End: 48-94-2753mdyjtgisbsVjssi A KAPLEFacility:Stephen PCStart: 10-24-2024 End: 96-55-3239Thtescf encounter procedureScott A KAPLE [phone]-WhnpoRiverview Health Institute [facility] Start: 09-29-2024 End: 87-76-8373qkjwfilfhzMfvbz A KAPLEFacility:[place] PCStart: 09-29-2024 End: 65-90-1567Tassnwt encounter procedureScott A KAPLE [phone]-WxsxiRiverview Health Institute [facility] Care Start: 07-21-2024 End: 09-19-4308dlffpogyttYgept A KAPLEFacility:[place] PCStart: 07-21-2024 End: 01-32-8606Zrowbhe encounter procedureScott A KAPLE [phone]-QjwqaRiverview Health Institute [facility] Care Start: 07-14-2024 End: 22-06-4024pwytlbulcwGbjze A KAPLEFacility:FTMCStart: 07-14-2024 End: 93-84-5348Xodeqcb encounter procedureScott A KAPLE [facility] Start: 73-18-4503spraldwqdoUsjnq A KAPLE Facility:[facility] PCStart: 12-24-2023 End: 31-65-3393ggbjfrcimjAHZZ NONEFacility:FTMCStart: 12-24-2023 End: 66-77-3354Sclqvvr encounter Mel Lisa [facility] Start: 12-17-2023 End: 82-20-5333rfodehyoydOgvvp A KAPLEFacility:Stephen PCStart: 12-17-2023 End: 28-75-9736Mgyyiku encounter procedureScott A KAPLE [phone]-SipeeRiverview Health Institute [facility] Start: 12-11-2023 End: 61-73-8475kulbaquznjGlvrr A KAPLEFacility:FTMCStart: 12-11-2023 End: 20-18-3543Mnuezgl encounter procedureScott A KAPLE [facility] Start: 30-27-5437brzfcfqzvzQIKJM D WEBER [facility]: 12-09-2023 End: 64-56-2010Rdqtep consultation new/estab patient 62 Seng Hackett MD Work Phone: [facility] on above: Bilateral occipital neuralgia (Primary Dx); Cervicogenic headacheStart: 09-01-2023 End: 50-54-8578Mzfwynp encounter procedureScojorge A KAPLE [facility] Start: 08-20-2023 End: 49-31-6544Yuvcppa encounter procedureScojorge A KAPLE [phone]-PdvafRiverview Health Institute [facility] Care Start: 07-30-2023 End: 57-49-1706Wdtjasz encounter Mel Lisa [facility] start: 07-27-2023 End: 06-17-7204Rhmzfao encounter Mel Lisa [facility] Start: 06-17-2023 End: 59-53-2672Nuntojl encounter procedureScott A KAPLE [phone]-PotbwRiverview Health Institute [facility] Start: 06-12-2023 End: 48-65-6105Ujqjply encounter procedureScott A KAPLE [facility] Start: 56-39-4856bmwkizenovYiyhtuh Lee Schulte Facility:ENT SpecStart: 11-09-2022 End: 35-03-4311ttlmunoizwXibzxf Dymond Other [employer] Other Start: 55-01-2046Ryltsy outpatient visit 15 minutes Mary Ellen RegineFPG [facility] ClydeStart: 11-06-2022 End: 09-29-9233Fskvtrm encounter Mel Lisa [facility] Start: 10-31-2022 End: 41-46-6313uuisddpvxtGwtagp Dymond Other [employer] Other Start: 71-11-1775Pulmzh outpatient visit 15 minutes Mary Ellenalfred PriestG [facility] ClydeStart: 10-01-2022 End: 10-93-8605xzqpwiozmoYFRW T RICCHETTIFacility:[facility] Start: 10-01-2022 End: 46-50-4195Oeahcpt encounter Henri Lozano MD Work Phone: OrthopaedicsComment on above:S/P right rotator cuff repair (Primary Dx)Start: 07-03-2022 End: 06-41-3484Ykqlbey encounter procedureBia VERDUZCO [facility] Start: 06-04-2022 End: 51-57-2000fkynwjtyodOVRS T RICCHETTIFacility:[facility] Start: 06-04-2022 End: 83-50-2976Hndaaxp encounter Henri Lozano MD Work Phone: OrthopaedicsComment on above:S/P right rotator cuff repair (Primary Dx)Start: 04-02-2022 End: 14-49-7183Qmpwoyb encounter Mel Lisa [facility] Start: 03-30-2022 End: 97-35-3024Bvboosf encounter Mel Lisa [facility] Start: 03-30-2022 End: 41-35-6164fzwkzrilgrEKUDQ A KAPLEFacility:[facility] Hospitaltart: 03-30-2022 End: 46-13-3422Iascmdy evaluation of patient and reportIshmael Cifuentes RN OrthopaedicsComment on above:S/P right rotator cuff repair (Primary Dx); Traumatic complete tear of right rotator cuff, initial encounterStart: 02-27-2022 End: 74-56-9103mztqjyxbfjVMWZJ A KAPLEFacility:[facility] Hospitaltart: 02-27-2022 End: 44-89-9112Erlpeiz evaluation of patient and reportIsmhael Cifuentes RN OrthopaedicsComment on above:S/P right rotator cuff repair (Primary Dx)Start: 23-71-5686Imsspjbeg encounterCandice Jules PA-C Work Phone: Pain ManagementComment on above:RecheckStart: 02-13-2022 End: 97-71-0703lueluiiqnbQBFHE A KAPLEFacility:[facility] Hospitaltart: 99-69-1263Rcnbfcfjv for other preprocedural examinationNATHANIEL [facility] HospitalStart: 02-11-2022 End: 48-52-7442bwkxafncgaYXRJW A KAPLEFacility:[facility] Hospitaltart: 02-11-2022 End: 13-53-8880Lwsedgzyk to [facility] [place] 1 Work Phone: [facility]tart: 02-11-2022 End: 28-04-6558dnraqdabbhOldc [place] 1 Work Phone: Pre AnesthesiaComment on above:Pre-op evaluation (Primary Dx); Traumatic complete tear of right rotator cuff, subsequent encounter; Rapid atrial fibrillation (HCC); Type 2 diabetes mellitus without complication, without long-term current use of insulin (HCC)Start: 02-11-2022 End: 09-65-1920Dmtnrnjjptpka examination doneAnand Abadain 1 Work Phone: Pre AnesthesiaStart: 88-39-6775dyrifrrmqiOJKGN A KAPLE Facility:[facility]tart: 47-17-2114kqmjvnicbjVzdyViktoria Lozano MD Work Phone: OrthopaedicsStart: 31-79-9069Uolgfgmmvnqkp examination Emily Lozano MD Work Phone: OrthopaedicsStart: 01-29-2022 End: 40-93-0880mgzzgnoindFZST T RICCHETTIFacility:[facility] Start: 01-29-2022 End: 40-02-3590Jozewyy encounter procedureKatie Lozano MD Work Phone: OrthopaedicsComment on above:Traumatic complete tear of right rotator cuff, initial encounter (Primary Dx); Nondisplaced fracture of acromial process, right shoulder, initial encounter for closed fracture; Glenoid fracture of shoulder, right, closed, initial encounterStart: 01-23-2022 End: 83-54-0297sciudagpakRLXMVY GREYFacility:[facility] Hospitaltart: 01-23-2022 End: 82-99-1253Eccqerd encounter procedureAlfrabraham Ambriz MD Work Phone: OrthopaedicsComment on above:Traumatic complete tear of right rotator cuff, initial encounter (Primary Dx); Closed displaced fracture of acromial process of right scapula, initial encounter; Closed fracture of glenoid cavity and neck of right scapula, initial encounter Start: 01-23-2022 End: 38-04-6510Laygsrndbl hospital visit by physicianMaren Noble Work Phone: RadiologyComment on above:Right shoulder pain, unspecified chronicity [M25.511]Start: 09-11-2018 End: 14-61-8639Wdaxpsd encounter procedureJENNIFER ORDONEZFacility:Q5Ehgwy: 09-02-2018 End: 29-23-1155Qwbawzk encounter procedureSJENNA MERAZFacility:H1 Procedures DateProcedureProcedure DetailPerforming ClinicianStart: 05-24-0910OFNAREBFT (HTRX)Sydni Kaba [employer] Work Phone: Start: 28-53-3577Rdtyhryvsm agent dna/rna influenza 1st 2 typesLincurtis Kaba [employer] Work Phone: Start: 28-05-6665Cksgclcfok exam chest 2 viewsLincurtis Kaba [employer] Work Phone: Start: 63-36-6311Feg routine ecg w/least 12 lds w/i&r Sydni Kaba [employer] Work Phone: Start: 53-13-6319Aomjfoi of repair of musculotendinous cuff of shoulderS/P right rotator cuff repairKatie Lozano MD Work Phone: Start: 13-68-9870Vvzrq shoulder complete minimum 2 viewsNataubrey Nagy PA-C Work Phone: Start: 50-28-8613Hawjzpiakpi of shoulderbritney [facility]uncl[facility] Comment on above:Left shoulder arthroscopy, subacromial decompression, extensive debridement, partial distal clavulectomy, mini-open rotator cuff repairStart: 78-86-8566cbqyo shoulder arthroscopy, extensive debridement, subacromial decompression, partial distal claviculectomyArya Lisa History of repair of musculotendinous cuff of shoulder S/P right rotator cuff repairDina Sarah RNHistory of repair of musculotendinous cuff of shoulderS/P right rotator cuff repairDina Sarah RNHistory of repair of musculotendinous cuff of shoulderS/P right rotator cuff repairKatie Lozano MD Work Phone: Plan of Treatment DateCare ActivityDetailAuthorStart: 25-65-3482DBK Vaccine (1 - 1-dose 75+ series)RSV Vaccine (1 - 1-dose 75+ series)[facility]2024 Covid-19 Vaccine ( season)Covid-19 Vaccine ( season) [facility]: 17-44-6365Vhhnkptiw vaccinationInfluenza Vaccine (#1) [facility]: 16-13-2289JKPWF-19 VACCINE ( season)COVID-19 VACCINE ( season)[facility]: 02-30-0074Ttrmlgauy vaccinationINFLUENZA VACCINE (#1)[facility]: 06-11-2022 Influenza vaccinationProMedica Flower Hospitaltart: 02-13-2022 End: 84-50-6448Yttlb metabolic 2000 panel - Serum or PlasmaBASIC METABOLIC PNL Lab Routine Traumatic complete tear of right rotator cuff, initial encounter Pre -op exam Expected: 02/13/2022, Expires: 04/15/2022[facility] Work Phone: Comment on above:Expected: 02/13/2022, Expires: 04/15/2022tart: 02-13-2022 End: 04-09-6835VCX panel - Blood by Automated countCBC Lab Routine Traumatic complete tear of right rotator cuff, initial encounter Pre-op exam Expected: 02/13/2022, Expires: 04/15/2022[facility] Work Phone: Comment on above:Expected: 02/13/2022, Expires: 04/15/2022tart: 02-11-2022 End: 08-34-0166AYU COMPLETEECG COMPLETE ECG Routine Pre-op evaluation Expected: 02/11/2022, Expires: 02/11/2023[facility] Work Phone: comment on above:Expected: 02/11/2022, Expires: 02/11/2023Start: 30-64-0360KTPSUKKMTF ASSESSMENTDEPRESSION ASSESSMENTClePomerene Hospitaltart: 43-55-4855CDZGXFFL CANCER SCREENING DISCUSSIONPROSTATE CANCER SCREENING DISCUSSIONClePomerene Hospitaltart: 03-84-6369Uboyynuz specific antigen measurementProstate Cancer Screening DiscussionClePomerene Hospitaltart: 01-10-2012 Prostate specific antigen measurementPROSTATE CANCER SCREENING DISCUSSIONOSSouthwest General Health Centertart: 15-60-4184ZKNUOIJP VACCINE (1 of 2)SHINGRIX VACCINE (1 of 2)[facility]: 70-27-5820Rtwcwu vaccine hzv live for subcutaneous useZOSTER (SHINGLES) VACCINE (1 of 2)[facility] Start: 35-87-1751EUVNBRAEL (FIT-DNA)COLOGUARD (FIT-DNA)[facility]: 36-43-1756HjdgfynuihwWAHBSTLOMWBIzmtrmrqr ClinicStart: 96-74-4006GVAWERGOVF CANCER SCREENINGCOLORECTAL CANCER SCREENINGProMedica Flower Hospitaltart: 38-11-0977QU COLONOGRAPHYCT COLONOGRAPHYProMedica Flower Hospitaltart: 14-80-6811UDKRPSEC SCREEN DIABETES SCREENProMedica Flower Hospitaltart: 29-56-6939DOCOI OCCULT BLOODFECAL OCCULT BLOODProMedica Flower Hospitaltart: 63-03-6381Qjwabuuul for malignant neoplasm of colon [facility]: 23-89-5084TCNRKWHJCYRFQWDSILCPAEZCHOTodujdoxn ClinicStart: 13-87-7369Gnbwb panelLIPID SCREENINGFort Hamilton Hospitaltart: 31-82-8258NZXOH SCREENLIPID SCREENProMedica Flower Hospitaltart: 35-63-0802Jcbpk diphtheria, tetanus and acellular pertussis (DTaP) vaccinationTDAP (ADULT)[facility]: 95-16-1853Vcigo microalbumin profileOhio Valley Hospital Start: 78-98-0131MKNEEH PCP TEAM CHRONIC DISEASE VISITANNUAL PCP TEAM CHRONIC DISEASE VISITProMedica Flower Hospitaltart: 33-04-4163Hjocomw ScreeningAnxiety Screening [facility]: 87-33-3155Wqpsndxotd ScreeningDepression Screening [facility]: 84-68-3150Uhwqcfopy B surface antibody levelLDL CHOLESTEROLProMedica Flower Hospitaltart: 52-11-5546NWDKGCCMZ C SCREENINGHEPATITIS C SCREENINGProMedica Flower Hospitaltart: 84-02-4563Uitoiekrw C screeningHepatitis C ScreeningProMedica Flower Hospitaltart: 10-83-7803KCE SCREENINGHIV SCREENINGProMedica Flower Hospitaltart: 61-93-6336YYD screeningHIV ScreeningProMedica Flower Hospitaltart: 49-05-9274CAY PNEUMOVAX PRIOR TO AGE 65ONE PNEUMOVAX PRIOR TO AGE 65[facility]: 45-75-5783OGU screeningHIV SCREENING DISCUSSIONOSU Wadsworth-Rittman Hospitaltart: 87-20-3791Pddul depression screening assessmentDEPRESSION SCREENING [facility]: comp foot exam completedDIABETIC FOOT EXAM [facility]: 02-01-1589Lcidxlsy foot examinationDiabetic Foot Exam [facility]: 61-05-9959Qijmbvta screeningDilated Retinal ExamProMedica Flower Hospitaltart: 69-97-5790Jmhbwlpos B screeningURINE ALBUMIN:CREATININE RATIO [facility]: 98-83-7283Rxnedanws C antibody, confirmatory testDILATED RETINAL EXAMProMedica Flower Hospitaltart: 37-81-6623TMDYPKAEGOZD (1 - PCV)PNEUMOCOCCAL (1 - PCV)[facility]: 73-78-0668Slkhzulgcpcg vaccinationPneumococcal Vaccine (1 of 2 - PCV)[facility]: 43-13-2726IUSIK-19 VACCINE (#1) COVID-19 VACCINE (#1)[facility]: 39-24-9416AZSUT-19 VACCINE (1)COVID- 19 VACCINE (1)[facility]: 36-67-1515Mbptjsruuc A1c rvqzwfohiniImC1I [facility]: 63-12-9861Mleqdonakz A1c/Hemoglobin.total in UadnvFTQ2W [facility]: 28-57-4745EHVEL-19 VACCINE (#1)COVID-19 VACCINE (#1) [facility]: 50-07-6799Vrrnadrur C screeningHEPATITIS C VIRUS SCREENINGOSU [facility]ittman Hospitaltart: 16-28-7154Kbxsulx vaccinationTETANUSOSPremier Health Upper Valley Medical CenterA1A MCQQAOYELB0H CLEARANCE Lab Routine Traumatic complete tear of right rotator cuff, initial encounter Pre-op exam Ordered: 01/31/[address] [facility] Work Phone: Comment on above:Ordered: 01/31/2022 End: 07-89-8894TDV COMPLETEECG COMPLETE ECG Routine Traumatic complete tear of right rotator cuff, initial encounter Pre-op exam 1 Occurrences starting 01/31/2022 until 01/30/2023[facility] Work Phone: Comment on above:1 Occurrences starting 01/31/2022 until 01/30/2023REFER FOR ADMIT INTERVIEWREFER FOR ADMIT INTERVIEW Procedures Routine Traumatic complete tear of right rotator cuff, initialencounter Pre-op exam [facility]CBar[facility] Work Phone: Comment on above:Ordered: 01/31/2022 End: 26-49-4119CZ SHOULDER GENERAL 3V OR MORE AP/TRUE AP/OTHER RIGHTXR SHOULDER GENERAL 3V OR MORE AP/TRUE AP/OTHER RIGHT Radiology Routine S/P right rotator cuff repair Traumatic complete tear of right rotator cuff, initial encounter 1 Occurrences starting 03/30/2022 until 04/29/2023[facility] Work Phone: Comment on above:1 Occurrences starting 03/30/2022 until 04/29/2023[facility] Immunizations Immunization DateImmunizationNotesCare ProviderFacilityNEGATED: Highlighted row has not occurred!00-27-8611hpqpzjqpa virus vaccine, unspecified formulationScott FRANK 663-0092Cjqlov-SnnqhRiverview Health Institute Primary CareNEGATED: Highlighted row has not occurred!33-14-5569jedzpgvte virus vaccine, unspecified formulationRyan Sloan [facility] ColumbusNEGATED: Highlighted row has not occurred!59-66-4117IGPS-CoV-2 (COVID-19) Ad26 vaccine, recombinantRyan Sloan [facility] ColumbusNEGATED: Highlighted row has not occurred!83-10-7878hswwahoap virus vaccine, unspecified formulationRyan Sloan [facility] ColumbusNEGATED: Highlighted row has not occurred!95-40-3534zevxbrkth virus vaccine, live, attenuated, for intranasal useRyan Sloan [facility] Payers DatePayer CategoryPayerPolicy [id number] [id number] Cross Blue Shield [id number] [id number] MMO MMO [employer] PLUS [id number] 2021-Present [phone] [address] [place] [id number] [id number]70Prcgkpg 1.2.840.546868.1.13.159.2.7.3.468[id number] 2.840.1.902275.3.57[id number] 2.16840.1.015271.3.57[id number] 2.16840.1.204068.3.57[id number] 2.16840.1.536756.3.57[id number] 2.16840.1.090799.3.57[id number] 2.16.840.1.032526.3.57[id number] 2.16.840.1.117807.3.57[id number] 2.16.840.1.751837.3.57[id number] 2.16.840.1.193280.3.57[id number] 2.16.840.1.994509.3.57[id number] 2.16.840.1.419213.3.57[id number] 2..840.1.527749.3.57[id number] 2.16.840.1.596614.3.57[id number] 2.16.840.1.651638.3.57[id number] 2..840.1.191169.3.57[id number] 2.840.1.698325.3.57[id number] 2.16.840.1.902418.3.57[id number] 2.840.1.336702.3.57[id number] Social History DateTypeDetailFacilityStart: 01-23-2022 End: 22-57-5209Amzvogt smoking status NHISNever smoked tobaccoOhio Valley Hospital Work Phone: Start: 56-77-3580Ljhegxe use and exposureSmokeless tobacco non-userOhio Valley Hospital Work Phone: Start: 35-37-8484Bdk [facility]igned [facility]Not on file [facility]: 01-19-2022 End: 14-06-6630Fyonuahf to SARS-CoV-2 (event)Not sureProMedica Flower Hospitaltart: 59-06-4047Ynbnflk intakeEx-drinker (finding)[facility]: 02-11-2022 History SDOH Alcohol CommentrareCPremier Health Atrium Medical Centertart: 02-01-2022 End: 52-75-0296Kfwuqgot to SARS-CoV-2 (event)Unable to assessOhio Valley Hospital Tobacco smoking statusNeverTrumbull Memorial Hospitaltart: 01-23-2022 End: 90-38-8357Lcz [facility]igned At [facility]ertart: 80-31-4054Wfktqrxdj beverage intakeCurrent drinker of alcohol (finding)[facility]: 01-23-2022 End: 85-77-4282Wrwzfcw of Social functionOSSouthwest General Health Centertart: 60-17-2560Jphlaju CommentOccasional beerFort Hamilton Hospitaltart: 06-37-4379Yyyyss identityIdentifies as male gender (finding)[facility] HospitalTobacco smoking status NHISTobacco smoking consumption unknownNOMS HealthcareSexual [facility] Start: 29-81-6245FokUrvo (finding)[facility]: 57-36-4167Tgq Assigned At [facility] Medical Equipment Procedure CodeEquipment CodeEquipment Original TextEquipment IdentifierDates System Speedbridge Fibertape Swivelock 5.5mm Biocomposite 24mm Endoscopic - [id number]: 84-56-3005Huaqku Speedbridge Fibertape Swivelock 5.5mm Biocomposite 24mm Endoscopic - [id number]: 02-13-2022 Lancets, See Instructions, 1 EA, 12, Lancets, [id number], Supply, 190, cm, 06/27/21 15:40:00 EDT, Height/Length Dosing, 112, kg, 06/27/21 15:40:00 EDT, Weight DosingStart: 70-48-1998Ooqd strips, See Instructions, 1 EA, 12, test strips check blood sugar once daily, [id number], Supply, 190, cm, 06/27/21 15:40:00 EDT, Height/Length Dosing, 112, kg, 06/27/21 15:40:00 EDT, [place] ght DosingStart: 77-67-4202Bmwgpgl, See Instructions, 1 EA, 12, Lancets, [facility], Supply, 190, cm, 06/27/21 15:40:00 EDT, Height/Length Dosing, 112, kg, 06/27/21 15:40:00 EDT, Weight DosingStart: 71-78-0586Hdjs strips, See Instructions, 1 EA, 12, test strips check blood sugar once daily, [facility], Supply, 190, cm, 06/27/21 15:40:00 EDT, Height/Length Dosing, 112, kg, 06/27/21 15:40:00 EDT, Weight DosingStart: 29-47-3773Loecqgz, See Instructions, 1 EA, 12, Lancets, [facility], Supply, 190, cm, 06/27/21 15:40:00 EDT, Height/Length Dosing, 112, kg, 06/27/21 15:40:00 EDT, Weight DosingStart: 53-41-4788Dvxv strips, See Instructions, 100 EA, 3, test strips check blood sugar once daily Dx. E11.9, [facility], Supply, 190, cm, 03/30/22 16:04:00 EDT, Height/Length Dosing, 108, kg, 03/30/22 16:04:00 EDT, Weight DosingStart: 81-78-2709Ffarxzm, See Instructions, 1 EA, 12, Lancets, [facility], Supply, 190, cm, 06/27/21 15:40:00 EDT, Height/Length Dosing, 112, kg, 06/27/21 15:40:00 EDT, Weight DosingStart: 75-32-8044Enpw strips, See Instructions, 100 EA, 3, test strips check blood sugar once daily Dx. E11.9, [facility], Supply, 190, cm, 03/30/22 16:04:00 EDT, Height/Length Dosing, 108, kg, 03/30/22 16:04:00 EDT, Weight DosingStart: 91-77-8034PlqQsvaz [facility] Plus Gaqdro37A -Lancets, See Instructions, 1 EA, 12, Lancets, [facility], Supply, 190, cm, 06/27/21 15:40:00 EDT, Height/Length Dosing, 112, kg, 06/27/21 15:40:00 EDT, Weight DosingStart: 94-53-6626Crpp strips, See Instructions, 100 EA, 3, test strips check blood sugar once daily Dx. E11.9, [facility], Supply, 190, cm, 03/30/22 16:04:00 EDT, Height/Length Dosing, 108, kg, 03/30/22 16:04:00 EDT, Weight DosingStart: 84-11-2944Tiqxcrs, See Instructions, 1 EA, 12, Lancets, [facility], Supply, 190, cm, 06/27/21 15:40:00 EDT, Height/Length Dosing, 112, kg, 06/27/21 15:40:00 EDT, Weight DosingStart: 73-37-4807Brkj strips, See Instructions, 100 EA, 3, test strips check blood sugar once daily Dx. E11.9, [id number], Supply, 190, cm, 03/30/22 16:04:00 EDT, Height/Length Dosing, 108, kg, 03/30/22 16:04:00 EDT, Weight DosingStart: [id number], See Instructions, 1 EA, 12, Lancets, [id number], Supply, 190, cm, 06/27/21 15:40:00 EDT, Height/Length Dosing, 112, kg, 06/27/21 15:40:00 EDT, Weight DosingStart: 92-35-2521Rdic strips, See Instructions, 100 EA, 3, test strips check blood sugar once daily Dx. E11.9, [id number], Supply, 190, cm, 03/30/22 16:04:00 EDT, Height/Length Dosing, 108, kg, 03/30/22 16:04:00 EDT, Weight DosingStart: 49-84-6973Ioigavm, See Instructions, 1 EA, 12, Lancets, [id number], Supply, 190, cm, 06/27/21 15:40:00 EDT, Height/Length Dosing, 112, kg, 06/27/21 15:40:00 EDT, Weight DosingStart: 49-60-7558Wrjj strips, See Instructions, 100 EA, 3, test strips check blood sugar once daily Dx. E11.9, [id number], Supply, 190, cm, 03/30/22 16:04:00 EDT, Height/Length Dosing, 108, kg, 03/30/22 16:04:00 EDT, Weight DosingStart: 60-77-2636Zmbkxrs, See Instructions, 1 EA, 12, Lancets, [id number], Supply, 190, cm, 06/27/21 15:40:00 EDT, Height/Length Dosing, 112, kg, 06/27/21 15:40:00 EDT, Weight DosingStart: 97-36-0808Fuph strips, See Instructions, 100 EA, 3, test strips check blood sugar once daily Dx. E11.9, [id number], Supply, 190, cm, 03/30/22 16:04:00 EDT, Height/Length Dosing, 108, kg, 03/30/22 16:04:00 EDT, Weight DosingStart: 54-01-9321Gxoxvie, See Instructions, 1 EA, 12, Lancets, [id number], Supply, 190, cm, 06/27/21 15:40:00 EDT, Height/Length Dosing, 112, kg, 06/27/21 15:40:00 EDT, Weight DosingStart: 67-05-1628Yhaz strips, See Instructions, 100 EA, 3, test strips check blood sugar once daily Dx. E11.9, [id number], Supply, 190, cm, 03/30/22 16:04:00 EDT, Height/Length Dosing, 108, kg, 03/30/22 16:04:00 EDT, Weight DosingStart: 55-45-2434Zqrciwr, See Instructions, 1 EA, 12, Lancets, [id number], Supply, 190, cm, 06/27/21 15:40:00 EDT, Height/Length Dosing, 112, kg, 06/27/21 15:40:00 EDT, Weight DosingStart: 96-08-6596Fcrh strips, See Instructions, 100 EA, 3, test strips check blood sugar once daily Dx. E11.9, [id number], Supply, 190, cm, 03/30/22 16:04:00 EDT, Height/Length Dosing, 108, kg, 03/30/22 16:04:00 EDT, Weight DosingStart: 13-79-4869Sfspbda, See Instructions, 1 EA, 12, Lancets, [id number], Supply, 190, cm, 06/27/21 15:40:00 EDT, Height/Length Dosing, 112, kg, 06/27/21 15:40:00 EDT, Weight DosingStart: 16-71-1653Satr strips, See Instructions, 100 EA, 3, test strips check blood sugar once daily Dx. E11.9, [id number], Supply, 190, cm, 03/30/22 16:04:00 EDT, Height/Length Dosing, 108, kg, 03/30/22 16:04:00 EDT, Weight DosingStart: 00-28-7097Vpaiftp, See Instructions, 1 EA, 12, Lancets, [id number], Supply, 190, cm, 06/27/21 15:40:00 EDT, Height/Length Dosing, 112, kg, 06/27/21 15:40:00 EDT, Weight DosingStart: 42-36-0824Jhpn strips, See Instructions, 100 EA, 3, test strips check blood sugar once daily Dx. E11.9, [id number], Supply, 190, cm, 03/30/22 16:04:00 EDT, Height/Length Dosing, 108, kg, 03/30/22 16:04:00 EDT, Weight DosingStart: 18-34-6889Eqinxcp, See Instructions, 1 EA, 12, Lancets, [id number], Supply, 190, cm, 06/27/21 15:40:00 EDT, Height/Length Dosing, 112, kg, 06/27/21 15:40:00 EDT, Weight DosingStart: 06-94-9766Yxoq strips, See Instructions, 100 EA, 3, test strips check blood sugar once daily Dx. E11.9, [id number], Supply, 190, cm, 03/30/22 16:04:00 EDT, Height/Length Dosing, 108, kg, 03/30/22 16:04:00 EDT, Weight DosingStart: 23-84-8662Gbycgla, See Instructions, 1 EA, 12, Lancets, [id number], Supply, 190, cm, 06/27/21 15:40:00 EDT, Height/Length Dosing, 112, kg, 06/27/21 15:40:00 EDT, Weight DosingStart: 66-53-9978Nope strips, See Instructions, 100 EA, 3, test strips check blood sugar once daily Dx. E11.9, [id number], Supply, 190, cm, 03/30/22 16:04:00 EDT, Height/Length Dosing, 108, kg, 03/30/22 16:04:00 EDT, Weight DosingStart: 59-89-3837Txsqxkz, See Instructions, 1 EA, 12, Lancets, [id number], Supply, 190, cm, 06/27/21 15:40:00 EDT, Height/Length Dosing, 112, kg, 06/27/21 15:40:00 EDT, Weight DosingStart: 19-37-7614Fkqn strips, See Instructions, 100 EA, 3, test strips check blood sugar once daily Dx. E11.9, [id number], Supply, 190, cm, 03/30/22 16:04:00 EDT, Height/Length Dosing, 108, kg, 03/30/22 16:04:00 EDT, Weight DosingStart: 94-83-2859Tmamjfs, See Instructions, 1 EA, 12, Lancets, [id number], Supply, 190, cm, 06/27/21 15:40:00 EDT, Height/Length Dosing, 112, kg, 06/27/21 15:40:00 EDT, Weight DosingStart: 90-12-4846Icrp strips, See Instructions, 100 EA, 3, test strips check blood sugar once daily Dx. E11.9, [id number], Supply, 190, cm, 03/30/22 16:04:00 EDT, Height/Length Dosing, 108, kg, 03/30/22 16:04:00 EDT, Weight DosingStart: 83-05-9389Virhzme, See Instructions, 1 EA, 12, Lancets, [id number], Supply, 190, cm, 06/27/21 15:40:00 EDT, Height/Length Dosing, 112, kg, 06/27/21 15:40:00 EDT, Weight DosingStart: 45-80-9824Toof strips, See Instructions, 100 EA, 3, test strips check blood sugar once daily Dx. E11.9, [id number], Supply, 190, cm, 03/30/22 16:04:00 EDT, Height/Length Dosing, 108, kg, 03/30/22 16:04:00 EDT, Weight DosingStart: 04-06-2022 Functional Status BaqwCphoreevnyXgrbmoXutjhose69-58-3653Ralacsdoyr StatusN/[facility] Jmjr47-07-0143Swdvlzyfwe StatusN/[facility] Cknm29-16-4676Hqmlzvovls StatusN/[facility] Tood31-99-6132Xkzxwoorgg StatusN/[facility]03-08-2024 Functional StatusN/[facility] Wmna60-03-1793Xrbafgyhgz StatusN/[facility] Ehdl55-08-8831Xvuaiwyxhl StatusNo [facility]09-07-2023Functional StatusN/[facility] Ugvx88-57-9255Kjdrcwozrr [facility]No[facility] 05-41-3538Dadvjogkol StatusN/[facility]4249Fpwrhvbbvq StatusN/[facility] Clinical Notes 12-12-2021 to 11-20-2024 Note Date & NbpdXkenTcmhsaap96-86-8878 Telephone encounter Note* Telephone Encounter - Margaret Hernandez MA - 11/20/2024 5:55 PM EST Spoke to pt over the phone, pt verbally understood results and had no questions during time of call. Pt stated that he still has the cough, but is feeling like he is improving sx lomeli. Pt also mentioned that he will follow up with his PCP. [facility] Atswbuwndr12-54-4391 Miscellaneous Notes* Telephone Encounter - Margaret Hernandez MA - 11/20/2024 5:55 PM EST Spoke to pt over the phone, pt verbally understood results and had no questions during time of call. Pt stated that he still has the cough, but is feeling like he is improving sx lomeli. Pt also mentioned that he will follow up with his PCP. * Telephone Encounter - Sydni Kaba NP - 11/20/2024 11:04 AM EST Please let pt know his resp panel was neg for any bacterial growth. His chest xray was neg for acute findings as discussed at time of office visit. They did mention some chronic changes, on the xray (COPD). Please check on pt. If he started doxy, if sx are improving, finish atb. He Must follow up with PCP. documented in this encounterNORusk [facility] CenterJbhqqrpldm84-92-1450 Telephone encounter Note* Telephone Encounter - Sydni Kaba NP - 11/20/2024 11:04 AM EST Please let pt know his resp panel was neg for any bacterial growth. His chest xray was neg for acute findings as discussed at time of office visit. They did mention some chronic changes, on the xray (COPD). Please check on pt. If he started doxy, if sx are improving, finish atb. He Must follow up with PCP. [facility] [id number] History of Present illness Narrative* Eun Justice LPN - 11/16/2024 9:50 AM EST * Sydni Kaba NP - 11/16/2024 9:50 AM EST Images from the original note were not included. [address] , [address] [facility], [address] P: [phone] F: [phone] HPI Historian of HPI: patient Augusto Pryor [...] because he got vials with no neb machine.Pt has not had an x-ray and is [...] as pt is past timeframe to start antiviralat this time. Discussed with pt concern with report of black stools with anticoagulant use and syncopal episode and that he needs STAT labs and possible IV fluids. Recommend ER visit today. Pt refuses at this time. STAT chest xray obtained due to report of ongoing cough, final read neg for acute fin dings. STAT EKG obtained due to syncopal episode [...] by mouth every 12 (twelve) hours for 10days Take with a full glass of water and do not lie down for at least 30 minutes after, avoid sun exposure Dispense: 20 tablet; Refill: 0 3. Atrial fibrillation, unspecified type (CMS/HCC) See 1 - ECG 12 lead 4. Syncope, unspecified syncope type See 1. documented in this encounterSt. [facility]'s HospitalQdbobhiyaz25-11-2427 Hospital Discharge instructions Patient Education 10/24/2024 14:27:46 Eustachian Tube [...] ears. When the eustachian tube does not functionproperly, air pressure, fluid, or both can build [...] such as when you travel to an areaof high elevation, fly on an airplane, or [...] you need help quitting, ask your health careprovider. Keep your ears dry. Wear fitted earplugs during showering and bathing. Dry your ears completely after. General instructions Take kkag-luw-bfaxerj and prescription medicines only as told by [...] provider. Document Revised: 12/08/2021 Document Reviewed: 12/08/2021 [employer] Patient Education 2023 [employer]. Follow Up Care 10/19/2024 13:16:38 With:FRANK MACK FAAFP, ANTONIO Yang, PED Address: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 sensorium, hemiplegia, paraplegia or quadraplegia. No neurological symptoms or problems. Respiratory: No history of current cough or dyspnea, or pneumonia in the past 6 weeks. No history of respiratory/pulmonary symptoms or problems. Cardiovascular: Positive for: Afib/Aflutter, Anticoagulation therapy, HLD, Negative for Recent SD, Angina, Arrhythmia, CAD, Chest Pain, CHF, HTN, [...] Xarelto and Metoprolol [place] [facility] [place] DM2 (diabetes mellitus, type 2) ([facility]) Assessment: Stable On metformin METS: Do moderate [...] 2022 TIME: 9:37 AM documented in this encounterOhio Valley Hospital04-21-2022 NoteHNO ID: [id number] Author: Katie Lozano MD Service: ? Author Type: Physician Type: Progress Notes Filed: 01/31/2022 4:01 PM Note Text: SHOULDER INITIAL CONSULT SERVICE DATE: 01/29/2022 PCP: Yunier Simpson DO, DO REFERRING PROVIDER: Feliz Ambriz [address] [place] [address] Consult requested for an opinion regarding the [...] As you know he is a 62-year-old jpdhx-zlyp-qwcmcwzv male who has had complaints in his [...] posterior glenoid rim w (more content not included)...[facility]04-21-20[facility] History of Present illness Narrative* Katie Lozano MD - 01/29/2022 11:54 AM EDT SHOULDER INITIAL CONSULT SERVICE DATE: 01/29/2022 PCP: Yunier Simpson DO, DO REFERRING PROVIDER: Feliz Ambriz [address] [place] [address] [place] [address] Consult requested for an opinion regarding the [...] As you know he is a 62-year-old cebqy-rnsr-xnpuaaqa male who has had complaints in his [...] HISTORY OF Right shoulder arthroscopy, debridement, vince PAST SURGICAL HISTORY OF Left shoulder arthroscopy [...] TIME: 11:55 AM PAGER: documented in this encounterOhio Valley Hospital04-15-2022 NoteHNO ID: [id number] Author: Feliz Ambriz MD Service: ? 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 Feliz Ambriz MD documented in this encounterOhio Valley Hospital04-15-2022 NoteHNO ID: [id number] Author: RT Danis(R) Service: ? Author Type: [...] BY: RT Danis(R) January 23, 2022 10:07 [facility]03-04-2022 Evaluation + Plan note Future Scheduled Tests Laboratory* HgbA1c 12/12/21 * HgbA1c 03/14/22 * HgbA1c 04/03/22 * HgbA1c 07/04/22 * HgbA1c 10/03/22 * HgbA1c 12/19/21 * HgbA1c 03/21/22 * HgbA1c 06/21/22 * HgbA1c 09/20/22 * Hepatic Function Panel 12/19/21 * Hepatic Function Panel [facility]/12/22 [facility] Future App[facility]ments Appointment Date:04/02/2022 03:00:00 PM Scheduled Provider: [facility] Appoint[facility] Type:CV Holter/Event (FT) Appointment Date:05/11/2022 07:40:00 AM Scheduled Provider:Yunier SIMPSON DO, FAAFP Location:[facility] Appointment Type:FM Open Appointment Date:07/03/2022 03:30:00 PM Scheduled Provider:Arya Lisa MD [facility] App[facility] Type:Cardiology ED Follow Up (FT) Future Scheduled Tests Laboratory* HgbA1c 06/14/21 * HgbA1c 09/13/21 * HgbA1c 12/12/21 * HgbA1c 03/14/22 * HgbA1c 04/03/22 * HgbA1c 07/04/22 * HgbA1c 10/03/22 * HgbA1c 12/19/21 * HgbA1c 03/21/22 * HgbA1c 06/21/22 * HgbA1c 09/20/22 * Microalbumin Level Urine 06/14/21 * C-Peptide 06/14/21 * Hepatic Function Panel 12/19/21 * Hepatic Function Panel [facility]/12/22 [facility] Future Appointments Appointment Date:05/11/2022 07:40:00 AM Scheduled Provider:Yunier SIMPSON DO, FAAFP Location:[facility] Appointment Type:FM Open Appointment Date:07/03/2022 03:30:00 PM Scheduled Provider:Arya Lisa MD [facility] App[facility] Type:Cardiology ED Follow Up (FT) Future Scheduled Tests Laboratory* HgbA1c 06/14/21 * HgbA1c 09/13/21 * HgbA1c 12/12/21 * HgbA1c 03/14/22 * HgbA1c 04/03/22 * HgbA1c 07/04/22 * HgbA1c 10/03/22 * HgbA1c 12/19/21 * HgbA1c 03/21/22 * HgbA1c 06/21/22 * HgbA1c 09/20/22 * Microalbumin Level Urine 06/14/21 * C-Peptide 06/14/21 * Hepatic Function Panel 12/19/21 * Hepatic Function Panel 01/12/22 [facility] Future Appointments Appointment Date:11/06/2022 03:45:00 PM Scheduled Provider:Arya Lisa MD [facility] Appointment Type:Cardiology Follow Up (FT) Future Scheduled Tests Laboratory* HgbA1c 06/14/21 * HgbA1c 09/13/21 * HgbA1c 12/12/21 * HgbA1c 03/14/22 * HgbA1c 04/03/22 * HgbA1c 07/04/22 * HgbA1c 10/03/22 * HgbA1c 12/19/21 * HgbA1c 03/21/22 * HgbA1c 06/21/22 * HgbA1c 09/20/22 * Hepatic Function Panel 12/19/21 * Hepatic Function Panel 01/12/22 [facility] Future Appointments Appointment Date:06/17/2023 08:45:00 AM Scheduled Provider:Bia VERDUZCO CNP [facility] Appointment Type:Cardiology Follow Up (FT) Appointment Date:06/17/2023 10:20:00 AM Scheduled Provider:Yunier SIMPSON DO, FAAFP Location:[facility] Appointment Type: Open Diagnostic Tests Pending * PSA Screen, Total 06/12/23 * Ferritin 06/12/23 Future Scheduled Tests Laboratory* HgbA1c 07/04/22 * HgbA1c 10/03/22 * HgbA1c 09/02/23 * HgbA1c 12/03/23 * HgbA1c 03/02/24 * HgbA1c 06/21/22 * HgbA1c 09/20/22 * PSA Screen, Total 06/02/23 [facility] Future Appointments Appointment Date:07/30/2023 04:30:00 PM Scheduled Provider:Arya Lisa MD [facility] Appointment Type:Cardiology Follow Up (FT) Appointment Date:12/17/2023 01:20:00 PM Scheduled Provider:Yunier SIMPSON DO, FAAFP Location:[facility] Appointment Type:FM Open Future Scheduled Tests Laboratory* HgbA1c 06/17/23 * HgbA1c 07/04/22 * HgbA1c 10/03/22 * HgbA1c 09/02/23 * HgbA1c 12/03/23 * HgbA1c 03/02/24 * HgbA1c 06/21/22 * HgbA1c 09/20/22 * PSA Screen, Total 06/02/23 * Basic Metabolic Panel 06/17/23 * Hepatic Function Panel 06/17/23 * Lipid Panel 06/17/23 * Magnesium Level 06/17/23 [facility] Evaluation + Plan note Future Appointments Appointment Date:07/30/2023 04:30:00 PM Scheduled Provider:Arya Lisa MD [facility] Appointment Type:Cardiology Follow Up (FT) Appointment Date:12/17/2023 01:20:00 PM Scheduled Provider:Yunier SIMPSON DO, FAAFP Location:[facility] Appointment Type: Open Future Scheduled Tests Laboratory* HgbA1c 06/17/23 * HgbA1c 10/03/22 * HgbA1c 09/02/23 * HgbA1c 12/03/23 * HgbA1c 03/02/24 * HgbA1c 09/20/22 * PSA Screen, Total 06/02/23 * Basic Metabolic Panel 06/17/23 * Hepatic Function Panel 06/17/23 * Lipid Panel 06/17/23 * Magnesium Level 06/17/23 [facility] Future Appointments Appointment Date:12/17/2023 01:20:00 PM Scheduled Provider:Yunier SIMPSON DO, FAAFP Location:[facility] Appointment Type:FM Open Future Scheduled Tests Laboratory* HgbA1c 06/17/23 * HgbA1c 10/03/22 * HgbA1c 09/02/23 * HgbA1c 12/03/23 * HgbA1c 03/02/24 * HgbA1c 09/20/22 * PSA Screen, Total 06/02/23 * Basic Metabolic Panel 06/17/23 * Hepatic Function Panel 06/17/23 * Lipid Panel 06/17/23 * Magnesium Level 06/17/23 [facility] Future Appointments Appointment Date:12/17/2023 01:20:00 PM Scheduled Provider:Yunier SIMPSON DO, FAAFP Location:[facility] Appointment Type:FM Open Future Scheduled Tests Laboratory* HgbA1c 08/20/23 * HgbA1c 06/17/23 * HgbA1c 10/03/22 * HgbA1c 09/02/23 * HgbA1c 12/03/23 * HgbA1c 03/02/24 * HgbA1c 09/20/22 * PSA Screen, Total 06/02/23 * Basic Metabolic Panel 08/20/23 * Basic Metabolic Panel 06/17/23 * Hepatic Function Panel 08/20/23 * Hepatic Function Panel 06/17/23 * Lipid Panel 06/17/23 * Magnesium Level 06/17/23 [facility] Evaluation + Plan note Future Appointments Appointment Date:12/17/2023 01:20:00 PM Scheduled Provider:Yunier SIMPSON DO, FAAFP Location:[facility] Appointment Type:FM Open Future Scheduled Tests Laboratory* HgbA1c 08/20/23 * HgbA1c 06/17/23 * HgbA1c 09/02/23 * HgbA1c 03/02/24 * Basic Metabolic Panel 06/17/23 * Hepatic Function Panel 06/17/23 [facility] Future Appointments Appointment Date:06/16/2024 07:40:00 AM Scheduled Provider:Yunier SIMPSON DO, FAAFP Location:[facility] Appointment Type:FM Open Future Scheduled Tests Laboratory* HgbA1c 08/20/23 * HgbA1c 06/17/23 * HgbA1c 09/02/23 * HgbA1c 03/02/24 * HgbA1c 12/17/23 * Basic Metabolic Panel 06/17/23 * Basic Metabolic Panel 12/17/23 * Hepatic Function Panel 06/17/23 * Lipid Panel 12/17/23 [facility] Evaluation + Plan note Future Appointments Appointment Date:07/21/2024 11:40:00 AM Scheduled Provider:Yunier SIMPSON DO, FAAFP Location:[facility] Appointment Type:FM Open Future Scheduled Tests Laboratory* HgbA1c 08/20/23 * HgbA1c 09/02/23 * HgbA1c 12/17/23 [facility] evaluation + Plan note Future Appointments Appointment Date:01/19/2025 08:40:00 AM Scheduled Provider:Yunier SIMPSON DO, FAAFP Location:[facility] Appointment Type:FM Open Future Scheduled Tests Laboratory* HgbA1c 08/20/23 * HgbA1c 09/02/23 * HgbA1c 12/17/23 [facility] evaluation + Plan note Future Appointments Appointment Date:01/19/2025 08:40:00 AM Scheduled Provider:Yunier SIMPSON DO, FAAFP Location:[facility] Appointment Type:FM Open Future Scheduled Tests Laboratory* HgbA1c 09/29/24 * HgbA1c 09/02/23 * HgbA1c 12/17/23 [facility] evaluation note* Diagnosis Traumatic complete tear of right rotator cuff, initial encounter- Primary Closed displaced fracture of acromial process of right scapula, initial encounter Closed fracture of glenoid cavity and neck of right scapula, initial encounter [facility] Diagnosis Traumatic complete tear of right rotator cuff, initial encounter- Primary Pre-op exam Preoperative examination, unspecified [facility] Diagnosis Traumatic complete tear of [...] Preoperative examination, unspecified [facility]* Diagnosis S/P right rotator cuff repair- Primary [facility]* Diagnosis S/P right rotator cuff repair- Primary Traumatic complete tear of right rotator cuff, initial encounter [facility] this [facility]* Diagnosis S/P right rotator cuff repair- Primary [facility]* Diagnosis S/P right rotator cuff repair- Primary [facility] this [facility]* Diagnosis Bilateral occipital neuralgia- Primary Other syndromes affecting cervical region Cervicogenic headache Headache [facility] Diagnosis Right shoulder pain, unspecified chronicity Postoperative pain Other acute postoperative pain documented in this encounter [facility]* Diagnosis Influenza A- Primary Influenza with other respiratory manifestations Acute cough Atrial fibrillation, unspecified type (HCC) Syncope, unspecified syncope type [facility] noteNo assessment information availableHolzer Medical [facility] Work Phone: History general Narrative - Reported* Type Description Date Medical History Diabetes Medical Historya-fibSurgical Historyshoulder surgery [facility]Funeral Other Hospital course Narrative No data available for this section [facility] Dis[facility] No data available for this section [facility] No data available for this section [facility] (narrative)* Outpatient Procedure (Routine) - Pending ReviewSpecialtyDiagnoses / ProceduresReferred By ContactReferred To [facility] Diagnoses Traumatic complete tear of right rotator cuff, initial encounter Pre-op exam Procedures ECG COMPLETE ECG ROUTINE ECG W/LEAST 12 LDS W/I&R Katie Lozano MD [address] [place] [address] [facility] [place] [address] Referral IDStatusReasonStart DateExpiration DateVisits RequestedVisits [id number] Auto-Generated Referral / [facility] for referral (narrative)* Outpatient Procedure (Routine) - AuthorizedSpecialtyDiagnoses / ProceduresReferred By ContactReferred To [facility] Diagnoses Pre-op evaluation Procedures ECG COMPLETE ECG ROUTINE ECG W/LEAST 12 LDS W/I&R Clara Justice APRN.CNP [address] [place] [address] [facility] [address] [place] [address] Referral IDStatus[facility] DateExpiration DateVisits RequestedVisits [id number] Auto-Generated Referral / T [facility] for referral (narrative)* Diagnostic Procedure Only (Routine) - Pending ReviewSpecialtyDiagnoses / ProceduresReferred By Contact Referred To ContactXR IMAGING Diagnoses S/P right rotator cuff repair Traumatic complete tear of right rotator cuff, initial encounter Procedures XR SHOULDER GENERAL 3V OR MORE AP/TRUE AP/OTHER RIGHT RADEX SHOULDER COMPLETE MINIMUM 2 VIEWS Katie Lozano MD [address] [place] [id number] Xr Imaging Referral IDStatusBall[facility] Health DateExpiration DateVisits RequestedVisits [id number] Review Auto-Generated Referral / T [facility] for referral (narrative)* - Pending ReviewSpecialty Diagnoses / ProceduresReferred By ContactReferred To ContactPhysical Therapy Diagnoses S/P right rotator cuff repair Procedures CONSULT TO PHYSICAL THERAPY Katie Lozano MD [address] [id number] Referral IDStatusasonStsaint bonifacius DateExpiration DateVisits RequestedVisits [id number] Review/ [facility] for referral (narrative)* Diagnostic Procedure Only (Routine) - ClosedSpecialtyDiagnoses / ProceduresReferred By ContactReferred To ContactXR IMAGING Diagnoses Right shoulder pain, unspecified chronicity Procedures XR SHOULDER ORTHO 4V AP/TRUE AP/LAT/OUTLET RIGHT RADEX SHOULDER COMPLETE MINIMUM 2 VIEWS Ronal Nagy PA-C [address] [place] [address] [place] [address] Referral IDStatusReasonStsaint bonifacius DateExpiration DateVisits RequestedVisits [id number] Auto-Generated Referral [facility] for referral (narrative) , JIMENEZ Referred by: [facility] Reason for referral (narrative)No reason for referral information availableHol[facility] Work Phone: Retbyq for visit Narrative* Diagnostic Procedure Only (Routine) - ClosedSpecialtyDiagnoses / ProceduresReferred By ContactReferred To ContactXR IMAGING Diagnoses Right shoulder pain, unspecified chronicity Procedures XR SHOULDER ORTHO 4V AP/TRUE AP/LAT/OUTLET RIGHT RADEX SHOULDER COMPLETE MINIMUM 2 VIEWS Ronal Nagy PA-C [address] [place] [address] [place] [address] Referral IDStatusReasonStsaint bonifacius DateExpiration DateVisits RequestedVisits [id number] Auto-Generated Referral [facility] Summary Purpose Family History No Family History Records Found Relationship Condition Age at Onset Recorded Date/T la brother Unknown fatherMyocardial infarctionUnknownHeart diseaseUnknownDeceasedUnknownfamily memberDeceasedUnknownmotherHeart diseaseUnknown Advance Directives No Advanced Directives Records FoundDocuments on File TypeDate RecordedPatient RepresentativeExplanationAdvance Directive(s)02/04/2022 4:27 PMTypeDate RecordedPatient RepresentativeExplanationAdvance Directive(s) 02/04/2022 4:27 PM Advance Directive Response [...] section and content) DATE CREATED AUTHOR 09/19/2018 [facility] DATE CREATED AUTHOR AUTHOR'S ORGANIZ ATION 12/19/2021 [facility] [employer] DATE CREATED AUTHOR AUTHOR'S ORGANIZ ATION 10/04/2022 [facility] DATE CREATED AUTHOR AUTHOR'S ORGANIZ ATION 11/16/2022 [facility] DATE CREATED AUTHOR AUTHOR'S ORGANIZ ATION 12/11/2023 [facility] DATE CREATED AUTHOR AUTHOR'S ORGANIZ ATION 07/16/2024 [facility] DATE CREATED AUTHOR AUTHOR'S ORGANIZ ATION 10/23/2024 [facility] DATE CREATED AUTHOR AUTHOR'S ORGANIZ ATION 11/21/2024 [facility] DATE CREATED AUTHOR AUTHOR'S ORGANIZ ATION 07/13/2025 [facility] DATE CREATED AUTHOR AUTHOR'S ORGANIZ ATION 07/14/2025 [facility] Source Comments (unrecognize d section and content) In the event this informatio n is protected by the Federal Confidentiality of Alcohol and Drug Abuse Patient Records regulations: The Federal rules restrict any use of the information to criminally investigate or prosecute any alcohol or drug abuse patient.[facility] HospitalIn the event this information is protected by the Federal Confidentiality of Alcohol and Drug Abuse Patient Records regulations: The Federal rules restrict any use of the information to criminally investigate or prosecute any alcohol or drug abuse patient.[facility] HospitalIn the event this information is protected by the Federal Confidentiality of Alcohol and Drug Abuse Patient Records regulations: The Federal rules restrict any use of the information to criminally investigate or prosecute any alcohol or drug abuse patient.[facility] HospitalIn the event this information is protected by the Federal Confidentiality of Alcohol and Drug Abuse Patient Records regulations: The Federal rules restrict any use of the information to criminally investigate or prosecute any alcohol or drug abuse patient.[facility] HospitalIn the event this information is protected by the Federal Confidentiality of Alcohol and Drug Abuse Patient Records regulations: The Federal rules restrict any use of the information to criminally investigate or prosecute any alcohol or drug abuse patient.[facility] HospitalIn the event this information is protected by the Federal Confidentiality of Alcohol and Drug Abuse Patient Records regulations: The Federal rules restrict any use of the information to criminally investigate or prosecute any alcohol or drug abuse patient.[facility] HospitalIn the event this information is protected by the Federal Confidentiality of Alcohol and Drug Abuse Patient Records regulations: The Federal rules restrict any use of the information to criminally investigate or prosecute any alcohol or drug abuse patient.[facility] HospitalIn the event this information is protected by the Federal Confidentiality of Alcohol and Drug Abuse Patient Records regulations: The Federal rules restrict any use of the information to criminally investigate or prosecute any alcohol or drug abuse patient.[facility] HospitalIn the event this information is protected by the Federal Confidentiality of Alcohol and Drug Abuse Patient Records regulations: The Federal rules restrict any use of the information to criminally investigate or prosecute any alcohol or drug abuse patient.[facility] HospitalIn the event this information is protected by the Federal Confidentiality of Alcohol and Drug Abuse Patient Records regulations: The Federal rules restrict any use of the information to criminally investigate or prosecute any alcohol or drug abuse patient.[facility] HospitalIn the event this information is protected by the Federal Confidentiality of Alcohol and Drug Abuse Patient Records regulations: The Federal rules restrict any use of the information to criminally investigate or prosecute any alcohol or drug abuse patient.[facility] Reason for Visit (unrecogniz ed section and content) ReasonCommentsNewPainReasonCommentsNewFracturePainReasonCommentsAnesthesia ConsultReasonCommentsRecheckReasonCommentsPost OpReasonCommentsPost OpReason CommentsFollow UpReasonCommentsHeadacheSpecialtyDiagnoses / ProceduresReferred By ContactReferred To ContactNeurology Diagnoses Occipital neuralgia, unspecified laterality Yunier Simpson DO [address] [place] [address] [facility] [address] [place] [address] Referral IDStatusReasonStart DateExpiration DateVisits RequestedVisits [id number] [id number]/ Care Teams (unrecognized sec tion and content) Team MemberRelationshipSpecialtyStart DateEnd Date Yunier Simpson, DO [address] [place] [phone] PCP - GeneralFamily Practice12/30/21Team MemberRelationshipSpecialtyStart DateEnd Date Yunier Simpson, DO [address] [place] [address] PCP - GeneralFamily Practice12/30/21Team MemberRelationshipSpecialtyStart DateEnd Date Yunier Simpson, DO [address] [place] [phone] PCP - GeneralFamily Practice12/30/21Team MemberRelationshipSpecialtyStart DateEnd Date Yunier Simpson, DO [address] [place] [address] PCP - GeneralFamily Practice12/30/21Team MemberRelationshipSpecialtyStart DateEnd Date Yunier Simpson, DO [address] [place] [phone] PCP - GeneralFamily Practice12/30/21Team MemberRelationshipSpecialtyStart DateEnd Date Yunier Simpson DO [address] [place] [address] PCP - GeneralFamily Practice12/30/21Team MemberRelationshipSpecialtyStart DateEnd Date Yunier Simpson DO [address] [place] [phone] PCP - GeneralFamily Practice12/30/21Team MemberRelationshipSpecialtyStart DateEnd Date Yunier Simpson DO [address] [place] [address] [facility] - [facility]/30/21Team MemberRelationshipSpecialtyStart DateEnd Date Yunier Simpson DO [address] [place] [address] PCP - [facility] Medicine12/30/21Team MemberRelationshipSpecialtyStart DateEnd Date Yunier Simpson DO [address] [place] [address] PCP - [facility] Medicine12/30/21Team MemberRelationshipSpecialtyStart DateEnd Date Yunier Simpson MD [address] [place] [address] PCP - [facility] Medicine11/16/24Team MemberRelationshipSpecialtyStart DateEnd Date Yunier Simpson MD [address] [place] [address] PCP - [facility] Medicine11/16/24 Team Status: Active Member Role Status Dates Yunier Simpson DO Primary Care Provider Active Team Status: Inactive Member Role Status Dates Yunier Simpson DO Primary Care Provider Active Start: July 08, 2025 End: July 08, 2025Tri Berger APRN HOUSEHOLD COOK-CAttending Provider ActiveStart: July 08, 2025 End: July 08, 2025 Goals (unrecognized section [...] BE BASED ON THE PRIMARY CLINICAL RECORDS. [facility]. provides no warranty or guarantee of the accuracy or completeness of information in this document.
--- OUTSIDE RECORDS SUMMARY | 2025-08-03 07:05 | XMS_ITS | Clinical Summary ---
Author Organization [facility] Address [address] [place] [address] Care Team Providers Care Captain Waiter Name Role Phone Yunier Simpson MD Primary Care Provider [phone] Allergies No known active allergies Medications MedicationSigDispense QuantityRefillsLast FilledStart DateEnd DateStatus Rivaroxaban (Xarelto) 1 MG/ML reconstituted suspension XareltoActive Social History Tobacco UseTypesPacks/DayYears UsedDateSmoking Tobacco: Never AssessedSex and Gender InformationValueDate RecordedSex Assigned at BirthNot on fileLegal Sex Male12/23/2022 7:01 PM EDTGender IdentityNot on fileSexual OrientationNot on file Last Filed Vital Signs Vital SignReadingTime TakenCommentsBlood Sresxmdy679/6202/03/2025 10:00 AM EST Abwfa138011/16/2024 10:00 AM BNZMlfxmvdtxms74.2 ??C (97.2 ??F)11/16/2024 10:00 AM ESTRespiratory Rate--Oxygen Qxmkxqulld30%11/16/2024 10:00 AM ESTInhaled Oxygen Concentration--Hsbvpl262 kg (239 lb)12/26/2021 12:00 PM KJZNvxafc220.4 cm (6' 1 )12/26/2021 12:00 PM EDTBody Mass Index31.53012/26/2021 12:00 PM EDT Plan of Treatment Not on file Insurance Care Teams Team MemberRelationshipSpecialtyStart DateEnd Date Yunier Simpson MD [address] [place] [address] PCP [facility]11/16/24
== END 2025-08-03 07:02 | disposition home or self-care (01) ==
LOC: CARD 07:01
PROVIDERS: PCP Family Medicine
DX: I48.20 Chronic atrial fibrillation, unspecified (principal); Z79.01 Long term (current) use of anticoagulants; E78.1 Pure hyperglyceridemia; R79.89 Other specified abnormal findings of blood chemistry; Z91.199 Patient's noncompliance with other medical treatment and regimen due to unspecified reason; F10.90 Alcohol use, unspecified, uncomplicated; Z78.9 Other specified health status; Z68.30 Body mass index [BMI] 30.0-30.9, adult; R94.31 Abnormal electrocardiogram [ECG] [EKG]; R55 Syncope and collapse
CPT/HCPCS: 93242